=== PATIENT | female | born 1970 | race Caucasian/White ===

== ENCOUNTER 2019-06-03 18:11 | Emergency (ER) | payer BC, SELFPAY ==
[2019-06-03 18:36] VITALS: BP 156/110; PULSE 101; RESP 18; TEMP 36.7; O2SAT 99; BMI 46.1
--- NOTE | 2019-06-03 18:52 | XRR_ITS ---
PROCEDURE INFORMATION: Exam: XR Chest, 1 View Exam date and time: 06/03/2019 7:49 PM Age: 49 years old Clinical indication: Shortness of breath; Additional info: SOB, chest pressure TECHNIQUE: Imaging protocol: XR of the chest Views: 1 view. COMPARISON: No relevant prior studies available. FINDINGS: Lungs: Unremarkable. No consolidation. Pleural space: Unremarkable. No pleural effusion. No pneumothorax. Heart/Mediastinum: Unremarkable. No cardiomegaly. Bones/joints: Unremarkable. XR/XR chest 1V portable [id number] IMPRESSION: No acute findings.
--- NOTE | 2019-06-03 18:57 | ECG_ITS ---
Measurements Intervals Portia Rate: 91 P: 60 OR: 176 QRS: 46 QRSD: 90 T: 44 QT: 344 QTc: 425 SINUS RHYTHM LOW QRS VOLTAGE IN PRECORDIAL LEADS [QRS DEFLECTION < 1.0 mV IN CHEST LEADS] No previous ECG available for comparison Electronically Signed On 06-04-2019 14:58:11 SCREENING REPRESENTATIVE by Soni Chavez M.D. [id number]
[2019-06-03 19:13] LABS: Basophils # 0.1 10^3/uL (0.0-0.1); Basophils % 0.6 %; Eosinophils # 0.5 10^3/uL (0.0-0.8); Eosinophils % 5.4 %; Hematocrit 41.3 % (37.0-47.0); Hemoglobin 13.2 g/dL (11.5-15.3); Lymphocytes # 2.2 10^3/uL (0.8-4.8); Lymphocytes % 24.9 %; Mean Corpuscular Hemoglobin 27.7 pg (28.0-34.0); Mean Corpuscular Volume 86.6 fL (81-99); Mean Platelet Volume 10.3 fL (7.4-10.4); Monocytes # 0.6 10^3/uL (0.2-0.9); Monocytes % 7.3 %; Neutrophils # 5.4 10^3/uL (1.8-7.7); Neutrophils % 61.6 %; Nucleated Red Blood Cells % 0 %; Platelet Count 301 10^3/cmm (130-400); Red Blood Count 4.77 10^6/uL (4.1-5.3); Red Cell Distribution Width 13.4 % (12.1-15.1); White Blood Count 8.7 10^3/uL (4.0-10.0)
[2019-06-03 19:34] LABS: Troponin(5th) Baseline 7 ng/mL (0-10)
[2019-06-03 19:48] LABS: Alanine Aminotransferase 35 U/L (0-33); Alkaline Phosphatase 147 IU/L (35-105); Anion Gap 16.7 (5-19); Aspartate Amino Transferase 29 U/L (0-32); Blood Urea Nitrogen 18 mg/dL (6-20); Calcium 10.1 mg/Dl (8.6-10.0); Carbon Dioxide 26 mmol/L (22-29); Chloride 96 mmol/L (98-107); Globulin 3.9 g/dL (1.3-4.6); Glomerular Filtration Rate 89.7 mL/min (90-130); Glucose 120 mg/dL (74-109); NT Pro B Type Natriuretic Pept 5 pg/mL (0-125); Potassium 3.7 mmol/L (3.5-5.1); Sodium 135 mmol/L (136-145); Total Bilirubin 0.2 mg/dL (0.15-1.2); Total Protein 7.9 g/dL (6.6-8.7)
--- NOTE | 2019-06-03 21:00 | ED_ITS ---
Entered by Domi Armendariz, acting as scribe for Jun 03, 2019 18:11 HPI - SOB/Dyspnea General: Chief Complaint: Shortness of Breath/Dyspnea Stated Complaint: SOB Time Seen by Provider: 06/03/19 21:00 Source: patient Mode of arrival: ambulatory Limitations: no limitations History of Present Illness: HPI Narrative: 49 yo m came to the er pov with sob. Onset was tonight. PT states that she walked about 120 ft to get a package and she had tos top several times to catch her breath. PT states that she felt like she was going to pass out. Pt denies any fever or cough at this time. Associated symptoms: Deny abdominal pain, chest pain, fever(s) or polyuria Review of Systems General: Reports: 10 or more systems reviewed and unremarkable except in HPI and below Const: Denies: fever Eyes: Denies: change in vision ENMT: Denies: throat pain Card: Denies: chest pain Resp: Reports: shortness of breath; Denies: productive cough GI: Denies: abdominal pain : Denies: flank pain Musc: Denies: neck pain Skin/Breast: Denies: rash Neuro: Denies: headache Psych: Denies: anxiety Endo: Denies: excessive urination Brett/Lymph: Denies: easy bruising All/Imm: Denies: hives PFSH ED PFSH: Statuses (acute, chronic, etc) shown below reflect problem list status as previously entered and may not be historically accurate Medical History (Updated 06/03/19 @ 22:17 by Walter Ojeda DO) Acquired lymphedema of lower extremity (Acute) Social History Smoking and tobacco status: never smoked Physical Exam Const: COMMON NORMALS: no apparent distress Eye: COMMON NORMALS: PERRL PUPIL: Yes PERRL Neck/C-Spine: COMMON NORMALS: full ROM and no JVD Chest: COMMONS NORMALS: inspection of chest normal Resp: COMMON NORMALS: normal respiratory effort and clear to auscultation bilaterally AUSCULTATION: clear to auscultation bilaterally Cardio: COMMON NORMALS: no JVD, regular rate and regular rhythm RATE: regular rate RHYTHM: regular rhythm HEART SOUNDS: no murmurs GI: COMMON NORMALS: normal to inspection, nondistended, normoactive bowel sounds : COMMON NORMALS: Yes no CVA tenderness BLADDER/KIDNEY EXAM: Yes no CVA tenderness Back/Pelvis: COMMON NORMALS: no CVA tenderness Extremity: COMMON NORMALS: normal to inspection Psych: COMMON NORMALS: mental status grossly normal Skin: COMMON NORMALS: no rashes or lesions noted GENERAL SKIN EXAM: no rashes or lesions noted Course Vital Signs: Vital signs: Vital Signs Temperature 98.3 F 06/03/19 22:45 Pulse Rate 104 H 06/03/19 22:45 Respiratory Rate 18 06/03/19 22:45 Blood Pressure 149/96 06/03/19 22:45 Pulse Oximetry 96 06/03/19 22:45 MDM - SOB/Dyspnea MDM Narrative: Medical decision making narrative: 51-year-old female presents with chest discomfort and shortness of breath. She had recently started some hydrochlorothiazide. On exam, she had been mildly tachycardic at rest. Now at rest, her rhythm is sinus in the 80s. Oxygen saturation is 97% on room air. Blood pressure 142/93. Her laboratory shows a potassium of 3.7. Her other indices are essentially normal. Her d-dimer is negative. Her troponins are negative x2. Her EKG show sinus rhythm without any ST change. Chest x-ray is negative. She will be allowed home. She needs an outpatient stress test Lab Data: Labs: Lab Results 06/03/19 06/03/19 06/03/19 Range/Units 19:06 19:06 19:06 WBC 8.7 (4.0-10.0) 10^3/ uL RBC 4.77 (4.1-5.3) 10^6/u L Hgb 13.2 (11.5-15.3) g/dL Hct 41.3 (37.0-47.0) % MCV 86.6 (81-99) fL MCH 27.7 L (28.0-34.0) pg MCHC 32.0 (30.0-36.0) g/dL RDW 13.4 (12.1-15.1) % Plt Count 301 (130-400) 10^3/c mm MPV 10.3 (7.4-10.4) fL Neut % (Auto) 61.6 % Lymph % (Auto) 24.9 % [place] % (Auto) 7.3 % Eos % (Auto) 5.4 % Baso % (Auto) 0.6 % Neut # (Auto) 5.4 (1.8-7.7) 10^3/u L Lymph # (Auto) 2.2 (0.8-4.8) 10^3/u L [place] # (Auto) 0.6 (0.2-0.9) 10^3/u L Eos # (Auto) 0.5 (0.0-0.8) 10^3/u L Baso # (Auto) 0.1 (0.0-0.1) 10^3/u L Nucleated RBC % (a uto) 0 % Nucleated RBCs # 0.0 /100WBC D-Dimer (0-0.59) ug/mIFE U Sodium 135 L (136-145) mmol/L Potassium 3.7 (3.5-5.1) mmol/L Chloride 96 L (98-107) mmol/L Carbon Dioxide 26 (22-29) mmol/L Anion Gap 16.7 (5-19) BUN 18 (6-20) mg/dL Creatinine 0.7 (0.5-0.9) mg/dL GFR Calculation 89.7 L (90-130) mL/min Glucose 120 H (74-109) mg/dL Calcium 10.1 H (8.6-10.0) mg/Dl Total Bilirubin 0.2 (0.15-1.2) mg/dL AST 29 (0-32) U/L ALT 35 H (0-33) U/L Alkaline Phosphata se 147 H (35-105) IU/L Troponin T Baselin e 7 (0-10) ng/mL Troponin T 120 Min [place] (0-10) ng/mL Delta Troponin T (0-10) ABS# NT-Pro-B Natriuret Pep 5 (0-125) pg/mL Total Protein 7.9 (6.6-8.7) g/dL Albumin 4.0 (3.5-5.2) g/dL Globulin 3.9 (1.3-4.6) g/dL 06/03/19 06/03/19 Range/Units 19:06 20:58 WBC (4.0-10.0) 10^3/ uL RBC (4.1-5.3) 10^6/u L Hgb (11.5-15.3) g/dL Hct (37.0-47.0) % MCV (81-99) fL MCH (28.0-34.0) pg MCHC (30.0-36.0) g/dL RDW (12.1-15.1) % Plt Count (130-400) 10^3/c mm MPV (7.4-10.4) fL Neut % (Auto) % Lymph % (Auto) % [place] % (Auto) % Eos % (Auto) % Baso % (Auto) % Neut # (Auto) (1.8-7.7) 10^3/u L Lymph # (Auto) (0.8-4.8) 10^3/u L [place] # (Auto) (0.2-0.9) 10^3/u L Eos # (Auto) (0.0-0.8) 10^3/u L Baso # (Auto) (0.0-0.1) 10^3/u L Nucleated RBC % (a uto) % Nucleated RBCs # /100WBC D-Dimer 0.30 (0-0.59) ug/mIFE U Sodium (136-145) mmol/L Potassium (3.5-5.1) mmol/L Chloride (98-107) mmol/L Carbon Dioxide (22-29) mmol/L Anion Gap (5-19) BUN (6-20) mg/dL Creatinine (0.5-0.9) mg/dL GFR Calculation (90-130) mL/min Glucose (74-109) mg/dL Calcium (8.6-10.0) mg/Dl Total Bilirubin (0.15-1.2) mg/dL AST (0-32) U/L ALT (0-33) U/L Alkaline Phosphata se (35-105) IU/L Troponin T Baselin e (0-10) ng/mL Troponin T 120 Min crow 7.29 (0-10) ng/mL Delta Troponin T 0.29 (0-10) ABS# NT-Pro-B Natriuret Pep (0-125) pg/mL Total Protein (6.6-8.7) g/dL Albumin (3.5-5.2) g/dL Globulin (1.3-4.6) g/dL Discharge Plan Discharge Patient Disposition: Home, Self-Care Clinical Impression: Chest pain Condition: Stable Referrals: Blossom Sung FNP [Family Provider] - (If you do not hear from themCase management will set you up for an outpatient stress test. By Thursday, Dial [phone] and ask for the ER child welfare caseworker. Return to the emergency department for any return of your chest pain, significant shortness of breath, other concerning symptoms. You might consider stopping your hydrochlorothiazide, as it may be a cause of your symptoms.) Discharge Diet: Usual diet Discharge Activity: Limit activity as instructed Patient Instructions: Chest Pain (ED) Activity Restrictions/Additional Instructions: No strenuous activity until cleared by your doctor. Discharge Date/Time: 06/03/19 22:49 Coding Level of Care Code ED Websphere Developer for Chg Fwd Exam Problem Focused The documentation recorded by the Marcello alva Stephanie Lyn, accurately reflects the service I personally performed and the decisions made by , Walter Ojeda, Jun 03, 2019 18:11
[2019-06-03 21:11] VITALS: BP 137/93; PULSE 100; RESP 18; O2SAT 99
[2019-06-03 21:12] VITALS: O2SAT 99
--- NOTE | 2019-06-03 21:14 | PC.NURSE ---
EKG done @ 2053 and shown to ED doctor.
[2019-06-03 21:26] LABS: Troponin 5 2HR 7.29 ng/mL (0-10)
[2019-06-03 21:40] LABS: Troponin 5 2HR Delta 0.29 ABS# (0-10)
--- NOTE | 2019-06-03 21:48 | ED_ITS ---
HPI - SOB/Dyspnea General: Chief Complaint: Shortness of Breath/Dyspnea Stated Complaint: SOB Time Seen by Provider: 06/03/19 21:00 Source: patient Mode of arrival: ambulatory Limitations: no limitations History of Present Illness: Associated symptoms: Reports chest pain and palpitations; Deny abdominal pain, dizziness, fever(s), nausea, orthopnea or vomiting Review of Systems Const: Denies: fever or chills Eyes: Denies: change in vision or blurry vision ENMT: Denies: painful swallowing, swelling of lips/tongue, bleeding gums, de ntal pain, Change in hearing, nose bleeds, post nasal drip or facial/sinus pain Card: Reports: chest pain, palpitations and shortness of breath on exertion; Denies: irregular heart rhythm, edema, swelling of feet/ankles or shortness of breath when lying down Resp: Reports: shortness of breath; Denies: productive cough, non-productive cough or wheezing GI: Denies: abdominal pain, nausea, vomiting, rectal pain, blood in stool or black tarry stool : Denies: painful urination, urinary frequency, urinary urgency or blood in urine Musc: Denies: neck pain, back pain, redness or joint warmth Skin/Breast: Denies: rash, itching or redness Neuro: Denies: headache, dizziness, vertigo, confusion or seizure-like activity Psych: Denies: anxiety, visual hallucinations or auditory hallucinations PFSH ED PFSH: Statuses (acute, chronic, etc) shown below reflect problem list status as previously entered and may not be historically accurate Medical History (Updated 06/03/19 @ 22:17 by Walter Ojeda DO) Acquired lymphedema of lower extremity (Acute) Social History Smoking and tobacco status: never smoked Physical Exam Const: COMMON NORMALS: alert GENERAL APPEARANCE: well developed ORIENTATION/CONSCIOUSNESS: Yes awake, Yes oriented to person, Yes oriented to place and Yes oriented to time HENMT: COMMON NORMALS: normocephalic, external ears normal, external nose normal and moist oral mucous membranes HEAD & SCALP: normocephalic; no scalp tenderness FACE & SINUS: normal facial exam NOSE: external nose normal and no nasal discharge EXTERNAL EAR: Yes external ears normal MOUTH: tongue normal TEETH & GINGIVA: no abnormal tooth and associated gingiva THROAT: posterior oropharynx normal; no peritonsillar mass Eye: COMMON NORMALS: PERRL, EOMs intact bilaterally and conjunctivae normal EYELID: eyelids normal CONJUNCTIVA: Yes conjunctivae normal PUPIL: Yes PERRL Neck/C-Spine: COMMON NORMALS: full ROM GENERAL: No anterior neck swelling and No tracheal deviation CERVICAL SPINE: Yes normal cervical lordosis, No cervical spine tenderness, No step off deformity, No paracervical muscle tenderness and No paracervical muscle spasm Chest: COMMONS NORMALS: inspection of chest normal CHEST: Yes symmetrical chest wall rise and No tenderness Resp: COMMON NORMALS: clear to auscultation bilaterally EFFORT & INSPECTION: No tachypneic, No respiratory distress, No retractions, No uses accessory muscles and No tracheal deviation AUSCULTATION: clear to auscultation bilaterally, no rhonchi, no wheezes and lung sounds not diminished Cardio: COMMON NORMALS: regular rate and regular rhythm RATE: regular rate RHYTHM: regular rhythm HEART SOUNDS: no murmurs PERIPHERAL PULSES: radial pulses present GI: INSPECTION: No abdominal distension AUSCULTATION: No hyperactive bowel sounds and No hypoactive bowel sounds PALPATION: No tender, No guarding and No rigid PERCUSSION: no dullness to percussion and no tympanic to percussion : COMMON NORMALS: Yes no CVA tenderness BLADDER/KIDNEY EXAM: Yes no CVA tenderness Back/Pelvis: COMMON NORMALS: no CVA tenderness PELVIS: Yes no pain with anterior-posterior compression and Yes no pain with lateral compression Neuro: SENSORIUM/ORIENTATION: Yes alert, Yes oriented to person, Yes oriented to place and Yes oriented to time Psych: COMMON NORMALS: mental status grossly normal and speech normal SPEECH: Yes normal speech Skin: COMMON NORMALS: no rashes or lesions noted GENERAL SKIN EXAM: no rashes or lesions noted Course Vital Signs: Vital signs: Vital Signs Temperature 98.3 F 06/03/19 22:45 Pulse Rate 104 H 06/03/19 22:45 Respiratory Rate 18 06/03/19 22:45 Blood Pressure 149/96 06/03/19 22:45 Pulse Oximetry 96 06/03/19 22:45 MDM - SOB/Dyspnea MDM Narrative: Medical decision making narrative: 49-year-old female presents with chest pain and shortness of breath. Is resolved. Her troponins did not change. Her EKGs have been sinus without ST changes x2 sets, 2 hours apart. Her d-dimer was negative. Her chest x-ray was negative. She had recently been started on hydrochlorothiazide, and her potassium went from 4.4-3.7. This may be the cause of her symptoms. She was given potassium here to replete. She will go for an outpatient stress test which has been ordered. Lab Data: Labs: Lab Results 06/03/19 06/03/19 06/03/19 Range/Units 19:06 19:06 19:06 WBC 8.7 (4.0-10.0) 10^3/ uL RBC 4.77 (4.1-5.3) 10^6/u L Hgb 13.2 (11.5-15.3) g/dL Hct 41.3 (37.0-47.0) % MCV 86.6 (81-99) fL MCH 27.7 L (28.0-34.0) pg MCHC 32.0 (30.0-36.0) g/dL RDW 13.4 (12.1-15.1) % Plt Count 301 (130-400) 10^3/c mm MPV 10.3 (7.4-10.4) fL Neut % (Auto) 61.6 % Lymph % (Auto) 24.9 % [place] % (Auto) 7.3 % Eos % (Auto) 5.4 % Baso % (Auto) 0.6 % Neut # (Auto) 5.4 (1.8-7.7) 10^3/u L Lymph # (Auto) 2.2 (0.8-4.8) 10^3/u L [place] # (Auto) 0.6 (0.2-0.9) 10^3/u L Eos # (Auto) 0.5 (0.0-0.8) 10^3/u L Baso # (Auto) 0.1 (0.0-0.1) 10^3/u L Nucleated RBC % (a uto) 0 % Nucleated RBCs # 0.0 /100WBC D-Dimer (0-0.59) ug/mIFE U Sodium 135 L (136-145) mmol/L Potassium 3.7 (3.5-5.1) mmol/L Chloride 96 L (98-107) mmol/L Carbon Dioxide 26 (22-29) mmol/L Anion Gap 16.7 (5-19) BUN 18 (6-20) mg/dL Creatinine 0.7 (0.5-0.9) mg/dL GFR Calculation 89.7 L (90-130) mL/min Glucose 120 H (74-109) mg/dL Calcium 10.1 H (8.6-10.0) mg/Dl Total Bilirubin 0.2 (0.15-1.2) mg/dL AST 29 (0-32) U/L ALT 35 H (0-33) U/L Alkaline Phosphata se 147 H (35-105) IU/L Troponin T Baselin e 7 (0-10) ng/mL Troponin T 120 Min [place] (0-10) ng/mL Delta Troponin T (0-10) ABS# NT-Pro-B Natriuret Pep 5 (0-125) pg/mL Total Protein 7.9 (6.6-8.7) g/dL Albumin 4.0 (3.5-5.2) g/dL Globulin 3.9 (1.3-4.6) g/dL 06/03/19 06/03/19 Range/Units 19:06 20:58 WBC (4.0-10.0) 10^3/ uL RBC (4.1-5.3) 10^6/u L Hgb (11.5-15.3) g/dL Hct (37.0-47.0) % MCV (81-99) fL MCH (28.0-34.0) pg MCHC (30.0-36.0) g/dL RDW (12.1-15.1) % Plt Count (130-400) 10^3/c mm MPV (7.4-10.4) fL Neut % (Auto) % Lymph % (Auto) % [place] % (Auto) % Eos % (Auto) % Baso % (Auto) % Neut # (Auto) (1.8-7.7) 10^3/u L Lymph # (Auto) (0.8-4.8) 10^3/u L [place] # (Auto) (0.2-0.9) 10^3/u L Eos # (Auto) (0.0-0.8) 10^3/u L Baso # (Auto) (0.0-0.1) 10^3/u L Nucleated RBC % (a uto) % Nucleated RBCs # /100WBC D-Dimer 0.30 (0-0.59) ug/mIFE U Sodium (136-145) mmol/L Potassium (3.5-5.1) mmol/L Chloride (98-107) mmol/L Carbon Dioxide (22-29) mmol/L Anion Gap (5-19) BUN (6-20) mg/dL Creatinine (0.5-0.9) mg/dL GFR Calculation (90-130) mL/min Glucose (74-109) mg/dL Calcium (8.6-10.0) mg/Dl Total Bilirubin (0.15-1.2) mg/dL AST (0-32) U/L ALT (0-33) U/L Alkaline Phosphata se (35-105) IU/L Troponin T Baselin e (0-10) ng/mL Troponin T 120 Min [place] 7.29 (0-10) ng/mL Delta Troponin T 0.29 (0-10) ABS# NT-Pro-B Natriuret Pep (0-125) pg/mL Total Protein (6.6-8.7) g/dL Albumin (3.5-5.2) g/dL Globulin (1.3-4.6) g/dL Discharge Plan Discharge Patient Disposition: Home, Self-Care Clinical Impression: Chest pain Condition: Stable Referrals: Blossom Sung FNP [Family Provider] - (If you do not hear from themCase management will set you up for an outpatient stress test. By Thursday, Dial [phone] and ask for the ER dependency case manager. Return to the emergency department for any return of your chest pain, significant shortness of breath, other concerning symptoms. You might consider stopping your hydrochlorothiazide, as it may be a cause of your symptoms.) Discharge Diet: Usual diet Discharge Activity: Limit activity as instructed Patient Instructions: Chest Pain (ED) Activity Restrictions/Additional Instructions: No strenuous activity until cleared by your doctor. Discharge Date/Time: 06/03/19 22:49 Coding Level of Care Code ED Heat Treat Technician for Ezequiel Randhawa
[2019-06-03 22:15] VITALS: BP 155/91; PULSE 99; RESP 18; O2SAT 99
[2019-06-03 22:45] VITALS: BP 149/96; PULSE 104; RESP 18; TEMP 36.8; O2SAT 96
--- NOTE | 2019-06-07 12:59 | DCPLANNER ---
land development project manager had message to schedule an outpatient stress test. land development project manager called patient to confirm that patient wanted to have stress test and to confirm who patient sees for primary care physician. Patient stated that she does not want to have the stress test ordered at this time, she wants to wait and speak with her primary care physician. Patient stated that if she needed one then her primary care can order it.
== END 2019-06-03 22:49 | disposition home or self-care (01) ==
PROVIDERS: Family Medicine; Emergency Provider Emergency Medicine; Family Provider Registered Nurse
DX: R07.9 Chest pain, unspecified (principal)
CPT/HCPCS: 71045; 80053; 83880; 84484; 85025; 85378; 93005; 99283

== ENCOUNTER 2019-08-30 11:41 | Outpatient (CLI) | payer BC, SELFPAY ==
--- NOTE | 2019-08-30 11:47 | XR_ITS ---
WS: [id number] PROCEDURE: XR chest 2V* [id number] CLINICAL INFORMATION: SHORTNESS OF BREATH COMPARISON: June 30, 2019 FINDINGS: Heart: Normal cardiac silhouette. Lungs: Lungs are clear. No consolidation or pleural fluid. No acute pulmonary infiltrates. Bones: Hypertrophic changes mid thoracic spine. XR/XR chest 2V* [id number] IMPRESSION: No acute chest findings.
== END 2019-08-30 11:42 | disposition home or self-care (01) ==
LOC: RADWPI 11:44
PROVIDERS: Family Provider Registered Nurse; PCP Registered Nurse; Visit Provider Registered Nurse
DX: R06.02 Shortness of breath (principal)
CPT/HCPCS: 71046

== ENCOUNTER → 2019-11-30 16:30 | Outpatient (BNVA) | payer BC, SELFPAY | PROVIDERS: Family Provider Registered Nurse; PCP Registered Nurse; Visit Provider Emergency Medicine | DX: M79.642 Pain in left hand (principal); S69.90XA Unspecified injury of unspecified wrist, hand and finger(s), initial encounter; X58.XXXA Exposure to other specified factors, initial encounter | CPT/HCPCS: 73130 ==

== ENCOUNTER 2020-01-18 16:31 | Emergency (ER) | payer SELFPAY ==
[2020-01-18 16:42] VITALS: BMI 48.1
[2020-01-18 16:44] VITALS: BP 148/88; PULSE 77; RESP 18; TEMP 36.8; O2SAT 96
--- NOTE | 2020-01-18 17:32 | W.ED.EXTPRO ---
HPI - Extremity Problem General: Chief complaint: Extremity Problem,Nontraumatic Stated complaint: shoulder pain Time Seen by Provider: 01/18/20 17:32 Source: patient Mode of arrival: ambulatory Limitations: no limitations History of Present Illness: HPI Narrative: 44-year-old female comes in today with complaints of left arm numbness and tingling with pain. Patient reports difficulty for the last 9 days. Patient is unable to find relief with routine medications at home to include prescription hydrocodone, Aleve, and gabapentin. Patient does see a pain specialist in [place]. Review of Systems General: Reports: 10 or more systems reviewed and unremarkable except in HPI and below Musc: Reports: extremity pain (left arm) [facility] ED PFS: Medical History (Updated 01/18/20 @ 18:43 by SHEN Magana) Acquired lymphedema of lower extremity Social History Smoking and tobacco status: never smoked Alcohol intake: never Physical Exam Const: COMMON NORMALS: no acute distress and patient oriented x3 GENERAL APPEARANCE: cooperative HENMT: COMMON NORMALS: normocephalic and Normal external nose present HEAD & SCALP: normal to inspection and normocephalic NOSE: Normal external nose present MOUTH: Normal oral and palatal mucosa present Eye: GENERAL EYE: appearance normal, both eyes and all related structures Neck/C-Spine: OTHER: left trapezius muscle tightness and tenderness Chest: COMMONS NORMALS: normal inspection of the chest Resp: COMMON NORMALS: normal respiratory effort EFFORT & INSPECTION: Yes able to speak in complete sentences Cardio: COMMON NORMALS: regular rate and regular rhythm RATE: regular rate RHYTHM: regular rhythm GI: COMMON NORMALS: non-tender : COMMON NORMALS: Yes no CVA tenderness BLADDER/KIDNEY EXAM: Yes no CVA tenderness Back/Pelvis: COMMON NORMALS: no CVA tenderness and thoracic and lumbar spine normal to inspection Extremity: COMMON NORMALS: normal to inspection Neuro: COMMON NORMALS: patient oriented x3 and moves all extremities Psych: COMMON NORMALS: mental status grossly normal and cooperative Skin: COMMON NORMALS: no rashes or lesions noted GENERAL SKIN EXAM: no rashes or lesions noted Course Vital Signs: Vital signs: Vital Signs Temperature 98.2 F 01/18/20 16:44 Pulse Rate 77 01/18/20 16:44 Respiratory Rate 18 01/18/20 16:44 Blood Pressure 148/88 01/18/20 16:44 Pulse Oximetry 96 01/18/20 16:44 MDM - Extremity (Nontraumatic) MDM Narrative: Medical decision making narrative: Patient comes in today with tingling and discomfort to the left extremity. Patient reports radiation into her fingers. Patient has good range of motion of the shoulder. Patient does report some tenderness in her trapezius and cervical paraspinous muscles. Exam notes normal range of motion of the neck tightness of muscles in the trapezius and cervical paraspinous area. Pulses are intact. No swelling or redness is noted to the extremity. Patient has good range of motion of the hand. Differential diagnosis includes but not limited to intervertebral disc disease, facet arthropathy, foraminal stenosis. CT scan noted some probable foraminal stenosis in the C6 area. Patient was given injections for pain with recommendations for follow-up with neurology for further evaluation and treatment. Patient reported understanding agreed to plan. Discharge Plan Discharge Patient Disposition: Home Clinical Impression: Cervical radiculopathy at C6 Condition: Stable Prescriptions: New tizanidine 4 mg tablet 4 mg PO TID Qty: 20 RF: 0 No Action ketorolac 30 mg/mL solution 60 mg IM ONCE Qty: 2 RF: 0 meloxicam 15 mg tablet 15 mg PO DAILY RF: 0 gabapentin 600 mg tablet 600 mg PO TID RF: 0 hydrocodone-acetaminophen [Ione] 5-325 mg tablet 1 tab PO TID RF: 0 tizanidine 4 mg capsule 4 mg PO ONCE RF: 0 esomeprazole magnesium [Nexium] 40 mg capsule,delayed release(DR/EC) 40 mg PO DAILY RF: 0 atorvastatin 20 mg tablet 20 mg PO DAILY RF: 0 Discharge Orders: Discharge Order (Routine); Ordered 01/18/20 Ordered By: Israel Arora Referrals: Rachele Davis [Primary Care Provider] - Discharge Diet: Usual diet Discharge Activity: Increase activity as tolerated Activity Restrictions/Additional Instructions: Continue routine medications as directed. Follow-up with neurologist for further evaluation and treatment. Case management will contact you in regard to appointment follow-up. If you do not hear from foster care case manager in two days contact ER charge nurse. Drink plenty of water with medications. Return to ER for new concerns. Coding Level of Care Code ED Insulation Board Calender Operator for Chg Fwd Exam Comprehensive
--- NOTE | 2020-01-18 17:40 | CT_ITS ---
WS: [id number] EXAM: CT cervical spin wo con* [id number] DATE OF EXAMINATION: 01/18/2020, 1805 hours COMPARISON: None. HISTORY: 50 years old with neck and shoulder pain for the last 9 days. Left arm numbness. TECHNIQUE: Transaxial computed tomography was obtained through the cervical spine and viewed in multi ple windows with reconstructions. DLP: 1003.[address] scans at [facility] use at least one of these dose optimization techniques: automat ed exposure control; mA and/or kV adjustment per patient size (includes targeted exams where dose is matched to clinical indication); or iterative reconstruction. FINDINGS: Skull base is intact. Mastoid air cells are pneumatized and well aerated. Predens space and preverteb ral soft tissue plane are normal. Slight scattered changes of arthritis are seen in the spine. Truck Headlight Assembler ior spurring C4-5, C5-6 and C6-7 levels. No fracture or subluxation malalignment is seen. Findings of slight spinal canal stenosis are felt to be present C5-C6 and C6-7 levels with left neural foraminal stenosis C6-7 level. Lung apices are clear. Thyroid gland is normal in appearance. No paraspinal mass is seen. Shotty adenopathy within the neck is most likely reactive in nature. CT/CT cervical spin wo con* [id number] IMPRESSION: Scattered changes of arthritis. No fracture or subluxation malalignment. Degene rative spondylosis changes C4-5, C5-6 and C6-7 levels with suspected spinal can al stenosis C5-6 and C6-7 levels. Left C6-7 neural foraminal stenosis secondary to uncovertebral joint spurring.
--- NOTE | 2020-01-18 17:40 | ECG_ITS ---
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 Measurements Intervals [facility] Rate: 71 P: 47 LA: 192 QRS: 26 QRSD: 116 T: 32 QT: 379 QTc: 412 Interpretive Statements SINUS RHYTHM LOW QRS VOLTAGE IN PRECORDIAL LEADS [QRS DEFLECTION < 1.0 mV IN CHEST LEADS] MODERATE INTRAVENTRICULAR CONDUCTION DELAY [110+ ms QRS DURATION] Compared to ECG 06/03/2019 21:02:16 Intraventricular conduction delay now present Electronically Signed On 01-19-2020 22:33:53 CDT by Samantha Cooley M.D. [id number]
[2020-01-18] MEDS: diazePAM 5 mg Tablet 10 MG PO (17:54)
[2020-01-18] MEDS: ketorolac 30 mg/mL INJ IM (17:55)
[2020-01-18] MEDS: dexamethasone 10 mg/mL INJ 8 MG IM (17:55)
[2020-01-18 19:18] VITALS: RESP 18; O2SAT 98
[2020-01-18] MEDS: morphine 4 mg/mL SDV 1 mL IM (19:18)
[2020-01-18 19:42] VITALS: BP 136/74; PULSE 82; RESP 18; O2SAT 98
--- NOTE | 2020-01-19 14:24 | DCPLANNER ---
Lanie had message to schedule a follow up appointment for patient with neurology. integrated campaign manager called the office of Dr. Cardoza, spoke with Nany, was told that patient could be seen by ELECT[employer] LIBRARIAN, Malorie. integrated campaign manager spoke with [facility], a follow up appointment was scheduled for Friday, January 24, 2020 at 1:00 with Malorie. Clinic will call patient with appointment information.
--- NOTE | 2020-02-17 15:42 | DCPLANNER ---
Patient had an appointment scheduled for 01.24.20 with neuroscience - patient did attend appointment.
== END 2020-01-18 19:45 | disposition home or self-care (01) ==
PROVIDERS: Emergency Provider Nurse Practitioner Family; PCP Registered Nurse
DX: M54.12 Radiculopathy, cervical region (principal)
CPT/HCPCS: 12345; 72125; 93005; 96372; 99281; 99283; J1100; J1885; J2270

== ENCOUNTER → 2020-01-26 08:22 | Outpatient (BNVA) | payer SELFPAY | PROVIDERS: PCP Registered Nurse; Visit Provider Licensed Practical Nurse | DX: M50.020 Cervical disc disorder with myelopathy, mid-cervical region, unspecified level (principal) | CPT/HCPCS: 99204 ==

== ENCOUNTER 2020-02-20 07:40 | Outpatient (CLI) | payer MEDICAID, SELFPAY ==
--- NOTE | 2020-02-20 07:58 | XR_ITS ---
WS: [id number] LATERAL CERVICAL SPINE: 3 view. Lateral radiographs are performed in upright neutral, flexion and extension to the patient's toleranc e. HISTORY: Neck pain COMPARISON: None available. Significantly limited evaluation of the lower cervical spine due to patient's body habitus. C2 through portions of C5 demonstrate mild straightening. C4 retrolisthesis by 2.6 mm does not change with flexion or extension. The lower disc spaces cannot be evaluated. XR/XR cervical spine fl/ex [id number] IMPRESSION: 1. C4 retrolisthesis by 2.6 mm without instability during flexion or extension . 2. C5-C7 cannot be evaluated due to body habitus.
--- NOTE | 2020-02-20 07:58 | MR_ITS ---
WS: [id number] MRI CERVICAL SPINE HISTORY: M50.020 Cervical disc disorder with myelopathy, mid-cervi... COMPARISON: CT 01/18/2020 Mild straightening and reversal the normal cervical lordosis. No marrow edema or fracture. Disc spaces are mildly narrowed with mild desiccation, most significant at C4-5, C5-6 and C6-7. Small hypertrophic endplate osteophytes from C4 through C7. Signal within the cord is normal. Craniocervical junction, C1 and C2 relationship, odontoid process and soft tissues are normal. C2-C3: Normal. C3-C4: Normal. C4-C5: Mild osteophytic ridging and a shallow central disc protrusion. Osteophytes extend into the fo ramen bilaterally. Very minimal narrowing of the foramen and central canal. C5-C6: Mild osteophytic ridging with a very shallow central disc protrusion and small RIGHT foraminal osteophytes. Mild RIGHT foraminal narrowing. C6-C7: Diffuse moderate osteophytic ridging and annular disc bulging. Larger disc osteophyte complex in the LEFT foramen with mild encroachment upon the exiting nerve roots on the LEFT and displacement. Moderate LEFT and mild RIGHT foraminal stenosis. C7-T1: Normal. Paraspinal soft tissue are normal. MR/MR cervical spin wo con* [id number] IMPRESSION: 1. Moderate LEFT foraminal stenosis due to disc osteophyte complex encroaching and displacing the LEFT exiting nerve roots at C6-7. 2. Mild RIGHT foraminal narrowing at C5-6 and C6-7. 3. Shallow central disc protrusion at C4-5 and C5-6.
== END 2020-02-20 07:41 | disposition home or self-care (01) ==
LOC: RADWPI 07:46
PROVIDERS: Family Provider Registered Nurse; PCP Registered Nurse; Visit Provider Licensed Practical Nurse
DX: M48.02 Spinal stenosis, cervical region (principal); M25.78 Osteophyte, vertebrae; M50.222 Other cervical disc displacement at C5-C6 level
CPT/HCPCS: 72040; 72141

== ENCOUNTER → 2020-02-21 07:56 | Outpatient (BNVA) | payer MEDICAID, SELFPAY | PROVIDERS: Family Provider Registered Nurse; PCP Registered Nurse; Visit Provider Licensed Practical Nurse | DX: M50.020 Cervical disc disorder with myelopathy, mid-cervical region, unspecified level (principal); M54.2 Cervicalgia | CPT/HCPCS: 99213 ==

== ENCOUNTER 2020-02-28 06:00 | Outpatient (RCR) | payer MEDICAID, SELFPAY | END 2020-02-29 23:59 | disposition home or self-care (01) | LOC: SPT 06:00 | PROVIDERS: PCP Registered Nurse; Referring Provider Licensed Practical Nurse; Visit Provider Licensed Practical Nurse | DX: M54.2 Cervicalgia (principal) | CPT/HCPCS: 95911; 97110; 97161 ==

== ENCOUNTER 2020-03-01 06:00 | Outpatient (RCR) | payer MEDICAID, SELFPAY | END 2020-03-31 23:59 | disposition home or self-care (01) | LOC: SPT 06:00 | PROVIDERS: PCP Registered Nurse; Referring Provider Licensed Practical Nurse; Visit Provider Licensed Practical Nurse | DX: M54.2 Cervicalgia (principal) | CPT/HCPCS: 97110 ==

== ENCOUNTER → 2020-03-02 07:46 | Outpatient (BNVA) | payer MEDICAID, SELFPAY | PROVIDERS: Family Provider Registered Nurse; PCP Registered Nurse; Referring Provider Licensed Practical Nurse; Visit Provider Specialist | DX: M50.020 Cervical disc disorder with myelopathy, mid-cervical region, unspecified level (principal) | CPT/HCPCS: 95861; 99213 ==

== ENCOUNTER → 2020-03-27 09:36 | Outpatient (BNVA) | payer MEDICAID, SELFPAY | PROVIDERS: PCP Registered Nurse; Visit Provider Licensed Practical Nurse | DX: M47.812 Spondylosis without myelopathy or radiculopathy, cervical region (principal); M50.020 Cervical disc disorder with myelopathy, mid-cervical region, unspecified level | CPT/HCPCS: 99213 ==

== ENCOUNTER 2020-08-06 15:48 | Outpatient (CLI) | payer MEDICAID, SELFPAY ==
--- NOTE | 2020-08-06 15:54 | CT_ITS ---
WS: [id number] CT ABDOMEN AND PELVIS WITH CONTRAST HISTORY: LEFT LOWER QUADRANT PAIN TECHNIQUE: Imaging performed of the abdomen and pelvis with IV contrast. Single phase imaging of the abdomen. Coronal and sagittal reformats are submitted. All CT scans at [facility] use at least one of these dose optimization techniques: automated exposure control; mA and/or kV adjustment per patient size (includes targeted exams where dose is matched to clinical indication); or iterativ e reconstruction. IV CONTRAST: Omnipaque 300; 95 mL IV. Oral contrast: No DLP: 1144.61 mGycm COMPARISON: 06/21/2014 Lower thorax: Lung bases are clear. Heart is normal size. No hiatal hernia. Liver/biliary system: Normal size with no intrahepatic dilatation. Gallbladder: Normal. No gallstones or wall thickening. No pericholecystic fluid. Pancreas: Normal. Spleen: Normal. Adrenal glands: Normal. Right kidney: Normal. Left kidney: Normal size kidney. 1.7 cm area of decreased attenuation in the mid kidney similar to th e prior study. No ureteral dilatation. Aorta: Normal. Lymphadenopathy: None. Free fluid: None. GI tract: Normal appendix. There is no GI tract obstruction. Abdominal wall: Fat-containing umbilical hernia. Pelvis: Uterus is normal size. Bilateral tubal ligation clips are noted. No adenopathy or ascites. Bones: Mild lumbar spondylosis. CT/CT abdomen pelvis w con* [id number] IMPRESSION: 1. No definite acute abnormalities are identified. The appendix is normal. 2. Quality of this examination is limited by body habitus. No renal obstructio n is identified. Small distal ureteral stones would be obscured. 3. No evidence for diverticulitis.
[2020-08-06] MEDS: iohexol 300 mg/mL 100 mL Btl IV (16:13)
== END 2020-08-06 15:49 | disposition home or self-care (01) ==
LOC: RADWPI 15:51
PROVIDERS: PCP Registered Nurse; Visit Provider Registered Nurse
DX: R10.32 Left lower quadrant pain (principal); R10.31 Right lower quadrant pain; R50.9 Fever, unspecified; R11.0 Nausea
CPT/HCPCS: 74177; Q9967

== ENCOUNTER 2020-08-08 18:43 | Emergency (ER) | payer MEDICAID, SELFPAY ==
[2020-08-08 19:19] VITALS: BP 133/83; PULSE 95; RESP 14; TEMP 36.7; O2SAT 99; BMI 48.2
--- NOTE | 2020-08-08 19:34 | USR_ITS ---
PROCEDURE INFORMATION: Exam: US Abdomen, Limited; Right Upper Quadrant Exam date and time: 08/08/2020 8:52 PM Age: 50 years old Clinical indication: Abdominal pain; Additional info: Ruq pain TECHNIQUE: Imaging protocol: US abdomen. Real time ultrasound with image documentation. Limited exam focused on the right upper quadrant. COMPARISON: US Abdomen* [id number] 05/03/2015 7:39 AM FINDINGS: Liver: The liver is grossly unremarkable but is suboptimally visualized due to body habitus. Gallbladder: Information regarding sonographic Saez sign is not reported. The gallbladder is normal. There are no stones. There is no wall thickening or pericholecystic fluid. Common bile duct: The common bile duct is nondilated measuring 4 mm. Pancreas: The visible portion of the pancreas is unremarkable. Right kidney: The right kidney is unremarkable. Aorta: The upper abdominal aorta is unremarkable. Inferior vena cava: The IVC is unremarkable in the upper abdomen. US/US gall bladder [id number] IMPRESSION: No acute findings.
--- NOTE | 2020-08-08 19:51 | W.ED.ABDPA2 ---
HPI - Abdominal Pain General: Chief Complaint: Abdominal Pain Stated Complaint: ABD Pain Time Seen by Provider: 08/08/20 19:04 Source: patient Mode of arrival: ambulatory Limitations: no limitations History of Present Illness: HPI narrative: 50-year-old female states of last 4 to 5 days she been having epigastric and right upper quadrant abdominal pain. States seems to be worse after eating as well. States the pain is sharp in nature and rates an 8 out of 10. She had a CT scan 2 days ago which showed no acute abnormalities. She had no vomiting or diarrhea. She denies any fevers. She denies any chest pain or radiation of her pain. MD elicited complaint: abdominal pain Associated Symptoms: Denies chills, dysuria and fever(s) Review of Systems Const: Denies: fever(s), chills, body aches or change in appetite Eyes: Denies: blurry vision or eye discomfort ENMT: Denies: throat pain or dental pain Card: Denies: chest pain Resp: Denies: dyspnea GI: Reports: abdominal pain : Denies: dysuria Musc: Denies: neck pain or back pain Skin/Breast: Denies: rash Neuro: Denies: headache(s) Psych: Denies: depression Brett/Lymph: Denies: easy bruising All/Imm: Denies: urticaria PFSH ED PFSH: Medical History (Updated 08/08/20 @ 21:33 by Mikayla Herr MD) Acquired lymphedema of lower extremity Cervical disc disorder with myelopathy of mid-cervical region Cervical osteoarthritis Surgical History History of elbow surgery 2018 Dr. Srinivasan Pena [facility] Orthopedic Surgery Left ulnar nerve transposition. Right ulnar nerve transposition History of knee surgery History of lumbar surgery 2016 Dr. Molina Tolentino Neurosurgeon [facility] L2-L3 decompression History of lymph node biopsy History of oral surgery History of tubal ligation Family History Mother Diabetes Father Lung disease Grandmother CHF (congestive heart failure) Social History Smoking and tobacco status: never smoked Alcohol intake: never Household members: spouse Marital status: Current occupational status: unemployed History of recent travel: No Physical Exam Const: COMMON NORMALS: no acute distress, patient oriented x3 and healthy appearing HENMT: COMMON NORMALS: normocephalic and atraumatic HEAD & SCALP: normocephalic and atraumatic Eye: COMMON NORMALS: Equal, round and reactive pupils present and EOMs intact bilaterally PUPIL: Yes Equal, round and reactive pupils present Neck/C-Spine: COMMON NORMALS: full ROM and supple Chest: COMMONS NORMALS: normal inspection of the chest and normal palpation of entire chest wall Resp: COMMON NORMALS: normal respiratory effort, No retractions, No use of accessory muscles and clear to auscultation bilaterally AUSCULTATION: clear to auscultation bilaterally Cardio: COMMON NORMALS: regular rate, regular rhythm and No murmurs present (Cardio) RATE: regular rate RHYTHM: regular rhythm GI: COMMON NORMALS: Normal to inspection, nondistended, normoactive bowel sounds present, Soft to palpation and no masses PALPATION: Yes Soft to palpation and Yes Tenderness to palpation present (GI) Details: RUQ Extremity: COMMON NORMALS: normal to inspection and full ROM Neuro: COMMON NORMALS: patient oriented x3, moves all extremities and no focal motor deficits Psych: COMMON NORMALS: mental status grossly normal, Normal thought process present and cooperative THOUGHT PROCESS: Normal thought process present Skin: COMMON NORMALS: no rashes or lesions noted and no wounds GENERAL SKIN EXAM: no rashes or lesions noted Course Vital Signs: Vital signs: Vital Signs Temperature 98.1 F 08/08/20 19:19 Pulse Rate 82 08/08/20 22:00 Respiratory Rate 18 08/08/20 22:00 Blood Pressure 125/93 08/08/20 22:00 Pulse Oximetry 98 08/08/20 22:00 MDM - Abdominal Pain MDM Narrative: Medical decision making narrative: Jo-Ann presents here with abdominal pain. Her blood work and ultrasound here showed no acute findings. She also had a recent CT scan as well. We will place her on sucralfate and she is to follow-up with surgery. She is to return if worsening. Abdominal exam at discharge is benign. She has no signs of acute surgical abdomen. Lab Data: Labs: Lab Results 08/08/20 08/08/20 08/08/20 Range/Units 20:30 20:30 20:30 WBC 7.9 (4.0-10.0) 10^3/ uL RBC 4.34 (4.1-5.3) 10^6/u L Hgb 12.1 (11.5-15.3) g/dL Hct 37.9 (37.0-47.0) % MCV 87.3 (81-99) fL MCH 27.9 L (28.0-34.0) pg MCHC 31.9 (30.0-36.0) g/dL RDW 13.6 (12.1-15.1) % Plt Count 309 (130-400) 10^3/c mm MPV 10.3 (7.4-10.4) fL Neut % (Auto) 60.7 % Lymph % (Auto) 26.6 % Eaton % (Auto) 8.0 % Eos % (Auto) 4.1 % Baso % (Auto) 0.5 % Neut # (Auto) 4.78 (1.8-7.7) 10^3/u L Lymph # (Auto) 2.1 (0.8-4.8) 10^3/u L Eaton # (Auto) 0.6 (0.2-0.9) 10^3/u L Eos # (Auto) 0.3 (0.0-0.8) 10^3/u L Baso # (Auto) 0.0 (0.0-0.1) 10^3/u L Nucleated RBC % (a uto) 0 % Nucleated RBCs # 0.0 /100WBC Sodium 141 (136-145) mmol/L Potassium 4.1 (3.5-5.1) mmol/L Chloride 103 (98-107) mmol/L Carbon Dioxide 29 (22-29) mmol/L Anion Gap 13.1 (5-19) BUN 10 (6-20) mg/dL Creatinine 0.8 (0.5-0.9) mg/dL GFR Calculation 76.6 L (90-130) mL/min Glucose 85 (65-115) mg/dL Calculated Osmolal ity 290 (285-295) mOsm/k g Calcium 8.6 (8.5-10.5) mg/dL Total Bilirubin 0.2 (0.15-1.2) mg/dL AST 14 (0-32) U/L ALT 15 (0-33) U/L Alkaline Phosphata se 117 H (35-105) IU/L Total Protein 7.1 (6.6-8.7) g/dL Albumin 3.7 (3.5-5.2) g/dL Globulin 3.4 (1.3-4.6) g/dL Lipase 24 (13-60) U/L Urine Color Yellow (Yellow) Urine Appearance Clear (CLEAR) Urine pH 6.5 (5-7) Ur Specific Gravit y 1.005 (1.005-1.030) Urine Protein Neg (Negative) Urine Glucose (UA) Norm (Normal) Urine Ketones Negative (Negative) Urine Blood Neg (Negative) Urine Nitrate Negative (Negative) Urine Bilirubin Neg (Negative) Urine Urobilinogen Norm (Negative) mg/dL Ur Leukocyte Carine ase Negative (Negative) Imaging Data ^: US: Radiologist's impression: [address] [address] Ultrasound Report Signed Patient: Lanie Stoddard Unit #: [id number] : 1970 Age/Sex: 50 / F ADM Date: 08/08/20 Loc: ER Room/Bed: Attending Dr: Ordering Provider/Ordering MD: Mikayla Herr MD Date of Service: 08/08/20 Procedure(s): US gall bladder [id number] Accession Number(s): [id number] Report Number: [id number] PROCEDURE INFORMATION: Exam: US Abdomen, Limited; Right Upper Quadrant Exam date and time: 08/08/2020 8:52 PM Age: 50 years old Clinical indication: Abdominal pain; Additional info: Ruq pain TECHNIQUE: Imaging protocol: US abdomen. Real time ultrasound with image documentation. Limited exam focused on the right upper quadrant. COMPARISON: US Abdomen* [id number] 05/03/2015 7:39 AM FINDINGS: Liver: The liver is grossly unremarkable but is suboptimally visualized due to body habitus. Gallbladder: Information regarding sonographic Saez sign is not reported. The gallbladder is normal. There are no stones. There is no wall thickening or pericholecystic fluid. Common bile duct: The common bile duct is nondilated measuring 4 mm. Pancreas: The visible portion of the pancreas is unremarkable. Right kidney: The right kidney is unremarkable. Aorta: The upper abdominal aorta is unremarkable. Inferior vena cava: The IVC is unremarkable in the upper abdomen. US/ gall bladder [id number] IMPRESSION: No acute findings. Discharge Plan Discharge Patient Disposition: Home Clinical Impression: Abdominal pain Qualifiers: Abdominal location: right upper quadrant Qualified Code(s): R10.11 - Right upper quadrant pain Condition: Stable Prescriptions: New sucralfate 1 gram tablet 1 g PO BID 56 Days Qty: 112 RF: 0 No Action ketorolac 30 mg/mL solution 60 mg IM ONCE Qty: 2 RF: 0 meloxicam 15 mg tablet 15 mg PO DAILY RF: 0 gabapentin 600 mg tablet 600 mg PO TID RF: 0 esomeprazole magnesium [Nexium] 40 mg capsule,delayed release(DR/EC) 40 mg PO DAILY RF: 0 atorvastatin 20 mg tablet 20 mg PO DAILY RF: 0 hydrocodone-acetaminophen [Burt] 5-325 mg tablet 1 tab PO TID PRNRF: 0 lisinopril 2.5 mg tablet 2.5 mg PO DAILY RF: 0 spironolactone 25 mg tablet 25 mg PO DAILY RF: 0 baclofen 5 mg tablet 5 mg PO DAILY PRNRF: 0 Discharge Orders: Discharge ED (Routine); Ordered 08/08/20 Ordered By: Mikayla Herr Referrals: Jared Lebron MD [Physician] - 1-3 days Cele Borrero DO [Primary Care Provider] - Discharge Diet: Advance as tolerated Discharge Activity: Resume usual activity Patient Instructions: Abdominal Pain (ED) Coding Level of Care Code ED Senior Clinical Research Associate for g Fwd Exam Comprehensive
[2020-08-08 20:35] VITALS: BP 114/75; PULSE 74; RESP 18; O2SAT 98
[2020-08-08 20:40] VITALS: RESP 18; O2SAT 98
[2020-08-08] MEDS: morphine 4 mg/mL SDV 1 mL IVP (20:40)
[2020-08-08] MEDS: ondansetron 2 mg/ML SDV 2 mL 4 MG IVP (20:41)
[2020-08-08 20:44] LABS: Add Urine Microscopic? NO
[2020-08-08 20:45] LABS: Basophils % 0.5 %; Eosinophils # 0.3 10^3/uL (0.0-0.8); Eosinophils % 4.1 %; Hematocrit 37.9 % (37.0-47.0); Hemoglobin 12.1 g/dL (11.5-15.3); Lymphocytes # 2.1 10^3/uL (0.8-4.8); Lymphocytes % 26.6 %; Mean Corpuscular HGB Conc 31.9 g/dL (30.0-36.0); Mean Corpuscular Hemoglobin 27.9 pg (28.0-34.0); Mean Corpuscular Volume 87.3 fL (81-99); Mean Platelet Volume 10.3 fL (7.4-10.4); Monocytes # 0.6 10^3/uL (0.2-0.9); Neutrophils # 4.78 10^3/uL (1.8-7.7); Neutrophils % 60.7 %; Nucleated Red Blood Cells % 0 %; Platelet Count 309 10^3/cmm (130-400); Red Blood Count 4.34 10^6/uL (4.1-5.3); Red Cell Distribution Width 13.6 % (12.1-15.1); White Blood Count 7.9 10^3/uL (4.0-10.0)
[2020-08-08 21:00] VITALS: BP 125/93; PULSE 82; RESP 18; O2SAT 98
[2020-08-08 21:03] LABS: Bilirubin Urine Neg (Negative); Blood Urine Neg (Negative); Glucose Urine UA Norm (Normal); Ketones Urine Negative (Negative); Leukocyte Esterase Urine Negative (Negative); Nitrate Urine Negative (Negative); Protein Urine Neg (Negative); Specific Gravity, Urine 1.005 (1.005-1.030); Urine Appearance Clear (CLEAR); Urine Color Yellow (Yellow); Urobilinogen Urine Norm (Negative); pH Urine 6.5 (5-7)
[2020-08-08 21:09] LABS: Alanine Aminotransferase 15 U/L (0-33); Albumin Level 3.7 g/dL (3.5-5.2); Alkaline Phosphatase 117 IU/L (35-105); Anion Gap 13.1 (5-19); Aspartate Amino Transferase 14 U/L (0-32); Blood Urea Nitrogen 10 mg/dL (6-20); Calcium 8.6 mg/dL (8.5-10.5); Carbon Dioxide 29 mmol/L (22-29); Chloride 103 mmol/L (98-107); Globulin 3.4 g/dL (1.3-4.6); Glomerular Filtration Rate 76.6 mL/min (90-130); Glucose 85 mg/dL (65-115); Lipase 24 U/L (13-60); Osmolality Calculated 290 mOsm/kg (285-295); Potassium 4.1 mmol/L (3.5-5.1); Sodium 141 mmol/L (136-145); Total Bilirubin 0.2 mg/dL (0.15-1.2); Total Protein 7.1 g/dL (6.6-8.7)
[2020-08-08 22:00] VITALS: BP 125/93; PULSE 82; RESP 18; O2SAT 98
--- NOTE | 2020-08-15 12:19 | DCPLANNER ---
Patient has a follow up appointment scheduled for Thursday, August 22, 2020 at 1:[address] Lebron at [facility] General Surgery. Clinic will call patient with appointment information.
--- NOTE | 2020-08-23 15:11 | DCPLANNER ---
Patient had a follow up appointment scheduled for 08.22.[address] Hanson at general surgery - patient did attend appointment.
== END 2020-08-08 22:01 | disposition home or self-care (01) ==
PROVIDERS: Emergency Provider Emergency Medicine; PCP Family Medicine
DX: R10.11 Right upper quadrant pain (principal)
CPT/HCPCS: 76705; 80053; 81003; 83690; 85025; 96374; 96375; 99283; J2270; J2405

== ENCOUNTER 2020-08-09 12:46 | Emergency (ER) | payer MEDICAID, OTHER, SELFPAY ==
[2020-08-09 12:48] VITALS: BP 150/91; PULSE 83; RESP 16; TEMP 36.9; O2SAT 99; BMI 48.2
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
[2020-08-09] MEDS: ketorolac 60 mg/2 mL INJ IM (14:21)
== END 2020-08-09 14:50 | disposition home or self-care (01) ==
PROVIDERS: Emergency Provider Physician Assistant; PCP Family Medicine
DX: S16.1XXA Strain of muscle, fascia and tendon at neck level, initial encounter (principal); M54.5 Low back pain; M25.512 Pain in left shoulder; V89.2XXA Person injured in unspecified motor-vehicle accident, traffic, initial encounter
CPT/HCPCS: 72040; 72072; 72100; 72125; 73030; 96372; 99283; J1885

== ENCOUNTER 2020-08-15 20:00 | Outpatient (CLI) | payer MEDICAID, SELFPAY | END 2020-08-15 20:01 | disposition home or self-care (01) | LOC: SLEEP 08-16 09:20 | PROVIDERS: PCP Family Medicine; Visit Provider Registered Nurse | DX: G47.10 Hypersomnia, unspecified (principal); R53.83 Other fatigue | CPT/HCPCS: 95810 ==

== ENCOUNTER 2020-09-07 07:20 | Outpatient (CLI) | payer MEDICAID, SELFPAY ==
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
== END 2020-09-07 07:21 | disposition home or self-care (01) ==
LOC: NM 07:21
PROVIDERS: PCP Registered Nurse; Visit Provider Surgery
DX: R10.11 Right upper quadrant pain (principal)
CPT/HCPCS: 78227; 87635; A9537

== ENCOUNTER 2020-09-12 06:31 | Day surgery (SDC) | payer MEDICAID, SELFPAY ==
[2020-09-11 08:00] VITALS: BMI 48.1
--- NOTE | 2020-09-12 07:03 | ANES.PREANE2 ---
Pre-Anesthetic Assessment Pre-Anesthetic Assessment: Height/Weight: Height 1.68 m Weight 135.171 kg Proposed Procedure: Operation Date: 09/12/20 08:00 Proposed Procedures p EGD 35314 R10.13(Not Applicable) - Jared Lebron MD Was Beta Chantell taken within 24 hours: N/A Was Clonidine taken within 24 hours: N/A Social: Social History: No alcohol and No tobacco Exam: Pre-Anes Outpt Exam: alert, oriented x 3, clear to auscultation bilaterally and regular rate & rhythm Airway: Submandibular: WNL Cervical ROM: WNL MP: 2 Additional comments: Poor dentition, missing several, some cracked Pulmonary: Pulmonary: Sleep apnea CV/HEM: CV/HEM: HTN Metabolic: Metabolic: Morbid obesity Musc/skel: Musc/skel: Fibromyalgia Comments: chronic pain/opioid Neuropsych: Neuropsych: Anxiety Anesthetic Plan: ASA status: 3 Anesthesia: MAC Risk of > 500 ml blood loss (7ml/kg in children): No PFSH Anesthesia PFSH: Medical History (Updated 09/07/20 @ 10:57 by Lisa Molina) Acquired lymphedema of lower extremity Cervical disc disorder with myelopathy of mid-cervical region Cervical osteoarthritis Surgical History History of elbow [facility] 2018 [facility] Left ulnar nerve transposition. Right ulnar nerve transposition History of knee surgery History of lumbar surgery 2016 Dr. Molina Tolentino Neurosurgeon [facility] L2-L3 decompression History of lymph node biopsy History of oral surgery History of tubal ligation Family History Mother Diabetes Father Lung disease Grandmother CHF (congestive heart failure) Social History Smoking and tobacco status: never smoked Alcohol intake: never Household members: spouse Marital status: Current occupational status: unemployed History of recent travel: No Female Reproductive History: Date of last menstrual period: 09/22/20 Data Anesthesia Cardiac Studies: No Data to Display
[2020-09-12 07:25] VITALS: BP 167/97; PULSE 84; RESP 18; TEMP 37.5; O2SAT 98
--- NOTE | 2020-09-12 07:29 | W.PM.OPSUD ---
Surgery/Procedure H&P Update DATE OF PROCEDURE: September 12, 2020 DATE H&P PERFORMED: 08/22/20 H&P UPDATE INFORMATION: I have reviewed H&P completed within last 30 days, I have examined patient prior to procedure and Changes to prior documentation as noted here (HIDA scan was done and was reported as normal and patient did not have any subjective complaints with the procedure) PREOP DIAGNOSIS: Epigastric pain PRIMARY INDICATION FOR PROCEDURE: The same PLANNED PROCEDURE: Operation Date: 09/12/20 08:00 Proposed Procedures p EGD 22074 R10.13(Not Applicable) - Jared Lebron MD
[2020-09-12] MEDS: sodium chloride 0.9% 1,000 ML 30 ML IV (07:33)
[2020-09-12 08:19] VITALS: BP 114/72; PULSE 78; RESP 18; TEMP 37.2; O2SAT 100
[2020-09-12 08:34] VITALS: BP 105/75; PULSE 75; RESP 16; TEMP 37.1; O2SAT 99
[2020-09-12 11:05] LABS: OR HCG Qualitative Urine Negative (Negative)
--- NOTE | 2020-09-12 11:57 | ANE.PACU2 ---
Inpatient post-anesthesia follow up: Airway intact: Yes Vital signs: Temperature 98.7 F Pulse Rate 75 Respiratory Rate 16 Blood Pressure 105/75 Pulse Oximetry 99 Oxygen Delivery Me thod Room Air Oxygen Flow Rate Fraction of Inspir ed Oxygen Hydration adequate: Yes Nausea and vomiting: No Pain level: 1 Mental status: Baseline
== END 2020-09-12 08:50 | disposition home or self-care (01) ==
PROVIDERS: Anesthesiology; PCP Registered Nurse; Visit Provider Surgery
PROC: 0DJ08ZZ Inspection of Upper Intestinal Tract, Via Natural or Artificial Opening Endoscopic (ICD-10-PCS; CPT 43235; principal; 2020-09-12 08:00)
DX: R10.13 Epigastric pain (principal); K21.00 Gastro-esophageal reflux disease with esophagitis, without bleeding; K21.9 Gastro-esophageal reflux disease without esophagitis; K31.89 Other diseases of stomach and duodenum; K29.70 Gastritis, unspecified, without bleeding; I10 Essential (primary) hypertension; G47.30 Sleep apnea, unspecified; E66.01 Morbid (severe) obesity due to excess calories; Z68.42 Body mass index [BMI] 45.0-49.9, adult; M79.7 Fibromyalgia; F41.9 Anxiety disorder, unspecified; G89.29 Other chronic pain; Z79.891 Long term (current) use of opiate analgesic
CPT/HCPCS: 43239; 81025; 84703; 88305; 96360; J2704; J7030

== ENCOUNTER 2020-11-26 07:55 | Outpatient (CLI) | payer MEDICAID, SELFPAY ==
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
[2020-11-26] MEDS: iohexol 300 mg/mL 50 mL Btl PO (09:38)
[2020-11-26] MEDS: iohexol 300 mg/mL 100 mL Btl IV (09:58)
== END 2020-11-26 07:56 | disposition home or self-care (01) ==
LOC: RADWPI 07:58
PROVIDERS: PCP Registered Nurse; Visit Provider Surgery
DX: R10.9 Unspecified abdominal pain (principal); N83.202 Unspecified ovarian cyst, left side
CPT/HCPCS: 74177; Q9967

== ENCOUNTER 2021-01-02 10:45 | Outpatient (CLI) | payer MEDICAID, SELFPAY ==
--- NOTE | 2021-01-02 10:49 | MM_ITS ---
WS: [id number] BILATERAL DIGITAL SCREENING MAMMOGRAPHY WITH CAD CLINICAL INFORMATION: SCREENING HISTORY: Screening mammogram. No current complaints. COMPARISON: October 09, 2014 TECHNIQUE: Bilateral CC and MLO views. FINDINGS: Scattered fibroglandular densities bilaterally. Slightly spiculated asymmetric density subareolar rig ht breast best seen on the cc view. Recommend right breast diagnostic mammography with spot compressi on views and ultrasound. A few tiny incidental punctate calcifications. Left breast is unchanged and unremarkable. MM/[place] [id number] IMPRESSION: BI-RADS: 0-Incomplete: Need additional imaging evaluation FOLLOW UP: Need Additional Imaging Recommend right breast diagnostic mammography and ultrasound for further evalua tion.
== END 2021-01-02 10:46 | disposition home or self-care (01) ==
LOC: RADSHAW 10:48
PROVIDERS: PCP Registered Nurse; Visit Provider Registered Nurse
DX: Z12.31 Encounter for screening mammogram for malignant neoplasm of breast (principal)
CPT/HCPCS: 77067

== ENCOUNTER 2021-01-18 08:04 | Outpatient (CLI) | payer MEDICAID, SELFPAY ==
--- NOTE | 2021-01-18 08:07 | US_ITS ---
WS: [id number] RIGHT DIGITAL MAMMOGRAPHY WITH CAD CLINICAL INFORMATION: ABNORMAL MAMMOGRAM RT BREAS COMPARISON: January 02, 2021 TECHNIQUE: 3 views of the right breast were obtained. FINDINGS: Scattered fibroglandular densities of the right breast. Previously described slightly spiculated asym metric density subareolar right breast partially compresses out and is less dense on the spot annette jem views. Ultrasound is pending. ULTRASOUND BREAST RIGHT TECHNIQUE: Ultrasound right breast focused area of concern. CLINICAL INFORMATION: ABNORMAL MAMMOGRAM RT BREAST COMPARISON: None. FINDINGS: Ultrasound right breast 10:00 position 2 cm the nipple. Tiny incidental cyst or ductal ectasia measur ing 5 mm. This is benign. No suspicious findings. No lesions to target for biopsy. US/US breast RT limited* [id number] IMPRESSION: BI-RADS: 2-Benign FOLLOW UP: 1 Year Follow-up Recommend return to annual screening mammography.
== END 2021-01-18 08:05 | disposition home or self-care (01) ==
LOC: RADSHAW 08:06
PROVIDERS: PCP Registered Nurse; Visit Provider Registered Nurse
DX: R92.8 Other abnormal and inconclusive findings on diagnostic imaging of breast (principal)
CPT/HCPCS: 76642; 77065

== ENCOUNTER → 2021-02-23 17:32 | Outpatient (BNVA) | payer MEDICAID, SELFPAY | PROVIDERS: PCP Registered Nurse; Visit Provider Nurse Practitioner | DX: Z20.822 Contact with and (suspected) exposure to COVID-19 (principal) | CPT/HCPCS: 87635 ==

== ENCOUNTER 2021-02-27 11:17 | Outpatient (CLI) | payer MEDICAID, SELFPAY ==
[2021-02-27 11:25] VITALS: BP 106/71; PULSE 68; RESP 20; TEMP 36.8; O2SAT 95; BMI 46.7
[2021-02-27 12:05] VITALS: BP 101/63; PULSE 77; RESP 18; O2SAT 93
[2021-02-27 13:05] VITALS: BP 107/73; PULSE 72; RESP 16; TEMP 36.4; O2SAT 99
--- NOTE | 2021-03-04 19:13 | PC.SOCIAL ---
10-9, 9155 antibody infusion follow up call: symptoms prior to infusion: fever, cough, exhaustion patient reports not any drastic changes but no body aches, fever or shortness of breath at this time.
== END 2021-02-27 11:18 | disposition home or self-care (01) ==
LOC: OPS 11:20
PROVIDERS: PCP Registered Nurse; Visit Provider Nurse Practitioner Family
DX: U07.1 COVID-19 (principal)
CPT/HCPCS: 96365

== ENCOUNTER 2021-03-24 10:01 | Emergency (ER) | payer MEDICAID, SELFPAY ==
[2021-03-24 10:10] VITALS: BP 137/89; PULSE 89; RESP 17; TEMP 36.5; O2SAT 97; BMI 48.4
--- NOTE | 2021-03-24 10:59 | W.ED.UPPEXIN ---
HPI - Extremity Injury (Upper) General: Chief Complaint: Extremity Injury, Upper Stated Complaint: R ARM INJURY Time Seen by Provider: 03/24/21 10:48 Source: patient Mode of arrival: ambulatory Limitations: no limitations History of Present Illness: HPI narrative: Patient is a 51-year-old female who presents to ED today for evaluation of her right arm injury. Patient tells me yesterday she was moving a recliner through a door frame and states her hand/arm got caught and somehow twisted. She was complaining of pain to the right elbow, forearm, and wrist. She is not complaining of numbness or tingling or loss of sensation. She does report fairly well-maintained range of motion but states this is very painful. MD complaint: injury to: right, arm, elbow, forearm and wrist Onset (ago): hour(s) Other injuries: none Place: home Severity: moderate Relieving factors: immobilization Exacerbating factors: movement of extremity Associated symptoms: Reports no associated symptoms; Denies weakness in extremities Review of Systems Musc: Reports: extremity pain (R forearm) and joint pain (R elbow, R wrist); Denies: extremity swelling, joint swelling, joint redness, joint warmth or limited range of motion Skin/Breast: Reports: other (no abrasions/lacerations) Neuro: Denies: numbness in extremities, weakness in extremities or sensory changes PFS ED PFSH: Medical History Acquired lymphedema of lower extremity Cervical disc disorder with myelopathy of mid-cervical region Cervical osteoarthritis Gastric bezoar Gastritis Right upper quadrant abdominal pain Surgical History History of elbow surgery 2018 Dr. Srinivasan Pena [facility] Orthopedic Surgery Left ulnar nerve transposition. Right ulnar nerve transposition History of knee surgery History of lumbar surgery 2016 Dr. Molina Tolentino Neurosurgeon [facility] L2-L3 decompression History of lymph node biopsy History of oral surgery History of tubal ligation Family History Mother Diabetes Father Lung disease Grandmother CHF (congestive heart failure) Social History Smoking and tobacco status: former smoker Alcohol intake: never Household members: spouse Marital status: Current occupational status: unemployed History of recent travel: No Female Reproductive History: Date of last menstrual period: 09/22/20 Physical Exam Const: COMMON NORMALS: no acute distress, patient oriented x3, no limitations and alert GENERAL APPEARANCE: cooperative Extremity: COMMON NORMALS: full ROM, capillary refill normal and no joint enlargement GENERAL: Yes normal exam except as noted RIGHT UPPER EXTREMITY: Yes elbow joint Right elbow: Yes palpation (pain to medial epicondyle ), Yes ROM (normal but painful) and Yes neurovascular exam (normal) and Yes wrist Right wrist: Yes palpation (TTP distal ulnar wrist) and Yes neurovascular exam (normal) Neuro: COMMON NORMALS: patient oriented x3, moves all extremities, no focal motor deficits and no sensory deficits noted SENSORIUM/ORIENTATION: Yes alert Skin: COMMON NORMALS: no rashes or lesions noted GENERAL SKIN EXAM: no rashes or lesions noted TRAUMA: no lacerations or abrasions Course Vital Signs: Vital signs: Vital Signs Temperature 97.7 F 03/24/21 10:10 Pulse Rate 89 03/24/21 10:10 Respiratory Rate 17 03/24/21 10:10 Blood Pressure 137/89 03/24/21 10:10 Pulse Oximetry 97 03/24/21 10:10 MDM - Extremity Injury (Upper) MDM Narrative: Medical decision making narrative: XRs elbow, forearm, wrist negative. NV intact. Will sling and recommend conservative therapy with PCP follow up in 5-7 days for non-improving pain. She is already taking pain medications and anti-inflammatories so recommend she continue these. Imaging Data^: XR R forearm: Radiologist's impression: [address] [address] XRay Report Signed Patient: Lanie Stoddard Unit #: [id number] : 1970 Age/Sex: 51 / F ADM Date: 03/24/21 Loc: ER Room/Bed: Attending Dr: Ordering Provider/Ordering MD: Nancy Franco Date of Service: 03/24/21 Procedure(s): XR forearm RT 2V 06648 Accession Number(s): [id number] Report Number: [id number] PROCEDURE INFORMATION: Exam: XR Right Forearm Exam date and time: 03/24/2021 10:58 AM Age: 51 years old Clinical indication: Injury or trauma; Other: Hit arm; Blunt trauma (contusions or hematomas); Arm, lower; Right; Additional info: Injury/pain TECHNIQUE: Imaging protocol: XR Right forearm. Views: 2 views. Total images: 2 COMPARISON: No relevant prior studies available. FINDINGS: Bones/joints: Small enthesophyte projecting at triceps insertion site. No acute fracture nor subluxation. No osseous erosion nor periosteal reaction. Soft tissues: Normal. XR/XR forearm RT 2V 96846 IMPRESSION: No acute osseous pathology. Radiation Dose CTDIVOL = (mGy): DLP = (mGy-cm) Dictated By: Onel Lyn MD Signed By: Onel Lyn MD Signed Date/Time: 03/24/21 1203 DD/ 1058 XR R wrist: Radiologist's impression: [address] [address] XRay Report Signed Patient: Lanie Stoddard Unit #: [id number] : 1970 Age/Sex: 51 / F ADM Date: 03/24/21 Loc: ER Room/Bed: Attending Dr: Ordering Provider/Ordering MD: Nancy Franco Date of Service: 03/24/21 Procedure(s): XR wrist RT min 3V* 60016 Accession Number(s): [id number] Report Number: [id number] PROCEDURE INFORMATION: Exam: XR Right Wrist Exam date and time: 03/24/2021 10:58 AM Age: 51 years old Clinical indication: Injury or trauma; Other: Hit arm; Blunt trauma (contusions or hematomas); Wrist; Right; Additional info: Injury/pain TECHNIQUE: Imaging protocol: XR Right wrist. Views: 3 or more views. Total images: 3 COMPARISON: No relevant prior studies available. FINDINGS: Bones/joints: No acute fracture nor subluxation. No osseous erosion nor periosteal reaction. Soft tissues: Dorsal soft tissue swelling is present. XR/XR wrist RT min 3V* [id number] IMPRESSION: 1. Dorsal soft tissue swelling is present. 2. No acute osseous pathology. Radiation Dose CTDIVOL = (mGy): DLP = (mGy-cm) Dictated By: Onel Lyn MD Signed By: Onel Lyn MD Signed Date/Time: 03/24/211202 DD/ 105 XR R elbow: Radiologist's impression: [address] [place] [address] XRay Report Signed Patient: Lanie Stoddard Unit #: [id number] : 1970 Age/Sex: 51 / F ADM Date: 03/24/21 Loc: ER Room/Bed: Attending Dr: Ordering Provider/Ordering MD: Nancy Franco Date of Service: 03/24/21 Procedure(s): XR elbow RT min 3V* 07405 Accession Number(s): [id number] Report Number: [id number] PROCEDURE INFORMATION: Exam: XR Right Elbow Exam date and time: 03/24/2021 10:58 AM Age: 51 years old Clinical indication: Injury or trauma; Other: Hit arm; Blunt trauma (contusions or hematomas); Elbow; Right; Additional info: Injury/pain TECHNIQUE: Imaging protocol: XR Right elbow. Views: 3 or more views. Total images: 3 COMPARISON: No relevant prior studies available. FINDINGS: Bones/joints: Small enthesophyte projecting at triceps insertion site. No acute fracture nor subluxation. No osseous erosion nor periosteal reaction. Soft tissues: Normal. XR/XR elbow RT min 3V* 38170 IMPRESSION: No acute osseous pathology. Radiation Dose CTDIVOL = (mGy): DLP = (mGy-cm) Dictated By: Onel Lyn MD Signed By: Onel Lyn MD Signed Date/Time: 03/24/211203 DD/ 57 Discharge Plan Discharge Patient Disposition: Home Clinical Impression: Sprain of right forearm Qualifiers: Encounter type: initial encounter Qualified Code(s): S63.501A - Unspecified sprain of right wrist, initial encounter Condition: Stable Prescriptions: No Action meloxicam 15 mg tablet 15 mg PO DAILY RF: 0 Hold Instructions: Resume on 09/19/20. gabapentin 600 mg tablet 800 mg PO TID RF: 0 esomeprazole magnesium [Nexium] 40 mg capsule,delayed release(DR/EC) 40 mg PO DAILY RF: 0 atorvastatin 20 mg tablet 20 mg PO DAILY RF: 0 hydrocodone-acetaminophen [[place]] 5-325 mg tablet 1 tab PO TID PRN (Reason: Pain) RF: 0 baclofen 10 mg tablet 10 mg PO DAILY RF: 0 azithromycin 250 mg tablet 250 mg PO DAILY RF: 0 ferrous sulfate [iron] 325 mg (65 mg iron) tablet 325 mg PO DAILY RF: 0 spironolactone 25 mg tablet 50 mg PO BID RF: 0 bumetanide 1 mg tablet 1 mg PO DAILY RF: 0 albuterol sulfate 8.5 g inhalation PRN PRN (Reason: Shortness Of Breath) RF: 0 fluticasone propionate 50 mcg/actuation spray,suspension 2 spray INTRANASAL PRN PRN (Reason: Allergy Symptoms) RF: 0 Discharge Orders: Discharge ED (Routine); Ordered 03/24/21 Ordered By: Nancy Franco Referrals: Rachele Davis [Primary Care Provider] - Coding Level of Care Code ED Cut Tobacco Bulker for Ezequiel Randhawa
== END 2021-03-24 12:26 | disposition home or self-care (01) ==
PROVIDERS: Emergency Provider Physician Assistant; PCP Registered Nurse
DX: S63.501A Unspecified sprain of right wrist, initial encounter (principal); X50.1XXA Overexertion from prolonged static or awkward postures, initial encounter; Z87.891 Personal history of nicotine dependence
CPT/HCPCS: 73080; 73090; 73110; 99282

== ENCOUNTER 2021-04-18 17:37 | Emergency (ER) | payer MEDICAID, SELFPAY ==
[2021-04-18 18:07] VITALS: BP 159/87; PULSE 79; RESP 18; TEMP 36.3; O2SAT 100; BMI 46.7
--- NOTE | 2021-04-18 18:12 | XRR_ITS ---
PROCEDURE INFORMATION: Exam: XR Left Shoulder Exam date and time: 04/18/2021 6:12 PM Age: 51 years old Clinical indication: Pain; Shoulder; Left; Additional info: Left shoulder pain TECHNIQUE: Imaging protocol: XR Left shoulder. Views: 2 or more views. COMPARISON: CR XR shoulder LT min 2V* 22083 08/09/2020 1:19 PM FINDINGS: Bones/joints: Two AP views. The bones are intact and in normal alignment. Mild degenerative changes of the acromioclavicular joint. No fracture or dislocation visualized. Posterior dislocations cannot be excluded on AP views only. Soft tissues: Normal. XR/XR shoulder LT min 2V* 76454 IMPRESSION: 1. No acute findings. Radiation Dose CTDIVOL = (mGy): DLP = (mGy-cm)
--- NOTE | 2021-04-18 18:43 | ED_ITS ---
HPI - Extremity Problem General: Chief complaint: Extremity Problem,Nontraumatic Stated complaint: L SHOULDER PAIN Time Seen by Provider: 04/18/21 18:13 History of Present Illness: HPI Narrative: Patient is a 51-year-old female comes to the ED with left shoulder pain. She denies any injury or trauma and says this pain has been going on for the past 6 months. She describes the pain as an aching constant pain and she cannot lift her left arm above head without pain. She says if she lays on her left side she has pain as well. She currently sees pain management and takes hydrocodone for pain. Associated symptoms: Deny chest pain, fever(s) or rash Review of Systems Const: Denies: fever(s), chills or fatigue Eyes: Denies: change in vision or eye discomfort ENMT: Denies: throat pain, odynophagia, nasal discharge or nasal congestion Card: Denies: chest pain, palpitations, edema, swelling of feet/ankles, dyspnea on exertion or orthopnea Resp: Denies: dyspnea, productive cough or non-productive cough GI: Denies: abdominal pain, nausea, vomiting, diarrhea, constipation or hematochezia : Denies: flank pain, dysuria or hematuria Musc: Reports: extremity pain (left shoulder); Denies: neck pain, back pain or extremity swelling Skin/Breast: Denies: rash or new lesions Neuro: Denies: headache(s), numbness in extremities or weakness in extremities [facility] ED PFSH: Medical History Acquired lymphedema of lower extremity Cervical disc disorder with myelopathy of mid-cervical region Cervical osteoarthritis Gastric bezoar Gastritis Right upper quadrant abdominal pain Surgical History History of elbow surgery [address]an [facility] [facility] Orthopedic Surgery Left ulnar nerve transposition. Right ulnar nerve transposition History of knee surgery History of lumbar surgery 2016 Dr. Molina Tolentino Neurosurgeon [facility] L2-L3 decompression History of lymph node biopsy History of oral surgery History of tubal ligation Family History Mother Diabetes Father Lung disease Grandmother CHF (congestive heart failure) Social History Smoking and tobacco status: former smoker Alcohol intake: never Household members: spouse Marital status: Current occupational status: unemployed History of recent travel: No Female Reproductive History: Date of last menstrual period: 09/22/20 Physical Exam Const: COMMON NORMALS: no acute distress, patient oriented x3, healthy appearing and alert GENERAL APPEARANCE: cooperative and comfortable HENMT: COMMON NORMALS: normocephalic HEAD & SCALP: normocephalic MOUTH: Normal oral and palatal mucosa present THROAT: posterior oropharynx normal and uvula midline Neck/C-Spine: COMMON NORMALS: supple GENERAL: Yes normal visual inspection Resp: COMMON NORMALS: normal respiratory effort, No retractions, No use of accessory muscles and clear to auscultation bilaterally AUSCULTATION: clear to auscultation bilaterally Cardio: COMMON NORMALS: regular rate, regular rhythm, S1 normal heart sound present, S2 normal heart sound present, No gallops present (Cardio), No clicks present (Cardio), No murmurs present (Cardio) and Peripheral pulses 2+ throughout RATE: regular rate RHYTHM: regular rhythm HEART SOUNDS: S1 normal heart sound present and S2 normal heart sound present PERIPHERAL PULSES: Peripheral pulses 2+ throughout GI: COMMON NORMALS: Normal to inspection, nondistended, normoactive bowel sounds present, Soft to palpation, non-tender and no masses PALPATION: Yes Soft to palpation : COMMON NORMALS: Yes no CVA tenderness BLADDER/KIDNEY EXAM: Yes no CVA tenderness Back/Pelvis: COMMON NORMALS: no CVA tenderness Extremity: GENERAL: Yes normal exam except as noted LEFT UPPER EXTREMITY: Yes shoulder joint Left shoulder joint: Yes inspection (No visible deformity noted.), Yes palpation (Tenderness over AC joint), Yes ROM (Full range of motion but has pain with abduction of arm) and Yes neurovascular exam (Intact) Neuro: COMMON NORMALS: patient oriented x3 and moves all extremities SENSORIUM/ORIENTATION: Yes alert Skin: GENERAL SKIN EXAM: dry skin Course Vital Signs: Vital signs: Vital Signs Temperature 97.3 F L 04/18/21 18:07 Pulse Rate 77 04/18/21 19:19 Respiratory Rate 18 04/18/21 19:19 Blood Pressure 150/89 04/18/21 19:19 Pulse Oximetry 100 04/18/21 19:19 MDM - Extremity (Nontraumatic) MDM Narrative: Medical decision making narrative: Patient is a 51-year-old female comes to the ED with onset of left shoulder pain. Denies any injury or trauma to cause pain. Exam shows some left AC joint tenderness and patient has some pain in left shoulder with abduction of arm. Neurovascular intact. X-ray of left shoulder shows no acute fractures or findings. Patient diagnosed with left shoulder pain and discharged home. She was told to follow-up with her PCP for further evaluation in 7 to 10 days. Return to ED precautions given. Patient understood and agree with plan. Imaging Data^: Xray Ortho: Attestation: I personally reviewed and interpreted this imaging study as follows: Radiologist's impression: [address] [address]AUbx ReportSigned Patient: Lanie Stoddard #: [id number]: 1970Acct#:[id number]/Sex: 51 / FADM Date: 04/18/21Loc: ERRoom/Bed:Attending Dr: Ordering Provider/Ordering MD: Enrrique Gibson Date of Service: 04/18/21 Procedure(s): XR shoulder LT min 2V* 73851 Accession Number(s): [id number] Report Number: [id number] PROCEDURE INFORMATION: Exam: XR Left Shoulder Exam date and time: 04/18/2021 6:12 PM Age: 51 years old Clinical indication: Pain; Shoulder; Left; Additional info: Left shoulder pain TECHNIQUE: Imaging protocol: XR Left shoulder. Views: 2 or more views. COMPARISON: CR XR shoulder LT min 2V* [id number] 08/09/2020 1:19 PM FINDINGS: Bones/joints: Two AP views. The bones are intact and in normal alignment. Mild degenerative changes of the acromioclavicular joint. No fracture or dislocation visualized. Posterior dislocations cannot be excluded on AP views only. Soft tissues: Normal. XR/XR shoulder LT min 2V* 08692 IMPRESSION: 1. No acute findings. Radiation Dose CTDIVOL = (mGy): DLP = (mGy-cm) Dictated By:Glendy Magdaleno By:Glendy Magdaleno Date/Time:04/18/21 1931DD/ 11 Discharge Plan Discharge Patient Disposition: Home Clinical Impression: Left shoulder pain Qualifiers: Chronicity: unspecified Qualified Code(s): M25.512 - Pain in left shoulder Condition: Stable Prescriptions: No Action meloxicam 15 mg tablet 15 mg PO DAILY RF: 0 Hold Instructions: Resume on 09/19/20. gabapentin 600 mg tablet 800 mg PO TID RF: 0 esomeprazole magnesium [Nexium] 40 mg capsule,delayed release(DR/EC) 40 mg PO DAILY RF: 0 atorvastatin 20 mg tablet 20 mg PO DAILY RF: 0 hydrocodone-acetaminophen [[place]] 5-325 mg tablet 1 tab PO TID PRN (Reason: Pain) RF: 0 baclofen 10 mg tablet 10 mg PO DAILY RF: 0 azithromycin 250 mg tablet 250 mg PO DAILY RF: 0 ferrous sulfate [iron] 325 mg (65 mg iron) tablet 325 mg PO DAILY RF: 0 spironolactone 25 mg tablet 50 mg PO BID RF: 0 bumetanide 1 mg tablet 1 mg PO DAILY RF: 0 albuterol sulfate 8.5 g inhalation PRN PRN (Reason: Shortness Of Breath) RF: 0 fluticasone propionate 50 mcg/actuation spray,suspension 2 spray INTRANASAL PRN PRN (Reason: Allergy Symptoms) RF: 0 Discharge Orders: Discharge ED (Routine); Ordered 04/18/21 Ordered By: Enrrique Gibson Referrals: Rachele Davis [Primary Care Provider] - Discharge Diet: Regular Discharge Activity: Increase activity as tolerated Activity Restrictions/Additional Instructions: Follow-up with medical provider as directed in 7 to 10 days for reevaluation and to set up a possible CT or MRI of shoulder. Continue taking your previously prescribed pain meds as needed. Return to the ER or your medical provider if condition worsens. Please read and understand discharge instructions. Thank you for choosing [facility] for your healthcare needs today. Please realize this is an emergency room and that we are providing you with a medical screening exam and this may not be complete and all inclusive of all the testing and or work up that you may need to determine your ailment or severity of your illness. It is very important that you follow up as instructed or that you return to the Emergency Department should you have concerns or if your condition changes or worsens in any way. Coding Level of Care Code ED Sales And Service Associate for Ezequiel Fwd Exam Comprehensive
[2021-04-18 19:19] VITALS: BP 150/89; PULSE 77; RESP 18; O2SAT 100
== END 2021-04-18 19:20 | disposition home or self-care (01) ==
PROVIDERS: Emergency Provider Physician Assistant; PCP Registered Nurse
DX: M25.512 Pain in left shoulder (principal); Z87.891 Personal history of nicotine dependence
CPT/HCPCS: 73030; 99282

== ENCOUNTER 2022-01-22 16:35 | Emergency (ER) | payer MEDICAID, SELFPAY ==
[2022-01-22 16:54] VITALS: BP 175/90; PULSE 105; RESP 16; TEMP 36.6; O2SAT 96
--- NOTE | 2022-01-22 17:03 | ED_ITS ---
HPI - Allergic Reaction General: Chief complaint: Allergic Reaction Stated complaint: Sinus and throat pain Time Seen by Provider: 01/22/22 17:00 History of Present Illness: HPI narrative: 52-year-old female comes in today for concerns of reaction to dairy. Patient states that she had eaten some dairy although knowingly notes a sensitivity to dairy products. After that she started having some discomfort to her throat and felt short of breath. Patient is in no acute distress on evaluation without any signs of swelling, respiratory distress, or hives. Patient appears nontoxic. Patient appears in no pain. Patient did report improvement of symptoms on exam. Review of Systems Const: Denies: fever(s) ENMT: Reports: throat pain Resp: Reports: dyspnea PFSH ED PFSH: Medical History Acquired lymphedema of lower extremity Cervical disc disorder with myelopathy of mid-cervical region Cervical osteoarthritis Gastric bezoar Gastritis Right upper quadrant abdominal pain Surgical History History of elbow surgery 2018 Dr. Srinivasan Pena [facility] Orthopedic Surgery Left ulnar nerve transposition. Right ulnar nerve transposition History of knee surgery History of lumbar surgery 2016 Dr. Molina Tolentino Neurosurgeon [facility] L2-L3 decompression History of lymph node biopsy History of oral surgery History of tubal ligation Family History Mother Diabetes Father Lung disease Grandmother CHF (congestive heart failure) Social History Smoking and tobacco status: former smoker Alcohol intake: never Household members: spouse Marital status: Current occupational status: unemployed History of recent travel: No Female Reproductive History: Date of last menstrual period: 09/22/20 Physical Exam Const: COMMON NORMALS: alert HENMT: COMMON NORMALS: normocephalic HEAD & SCALP: normocephalic THROAT: posterior oropharynx normal Resp: COMMON NORMALS: normal respiratory effort and clear to auscultation bilaterally AUSCULTATION: clear to auscultation bilaterally Cardio: COMMON NORMALS: regular rate and regular rhythm RATE: regular rate RHYTHM: regular rhythm GI: COMMON NORMALS: non-tender Neuro: SENSORIUM/ORIENTATION: Yes alert Skin: COMMON NORMALS: no rashes or lesions noted GENERAL SKIN EXAM: no rashes or lesions noted Course Vital Signs: Vital signs: Vital Signs Temperature 97.9 F 01/22/22 16:54 Pulse Rate 105 H 01/22/22 16:54 Respiratory Rate 16 01/22/22 16:54 Blood Pressure 175/90 01/22/22 16:54 Pulse Oximetry 96 01/22/22 16:54 Oxygen Delivery Me thod 01/22/22 16:54 MDM - Allergic Reaction Medical Decision Making 52-year-old female comes in today for concerns of reaction to dairy product. Patient does have a known intolerance to dairy. Patient eaten some food at [employer] and started having symptoms of sore throat, and difficulty breathing. On exam patient's lungs were clear to auscultation posterior pharynx was normal. Patient did report symptoms are starting to resolve. Differential diagnosis includes allergic reaction, anaphylaxis, lactose intolerance. Recommended patient avoid dairy products in the future. Patient was concerned due to multiple allergen and requested an EpiPen due to previous reactions with 4 symptoms. I went ahead and wrote for 2 EpiPen's to use as needed and instructed patient when to use the EpiPen's. I also recommended patient follow-up with an air duct mechanic for further treatment and evaluation. Patient reported understanding. Discharge Plan Discharge Patient Disposition: Home Clinical Impression: Allergic reaction Qualifiers: Encounter type: initial encounter Qualified Code(s): T78.40XA - Allergy, unspecified, initial encounter Condition: Stable Prescriptions: New epinephrine 0.3 mg/0.3 mL auto-injector 0.3 mg IM Q10M PRN (Reason: anaphylaxis) Qty: 2 0RF Rx Instructions: for 2 doses No Action meloxicam 15 mg tablet 15 mg PO DAILY Hold Instructions: Resume on 09/19/20. gabapentin 600 mg tablet 800 mg PO TID esomeprazole magnesium [Nexium] 40 mg capsule,delayed release(DR/EC) 40 mg PO DAILY atorvastatin 20 mg tablet 20 mg PO DAILY hydrocodone-acetaminophen [[place]] 5-325 mg tablet 1 tab PO TID PRN (Reason: Pain) Label Comments: [facility] [place], [place] states shes on baclofen 10 mg tablet 10 mg PO DAILY azithromycin 250 mg tablet 250 mg PO DAILY Rx Instructions: start on day 2 of therapy ferrous sulfate [iron] 325 mg (65 mg iron) tablet 325 mg PO DAILY spironolactone 25 mg tablet 50 mg PO BID bumetanide 1 mg tablet 1 mg PO DAILY albuterol sulfate 8.5 g inhalation PRN PRN (Reason: Shortness Of Breath) fluticasone propionate 50 mcg/actuation spray,suspension 2 spray INTRANASAL PRN PRN (Reason: Allergy Symptoms) Discharge Orders: Discharge ED (Routine); Ordered 01/22/22 Ordered By: Israel Arora Referrals: Rachele Davis [Primary Care Provider] - Discharge Diet: Advance as tolerated Discharge Activity: Increase activity as tolerated Patient Instructions: Anaphylaxis (ED) Activity Restrictions/Additional Instructions: Only use the epinephrine pen for severe reactions that include swelling, difficulty swallowing, increased shortness of breath, and hives. Follow-up with primary care for further instruction and evaluation. Return to ER for new concerns. Avoid foods that you are allergic to or cause reactions. Use Claritin or Zyrtec 1 to 2 tablets twice a day as needed for allergy symptoms. Coding Level of Care Code ED Pilling Machine Operator for Ezequiel Randhawa
[2022-01-22] MEDS: cetirizine 10 mg Tablet PO (17:47)
== END 2022-01-22 17:48 | disposition home or self-care (01) ==
PROVIDERS: Emergency Provider Nurse Practitioner Family; PCP Registered Nurse
DX: T78.1XXA Other adverse food reactions, not elsewhere classified, initial encounter (principal)
CPT/HCPCS: 99283

== ENCOUNTER → 2022-06-03 13:55 | Outpatient (BNVA) | payer MEDICAID, SELFPAY | PROVIDERS: PCP Family Medicine; Visit Provider Internal Medicine Cardiovascular Disease | DX: R07.89 Other chest pain (principal); E78.5 Hyperlipidemia, unspecified; R73.03 Prediabetes; K21.9 Gastro-esophageal reflux disease without esophagitis; R06.09 Other forms of dyspnea; Z87.891 Personal history of nicotine dependence | CPT/HCPCS: 93005; 99204 ==

== ENCOUNTER 2022-06-16 13:42 | Outpatient (CLI) | payer MEDICAID, SELFPAY ==
--- NOTE | 2022-06-16 13:45 | USCV_ITS ---
Lanie Stoddard Age: 52 Gender: F : 1970 Exam Date: 06/16/2022 14:21 Ordering Phys: Samantha Cooley MD ([email or web address]) Technologist: Shaun Gardner [place] [facility] [place]: chest pain, sob BP: 122 / 80 HR: 78 Rhythm: Sinus Technical Quality: Adequate MEASUREMENTS (Male / Female) Normal Values 2D ECHO LV Diastolic Diameter PLAX 2.9 cm 4.2 - 5.9 / 3.9 - 5.3 cm LV Systolic Diameter PLAX 1.7 cm IVS Diastolic Thickness 0.7 cm 0.6 - 1.0 / 0.6 - 0.9 cm IVS Systolic Thickness 1.0 cm LVPW Diastolic Thickness 0.8 cm 0.6 - 1.0 / 0.6 - 0.9 cm LVPW Systolic Thickness 1.2 cm LVOT Diameter 2.0 cm LV Ejection Fraction 2D Teich 75.7 % LV Ejection Fraction MOD 2C 76.5 % LV Ejection Fraction 2C AL 76.3 % LA Diameter 3.7 cm LA Width 3.0 cm LA Height 5.4 cm RA Width 3.1 cm RA Height 4.9 cm Aorta at Sinotubular Diameter 2.4 cm IVC Diameter 2.0 cm M-MODE Aortic Annulus Diameter 2.7 cm LA Ao Ratio MM 1.4 MV E Point Septal Separation 0.5 cm DOPPLER AV Peak Velocity 151.0 cm/s LVOT Peak Velocity 103.0 cm/s AV Area Cont Eq vti 2.2 cm squared AV Area Cont Eq pk 2.2 cm squared MV Peak Velocity 95.0 cm/s MV Area PHT 4.3 cm squared Mitral E to A Ratio 1.1 MV E' Velocity 52.0 cm/s Mitral E to MV E' Ratio 8.9 Mitral E to LV E' Lateral Ratio 8.3 Mitral E to LV E' Septal Ratio 9.6 TR Peak Velocity 297.1 cm/s TR Peak Gradient 35.3 mmHg TR Mean Velocity 226.5 cm/s TR Mean Gradient 21.7 mmHg TR Velocity Time Integral 71.7 cm Right Atrial Pressure 3.0 mmHg Pulmonary Artery Systolic Pressu 38.3 mmHg PV Peak Velocity 110.0 cm/s RV Acceleration Time 0.1 s RV Ejection Time 0.3 s RV AcT/ET 0.4 FINDINGS Left Ventricle Left ventricle is normal in size. LV systolic function is normal with EF of 55 to 60%. No regional motion abnormalities are seen. Diastolic function is normal. Right Ventricle Normal in size and function Right Atrium Normal in size Left Atrium Normal in size Mitral Valve Structurally normal mitral valve. Trace mitral regurgitation. Aortic Valve Structurally normal aortic valve. No significant stenosis or regurgitation Tricuspid Valve Mild tricuspid regurgitation. Insufficient TR jet to calculate RVSP Pulmonic Valve Not well-visualized Pericardium Normal Aorta Normal in size IVC Appears to be normal CONCLUSIONS LV systolic is normal with EF 55 to 60% Diastolic function is normal Trace mitral regurgitation Mild tricuspid regurgitation No comparison studies are available Mik Randle MD (Electronically Signed) Final Date: 21 June 2022 11:57 S
== END 2022-06-16 13:43 | disposition home or self-care (01) ==
LOC: RAD 13:47
PROVIDERS: PCP Family Medicine; Visit Provider Internal Medicine Cardiovascular Disease
DX: R07.9 Chest pain, unspecified (principal); R06.09 Other forms of dyspnea; I08.1 Rheumatic disorders of both mitral and tricuspid valves
CPT/HCPCS: 93306; 99204

== ENCOUNTER 2022-07-15 06:40 | Outpatient (CLI) | payer MEDICAID, SELFPAY ==
--- NOTE | 2022-07-15 | ECG_ITS ---
[facility] Test Date: 2022-07-15 Pat Name: Lanie Stoddard Department: Room: Gender: Female Director Of Special Education: Ary Schaffer : 1970 Requested By: Samantha Cooley Order Number: [id number] Maria Elena MD: Samantha Cooley M.D. Interpretive Statements NAME OF STUDY: LEXISCAN SESTAMIBI STRESS TEST INDICATION: Chest Pain, PROCEDURE: At the baseline, the EKG revealed normal sinus rhythm with a normal ST Ts. The baseline heart was 78 bpm with a blood pressue of 109/76 mm of Hg Lexiscan was infused over a period of 20 seconds. A total of 0.4 milligrams of Lexiscan was infused. The stress phase was continued for a total of 5 minutes. Heart rate at the end of the stress phase was 101 bpm with a blood pressure 134/78 mm of Hg. The EKG at the peak infusion revealed no significant changes. Sestamibi was injected 20 seconds after the Lexiscan infusion. Heart rate at the end of the recovery phase was 99 bpm with a blood pressure of 150/64 mm of Hg. CONCLUSION: 1. No significant EKG changes with the LexiScan infusion 2. No LexiScan induced chest pain or cardiac arrhythmia 3. Normal blood pressure and heart rate response 4. Sestamibi/sestamibi perfusion scan pending; see separate report. Electronically Signed On 08-02-2022 14:13:05 RESOURCE COORDINATOR by Samantha Cooley M.D. [id number]
[2022-07-15 06:58] VITALS: BMI 49.9
--- NOTE | 2022-07-15 06:59 | NMCV_ITS ---
NM demetria perf SPECT r/s* [id number] Lanie Stoddard Age: 52 Gender: F : 1970 Exam Date: 07/15/2022 07:45 Ordering Phys: Samantha Cooley MD ([email or web address]) Technologist: LOUISE Payton Exam Location: [facility] Indications: CHEST PAIN STRESS TEST Please see separate stress test report in [facility] for full findings IMAGE PROTOCOL Rest/Stress 1 Lexiscan Day Radiopharmaceutical Dose (mCi) Administration Site Administered by Rest: Tc-99m 10.7 IV LOUISE Kauffman Sestamibi Stress:Tc-99m 32.8 IV LOUISE Kauffman Sestamibi Rest: 15-Jul-2022 60 Discovery 630 Stress: 15-Jul-2022 30 Discovery 630 0.4mg Lexiscan. Images obtained in supine and prone position. SPECT RESULTS Technical Quality: Excellent Raw Data Analysis: Breast attenuation Image Corrections: No attenuation or motion correction applied Summed Stress Score: 3 Summed Rest Score: 2 Summed Difference Score: 1 PERFUSION FINDINGS Moderate area of slightly decreased tracer uptake was noted in the mid and apical inferior and mid inferolateral regions with the supine imaging. Some reversibility was noted to the mid inferior region. However with the prone imaging, no significant reversibility was noted in this region FUNCTIONAL RESULTS (calculated via Gated SPECT) Stress Image LV EF (%): 69 Stress EDV (mL):91 TID: 0.77 Stress ESV (mL):28 FUNCTIONAL FINDINGS: Segmental wall motion analysis revealing no gross wall motion abnormalities IMPRESSIONS 1. Myocardial perfusion imaging revealing small to moderate area of slightly decreased tracer uptake in the inferior and inferolateral regions with subtle area reversibility in the mid inferior region suggesting myocardial scarring with ischemia in the distribution of the right coronary artery. However because of the inconsistency the reliability is questionable. 2. Normal LV ejection fraction 69%. 3. LV wall motion analysis revealing no gross wall motion abnormalities. 4. Normal LV volume No similar previous studies are available for comparison Dr Samantha Cooley MD FACC (Electronically Signed) Final Date: 15 July 2022 18:58 S
[2022-07-15] MEDS: regadenoson 0.4 Mg/5 ml Syringe IVP (08:33)
[2022-07-15 08:59] VITALS: BP 150/64; PULSE 99
== END 2022-07-15 06:41 | disposition home or self-care (01) ==
LOC: CDL 06:42
PROVIDERS: PCP Family Medicine; Visit Provider Internal Medicine Cardiovascular Disease
DX: R07.9 Chest pain, unspecified (principal)
CPT/HCPCS: 36415; 78452; 93017; 96374; A9500; J2785

== ENCOUNTER → 2022-08-09 17:47 | Outpatient (BNVA) | payer MEDICAID, SELFPAY | PROVIDERS: PCP Family Medicine; Visit Provider Family Medicine | DX: K21.9 Gastro-esophageal reflux disease without esophagitis (principal); R10.32 Left lower quadrant pain; R39.9 Unspecified symptoms and signs involving the genitourinary system | CPT/HCPCS: 81000 ==

== ENCOUNTER 2022-08-22 11:55 | Emergency (ER) | payer MEDICAID, SELFPAY ==
[2022-08-22 12:07] VITALS: BP 134/88; PULSE 66; RESP 15; TEMP 36.3; O2SAT 98; BMI 49.9
--- NOTE | 2022-08-22 13:17 | ED_ITS ---
HPI - Abdominal Pain General: Chief Complaint: Abdominal Pain Stated Complaint: Left side abd pain Time Seen by Provider: 08/22/22 13:07 History of Present Illness: Ms. Stoddard is a 52-year-old lady with history of obesity, hyperlipidemia, chronic pain presenting to the emergency department for left-sided abdominal pain. Reports subacute onset approximately 1 week ago without known specific provoking factor. Since that time it has been essentially constant and located in the same left flank without radiation. This is sharp in nature. Worse with standing and ambulation. Overall course of symptoms is worse symptoms gotten severe. No other specific changes in health, exacerbating, or alleviating factors identified.. Onset (ago): week(s) Pain Consistency: constant Location: L flank Severity: severe Quality: aching and sharp Radiation: none Migration to: no migration Exacerbating factors: nothing Relieving factors: nothing Associated Symptoms: Reports no associated symptoms Treatments prior to arrival: prescription analgesics and other Review of Systems General: Reports: 10 or more systems reviewed and unremarkable except in HPI and below PFS ED PFSH: Medical History Acquired lymphedema of lower extremity Cervical disc disorder with myelopathy of mid-cervical region Cervical osteoarthritis Gastric bezoar Gastritis Right upper quadrant abdominal pain Surgical History History of elbow surgery 2018 Dr. Srinivasan Pena [facility] Orthopedic Surgery Left ulnar nerve transposition. Right ulnar nerve transposition History of knee surgery History of lumbar surgery 2016 Dr. Molina Tolentino Neurosurgeon [facility] L2-L3 decompression History of lymph node biopsy History of oral surgery History of tubal ligation Family History Mother Diabetes Father Lung disease Grandmother CHF (congestive heart failure) CAD (coronary artery disease) Chronic kidney disease (CKD) Stroke Family/Other CAD (coronary artery disease) Cancer Lung disease Denies family history of Clotting disorder Dementia Suicide Anesthesia complication Bleeding disorder Social History Smoking and tobacco status: former smoker Alcohol intake: former Household members: spouse Marital status: Current occupational status: unemployed Physical Exam Const: COMMON NORMALS: alert GENERAL APPEARANCE: cooperative and well developed HENMT: COMMON NORMALS: normocephalic and atraumatic HEAD & SCALP: normocephalic and atraumatic Eye: COMMON NORMALS: conjunctivae normal CONJUNCTIVA: Yes conjunctivae normal SCLERA: sclerae normal Neck/C-Spine: COMMON NORMALS: supple GENERAL: Yes trachea midline Resp: COMMON NORMALS: normal respiratory effort and clear to auscultation bilaterally EFFORT & INSPECTION: Yes able to speak in complete sentences AUSCULTATION: clear to auscultation bilaterally Cardio: COMMON NORMALS: regular rate and regular rhythm RATE: regular rate RHYTHM: regular rhythm GI: COMMON NORMALS: Soft to palpation PALPATION: Yes Soft to palpation, Yes Tenderness to palpation present (GI) (Left flank), No Guarding due to palpation present (GI) and No Rigid due to palpation Extremity: GENERAL: Yes normal exam except as noted and No edema Neuro: COMMON NORMALS: moves all extremities SENSORIUM/ORIENTATION: Yes alert and No Orientation impaired Psych: COMMON NORMALS: mental status grossly normal and Normal thought process present THOUGHT PROCESS: Normal thought process present Skin: NARRATIVE SKIN EXAM: No skin lesions overlying area of pain Course Vital Signs: Vital signs: Vital Signs Temperature 97.4 F L 08/22/22 12:07 Pulse Rate 74 08/22/22 17:45 Respiratory Rate 18 08/22/22 17:45 Blood Pressure 132/64 08/22/22 17:45 Pulse Oximetry 98 08/22/22 15:14 Oxygen Delivery Me thod 08/22/22 14:37 MDM - Abdominal Pain Medical Decision Making 52-year-old lady presenting to the emergency department with abdominal pain. Exam as above, abdominal tenderness with no evidence of acute surgical abdomen. Patient is nontoxic in appearance. Labs with no leukocytosis, normocytic anemia, no significant metabolic abnormality, hCG is negative, no UTI. CT demonstrates chronic. Small left renal cyst which is unchanged however no other acute pathology to explain patient's symptoms. Patient treated with muscle relaxer, analgesia and improved on reassessment. Most likely etiology of patient's symptoms is unspecified abdominal pain. The results of ED evaluation were discussed with the patient including presc riptions and/or symptomatic cares (if applicable) including appropriate and responsible use, followup plan, and return precautions. The patient verbalized understanding and felt safe for discharge. Medical Records I reviewed the patient's medical records. Lab Data I reviewed the patient's lab results. 08/22/22 13:40 08/22/22 13:40 Labs/Radiology: Radiology Impressions Abdomen/Pelvis CT 08/22/22 14:36 IMPRESSION: Small left renal cyst unchanged from previous study Laboratory Results WBC 6.3 10^3/uL (4.0-10.0) 08/22/22 13:40 RBC 4.52 10^6/uL (4.1-5.3) 08/22/22 13:40 Hgb 11.3 g/dL (11.5-15.3) L 08/22/22 13:40 Hct 37.1 % (37.0-47.0) 08/22/22 13:40 MCV 82.1 fl (81-99) 08/22/22 13:40 MCH 25.0 pg (28.0-34.0) L 08/22/22 13:40 MCHC 30.5 g/dL (30.0-36.0) 08/22/22 13:40 RDW 14.6 % (12.1-15.1) 08/22/22 13:40 Plt Count 324 10^3/cmm (130-400) 08/22/22 13:40 MPV 10.2 fL (7.4-10.4) 08/22/22 13:40 Neut % (Auto) 57.0 % 08/22/22 13:40 Lymph % (Auto) 28.6 % 08/22/22 13:40 Alcorn % (Auto) 9.1 % 08/22/22 13:40 Eos % (Auto) 4.2 % 08/22/22 13:40 Baso % (Auto) 0.8 % 08/22/22 13:40 Neut # (Auto) 3.56 10^3/uL (1.8-7.7) 08/22/22 13:40 Lymph # (Auto) 1.8 10^3/uL (0.8-4.8) 08/22/22 13:40 Alcorn # (Auto) 0.6 10^3/uL (0.2-0.9) 08/22/22 13:40 Eos # (Auto) 0.3 10^3/uL (0.0-0.8) 08/22/22 13:40 Baso # (Auto) 0.1 10^3/uL (0.0-0.1) 08/22/22 13:40 Nucleated RBC % (auto) 0 % 08/22/22 13:40 Nucleated RBCs # 0.0 /100WBC 08/22/22 13:40 Sodium 141 mmol/L (136-145) 08/22/22 13:40 Potassium 4.0 mmol/L (3.5-5.1) 08/22/22 13:40 Chloride 102 mmol/L (98-107) 08/22/22 13:40 Carbon Dioxide 29 mmol/L (22-29) 08/22/22 13:40 Anion Gap 14.0 (5-19) 08/22/22 13:40 BUN 10 mg/dL (6-20) 08/22/22 13:40 Creatinine 0.9 mg/dL (0.5-0.9) 08/22/22 13:40 GFR Calculation 66.3 mL/min (90-130) L 08/22/22 13:40 Glucose 81 mg/dL (65-115) 08/22/22 13:40 Calculated Osmolality 290 mOsm/kg (285-295) 08/22/22 13:40 Calcium 9.0 mg/dL (8.5-10.5) 08/22/22 13:40 Total Bilirubin 0.2 mg/dL (0.15-1.2) 08/22/22 13:40 AST 15 U/L (0-32) 08/22/22 13:40 ALT 15 U/L (0-33) 08/22/22 13:40 Alkaline Phosphatase 133 U/L (35-105) H 08/22/22 13:40 Total Protein 7.0 g/dL (6.6-8.7) 08/22/22 13:40 Albumin 3.8 g/dL (3.5-5.2) 08/22/22 13:40 Globulin 3.2 g/dL (1.3-4.6) 08/22/22 13:40 Lipase 27 U/L (13-60) 08/22/22 13:40 HCG, Qual Negative (Negative) 08/22/22 14:15 Urine Color Colorless (Yellow) 08/22/22 14:15 Urine Appearance Clear (CLEAR) 08/22/22 14:15 Urine pH 6.5 (5-7) 08/22/22 14:15 Ur Specific [place] 1.005 (1.005-1.030) 08/22/22 14:15 Urine Protein Neg (Negative) 08/22/22 14:15 Urine Glucose (UA) Norm (Normal) 08/22/22 14:15 Urine Ketones Negative (Negative) 08/22/22 14:15 Urine Blood Neg (Negative) 08/22/22 14:15 Urine Nitrate Negative (Negative) 08/22/22 14:15 Urine Bilirubin Neg (Negative) 08/22/22 14:15 Urine Urobilinogen Norm mg/dL (Negative) 08/22/22 14:15 Ur Leukocyte Esterase Negative (Negative) 08/22/22 14:15 Discharge Plan Discharge Patient Disposition: Home Clinical Impression: Left flank pain Condition: Stable Prescriptions: No Action meloxicam 15 mg tablet 7.5 mg PO BID Hold Instructions: Resume on 09/19/20. baclofen 10 mg tablet 10 mg PO BEDTIME spironolactone 25 mg tablet 25 mg PO BID gabapentin 800 mg tablet 800 mg PO TID hydrocodone-acetaminophen 7.5-325 mg tablet 1 tab PO BID PRN (Reason: Pain) bumetanide 0.5 mg tablet 0.5 mg PO QAM montelukast 10 mg tablet 10 mg PO BEDTIME potassium chloride 10 mEq tablet extended release 10 meq PO EVERY OTHER DAY nitroglycerin 0.4 mg tablet, sublingual 0.4 mg sublingual Q5M PRN (Reason: chest pain) 30 Days Qty: 30 3RF Rx Instructions: until response; do not exceed 3 doses per episode fexofenadine [Peri Allergy] 180 mg tablet 180 mg PO DAILY Qty: 30 0RF fluticasone propionate 50 mcg/actuation spray,suspension 2 spray INTRANASAL DAILY PRN (Reason: Allergy Symptoms) epinephrine 0.3 mg/0.3 mL auto-injector 0.3 mg IM Q10M PRN (Reason: anaphylaxis) Qty: 2 0RF Rx Instructions: for 2 doses atorvastatin 40 mg tablet 40 mg PO BEDTIME Ventolin HFA 90 mcg/actuation HFA aerosol inhaler 2 puff INHALATION Q6H PRN (Reason: Shortness Of Breath) Vitamin D3 125 mcg (5,000 unit) Tablet 5,000 unit PO EVERY OTHER DAY Protonix 40 mg tablet,delayed release (DR/EC) 40 mg PO QAM Discharge Orders: Discharge ED (Routine); Ordered 08/22/22 Ordered By: Bradly Brambila Referrals: Cele Borrero DO [Primary Care Provider] - Discharge Diet: Usual diet Discharge Activity: Increase activity as tolerated Patient Instructions: Diazepam (By mouth), Flank Pain (ED), Opioid Safety Activity Restrictions/Additional Instructions: Thank you for visiting the emergency department. You were seen and evaluated for flank pain. The exact cause of your symptoms is unclear however does not appear to need hospitalization at this time as no significant abnormality was identified on laboratory studies or imaging. We are pleased that you had improvement with medication. I will prescribe Valium as this may be related to musculoskeletal/muscle spasm pain. As discussed use this extremely cautiously in the context of your other medications. Watch for signs of over sedation. Do not take the medications at the same time. Please follow-up with your primary care provider. Return to the emergency department for uncontrolled symptoms or anything else that you are concerned about and feel needs emergency department evaluation. 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
[2022-08-22 13:53] LABS: Basophils # 0.1 10^3/uL (0.0-0.1); Basophils % 0.8 %; Eosinophils # 0.3 10^3/uL (0.0-0.8); Eosinophils % 4.2 %; Hematocrit 37.1 % (37.0-47.0); Hemoglobin 11.3 g/dL (11.5-15.3); Lymphocytes # 1.8 10^3/uL (0.8-4.8); Lymphocytes % 28.6 %; Mean Corpuscular HGB Conc 30.5 g/dL (30.0-36.0); Mean Corpuscular Volume 82.1 fl (81-99); Mean Platelet Volume 10.2 fL (7.4-10.4); Monocytes # 0.6 10^3/uL (0.2-0.9); Monocytes % 9.1 %; Neutrophils # 3.56 10^3/uL (1.8-7.7); Nucleated Red Blood Cells % 0 %; Platelet Count 324 10^3/cmm (130-400); Red Blood Count 4.52 10^6/uL (4.1-5.3); Red Cell Distribution Width 14.6 % (12.1-15.1); White Blood Count 6.3 10^3/uL (4.0-10.0)
[2022-08-22 14:22] LABS: Add Urine Microscopic? NO; Charge for UA Resulting for Rev
[2022-08-22 14:31] LABS: Bilirubin Urine Neg (Negative); Blood Urine Neg (Negative); Glucose Urine UA Norm (Normal); Ketones Urine Negative (Negative); Leukocyte Esterase Urine Negative (Negative); Nitrate Urine Negative (Negative); Protein Urine Neg (Negative); Specific Gravity, Urine 1.005 (1.005-1.030); Urine Appearance Clear (CLEAR); Urine Color Colorless (Yellow); Urobilinogen Urine Norm (Negative); pH Urine 6.5 (5-7)
[2022-08-22 14:32] LABS: Alanine Aminotransferase 15 U/L (0-33); Albumin Level 3.8 g/dL (3.5-5.2); Alkaline Phosphatase 133 U/L (35-105); Aspartate Amino Transferase 15 U/L (0-32); Blood Urea Nitrogen 10 mg/dL (6-20); Carbon Dioxide 29 mmol/L (22-29); Chloride 102 mmol/L (98-107); Creatinine Clr Calc Pharmacy 104.6341; Globulin 3.2 g/dL (1.3-4.6); Glomerular Filtration Rate 66.3 mL/min (90-130); Glucose 81 mg/dL (65-115); Lipase 27 U/L (13-60); Osmolality Calculated 290 mOsm/kg (285-295); Sodium 141 mmol/L (136-145); Total Bilirubin 0.2 mg/dL (0.15-1.2)
[2022-08-22] MEDS: morphine 4 mg/mL SDV 1 mL IVP (14:35)
--- NOTE | 2022-08-22 14:36 | CT_ITS ---
WS: [id number] EXAMINATION: CT abdomen pelvis w con* [id number] ORDER DATE: 08/22/2022 2:39 PM COMPARISON: 11/26/2020 HISTORY: L flank pain TOTAL EXAM DLP: 1317.[address] scans at [facility] use at least one of these dose optimization techniques: automated e xposure control; mA and/or kV adjustment per patient size (includes targeted exams where dose is matc hed to clinical indication); or iterative reconstruction. TECHNIQUE: Transaxial imaging through the abdomen and pelvis was performed with 2-D reformats followi ng the intravenous administration of Omnipaque 350 100 ml IV FINDINGS: There are no acute changes in the visualized lung bases. There is no sign of pneumoperitoneum. The liver was unremarkable. The gallbladder, spleen and pancreas were unremarkable. There is a normal appearance of both adrenal glands and both kidneys except for a 15 mm cyst in the m id left kidney. The small bowel pattern is not significantly dilated and there are no significant air-fluid levels. There is a normal-appearing appendix. There is moderate fecal loading of the colon. There is a tiny fat-containing umbilical hernia There is a normal appearance of the uterus and adnexa There is no ascites or increased cul-de-sac fluid. The urinary bladder as imaged is unremarkable. No significant degenerative disc or spine changes.. CT/CT abdomen pelvis w con* [id number] IMPRESSION: Small left renal cyst unchanged from previous study
[2022-08-22 14:37] VITALS: BP 120/56; PULSE 72; RESP 18; O2SAT 100
[2022-08-22 14:48] LABS: HCG Qualitative Urine. Negative (Negative)
[2022-08-22] MEDS: iohexol 350 mg/mL 500 mL Btl (per mL) IV (14:51)
[2022-08-22 15:14] VITALS: BP 134/73; O2SAT 98
[2022-08-22] MEDS: acetaminophen 500 mg Tablet 1000 MG PO (16:05)
[2022-08-22] MEDS: ketorolac 30 mg/mL INJ 15 MG IVP (16:06)
[2022-08-22] MEDS: diazePAM 5 mg Tablet PO (16:06)
[2022-08-22 17:45] VITALS: BP 132/64; PULSE 74; RESP 18
== END 2022-08-22 17:46 | disposition home or self-care (01) ==
PROVIDERS: Emergency Provider Emergency Medicine; PCP Family Medicine
DX: R10.9 Unspecified abdominal pain (principal); Z87.891 Personal history of nicotine dependence; E78.5 Hyperlipidemia, unspecified
CPT/HCPCS: 36415; 74177; 80053; 81003; 81025; 83690; 85025; 96374; 96375; 99285; J1885; J2270; Q9967

== ENCOUNTER → 2022-12-09 14:53 | Outpatient (BNVA) | payer MEDICAID, SELFPAY | PROVIDERS: PCP Family Medicine; Visit Provider Internal Medicine Cardiovascular Disease | DX: R94.39 Abnormal result of other cardiovascular function study (principal); I10 Essential (primary) hypertension; E11.9 Type 2 diabetes mellitus without complications; E78.5 Hyperlipidemia, unspecified; R07.9 Chest pain, unspecified; Z87.891 Personal history of nicotine dependence; Z79.84 Long term (current) use of oral hypoglycemic drugs | CPT/HCPCS: 99215 ==

== ENCOUNTER 2022-12-31 10:51 | Outpatient (CLI) | payer MEDICAID, SELFPAY ==
[2022-12-31 11:14] LABS: Basophils % 0.7 %; Eosinophils # 0.2 10^3/uL (0.0-0.8); Eosinophils % 2.7 %; Hematocrit 36.5 % (37.0-47.0); Hemoglobin 11.3 g/dL (11.5-15.3); Lymphocytes # 1.7 10^3/uL (0.8-4.8); Mean Corpuscular Hemoglobin 25.5 pg (28.0-34.0); Mean Corpuscular Volume 82.2 fl (81-99); Mean Platelet Volume 10.1 fL (7.4-10.4); Monocytes # 0.4 10^3/uL (0.2-0.9); Monocytes % 6.9 %; Neutrophils # 3.24 10^3/uL (1.8-7.7); Neutrophils % 58.5 %; Nucleated Red Blood Cells % 0 %; Platelet Count 274 10^3/cmm (130-400); Red Blood Count 4.44 10^6/uL (4.1-5.3); Red Cell Distribution Width 15.9 % (12.1-15.1); White Blood Count 5.5 10^3/uL (4.0-10.0)
[2022-12-31 11:26] LABS: INR 0.97 (0.83-1.21); Prothrombin Time (Patient) 13.2 Seconds (12.0-15.1)
[2022-12-31 11:32] LABS: Anion Gap 12.9 (5-19); Blood Urea Nitrogen 15 mg/dL (6-20); Calcium 9.2 mg/dL (8.5-10.5); Carbon Dioxide 28 mmol/L (22-29); Chloride 102 mmol/L (98-107); Glomerular Filtration Rate 52.6 mL/min (90-130); Glucose 157 mg/dL (65-115); Osmolality Calculated 292 mOsm/kg (285-295); Potassium 3.9 mmol/L (3.5-5.1); Sodium 139 mmol/L (136-145)
== END 2022-12-31 10:52 | disposition home or self-care (01) ==
PROVIDERS: PCP Family Medicine; Visit Provider Internal Medicine Cardiovascular Disease
DX: R94.39 Abnormal result of other cardiovascular function study (principal)
CPT/HCPCS: 36415; 80048; 85025; 85610; 86850; 86900

== ENCOUNTER 2023-01-07 05:38 | Outpatient (CLI) | payer MEDICAID, SELFPAY ==
[2023-01-07] VITALS (16 sets, daily range): BP systolic 103–138; BP diastolic 58–82; PULSE 59–79; RESP 11–21; TEMP 36.7; O2SAT 92–99; BMI 49.9
--- NOTE | 2023-01-07 06:00 | XACV_ITS ---
Ht: 165 cm Wt: 136 kg BSA: 2.58 m2 Gender: Female : 1970 Any Known Allergies: Eggs Exam Priority: Routine Procedure(s): Procedure Description: Diagnostic procedure Procedure Description: Left Heart Catheterization Procedure Description: Left ventriculography Procedure Description: Coronary Angiography Yasir SHOOK; Diagnostic Cath Status: Elective Diagnostic Findings * The left main is a medium caliber vessel with no significant stenotic lesions. * The left anterior descending artery is a medium caliber vessel which appears to taper off to with the LV apex. The mid LAD was found to have mild diffuse irregular narrowing. No significant obstructive lesions were noted. It gives off multiple diagonal branches which are found to have no significant stenotic lesions. * The left circumflex artery is a small to medium caliber nondominant vessel with no significant stenotic lesions. * The right coronary artery is a large dominant vessel which was found to have a high and posterior takeoff. The artery was found to have no significant extremity lesions. The PDA and the PLV branches also were found to have no significant stenotic lesions. Minimal intimal irregularities were noted in both these vessels. Conclusions 1. This is a 53-year-old white female with a features of metabolic syndrome presenting with chest pain, shortness of breath and increasing fatigue. She had an abnormal Myocardial perfusion imaging suggesting myocardial scarring with ischemia in the distribution of the right coronary artery. In view of the patient's ongoing symptoms and risk factors, in order to further evaluate the coronary status, cardiac catheterization was recommended. Patient underwent left heart catheterization with left and right coronary angiogram and LV angiogram today. The findings are as follows. 2. Mild coronary artery disease. Normal LV ejection fraction of 55%. Markedly elevated LVEDP of 28 mmHg, suggesting left ventricular ejection fraction dysfunction. Recommendations * Will be all optimizing the risk modifying measures. Consider adding nitrates to improve the LV diastolic dysfunction. The LVEDP came down from 28mmHg to 22 mmHg after 2 sublingual nitro spray.. Diagnostic RX Recommendation: medical therapy and/or counseling LV EDP: 28 mmHg Ventriculography Ejection Fraction: 55.0 % Left Ventriculography Findings: * LV gram was performed in the area projection. The LV cavity appeared to be normal size. The overall ejection fraction was around 55%. No filling defects were noted. No significant mitral valve prolapse or mitral regurgitation. The LV gram was of suboptimal quality. Pressures Phase:Rest AO : 114 / 88 ( 101 ) @ 8:26:00 AM 149 / 51 ( 81 ) @ 8:39:00 AM 143 / 81 ( 105 ) @ 8:39:00 AM LV : 150 / 4 / 36 @ 8:36:00 AM 146 / -1 / 29 @ 8:37:00 AM 138 / 0 / 22 @ 8:38:00 AM 150 / 10 / 35 @ 8:39:00 AM Clinical Evaluation EBL: 5mL-10mL Procedural Details Procedure Consent Obtained. Pre-Procedure Time Out. Identified patient by full name and date of as verbalized by the patient/guarantor. Does the consent match the physician's order: Yes. Accurate & Complete Informed Consent: Yes. Inpatient/Outpatient History & Physical on Chart: Yes. If H&P is completed, is and addenduem needed: No; If yes, is the addendum complete: N/A. Visualize and Verify Site with Patient/Guarantor: N/A. Relevant Radiology Images available: N/A. Pre-op teaching completed and patient verbalized understanding. The risks, benefits, and alternatives of sedation and/or procedure were discussed by physician. The patient agrees to continue. Procedure started. [facility] Clinical Fraility Score: 4: Vulnerable. Pleat Patternmaker Indications: Worsening Angina. Chest Pain Symptom Assessment: Typical Angina Symptoms. Cardiovascular Instability: No. Correct patient, site and procedure confirmed by cath team. PERRLA. Strong, equal hand sheriff sergeant bilaterally. Lungs clear x 5 lobes. IV Site on Arrival: 20 gauge in the right anticubital. IV Fluids: 0.9% NaCl at KVO. 0 mL infused prior to phlebotomist lab assistant. Pre Procedural Pulses: bilateral dorsalis pedis was 3+. Pre Procedural Pulses: bilateral posterior tibial was 3+. Pre Procedural Pulses: bilateral radial was 3+. Oxygen started at 2liters/min via nasal canula. right groin was prepped with chloroprep then draped in the usual sterile fashion. right radial was prepped with chloroprep then draped in the usual sterile fashion. Physician arrived. Baseline sample Acquired. HR: 57 BPM. Equipment: 6F - Radial. Cardiac Cath Pack. ACIST Manifold Kit Model BT 2000. Heparinized Saline (2 units/mL), 1000 mL bag. Physician scrubbed in. Immediate Pre-Procedure Time Out. Correct Patient: Yes; Correct Procedure: Yes; Correct Site: Yes; Correct Patient Position: Yes; Correct Supplies: Yes; Dried Flammable Prep: Yes; Blood Products Available: N/A;. Bupivocaine 0.5% infiltrated to the right radial. Arterial access obtained. A 5 gabonese Dc catheter in over wire. Catheter removed over the exchange wire. Unable to seat catheter. A 5 gabonese TIG catheter in over wire. Multiple views taken of left coronary artery. Multiple views taken of right coronary artery. Catheter redirected to the RCA. Catheter redirected to the LCA. Multiple views taken of left coronary artery. Catheter removed over the exchange wire. A 5 gabonese Angled Pig catheter in over wire. EDP Sample taken: LV 150/4,36; HR: 78 BPM; SpO2: 100%. EDP Sample taken: LV 146/-2,29; HR: 75 BPM; SpO2: 100%. EDP Sample taken: LV 138/0,22; HR: 77 BPM; SpO2: 100%. LV gram performed in PORTILLO @ 10 mL/second for a total of 30 mL. EDP Sample taken: LV 150/10,35; HR: 75 BPM; SpO2: 100%. Pullback taken: LV Off; AO Off; Mean: , Peak to Peak: , SEP: ; HR: 68 BPM; SpO2: 100%. Catheter removed over the exchange wire. Physician scrubbed out. A TR Band was successful obtaining hemostatsis at the Right Radial artery insertion site. TR band placed. Hemostasis obtained. Post Procedure: Pulses reassessed and unchanged. PERRLA. Strong, equal hand sheriff sergeant bilaterally. No VTE prophylaxis required. Medication's Wasted: Nitro = 49.8 mg. Medication's Wasted: Heparin = 1000 units. Medication's Wasted: Other = solumedrol 65 mg. Medication's Wasted: Other = bupivocaine 8 mL. Total IV fluids: 40 mL. Contrast type used: Omnipaque 300 mgI/mL, 500 mL bottle. Post-op diagnosis: mild CAD, high EDP. Complications: none. Estimated blood loss: 5mL-10mL. Responsiveness - Normal response to verbal stimuli; alert and oriented, PERRLA. Airway - Unaffected, no intervention required; spontaneous ventilation. Circulation: W/N/L, pulses unchanged. Nausea/Vomiting: No. Procedure completed. Patient transferred by wheelchair to CPRU. Vital chart was stopped. Access Site Site: Right Radial artery Sheath Size: 6 Fr Hemostasis Method: TR Band Hemostasis Success: Successful Procedure Medications Start: 7:11 AM Stop: 7:11 AM Medication: Solu-Medrol (methylprednisolone) Amount: 60 mg Route: I.V. Start: 7:12 AM Stop: 7:12 AM Medication: Versed Amount: 1 mg Route: I.V. Start: 7:12 AM Stop: 7:12 AM Medication: Fentanyl Amount: 50 mcg Route: I.V. Start: 7:17 AM Stop: 7:17 AM Medication: Versed Amount: 1 mg Route: I.V. Start: 7:22 AM Stop: 7:22 AM Medication: Verapamil Amount: 5 mg Route: I.A. Start: 7:22 AM Stop: 7:22 AM Medication: Nitrogylcerin Amount: 200 mcg Start: 7:25 AM Stop: 7:25 AM Medication: Heparin Amount: 5000 units Route: I.V. Start: 7:34 AM Stop: 7:34 AM Medication: Fentanyl Amount: 50 mcg Route: I.V. Start: 7:37 AM Stop: 7:37 AM Medication: Nitrogylcerin Amount: 2 Sprays Route: S.Chuck Muse, the attending physician, have reviewed and verified all procedure medications. Yes, all medications given per verbal order History/Risk Factors Hypertension: Yes Dyslipidemia: Yes Peripheral Arterial Disease (PAD): No Myocardial Infarction (AZ): No Obesity: Yes Renal Disease: No Tobacco Use: Former Prior Interventions PCI: No CABG: No Valve Surgery: No Report Signatures Finalized by Dr Samantha Cooley MD [facility] on 01/07/2023 08:35 AM
[2023-01-07] MEDS: aspirin 325 mg Tablet PO (06:40)
[2023-01-07] MEDS: diphenhydrAMINE 50 mg Capsule PO (06:40)
--- NOTE | 2023-01-07 07:07 | W.PM.OPSUD ---
Surgery/Procedure H&P Update DATE OF PROCEDURE: January 07, 2023 DATE H&P PERFORMED: 12/09/22 H&P UPDATE INFORMATION: I have reviewed H&P completed within last 30 days, I have examined patient prior to procedure and No changes to prior documentation PREOP DIAGNOSIS: ASHD PRIMARY INDICATION FOR PROCEDURE: Chest pain, multiple risk factors for coronary artery disease, abnormal myocardial perfusion imaging PLANNED PROCEDURE: Operation Date: 01/07/23 07:00 Proposed Procedures p [facility] [address]68 I10,R94.39,R06.09(Left) - Samantha Cooley MD PATIENT REASSESSED PRIOR TO SEDATION, WITH NO CHANGE NOTED: Yes PHYSICAL EXAM: alert, oriented x 3, clear to auscultation bilaterally and regular rate & rhythm AIRWAY EVAL/ANESTHESIA PLAN: normal airway, see other exam findings, ASA III, Monitored Anesthesia, Local Anesthesia, Risks, benefits & alternatives of sedation and/or procedure discussed and Patient agrees to continue as planned
--- NOTE | 2023-01-07 08:00 | PC.NURSE ---
Around 0800, cpru nurse received pt from [facility]. pt alert and oriented and complains of no plain. tr band on right wrist with distal pulses palpable. no bruising or hematoma noted. pt educated on restrictions of right wrist and pt stated understanding. pt to be educated by nurse throughout recovery as well. pt placed on monitors and will be monitored per protocol. plan is to dc home in approximately 3 hrs.
== END 2023-01-07 12:25 | disposition home or self-care (01) ==
PROVIDERS: PCP Family Medicine; Visit Provider Internal Medicine Cardiovascular Disease
DX: R07.9 Chest pain, unspecified (principal); R94.39 Abnormal result of other cardiovascular function study; R06.02 Shortness of breath; I10 Essential (primary) hypertension; E78.5 Hyperlipidemia, unspecified; E66.9 Obesity, unspecified; Z68.42 Body mass index [BMI] 45.0-49.9, adult
CPT/HCPCS: 36415; 93458; 96361; 96365; 96367; 99152; 99153; C1769; C1887; C1894; J1644; J2250; J2930; J3010; J3490; J7030; Q0163; Q9967

== ENCOUNTER → 2023-01-15 10:42 | Outpatient (BNVA) | payer MEDICAID, SELFPAY | PROVIDERS: PCP Family Medicine; Visit Provider Nurse Practitioner Family | DX: Z09 Encounter for follow-up examination after completed treatment for conditions other than malignant neoplasm (principal) | CPT/HCPCS: 99213 ==

== ENCOUNTER 2023-03-09 08:37 | Emergency (ER) | payer MEDICAID, SELFPAY ==
[2023-03-09 08:45] VITALS: BP 143/81; PULSE 76; TEMP 36.6; O2SAT 96; BMI 47.0
--- NOTE | 2023-03-09 08:59 | XRR_ITS ---
PROCEDURE INFORMATION: Exam: XR Right Knee Exam date and time: 03/09/2023 9:02 AM Age: 53 years old Clinical indication: Injury or trauma; Fall; Blunt trauma; Knee; Right TECHNIQUE: Imaging protocol: Radiologic exam of the right knee. Views: 3 views. COMPARISON: CR XR knee RT 3V* [id number] 08/15/2016 12:34 AM FINDINGS: Bones/joints: No acute fracture. Mild tricompartmental degenerative joint space narrowing and marginal osteophyte formation. Trace suprapatellar joint effusion. Soft tissues: Unremarkable. XR/XR knee RT 3V* [id number] IMPRESSION: 1. Trace suprapatellar joint effusion without acute fracture or dislocation. 2. Mild tricompartmental osteoarthritis.
--- NOTE | 2023-03-09 08:59 | XRR_ITS ---
PROCEDURE INFORMATION: Exam: XR Left Wrist Exam date and time: 03/09/2023 9:02 AM Age: 53 years old Clinical indication: Injury or trauma; Fall; Blunt trauma (contusions or hematomas); Wrist; Left TECHNIQUE: Imaging protocol: Radiologic exam of the left wrist. Views: 3 or more views. COMPARISON: CR XR hand LT min 3V* [id number] 11/30/2019 4:38 PM FINDINGS: Bones/joints: Normal. Soft tissues: Unremarkable. XR/XR wrist LT min 3V* [id number] IMPRESSION: No acute findings.
--- NOTE | 2023-03-09 09:04 | XR_ITS ---
WS: [id number] LEFT SHOULDER: 3 VIEW(S) TECHNIQUE: Internal and external rotation with Y view. HISTORY: trauma COMPARISON: 04/18/2021 No fracture or dislocation or soft tissue abnormality. Mild AC joint arthritis. Configuration of the AC joint is similar to prior study. Y view is limited by body habitus. IMPRESSION: 1. No fracture identified. 2. Mild AC joint arthritis.
--- NOTE | 2023-03-09 09:05 | ED_ITS ---
HPI - Fall General: Chief Complaint: Fall Stated Complaint: fall, back pain and knee Source: patient Mode of arrival: ambulatory History of Present Illness: 53-year-old female who fell yesterday while cleaning a bathtub. She is twisted her right knee and landed on her left wrist and left shoulder. She has been able to bear weight but has quite a bit of discomfort in the left knee. She did not strike her head did not lose consciousness. She denies any other injuries. MD complaint: fall Onset (ago): day(s) (1) Fall from: standing Fall witnessed: no Place fall occurred: home Loss of consciousness: None Prolonged down time: no Context: tripped/slipped Location of injury - extremities: Left: shoulder and forearm (Rest) and Right: knee Quality: sharp Associated symptoms-after fall: Denies abdominal pain, chest pain or neck pain Review of Systems Const: Denies: fever(s) or chills Card: Denies: chest pain Resp: Denies: dyspnea GI: Denies: abdominal pain : Denies: dysuria, urinary frequency or urinary urgency Musc: Denies: neck pain or back pain Skin/Breast: Denies: rash PFSH ED PFSH: Medical History Acquired lymphedema of lower extremity Cervical disc disorder with myelopathy of mid-cervical region Cervical osteoarthritis Gastric bezoar Gastritis Right upper quadrant abdominal pain Surgical History History of elbow surgery 2018 Dr. Srinivasan Pena [facility] Orthopedic Surgery Left ulnar nerve transposition. Right ulnar nerve transposition History of knee surgery History of lumbar surgery 2016 Dr. Molina Tolentino Neurosurgeon [facility] L2-L3 decompression History of lymph node biopsy History of oral surgery History of tubal ligation Family History Mother Diabetes Father Lung disease Grandmother CHF (congestive heart failure) CAD (coronary artery disease) Chronic kidney disease (CKD) Stroke Family/Other CAD (coronary artery disease) Cancer Lung disease Social History Smoking and tobacco status: former smoker Alcohol intake: former Substance/Drug Use: former Household members: spouse Marital status: Current occupational status: unemployed Physical Exam Const: GENERAL APPEARANCE: cooperative and comfortable ORIENTATION/CONSCIOUSNESS: Yes awake, Yes oriented to person, Yes oriented to place and Yes oriented to time HENMT: COMMON NORMALS: normocephalic, atraumatic and hearing grossly normal bilaterally HEAD & SCALP: normocephalic and atraumatic Resp: COMMON NORMALS: normal respiratory effort, No retractions, No use of acc essory muscles and clear to auscultation bilaterally AUSCULTATION: clear to auscultation bilaterally Cardio: COMMON NORMALS: regular rate, regular rhythm and No murmurs present (Cardio) RATE: regular rate RHYTHM: regular rhythm GI: COMMON NORMALS: Soft to palpation and No hepatosplenomegaly present AUSCULTATION: Yes normoactive bowel sounds PALPATION: Yes Soft to palpation, No Tenderness to palpation present (GI), No Guarding due to palpation present (GI) and Yes No hepatosplenomegaly present Extremity: COMMON NORMALS: normal to inspection, capillary refill normal, no clubbing, cyanosis or edema, no calf tenderness and no pedal edema OTHER: Left wrist on exam normal sensation aerophysicist strength normal neurovascularly intact Left clavicle palpably intact no crepitus. Due to pain did not test range of motion in the shoulder prior to the x-ray Right knee mild swelling no deformity no ecchymosis able to flex and extend mild discomfort neurovascularly intact Neuro: SENSORIUM/ORIENTATION: Yes oriented to person, Yes oriented to place and Yes oriented to time Skin: COMMON NORMALS: no rashes or lesions noted GENERAL SKIN EXAM: no rashes or lesions noted Course Vital Signs: Vital signs: Vital Signs Temperature 97.9 F 03/09/23 08:45 Pulse Rate 76 03/09/23 08:45 Blood Pressure 143/81 03/09/23 08:45 Pulse Oximetry 96 03/09/23 08:45 Oxygen Delivery Me thod Room Air 03/09/23 08:45 MDM - Fall Medical Decision Making No acute fractures on exam and on x-ray there is a small suprapatellar bursitis. Examination of the knee ligaments are intact there is no deformity or varus valgus stress no lacerations no ecchymosis. Discharge patient home anti- inflammatories as needed hold meloxicam. It was going to give her prednisone which she elicits having an allergy to that. Follow-up as needed. Continue hydrocodone as previously prescribed. Medical Records I reviewed the patient's medical records. Lab Data I reviewed the patient's lab results. Radiology Impressions Knee X-Ray 03/09/23 08:59 IMPRESSION: 1. Trace suprapatellar joint effusion without acute fracture or dislocation. 2. Mild tricompartmental osteoarthritis. Wrist X-Ray 03/09/23 08:59 IMPRESSION: No acute findings. All radiology interpretation(s) finalized by discharge Discharge Plan Discharge Patient Disposition: Home Clinical Impression: Knee sprain, Suprapatellar bursitis of left knee, Sprain of wrist, left Condition: Stable Prescriptions: New diclofenac sodium 75 mg tablet,delayed release (DR/EC) 75 mg PO Q12H PRN (Reason: pain) Qty: 20 0RF No Action meloxicam 15 mg tablet 7.5 mg PO BID Hold Instructions: Resume on 09/19/20. baclofen 10 mg tablet 20 mg PO BEDTIME spironolactone 25 mg tablet 50 mg PO QAM cetirizine [Allergy Relief (cetirizine)] 5 mg tablet 5 mg PO DAILY PRN (Reason: Runny Nose) Victoza 2-Vincent 0.6 mg/0.1 mL (18 mg/3 mL) pen injector 1.2 mg SUBCUT .weekly gabapentin 800 mg tablet 800 mg PO TID bumetanide 0.5 mg tablet 0.5 mg PO QAM montelukast 10 mg tablet 10 mg PO BEDTIME hydrocodone-acetaminophen 7.5-325 mg tablet 1 tab PO BID potassium chloride 10 mEq tablet extended release 10 meq PO EVERY OTHER DAY PRN nitroglycerin 0.4 mg tablet, sublingual 0.4 mg sublingual Q5M PRN (Reason: chest pain) 30 Days Qty: 30 3RF Rx Instructions: until response; do not exceed 3 doses per episode fluticasone propionate 50 mcg/actuation spray,suspension 2 spray INTRANASAL DAILY PRN (Reason: Allergy Symptoms) epinephrine 0.3 mg/0.3 mL auto-injector 0.3 mg IM Q10M PRN (Reason: anaphylaxis) Qty: 2 0RF Rx Instructions: for 2 doses isosorbide mononitrate 30 mg Tablet Extended Release 24 Hr 30 mg PO DAILY Qty: 30 3RF atorvastatin 40 mg tablet 40 mg PO BEDTIME albuterol sulfate [Ventolin HFA] 90 mcg/actuation HFA aerosol inhaler 2 puff INHALATION Q6H PRN (Reason: Shortness Of Breath) pantoprazole [Protonix] 40 mg tablet,delayed release (DR/EC) 40 mg PO QAM Discharge Orders: Discharge ED (Routine); Ordered 03/09/23 Ordered By: Fritz Arboleda Referrals: Cele Borrero DO [Primary Care Provider] - Patient Instructions: Opioid Safety, Pain Management Coding Level of Care Code ED Financial Report Service Sales Agent for Ezequiel Randhawa
== END 2023-03-09 10:59 | disposition home or self-care (01) ==
PROVIDERS: Emergency Provider Family Medicine; PCP Family Medicine
DX: M25.461 Effusion, right knee (principal); M17.11 Unilateral primary osteoarthritis, right knee; S83.91XA Sprain of unspecified site of right knee, initial encounter; S63.502A Unspecified sprain of left wrist, initial encounter; M70.51 Other bursitis of knee, right knee; Z87.891 Personal history of nicotine dependence; W18.2XXA Fall in (into) shower or empty bathtub, initial encounter; Y93.E9 Activity, other interior property and clothing maintenance
CPT/HCPCS: 73030; 73110; 73562; 99284

== ENCOUNTER → 2023-03-18 10:15 | Outpatient (BNVA) | payer MEDICAID, SELFPAY | PROVIDERS: PCP Family Medicine; Visit Provider Internal Medicine Cardiovascular Disease | DX: I11.9 Hypertensive heart disease without heart failure (principal); I25.10 Atherosclerotic heart disease of native coronary artery without angina pectoris; E11.9 Type 2 diabetes mellitus without complications; E78.5 Hyperlipidemia, unspecified; R06.09 Other forms of dyspnea; Z79.84 Long term (current) use of oral hypoglycemic drugs; Z87.891 Personal history of nicotine dependence | CPT/HCPCS: 99214 ==

== ENCOUNTER → 2023-09-08 10:30 | Outpatient (BNVA) | payer MEDICAID, SELFPAY | PROVIDERS: PCP Family Medicine; Referring Provider Anesthesiology; Visit Provider Orthopaedic Surgery | DX: M54.42 Lumbago with sciatica, left side (principal); G89.29 Other chronic pain; M54.9 Dorsalgia, unspecified | CPT/HCPCS: 72110; 99204 ==

== ENCOUNTER 2023-09-15 08:22 | Emergency (ER) | payer MEDICAID, SELFPAY ==
[2023-09-15 08:24] VITALS: BP 159/89; PULSE 70; RESP 18; TEMP 36.4; O2SAT 96; BMI 48.9
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
[2023-09-15 09:34] VITALS: BP 141/115; PULSE 74; O2SAT 97
[2023-09-15 10:59] VITALS: BP 127/72; PULSE 68; RESP 16; O2SAT 97
[2023-09-15 11:00] VITALS: BP 127/72; PULSE 68; RESP 16; O2SAT 97
== END 2023-09-15 10:59 | disposition home or self-care (01) ==
PROVIDERS: Emergency Provider Physician Assistant; PCP Family Medicine
DX: S29.012A Strain of muscle and tendon of back wall of thorax, initial encounter (principal); S16.1XXA Strain of muscle, fascia and tendon at neck level, initial encounter; S09.8XXA Other specified injuries of head, initial encounter; Z87.891 Personal history of nicotine dependence; V89.2XXA Person injured in unspecified motor-vehicle accident, traffic, initial encounter
CPT/HCPCS: 70450; 72125; 72128; 73030; 99284

== ENCOUNTER → 2023-10-14 10:06 | Outpatient (BNVA) | payer MEDICAID, SELFPAY | PROVIDERS: PCP Family Medicine; Visit Provider Internal Medicine Cardiovascular Disease | DX: I25.118 Atherosclerotic heart disease of native coronary artery with other forms of angina pectoris (principal); R07.9 Chest pain, unspecified; E78.5 Hyperlipidemia, unspecified; R06.09 Other forms of dyspnea; E11.9 Type 2 diabetes mellitus without complications; Z79.85 Long-term (current) use of injectable non-insulin antidiabetic drugs; Z87.891 Personal history of nicotine dependence; I11.0 Hypertensive heart disease with heart failure; I50.9 Heart failure, unspecified | CPT/HCPCS: 99214 ==

== ENCOUNTER 2023-10-19 23:26 | Emergency (ER) | payer MEDICAID, SELFPAY ==
[2023-10-19 23:30] VITALS: PULSE 85; RESP 15; TEMP 36.6; O2SAT 98; BMI 49.9
--- NOTE | 2023-10-19 23:46 | XRR_ITS ---
PROCEDURE INFORMATION: Exam: XR Right Ankle Exam date and time: 10/20/2023 12:00 AM Age: 53 years old Clinical indication: Injury or trauma; Fall; Other: Pain; Additional info: Fall pain TECHNIQUE: Imaging protocol: Radiologic exam of the right ankle. Views: 3 or more views. COMPARISON: CR XR knee RT 3V* [id number] 03/09/2023 9:02 AM FINDINGS: Bones/joints: There is fusiform thickening of the distal Achilles tendon. No evidence of acute fracture or dislocation. No erosive disease. No significant degenerative change. Soft tissues: Mild soft tissue swelling noted surrounding the ankle. XR/XR ankle RT min 3V* [id number] IMPRESSION: No acute bony injury. Focal thickening of the distal Achilles tendon may reflect partial intrasubstance tear. Correlate with point tenderness.
--- NOTE | 2023-10-19 23:46 | XRR_ITS ---
PROCEDURE INFORMATION: Exam: XR Right Knee Exam date and time: 10/20/2023 12:05 AM Age: 53 years old Clinical indication: Injury or trauma; Fall; Other: Pain; Additional info: Fall pain TECHNIQUE: Imaging protocol: Radiologic exam of the right knee. Views: 3 views. COMPARISON: CR XR knee RT 3V* [id number] 03/09/2023 9:02 AM FINDINGS: Bones/joints: No evidence of acute fracture or dislocation. No erosive disease. Moderate tricompartmental degenerative change. No joint effusion. Soft tissues: Normal. XR/XR knee RT 3V* [id number] IMPRESSION: No acute bony injury. Moderate osteoarthritis.
[2023-10-19 23:47] VITALS: BP 167/93; PULSE 79; RESP 18; O2SAT 99
[2023-10-19 23:51] VITALS: RESP 18
[2023-10-19] MEDS: oxyCODONE-APAP 5-325 mg Tablet 1 TAB PO (23:51)
--- NOTE | 2023-10-20 00:29 | ED_ITS ---
HPI - Extremity Problem General: Chief complaint: Extremity Injury, Lower Stated complaint: fall Time Seen by Provider: 10/19/23 23:37 History of Present Illness: Patient presents to the ER with complaints of right knee pain. Patient's right knee gave out on her and she cannot fell and landed on it and hurt her knee and her ankle. Patient already has knee problems and needs a knee replacement but they want to do the surgery until she loses a significant amount of weight. There was no loss of consciousness and patient did not hit her head. Review of Systems General: Reports: 10 or more systems reviewed and unremarkable except in HPI and below PFSH ED PFSH: Medical History CHF (congestive heart failure) Chronic fatigue Right upper quadrant abdominal pain Gastritis Gastric bezoar Cervical osteoarthritis Cervical disc disorder with myelopathy of mid-cervical region Acquired lymphedema of lower extremity Surgical History S/P placement of nerve stimulator Hx of neck surgery History of lumbar surgery 2015 Dr. Molina Tolentino Neurosurgeon [facility] L2-L3 decompression History of knee surgery History of tubal ligation History of lymph node biopsy History of elbow surgery 2018 Dr. Srinivasan Pena [facility] Orthopedic Surgery Left ulnar nerve transposition. Right ulnar nerve transposition History of oral surgery Family History Mother Diabetes Father Lung disease Grandmother Congestive heart failure (CHF) CAD (coronary artery disease) Chronic kidney disease (CKD) Stroke Family/Other CAD (coronary artery disease) Cancer Lung disease Social History Smoking and tobacco/nicotine status: former use of tobacco/nicotine Alcohol intake: former Substance/Drug Use: former Household members: spouse Marital status: Current occupational status: unemployed Physical Exam Const: COMMON NORMALS: no acute distress, average body habitus, patient oriented x3, no limitations, healthy appearing, alert and well nourished HENMT: COMMON NORMALS: normocephalic, atraumatic, hearing grossly normal bilaterally, external ears normal, Normal external nose present, moist oral mucous membranes and oropharynx normal HEAD & SCALP: normocephalic and atraumatic NOSE: Normal external nose present EXTERNAL EAR: Yes external ears normal Neck/C-Spine: COMMON NORMALS: no JVD Chest: COMMONS NORMALS: normal inspection of the chest and normal palpation of entire chest wall Resp: COMMON NORMALS: normal respiratory effort, No retractions, No use of accessory muscles and clear to auscultation bilaterally AUSCULTATION: clear to auscultation bilaterally Cardio: COMMON NORMALS: no JVD, regular rate, regular rhythm, S1 normal heart sound present, S2 normal heart sound present, No gallops present (Cardio), No clicks present (Cardio), No murmurs present (Cardio) and No rub (Cardio) RATE: regular rate RHYTHM: regular rhythm HEART SOUNDS: S1 normal heart sound present and S2 normal heart sound present GI: COMMON NORMALS: Normal to inspection, nondistended, normoactive bowel sounds present, Soft to palpation, non-tender, No hepatosplenomegaly present and no masses PALPATION: Yes Soft to palpation and Yes No hepatosplenomegaly present Extremity: NARRATIVE EXTREMITY EXAM: Limited range of motion secondary to pain, mild tenderness to palpation, no obvious deformity noted to either right knee or right ankle. Neuro: COMMON NORMALS: patient oriented x3 SENSORIUM/ORIENTATION: Yes alert Course Vital Signs: Vital signs: Vital Signs Temperature 97.8 F 10/19/23 23:30 Pulse Rate 79 10/19/23 23:47 Respiratory Rate 18 10/19/23 23:51 Blood Pressure 167/93 10/19/23 23:47 Pulse Oximetry 99 10/19/23 23:47 Oxygen Delivery Me thod Room Air 10/19/23 23:47 MDM - Extremity (Nontraumatic) Medical Decision Making X-rays do not show any acute bony injury. However there was thickening of the Achilles tendon, patient will be referred back to her family practice physician for further workup. Patient was given 1 Percocet 5/325 here for her pain. Lab Data Radiology Impressions Ankle X-Ray 10/19/23 23:46 IMPRESSION: No acute bony injury. Focal thickening of the distal Achilles tendon may reflect partial intrasubstance tear. Correlate with point tenderness. Knee X-Ray 10/19/23 23:46 IMPRESSION: No acute bony injury. Moderate osteoarthritis. All radiology interpretation(s) finalized by discharge Discharge Plan Discharge Patient Disposition: Home Clinical Impression: Acute right ankle pain Knee pain, right Qualifiers: Chronicity: acute Qualified Code(s): M25.561 - Pain in right knee Condition: Stable Prescriptions: No Action meloxicam 15 mg tablet 7.5 mg PO BID Hold Instructions: Resume on 09/19/20. baclofen 10 mg tablet 20 mg PO BEDTIME spironolactone 25 mg tablet 50 mg PO QAM bumetanide 0.5 mg tablet 0.5 mg PO QAM montelukast 10 mg tablet 10 mg PO BEDTIME hydrocodone-acetaminophen 7.5-325 mg tablet 1 tab PO BID potassium chloride 10 mEq tablet extended release 10 meq PO EVERY OTHER DAY PRN (Reason: Edema) gabapentin 800 mg tablet 400 mg PO TID levocetirizine 5 mg tablet 5 mg PO DAILY naloxone [Narcan] 4 mg/actuation spray,non-aerosol 4 mg intranasal Q2M PRN (Reason: OVERDOSE) Rx Instructions: spray 1 dose into ONE nostril; alternate nostrils w each dose until help arrives nitroglycerin 0.4 mg tablet, sublingual 0.4 mg sublingual Q5M PRN (Reason: chest pain) Qty: 30 3RF Rx Instructions: until response; do not exceed 3 doses per episode isosorbide mononitrate 30 mg tablet extended release 24 hr 30 mg PO DAILY Qty: 90 3RF metoprolol tartrate 25 mg tablet 12.5 mg PO BID Qty: 45 3RF epinephrine 0.3 mg/0.3 mL auto-injector 0.3 mg IM Q10M PRN (Reason: anaphylaxis) Qty: 2 0RF Rx Instructions: for 2 doses atorvastatin 40 mg tablet 40 mg PO BEDTIME albuterol sulfate [Ventolin HFA] 90 mcg/actuation HFA aerosol inhaler 2 puff INHALATION Q6H PRN (Reason: Shortness Of Breath) pantoprazole [Protonix] 40 mg tablet,delayed release (DR/EC) 40 mg PO QAM lisinopril 5 mg tablet 5 mg PO DAILY ergocalciferol (vitamin D2) 1,250 mcg (50,000 unit) capsule 1,250 mcg PO Q7D azelastine 137 mcg (0.1 %) aerosol,spray 1 - 2 spray INTRANASAL BID Trulicity 3 mg/0.5 mL pen injector 3 mg SUBCUT Q7D Discharge Orders: Discharge ED (Routine); Ordered 10/20/23 Ordered By: John Capps Referrals: Cele Borrero DO [Primary Care Provider] - 1 week Patient Instructions: Knee Pain (ED) Activity Restrictions/Additional Instructions: Your x-rays in ER did not show any acute bony abnormality. It did show thickening of your Achilles tendon which may be chronic and or acute in nature. Please follow-up with your family practice physician within the next 7 days for further evaluation and treatment. Coding Level of Care Code ED Defense Travel Administrator for Ezequiel Randhawa
[2023-10-20 02:04] VITALS: BP 126/85; PULSE 71; O2SAT 100
[2023-10-20 03:04] VITALS: BP 115/80; PULSE 65; O2SAT 95
[2023-10-20 03:46] VITALS: BP 107/58; PULSE 79; RESP 16; O2SAT 98
== END 2023-10-20 03:48 | disposition home or self-care (01) ==
PROVIDERS: Emergency Provider Emergency Medicine; PCP Family Medicine
DX: M25.561 Pain in right knee (principal); M25.571 Pain in right ankle and joints of right foot; Z79.85 Long-term (current) use of injectable non-insulin antidiabetic drugs; I50.9 Heart failure, unspecified; Z87.891 Personal history of nicotine dependence
CPT/HCPCS: 73562; 73610; 99284; E0114

== ENCOUNTER 2024-01-25 15:15 | Emergency (ER) | payer MEDICAID, SELFPAY ==
[2024-01-25 15:28] VITALS: BP 171/101; PULSE 111; RESP 18; TEMP 36.4; O2SAT 97; BMI 47.3
--- NOTE | 2024-01-25 15:41 | XR_ITS ---
WS: [id number] Exam: XR chest 1V portable [id number] Date/Time of Exam: 01/25/2024 3:43 PM Reason For Exam: chest pain Comparison 08/30/2019. Lungs are clear and fully expanded. Normal cardiomediastinal silhouette and regional bony elements. N eurostimulator electrodes in the lower T-spine. XR/XR chest 1V portable [id number] IMPRESSION: 1. Negative chest.
--- NOTE | 2024-01-25 15:42 | ECG_ITS ---
[facility] Test Date: 2024-01-25 Pat Name: Lanie Stoddard Department: Room: Gender: Female Corrections Unit Supervisor: : 1970 Requested By: Nancy Franco Order Number: [id number] Maria Elena MD: Samantha Cooley M.D. Measurements Intervals Kyle Rate: 103 P: 70 MA: 183 QRS: 50 QRSD: 91 T: 66 QT: 315 QTc: 414 Interpretive Statements SINUS TACHYCARDIA LOW QRS VOLTAGE IN PRECORDIAL LEADS [QRS DEFLECTION < 1.0 mV IN CHEST LEADS] ABNORMAL RHYTHM ECG Compared to ECG 01/18/2020 18:37:44 Sinus rhythm no longer present Intraventricular conduction delay no longer present Electronically Signed On 01-25-2024 22:49:29 CDT by Samantha Cooley M.D. [id number]
[2024-01-25 16:15] LABS: Basophils # 0.1 10^3/uL (0.0-0.1); Basophils % 0.7 %; Eosinophils # 0.2 10^3/uL (0.0-0.8); Eosinophils % 2.1 %; Hematocrit 41.3 % (36-47); Lymphocytes # 2.2 10^3/uL (0.8-4.8); Lymphocytes % 24.2 %; Mean Corpuscular HGB Conc 31.2 g/dL (30-55); Mean Corpuscular Hemoglobin 26.4 pg (27-33); Mean Corpuscular Volume 84.6 fl (85-98); Mean Platelet Volume 9.7 fL (7.4-10.4); Monocytes # 0.8 10^3/uL (0.2-0.9); Monocytes % 8.3 %; Neutrophils % 64.4 %; Nucleated Red Blood Cells % 0 %; Platelet Count 373 10^3/cmm (157-399); Red Blood Count 4.88 10^6/uL (3.85-5.65); Red Cell Distribution Width 15.8 % (12.1-15.1); White Blood Count 9.15 10^3/uL (3.29-11.43)
[2024-01-25 16:35] VITALS: BP 141/81; PULSE 90; O2SAT 98
[2024-01-25 16:40] LABS: Troponin(5th) Baseline 10 ng/L (0-10)
[2024-01-25 16:49] LABS: Alanine Aminotransferase 25 U/L (0-33); Albumin Level 4.1 g/dL (3.5-5.2); Alkaline Phosphatase 180 U/L (35-105); Anion Gap 20.1 (5-19); Aspartate Amino Transferase 16 U/L (0-32); Blood Urea Nitrogen 15 mg/dL (6-20); Calcium 9.1 mg/dL (8.5-10.5); Carbon Dioxide 27 mmol/L (22-29); Chloride 100 mmol/L (98-107); Creatinine Clr Calc Pharmacy 93.1347; Glomerular Filtration Rate 58.2 mL/min (90-130); Glucose 105 mg/dL (65-115); NT Pro B Type Natriuretic Pept 61 pg/mL (0-125); Osmolality Calculated 297 mOsm/kg (285-295); Potassium 4.1 mmol/L (3.5-5.1); Sodium 143 mmol/L (136-145); Total Bilirubin 0.4 mg/dL (0.15-1.2); Total Protein 7.1 g/dL (6.6-8.7)
[2024-01-25 17:05] VITALS: BP 113/66; PULSE 78; O2SAT 98
--- NOTE | 2024-01-25 17:13 | W.ED.CHESTPA ---
HPI - Chest Pain General: Chief Complaint: Chest Pain Stated Complaint: SOB/left arm pain/chest pressure Time Seen by Provider: 01/25/24 16:50 History of Present Illness: Patient presents with a squeezing chest pain that happened today while sitting. She states that happened once for about 2 to 3 seconds where it felt like she was being compressed and then she could not breathe and then it relieved and then happened again and then lasted a little bit longer maybe up to a minute and then started to have some pain down her left arm. Upon evaluation in the ER symptoms have resolved. Related Data Home Medications Medication Instructions Recorded Confirmed meloxicam 15 mg tablet 7.5 mg PO BID 07/21/19 09/15/23 bumetanide 0.5 mg tablet 0.5 mg PO QAM 06/03/22 09/15/23 montelukast 10 mg tablet 10 mg PO BEDTIME 06/03/22 09/15/23 albuterol sulfate 90 mcg/actuation 2 puff inhalation Q6H PRN 08/22/22 09/15/23 aerosol inhaler (Ventolin HFA) Shortness Of Breath atorvastatin 40 mg tablet 40 mg PO BEDTIME 08/22/22 09/15/23 pantoprazole 40 mg tablet,delayed 40 mg PO QAM 08/22/22 09/15/23 release (Protonix) baclofen 10 mg tablet 20 mg PO BEDTIME 12/09/22 09/15/23 hydrocodone 7.5 mg-acetaminophen 1 tab PO BID Pain 01/15/23 09/15/23 325 mg tablet potassium chloride 10 mEq 10 meq PO EVERY OTHER DAY PRN Edema 01/15/23 09/15/23 tablet,extended release spironolactone 25 mg tablet 50 mg PO QAM 01/15/23 09/15/23 levocetirizine 5 mg tablet 5 mg PO DAILY 03/18/23 09/15/23 naloxone 4 mg/actuation nasal 4 mg intranasal Q2M PRN OVERDOSE 03/18/23 09/15/23 spray (Narcan) azelastine 137 mcg (0.1 %) nasal 1 - 2 spray intranasal BID 09/15/23 09/15/23 spray dulaglutide 3 mg/0.5 mL 3 mg SUBCUT Q7D 09/15/23 09/15/23 subcutaneous pen injector (Trulicity) ergocalciferol (vitamin D2) 1,250 1,250 mcg PO Q7D 09/15/23 09/15/23 mcg (50,000 unit) capsule lisinopril 5 mg tablet 5 mg PO DAILY 09/15/23 09/15/23 gabapentin 800 mg tablet 400 mg PO TID 10/14/23 Previous Rx's Medication Instructions Recorded epinephrine 0.3 mg/0.3 mL 0.3 mg (0.3 mL) IM Q10M PRN 01/22/22 injection, auto-injector anaphylaxis #2 ea metoprolol tartrate 25 mg tablet 12.5 mg (1/2 x 25 mg) PO BID #45 10/08/23 tabs isosorbide mononitrate 30 mg 30 mg PO DAILY #90 tabs 11/12/23 tablet,extended release 24 hr nitroglycerin 0.4 mg sublingual 0.4 mg sublingual Q5M PRN chest 01/15/24 tablet pain #30 tabs Allergies Allergy/AdvReac Type Severity Reaction Status Date / Time amoxicillin Allergy rash Verified 10/14/23 10:20 celecoxib [From Celebrex] Allergy ALGY-Hives Verified 10/14/23 10:20 cyclobenzaprine Allergy rash Verified 10/14/23 10:20 [From Flexeril] egg Allergy Unknown Verified 10/14/23 10:20 furosemide [From Lasix] Allergy rash Verified 10/14/23 10:20 hydromorphone [From Dilaudid] Allergy rash Verified 10/14/23 10:20 lidocaine Allergy Unknown Verified 10/14/23 10:20 meperidine [From Demerol] Allergy Unknown Verified 10/14/23 10:20 metformin Allergy Unknown Verified 10/14/23 10:20 milk Allergy ADR-Vomitin Verified 01/25/24 15:37 g nitrofurantoin Allergy ALGY-Rash Verified 10/14/23 10:20 [From Macrobid] prednisone Allergy Unknown Verified 10/14/23 10:20 pregabalin [From Lyrica] Allergy unknown Verified 10/14/23 10:20 tramadol Allergy rash Verified 10/14/23 10:20 lisinopril AdvReac hypotension Verified 10/14/23 10:20 [facility] PFSH: Medical History CHF (congestive heart failure) Chronic fatigue Right upper quadrant abdominal pain Gastritis Gastric bezoar Cervical osteoarthritis Cervical disc disorder with myelopathy of mid-cervical region Acquired lymphedema of lower extremity Surgical History S/P placement of nerve stimulator Hx of neck surgery History of lumbar surgery 2015 Dr. oMlina Tolentino Neurosurgeon [facility] L2-L3 decompression History of knee surgery History of tubal ligation History of lymph node biopsy History of elbow surgery 2017 Dr[facility] Srinivasan [facility] Orthopedic Surgery Left ulnar nerve transposition. Right ulnar nerve transposition History of oral surgery Family History Mother Diabetes Father Lung disease Grandmother Congestive heart failure (CHF) CAD (coronary artery disease) Chronic kidney disease (CKD) Stroke Family/Other CAD (coronary artery disease) Cancer Lung disease Social History Smoking and tobacco/nicotine status: former use of tobacco/nicotine Alcohol intake: former Substance/Drug Use: former Household members: spouse Marital status: Current occupational status: unemployed Physical Exam Const: COMMON NORMALS: no acute distress, average body habitus, patient oriented x3, no limitations, healthy appearing, alert and well nourished Neck/C-Spine: COMMON NORMALS: no JVD Resp: COMMON NORMALS: normal respiratory effort, No retractions, No use of accessory muscles, clear to auscultation bilaterally and percussion normal AUSCULTATION: clear to auscultation bilaterally PERCUSSION: percussion normal Cardio: COMMON NORMALS: no JVD, regular rate, regular rhythm, S1 normal heart sound present, S2 normal heart sound present, No gallops present (Cardio), No clicks present (Cardio), No murmurs present (Cardio), No rub (Cardio) and Peripheral pulses 2+ throughout RATE: regular rate RHYTHM: regular rhythm HEART SOUNDS: S1 normal heart sound present and S2 normal heart sound present PERIPHERAL PULSES: Peripheral pulses 2+ throughout GI: COMMON NORMALS: Normal to inspection, nondistended, normoactive bowel sounds present, Soft to palpation, non-tender, No hepatosplenomegaly present, no masses and no bruits PALPATION: Yes Soft to palpation and Yes No hepatosplenomegaly present Neuro: COMMON NORMALS: patient oriented x3 SENSORIUM/ORIENTATION: Yes alert Course Vital Signs: Vital signs: Vital Signs Temperature 97.6 F 01/25/24 15:28 Pulse Rate 87 01/25/24 18:30 Respiratory Rate 18 01/25/24 15:28 Blood Pressure 140/92 01/25/24 18:30 Pulse Oximetry 97 01/25/24 18:30 Oxygen Delivery Me thod Room Air 01/25/24 18:30 MDM - Chest Pain Medical Decision Making re it felt like she was being compressed and then she could not breathe and then it relieved and then happened again and then lasted a little bit longer maybe up to a minute and then started to have some pain down her left arm. Upon evaluation in the ER symptoms have resolved. No significant abnormality noted on labs or imaging. Troponin is negative x 2. Chest x-ray with no acute disease. EKG with nonspecific ST and T wave changes but no ischemic changes. Patient is currently symptom free. Does have cardiology she can follow-up with. As patient is no longer having any chest pain and has negative workup I think patient okay for outpatient follow-up with cardiology. Lab Data 01/25/24 16:00 01/25/24 16:00 Radiology Impressions Chest X-Ray 01/25/24 15:41 IMPRESSION: 1. Negative chest. Laboratory Results WBC 9.15 10^3/uL (3.29-11.43) 01/25/24 16:00 RBC 4.88 10^6/uL (3.85-5.65) 01/25/24 16:00 Hgb 12.90 g/dL (11.27-16.99) 01/25/24 16:00 Hct 41.3 % (36-47) 01/25/24 16:00 MCV 84.6 fl (85-98) L 01/25/24 16:00 MCH 26.4 pg (27-33) L 01/25/24 16:00 MCHC 31.2 g/dL (30-55) 01/25/24 16:00 RDW 15.8 % (12.1-15.1) H 01/25/24 16:00 Plt Count 373 10^3/cmm (157-399) 01/25/24 16:00 MPV 9.7 fL (7.4-10.4) 01/25/24 16:00 Neut % (Auto) 64.4 % 01/25/24 16:00 Lymph % (Auto) 24.2 % 01/25/24 16:00 [place] % (Auto) 8.3 % 01/25/24 16:00 Eos % (Auto) 2.1 % 01/25/24 16:00 Baso % (Auto) 0.7 % 01/25/24 16:00 Neut # (Auto) 5.90 10^3/uL (1.8-7.7) 01/25/24 16:00 Lymph # (Auto) 2.2 10^3/uL (0.8-4.8) 01/25/24 16:00 [place] # (Auto) 0.8 10^3/uL (0.2-0.9) 01/25/24 16:00 Eos # (Auto) 0.2 10^3/uL (0.0-0.8) 01/25/24 16:00 Baso # (Auto) 0.1 10^3/uL (0.0-0.1) 01/25/24 16:00 Nucleated RBC % (auto) 0 % 01/25/24 16:00 Nucleated RBCs # 0.0 /100WBC 01/25/24 16:00 Sodium 143 mmol/L (136-145) 01/25/24 16:00 Potassium 4.1 mmol/L (3.5-5.1) 01/25/24 16:00 Chloride 100 mmol/L (98-107) 01/25/24 16:00 Carbon Dioxide 27 mmol/L (22-29) 01/25/24 16:00 Anion Gap 20.1 (5-19) H 01/25/24 16:00 BUN 15 mg/dL (6-20) 01/25/24 16:00 Creatinine 1.0 mg/dL (0.5-0.9) H 01/25/24 16:00 GFR Calculation 58.2 mL/min (90-130) L 01/25/24 16:00 Glucose 105 mg/dL (65-115) 01/25/24 16:00 Calculated Osmolality 297 mOsm/kg (285-295) H 01/25/24 16:00 Calcium 9.1 mg/dL (8.5-10.5) 01/25/24 16:00 Total Bilirubin 0.4 mg/dL (0.15-1.2) 01/25/24 16:00 AST 16 U/L (0-32) 01/25/24 16:00 ALT 25 U/L (0-33) 01/25/24 16:00 Alkaline Phosphatase 180 U/L (35-105) H 01/25/24 16:00 Troponin T Baseline 10 ng/L (0-10) 01/25/24 16:00 Troponin T 120 Minute 6.00 ng/L (0-10) 01/25/24 17:39 Delta Troponin T -4.00 ABS# (0-10) L 01/25/24 17:39 NT-Pro-B Natriuret Pep 61 pg/mL (0-125) 01/25/24 16:00 Total Protein 7.1 g/dL (6.6-8.7) 01/25/24 16:00 Albumin 4.1 g/dL (3.5-5.2) 01/25/24 16:00 Globulin 3.0 g/dL (1.3-4.6) 01/25/24 16:00 All radiology interpretation(s) finalized by discharge Discharge Plan Discharge Patient Disposition: Home Clinical Impression: Chest pain Qualifiers: Chest pain type: unspecified Qualified Code(s): R07.9 - Chest pain, unspecified Condition: Stable Prescriptions: No Action meloxicam 15 mg tablet 7.5 mg PO BID Hold Instructions: Resume on 09/19/20. baclofen 10 mg tablet 20 mg PO BEDTIME spironolactone 25 mg tablet 50 mg PO QAM bumetanide 0.5 mg tablet 0.5 mg PO QAM montelukast 10 mg tablet 10 mg PO BEDTIME hydrocodone-acetaminophen 7.5-325 mg tablet 1 tab PO BID potassium chloride 10 mEq tablet extended release 10 meq PO EVERY OTHER DAY PRN (Reason: Edema) gabapentin 800 mg tablet 400 mg PO TID levocetirizine 5 mg tablet 5 mg PO DAILY naloxone [Narcan] 4 mg/actuation spray,non-aerosol 4 mg intranasal Q2M PRN (Reason: OVERDOSE) Rx Instructions: spray 1 dose into ONE nostril; alternate nostrils w each dose until help arrives metoprolol tartrate 25 mg tablet 12.5 mg PO BID Qty: 45 3RF isosorbide mononitrate 30 mg tablet extended release 24 hr 30 mg PO DAILY Qty: 90 3RF nitroglycerin 0.4 mg tablet, sublingual 0.4 mg sublingual Q5M PRN (Reason: chest pain) Qty: 30 3RF Rx Instructions: until response; do not exceed 3 doses per episode epinephrine 0.3 mg/0.3 mL auto-injector 0.3 mg IM Q10M PRN (Reason: anaphylaxis) Qty: 2 0RF Rx Instructions: for 2 doses atorvastatin 40 mg tablet 40 mg PO BEDTIME albuterol sulfate [Ventolin HFA] 90 mcg/actuation HFA aerosol inhaler 2 puff INHALATION Q6H PRN (Reason: Shortness Of Breath) pantoprazole [Protonix] 40 mg tablet,delayed release (DR/EC) 40 mg PO QAM lisinopril 5 mg tablet 5 mg PO DAILY ergocalciferol (vitamin D2) 1,250 mcg (50,000 unit) capsule 1,250 mcg PO Q7D azelastine 137 mcg (0.1 %) aerosol,spray 1 - 2 spray INTRANASAL BID Trulicity 3 mg/0.5 mL pen injector 3 mg SUBCUT Q7D Discharge Orders: Discharge ED (Routine); Ordered 01/25/24 Ordered By: Jamie Smith Referrals: Cele Borrero DO [Primary Care Provider] - Patient Instructions: Opioid Safety, Pain Management Coding Level of Care Code ED Post Acute Care Nurse Practitioner for Ezequiel Randhawa
--- NOTE | 2024-01-25 17:42 | ECG_ITS ---
[facility] Test Date: 2024-01-25 Pat Name: Lanie Stoddard Department: Room: Gender: Female Sliver Lapper: : 1970 Requested By: Nancy Franco Order Number: [id number] Maria Elena MD: Samantha Cooley M.D. Measurements Intervals [place] Rate: 89 P: 73 MS: 180 QRS: 49 QRSD: 98 T: 64 QT: 343 QTc: 419 Interpretive Statements SINUS RHYTHM LOW QRS VOLTAGE IN PRECORDIAL LEADS [QRS DEFLECTION < 1.0 mV IN CHEST LEADS] Compared to ECG 01/25/2024 15:17:28 Sinus tachycardia no longer present Electronically Signed On 01-25-2024 23:00:36 CDT by Samantha Cooley M.D. [id number]
[2024-01-25 18:00] VITALS: BP 129/80; PULSE 86; O2SAT 98
[2024-01-25 18:30] VITALS: BP 140/92; PULSE 87; O2SAT 97
[2024-01-25 18:57] VITALS: BP 140/92; PULSE 81; O2SAT 97
== END 2024-01-25 18:58 | disposition home or self-care (01) ==
PROVIDERS: Physician Assistant; Emergency Provider Emergency Medicine; PCP Family Medicine
DX: R07.9 Chest pain, unspecified (principal); Z79.85 Long-term (current) use of injectable non-insulin antidiabetic drugs; Z87.891 Personal history of nicotine dependence; I50.9 Heart failure, unspecified
CPT/HCPCS: 36415; 71045; 80053; 83880; 84484; 85025; 93005; 99285

== ENCOUNTER → 2024-02-03 13:48 | Outpatient (BNVA) | payer MEDICAID, SELFPAY | PROVIDERS: PCP Family Medicine; Visit Provider Nurse Practitioner Family | DX: R07.9 Chest pain, unspecified (principal); Z87.891 Personal history of nicotine dependence | CPT/HCPCS: 99213 ==

== ENCOUNTER → 2024-03-03 08:52 | Outpatient (BNVA) | payer MEDICAID, SELFPAY | PROVIDERS: PCP Family Medicine; Visit Provider Nurse Practitioner Family | DX: R07.9 Chest pain, unspecified (principal); Z87.891 Personal history of nicotine dependence; I11.0 Hypertensive heart disease with heart failure; I50.9 Heart failure, unspecified | CPT/HCPCS: 99214 ==

== ENCOUNTER → 2024-07-12 13:51 | Outpatient (BNVA) | payer MEDICAID, SELFPAY | PROVIDERS: PCP Family Medicine; Visit Provider Internal Medicine Cardiovascular Disease | DX: I25.118 Atherosclerotic heart disease of native coronary artery with other forms of angina pectoris (principal); E78.5 Hyperlipidemia, unspecified; R06.09 Other forms of dyspnea; E11.9 Type 2 diabetes mellitus without complications; I11.0 Hypertensive heart disease with heart failure; I50.9 Heart failure, unspecified | CPT/HCPCS: 99214 ==

== ENCOUNTER 2024-11-07 15:27 | Emergency (ER) | payer MEDICAID, SELFPAY ==
[2024-11-07 15:55] VITALS: BP 115/71; PULSE 79; RESP 16; TEMP 36.5; O2SAT 98
--- NOTE | 2024-11-07 17:12 | W.ED.GIBLEED ---
HPI - GI Bleed General: Chief complaint: GI Bleed Stated complaint: blood clots in stools Time Seen by Provider: 11/07/24 15:44 History of Present Illness: 54-year-old female presents emergency room with report of passing blood clots per rectum. She has a history of hemorrhoids has had surgery previously. She is not on any anticoagulants today patient had least 2 bowel movements where she passed bright red blood. 1 fully discolor the toilet water. She has had this in the past related to hemorrhoids for which she had surgery. Associated symptoms: Denies abdominal pain, chills, fever(s), nausea, rash or vomiting Related Data Home Medications ?Medication ?Instructions ?Recorded ?Confirmed bumetanide 0.5 mg tablet 0.5 mg PO QAM 06/03/22 04/08/24 montelukast 10 mg tablet 10 mg PO BEDTIME 06/03/22 04/08/24 albuterol sulfate 90 mcg/actuation 2 puff inhalation Q6H PRN 08/22/22 04/08/24 aerosol inhaler (Ventolin HFA) Shortness Of Breath atorvastatin 40 mg tablet 40 mg PO BEDTIME 08/22/22 04/08/24 Held on 03/03/24. Instructions: Adverse Reaction pantoprazole 40 mg tablet,delayed 40 mg PO QAM 08/22/22 04/08/24 release (Protonix) baclofen 10 mg tablet 20 mg PO BEDTIME 12/09/22 04/08/24 hydrocodone 7.5 mg-acetaminophen 1 tab PO BID Pain 01/15/23 04/08/24 325 mg tablet potassium chloride 10 mEq 10 meq PO EVERY OTHER DAY PRN Edema 01/15/23 04/08/24 tablet,extended release spironolactone 25 mg tablet 50 mg PO QAM 01/15/23 04/08/24 Held on 03/03/24. Instructions: Doctor's Order levocetirizine 5 mg tablet 5 mg PO DAILY 03/18/23 04/08/24 naloxone 4 mg/actuation nasal 4 mg intranasal Q2M PRN OVERDOSE 03/18/23 04/08/24 spray (Narcan) azelastine 137 mcg (0.1 %) nasal 1 - 2 spray intranasal BID 09/15/23 04/08/24 spray ergocalciferol (vitamin D2) 1,250 1,250 mcg PO Q7D 09/15/23 04/08/24 mcg (50,000 unit) capsule hydroxyzine HCl 25 mg tablet 25 mg PO BID PRN 07/12/24 resmetirom 100 mg tablet 100 mg PO DAILY 07/12/24 (Rezdiffra) tirzepatide (weight loss) 2.5 mg SUBCUT 07/12/24 mg/0.5 mL subcutaneous pen injector (Zepbound) Previous Rx's ?Medication ?Instructions ?Recorded epinephrine 0.3 mg/0.3 mL 0.3 mg (0.3 mL) IM Q10M PRN 01/22/22 injection, auto-injector anaphylaxis #2 ea isosorbide mononitrate 30 mg 30 mg PO DAILY #90 tabs 11/12/23 tablet,extended release 24 hr nitroglycerin 0.4 mg sublingual 0.4 mg sublingual Q5M PRN chest 09/16/24 tablet pain #30 tabs metoprolol tartrate 25 mg tablet 12.5 mg (1/2 x 25 mg) PO BID #45 10/21/24 tabs ciprofloxacin HCl 500 mg tablet 500 mg PO BID #14 tabs 11/07/24 metronidazole 500 mg tablet 500 mg PO BID 7 days #14 tabs 11/07/24 Allergies Allergy/AdvReac Type Severity Reaction Status Date / Time amoxicillin Allergy rash Verified 07/12/24 14:01 celecoxib (From Celebrex) Allergy ALGY-Hives Verified 07/12/24 14:01 cyclobenzaprine (From Allergy rash Verified 07/12/24 14:01 Flexeril) egg Allergy Unknown Verified 07/12/24 14:01 furosemide (From Lasix) Allergy rash Verified 07/12/24 14:01 hydromorphone (From Dilaudid) Allergy rash Verified 07/12/24 14:01 lidocaine Allergy Unknown Verified 07/12/24 14:01 meperidine (From Demerol) Allergy Unknown Verified 07/12/24 14:01 metformin Allergy Unknown Verified 07/12/24 14:01 milk Allergy ADR-Vomitin Verified 07/12/24 14:01 g nitrofurantoin (From Allergy ALGY-Rash Verified 07/12/24 14:01 Macrobid) prednisone Allergy Unknown Verified 07/12/24 14:01 pregabalin (From Lyrica) Allergy unknown Verified 07/12/24 14:01 tramadol Allergy rash Verified 07/12/24 14:01 lisinopril AdvReac hypotension Verified 07/12/24 14:01 Review of Systems Const: Denies: fever(s) or chills Card: Denies: chest pain Resp: Denies: dyspnea GI: Reports: hematochezia; Denies: abdominal pain, nausea, vomiting, hematemesis, coffee ground emesis or melena : Denies: dysuria, urinary frequency or urinary urgency Musc: Denies: neck pain or back pain Skin/Breast: Denies: rash PFSH ED PFSH: Medical History CHF (congestive heart failure) Chronic fatigue Right upper quadrant abdominal pain Gastritis Gastric bezoar Cervical osteoarthritis Cervical disc disorder with myelopathy of mid-cervical region Acquired lymphedema of lower extremity Surgical History S/P placement of nerve stimulator Hx of neck surgery History of lumbar surgery 2015 Dr. Molina Tolentino Neurosurgeon [facility] L2-L3 decompression History of knee surgery History of tubal ligation History of lymph node biopsy History of elbow [facility] Left ulnar nerve transposition. Right ulnar nerve transposition History of oral surgery Family History Mother Diabetes Father Lung disease Grandmother Congestive heart failure (CHF) CAD (coronary artery disease) Chronic kidney disease (CKD) Stroke Family/Other CAD (coronary artery disease) Cancer Lung disease Social History Smoking and tobacco/nicotine status: never used tobacco/nicotine Alcohol intake: former Substance/Drug Use: former Household members: spouse Marital status: Current occupational status: unemployed Physical Exam Const: GENERAL APPEARANCE: cooperative ORIENTATION/CONSCIOUSNESS: Yes awake, Yes oriented to person, Yes oriented to place and Yes oriented to time HENMT: COMMON NORMALS: normocephalic, atraumatic and hearing grossly normal bilaterally HEAD & SCALP: normocephalic and atraumatic Resp: COMMON NORMALS: normal respiratory effort, No retractions, No use of accessory muscles and clear to auscultation bilaterally AUSCULTATION: clear to auscultation bilaterally Cardio: COMMON NORMALS: regular rate, regular rhythm and No murmurs present (Cardio) RATE: regular rate RHYTHM: regular rhythm GI: COMMON NORMALS: Soft to palpation and No hepatosplenomegaly present AUSCULTATION: Yes normoactive bowel sounds PALPATION: Yes Soft to palpation, No Tenderness to palpation present (GI), No Guarding due to palpation present (GI) and Yes No hepatosplenomegaly present Extremity: COMMON NORMALS: normal to inspection, capillary refill normal, no clubbing, cyanosis or edema, no calf tenderness and no pedal edema Neuro: SENSORIUM/ORIENTATION: Yes oriented to person, Yes oriented to place and Yes oriented to time Skin: COMMON NORMALS: no rashes or lesions noted GENERAL SKIN EXAM: no rashes or lesions noted Course Vital Signs: Vital signs: Vital Signs Temperature 97.7 F 11/07/24 15:55 Pulse Rate 79 11/07/24 15:55 Respiratory Rate 16 11/07/24 15:55 Blood Pressure 115/71 11/07/24 15:55 Pulse Oximetry 98 11/07/24 15:55 MDM - GI Bleed Medical Decision Making Rectal exam several hemorrhoidal tags. Hemoccult was positive. No active bright red blood. Hemoglobin is stable. Will discharge home and have her follow-up with general surgery for further evaluation she states she had a colonoscopy within the last 3 to 5 years reported to her as normal return if she has worsening bleeding. Patient started on antibiotics to cover for possible diverticular irritation causing the bleeding. On rectal exam there were several hemorrhoidal tags but nothing that is inflamed or actively bleeding. Medical Records I reviewed the patient's medical records. Lab Data I reviewed the patient's lab results. 11/07/24 16:45 11/07/24 16:45 Laboratory Results WBC 4.94 10^3/uL (3.29-11.43) 11/07/24 16:45 RBC 4.78 10^6/uL (3.85-5.65) 11/07/24 16:45 Hgb 13.10 g/dL (11.27-16.99) 11/07/24 16:45 Hct 40.3 % (36-47) 11/07/24 16:45 MCV 84.3 fl (85-98) L 11/07/24 16:45 MCH 27.4 pg (27-33) 11/07/24 16:45 MCHC 32.5 g/dL (30-55) 11/07/24 16:45 RDW 14.6 % (12.1-15.1) 11/07/24 16:45 Plt Count 245 10^3/cmm (157-399) 11/07/24 16:45 MPV 10.3 fL (7.4-10.4) 11/07/24 16:45 Neut % (Auto) 52.9 % 11/07/24 16:45 Lymph % (Auto) 32.0 % 11/07/24 16:45 [place] % (Auto) 10.5 % 11/07/24 16:45 Eos % (Auto) 3.4 % 11/07/24 16:45 Baso % (Auto) 1.0 % 11/07/24 16:45 Neut # (Auto) 2.61 10^3/uL (1.8-7.7) 11/07/24 16:45 Lymph # (Auto) 1.6 10^3/uL (0.8-4.8) 11/07/24 16:45 [place] # (Auto) 0.5 10^3/uL (0.2-0.9) 11/07/24 16:45 Eos # (Auto) 0.2 10^3/uL (0.0-0.8) 11/07/24 16:45 Baso # (Auto) 0.1 10^3/uL (0.0-0.1) 11/07/24 16:45 Nucleated RBC % (auto) 0 % 11/07/24 16:45 Nucleated RBCs # 0.0 /100WBC 11/07/24 16:45 PT 13.40 SECONDS (12.1-14.9) 11/07/24 16:45 INR 0.95 (0.8-1.2) 11/07/24 16:45 APTT 27.9 SECONDS (23.9-36.7) 11/07/24 16:45 Sodium 141 mmol/L (136-145) 11/07/24 16:45 Potassium 3.6 mmol/L (3.5-5.1) 11/07/24 16:45 Chloride 102 mmol/L (98-107) 11/07/24 16:45 Carbon Dioxide 28 mmol/L (22-29) 11/07/24 16:45 Anion Gap 14.6 (5-19) 11/07/24 16:45 BUN 12 mg/dL (6-20) 11/07/24 16:45 Creatinine 0.8 mg/dL (0.5-0.9) 11/07/24 16:45 GFR Calculation 75.3 mL/min (90-130) L 11/07/24 16:45 Glucose 111 mg/dL (65-115) 11/07/24 16:45 Calculated Osmolality 292 mOsm/kg (285-295) 11/07/24 16:45 Calcium 9.0 mg/dL (8.5-10.5) 11/07/24 16:45 Total Bilirubin 0.3 mg/dL (0.15-1.2) 11/07/24 16:45 AST 23 U/L (0-32) 11/07/24 16:45 ALT 21 U/L (0-33) 11/07/24 16:45 Alkaline Phosphatase 119 U/L (35-105) H 11/07/24 16:45 Total Protein 6.8 g/dL (6.6-8.7) 11/07/24 16:45 Albumin 3.5 g/dL (3.5-5.2) 11/07/24 16:45 Globulin 3.3 g/dL (1.3-4.6) 11/07/24 16:45 No radiology studies performed this visit Discharge Plan Discharge Patient Disposition: Home Clinical Impression: Lower gastrointestinal hemorrhage Hemorrhoids Qualifiers: Hemorrhoid type: unspecified Qualified Code(s): K64.9 - Unspecified hemorrhoids Condition: Stable Prescriptions: New ciprofloxacin HCl 500 mg tablet 500 mg PO BID Qty: 14 0RF metronidazole 500 mg tablet 500 mg PO BID 7 Days Qty: 14 0RF No Action baclofen 10 mg tablet 20 mg PO BEDTIME spironolactone 25 mg tablet 50 mg PO QAM hydroxyzine HCl 25 mg tablet 25 mg PO BID PRN Zepbound 2.5 mg/0.5 mL pen injector SUBCUT Rezdiffra 100 mg tablet 100 mg PO DAILY bumetanide 0.5 mg tablet 0.5 mg PO QAM montelukast 10 mg tablet 10 mg PO BEDTIME hydrocodone-acetaminophen 7.5-325 mg tablet 1 tab PO BID potassium chloride 10 mEq tablet extended release 10 meq PO EVERY OTHER DAY PRN (Reason: Edema) levocetirizine 5 mg tablet 5 mg PO DAILY naloxone [Narcan] 4 mg/actuation spray,non-aerosol 4 mg intranasal Q2M PRN (Reason: OVERDOSE) Rx Instructions: spray 1 dose into ONE nostril; alternate nostrils w each dose until help arrives isosorbide mononitrate 30 mg tablet extended release 24 hr 30 mg PO DAILY Qty: 90 3RF nitroglycerin 0.4 mg tablet, sublingual 0.4 mg sublingual Q5M PRN (Reason: chest pain) Qty: 30 3RF Rx Instructions: until response; do not exceed 3 doses per episode metoprolol tartrate 25 mg tablet 12.5 mg PO BID Qty: 45 3RF epinephrine 0.3 mg/0.3 mL auto-injector 0.3 mg IM Q10M PRN (Reason: anaphylaxis) Qty: 2 0RF Rx Instructions: for 2 doses atorvastatin 40 mg tablet 40 mg PO BEDTIME albuterol sulfate [Ventolin HFA] 90 mcg/actuation HFA aerosol inhaler 2 puff INHALATION Q6H PRN (Reason: Shortness Of Breath) pantoprazole [Protonix] 40 mg tablet,delayed release (DR/EC) 40 mg PO QAM ergocalciferol (vitamin D2) 1,250 mcg (50,000 unit) capsule 1,250 mcg PO Q7D azelastine 137 mcg (0.1 %) aerosol,spray 1 - 2 spray INTRANASAL BID Discharge Orders: Discharge ED (Routine); Ordered 11/07/24 Ordered By: Fritz Arboleda Referrals: Cele Borrero DO [Primary Care Provider, Family Practice] Discharge Diet: Usual diet Discharge Activity: Increase activity as tolerated Patient Instructions: Opioid Safety, Pain Management Activity Restrictions/Additional Instructions: Thank you for choosing [facility] for your healthcare needs today. It is very important that you follow up as instructed or that you return to the Emergency Department should you have concerns or if your condition changes or worsens in any way. You were seen in the emergency room with complaints of passing bright red blood from the rectum. Hemoglobin is stable your white count is normal. There are no masses noted on rectal exam. Will start you on Cipro and metronidazole for possibility of inflamed diverticuli causing the bleeding there were hemorrhoidal tags noted at the time rectal exam these may be the source of bleeding as well we will refer you back to general surgery for further evaluation. If your bleeding worsens you can return to the emergency room. Print Language: Croatian Coding Level of Care Code ED Transmission Systems Operator for Ezequiel Randhawa
[2024-11-07 17:17] LABS: Basophils # 0.1 10^3/uL (0.0-0.1); Eosinophils # 0.2 10^3/uL (0.0-0.8); Eosinophils % 3.4 %; Hematocrit 40.3 % (36-47); Lymphocytes # 1.6 10^3/uL (0.8-4.8); Mean Corpuscular HGB Conc 32.5 g/dL (30-55); Mean Corpuscular Hemoglobin 27.4 pg (27-33); Mean Corpuscular Volume 84.3 fl (85-98); Mean Platelet Volume 10.3 fL (7.4-10.4); Monocytes # 0.5 10^3/uL (0.2-0.9); Monocytes % 10.5 %; Neutrophils # 2.61 10^3/uL (1.8-7.7); Neutrophils % 52.9 %; Nucleated Red Blood Cells % 0 %; Platelet Count 245 10^3/cmm (157-399); Red Blood Count 4.78 10^6/uL (3.85-5.65); Red Cell Distribution Width 14.6 % (12.1-15.1); White Blood Count 4.94 10^3/uL (3.29-11.43)
[2024-11-07 17:30] LABS: INR 0.95 (0.8-1.2)
[2024-11-07 17:31] LABS: Partial Thromboplastin Time 27.9 SECONDS (23.9-36.7)
[2024-11-07 17:33] LABS: Alanine Aminotransferase 21 U/L (0-33); Albumin Level 3.5 g/dL (3.5-5.2); Alkaline Phosphatase 119 U/L (35-105); Anion Gap 14.6 (5-19); Aspartate Amino Transferase 23 U/L (0-32); Blood Urea Nitrogen 12 mg/dL (6-20); Carbon Dioxide 28 mmol/L (22-29); Chloride 102 mmol/L (98-107); Creatinine Clr Calc Pharmacy 121.1303; Globulin 3.3 g/dL (1.3-4.6); Glomerular Filtration Rate 75.3 mL/min (90-130); Glucose 111 mg/dL (65-115); Osmolality Calculated 292 mOsm/kg (285-295); Potassium 3.6 mmol/L (3.5-5.1); Sodium 141 mmol/L (136-145); Total Bilirubin 0.3 mg/dL (0.15-1.2); Total Protein 6.8 g/dL (6.6-8.7)
--- NOTE | 2024-11-10 08:05 | DCPLANNER ---
messaged gen surg for er f/u
== END 2024-11-07 18:37 | disposition home or self-care (01) ==
PROVIDERS: Physician Assistant; Emergency Provider Family Medicine; PCP Family Medicine
DX: K92.2 Gastrointestinal hemorrhage, unspecified (principal); K64.9 Unspecified hemorrhoids; I50.9 Heart failure, unspecified
CPT/HCPCS: 36415; 80053; 85025; 85610; 85730; 99283

== ENCOUNTER 2024-12-27 09:23 | Emergency (ER) | payer MEDICAID, SELFPAY ==
[2024-12-27 09:27] VITALS: BP 132/85; PULSE 91; TEMP 36.4; O2SAT 99
--- OUTSIDE RECORDS SUMMARY | 2024-12-27 09:34 | XMS_ITS | Encounter Summary ---
Author Organization [facility] Address [address] [place] [address] Care Team Providers Care City Solicitor Name Role Phone Cele Borrero Primary Care Provider [phone]- [phone] Encounter Details Date Type Department Care Team (Late st Contact Info) Description 09/22/2005 Outpatient Historical [facility] Luis F Roca MD [address] [place] [address] Social History Tobacco Use Types Packs/Day Years Used Date Smoking Tobacco: Never Assessed Comments Unknown Sex and Gender Information Value Date Recorded Sex Assigned at Not on file Legal Sex Female 2:57 AM OFFICE WORKER Gender Identity Not on file Sexual Orientation Not on file documented as of this encounter Plan of Treatment Not on file documented as of this encounter Procedures Procedure Name Priority Date/Time Associated Diagnosis Comments CT HEAD WO CONTRAST Routine 09/22/2005 1 0:34 AM CDT documented in this encounter Results * CT HEAD WO CONTRAST (09/22/2005 10:34 AM CDT) Anatomical Region Laterality Modality Head Other 09/22/2005 10:3 4 AM CDT Narrative 09/22/2005 10:[address] HEAD WITHOUT CONTRAST REASON FOR EXAM: Post head injury. FINDINGS: The unenhanced scan demonstrates no evidence of intracranial hemorrhage or abnormal calcifications. No mass effect or shift is noted. The paranasal sinuses are clear and mastoid air cells are clear. The bony structures of the calvarium are intact. IMPRESSION: Unremarkable study. clw: P. M. Dictated By: Evelio Trujillo M.D. Electronically Signed By: Evelio Trujillo M.D. Date Signed: 10/07/05 CLW Procedure Note 04/20/2009 CT HEAD WITHOUT CONTRAST REASON FOR EXAM: Post head injury. FINDINGS: The unenhanced scan demonstrates no evidence of intracranial hemorrhage orabnormal calcifications. No mass effect or shift is noted. The paranasal sinuses are clear andmastoid air cells are clear. The bony structures of the calvarium are intact. IMPRESSION: Unremarkable study. clw: P. M. Dictated By: Evelio Trujillo M.D. Electronically Signed By: Evelio Trujillo M.D. Date Signed: 10/07/05 CLW us Luis F Roca MD CT ORDERABLES Final Resu lt documented in this encounter Visit Diagnoses Not on filedocumented in this encounter Care Teams City Solicitor Relationship Specialty Start Date End Date Cele Borrero DO [address] [place] [address] PCP - General Family Practice 04/07/16 documented as of this encounter
--- OUTSIDE RECORDS SUMMARY | 2024-12-27 09:34 | XMS_ITS | Encounter Summary ---
Author Organization [facility] Address [address] [place] [address] Care Team Providers Care Thoracic Medicine Specialist Name Role Phone GissellCele velazquez Brandie ANTONY Primary Care Provider Encounter Details Date Type Department Care Team (Late st Contact Info) Description 12/23/2024 Orders Only [facility] Family Medicine [place] [address] [place] [address] Hao Canas FNP [address] [place] [phone] Social History Tobacco Use Types Packs/Day Years Used Date Smoking Tobacco: Former Cigarettes 0 0 02/28/2012 - 02/28/2012 Passive Smoke Exposure: Past Smokeless Tobacco: Never Alcohol Use Standard Drinks/Week Comments No 0 (1 standard drink = 0.6 oz pur e alcohol) Comments No Sex and Gender Information Value Date Recorded Sex Assigned at Female 02/05/2024 4:00 PM CDT Legal Sex Female 2:12 PM GM/SVP GLOBAL PUBLISHER BUSINESS Gender Identity Female 02/05/2024 4:00 PM CDT Sexual Orientation Not on file documented as of this encounter Plan of Treatment Upcoming Encounters Date Type Department Care Team (Late st Contact Info) Description 01/09/2025 11:20 AM CDT Office Visit [facility] Orthopedics - Orthopedic [facility] [address] [place] [phone] Prince Barriga PA [address] [place] [address] 01/18/2025 11:20 AM CDT Office Visit [facility] [address] [facility] [place] [address] Cele Borrero, DO [address] [place] [facility] [address] 03/02/2025 3:40 PM CDT Office Visit [facility] [address] [facility] [place] [address] Cele Borrero, DO [address] [place] [facility] [place] [address] 03/13/2025 12:30 PM CDT Office Visit [facility] Gastroenterology- [place] [address] [place] [address] Armida Roldan PA-C [address] [place] [address] 04/25/2025 11:20 AM GM/SVP GLOBAL PUBLISHER BUSINESS Office Visit [facility] [address] [facility] [place] [address] Cele Borrero, DO [address] [place] [facility] [place] [address] 07/27/2025 11:00 AM GM/SVP GLOBAL PUBLISHER BUSINESS Office Visit [facility] [address] [place] [address] Cele Borrero, DO [address] [place] [address] documented as of this encounter Visit Diagnoses Not on filedocumented in this encounter Additional Health Concerns Assessment Noted Time PHQ-9 Depression Total Score: 1 06/10/19 25 7:50 AM GM/SVP GLOBAL PUBLISHER BUSINESS documented as of this encounter Care Teams Thoracic Medicine Specialist Relationship Specialty Start Date End Date Cele Borrero DO [address] [place] [address] PCP - General Family Practice 04/07/16 documented as of this encounter
--- OUTSIDE RECORDS SUMMARY | 2024-12-27 09:34 | XMS_ITS | Encounter Summary ---
Author Organization [facility] Address [address] [place] [address] Care Team Providers Care And Rescue Fire Fighter Crash Fire Name Role Phone Cele Borrero Primary Care Provider [phone] Encounter Details Date Type Department Care Team (Late st Contact Info) Description 12/20/2024 External Device Data [facility] ABSTRACTION Provider, Abstract NO ADDRESS ON FILE Social History Tobacco Use Types Packs/Day Years Used Date Smoking Tobacco: Former Cigarettes 0 0 02/28/2012 - 02/28/2012 Passive Smoke Exposure: Past Smokeless Tobacco: Never Alcohol Use Standard Drinks/Week Comments No 0 (1 standard drink = 0.6 oz pur e alcohol) Comments No Sex and Gender Information Value Date Recorded Sex Assigned at Female 02/05/2024 4:00 PM CDT Legal Sex Female 2:12 PM FENDER MECHANIC APPRENTICE Gender Identity Female 02/05/2024 4:00 PM CDT Sexual Orientation Not on file documented as of this encounter Plan of Treatment Upcoming Encounters Date Type Department Care Team (Late st Contact Info) Description 01/09/2025 11:20 AM CDT [facility] Visit [facility] Orth[facility]ics - [facility]opedic [facility] [address] [facility] [place] [phone] Prince Barriga PA [address] [facility] [place] [address] 01/18/2025 11:20 AM CDT Office Visit [facility] [address] [facility] [place] [address] Cele Borrero, DO [address] [place] [address] 03/02/2025 3:40 PM CDT Office Visit [facility] [address] [place] [address] Cele Borrero, DO [address] [place] [address] 03/13/2025 12:30 PM CDT Office Visit [facility] Gastroenterology- [place] [address] [place] [phone] Armida Roldan PA-C [address] [place] [phone] 04/25/2025 11:20 AM FENDER MECHANIC APPRENTICE Office Visit [facility] [address] [place] [address] Cele Borrero, DO [address] [place] [address] 07/27/2025 11:00 AM FENDER MECHANIC APPRENTICE Office Visit [facility] [address] [place] [address] Cele Borrero, DO [address] [place] [address] documented as of this encounter Visit Diagnoses Not on filedocumented in this encounter Additional Health Concerns Assessment Noted Time PHQ-9 Depression Total Score: 1 06/10/19 25 7:50 AM FENDER MECHANIC APPRENTICE documented as of this encounter Care Teams And Rescue Fire Fighter Crash Fire Relationship Specialty Start Date End Date Cele Borrero DO [address] [place] [address] PCP - General Family Practice 04/07/16 documented as of this encounter
--- OUTSIDE RECORDS SUMMARY | 2024-12-27 09:34 | XMS_ITS | Encounter Summary ---
Author Organization [facility] Address [address] [place] [address] Care Team Providers Care Avionics Integration Engineer Name Role Phone Cele Borrero DO Primary Care Provider [phone]- [phone] Encounter Details Date Type Department Care Team (Late st Contact Info) Description 01/01/2006 Outpatient Historical [facility] Hand Therapy [address] [place] [address] Mike Pena MD [address] [place] [address] Social History Tobacco Use Types Packs/Day Years Used Date Smoking Tobacco: Never Assessed Comments Unknown Sex and Gender Information Value Date Recorded Sex Assigned at Not on file Legal Sex Female 2:57 AM ATG ARCHITECT Gender Identity Not on file Sexual Orientation Not on file documented as of this encounter Plan of Treatment Not on file documented as of this encounter Visit Diagnoses Not on filedocumented in this encounter Care Teams Avionics Integration Engineer Relationship Specialty Start Date End Date Cele Borrero DO [address] [place] [address] PCP - General Family Practice 04/07/16 documented as of this encounter
--- OUTSIDE RECORDS SUMMARY | 2024-12-27 09:34 | XMS_ITS | Encounter Summary ---
Author Organization [facility] Address [address] [place] [address] Care Team Providers Care Employment Attorney Name Role Phone Cele Borrero Primary Care Provider [phone]- [phone] Encounter Details Date Type Department Care Team (Latest Contact Info) Description 03/01/2018 Ancillary Orders [facility] Imaging Services [address] [place] [address] Giuliana Smith, ADRIANA NO ADDRESS ON FILE Arthritis of left hip Social History Tobacco Use Types Packs/Day Years Used Date Smoking Tobacco: Former Cigarettes 2 5 0 02/27/2007 - 02/28/2012 Smokeless Tobacco: Never Alcohol Use Standard Drinks/Week Comments No 0 (1 standard drink = 0.6 oz pur e alcohol) Comments No Sex and Gender Information Value Date Recorded Sex Assigned at Not on file Legal Sex Female 2:57 AM DEPUTY FIRE CHIEF Gender Identity Not on file Sexual Orientation Not on file documented as of this encounter Plan of Treatment Not on file documented as of this encounter Results * XR HIP 2 OR 3 VIEWS LT (03/01/2018 12:24 PM CDT) Anatomical Region Laterality Modality Lower Extremity Left Computed Radiogr aphy 03/01/2018 12:2 4 PM CDT Impressions 03/01/2018 12:43 PM CDT IMPRESSION: Please see below. Exam: XR HIP 2 OR 3 VIEWS LT Date/Time of Exam: 03/01/2018 12:24 PM Reason For Exam: See Diagnosis. Diagnosis: Arthritis of left hip. Findings: Mild degenerative changes left hip and sacroiliac joint. No chondrocalcinosis. No foreign body, fracture or avascular necrosis. Mild degenerative changes of the left sacroiliac joint is also noted. [id number] Narrative Procedure Note Daniella Colón MD - 03/01/2018 IMPRESSION: Please see below. Exam: XR HIP 2 OR 3 VIEWS LT Date/Time of Exam: 03/01/2018 12:24 PM Reason For Exam: See Diagnosis. Diagnosis: Arthritis of left hip. Findings: Mild degenerative changes left hip and sacroiliac joint. No chondrocalcinosis. No foreign body, fracture or avascular necrosis. Mild degenerative changes of the left sacroiliac joint is also noted. [id number] Giuliana Smith [facility] ORDERABLES Final Result documented in this encounter Visit Diagnoses Diagnosis Arthritis of left hip Arthritis of left hip documented in this encounter Care Teams Employment Attorney Relationship Specialty Start Date End Date Cele Borrero DO [address] [place] [address] PCP - General Family Practice 04/07/16 documented as of this encounter
--- OUTSIDE RECORDS SUMMARY | 2024-12-27 09:34 | XMS_ITS | Encounter Summary ---
Author Organization [facility] Address [address] [place] [address] Care Team Providers Care Java J2Ee Lead Name Role Phone Cele Borrero DO Primary Care Provider [phone]- [phone] Encounter Details Date Type Department Care Team (Late st Contact Info) Description 12/01/2005 Outpatient Historical [facility] [place] Social History Tobacco Use Types Packs/Day Years Used Date Smoking Tobacco: Never Assessed Comments Unknown Sex and Gender Information Value Date Recorded Sex Assigned at Not on file Legal Sex Female 2:57 AM EARLY CHILDHOOD ASSISTANT Gender Identity Not on file Sexual Orientation Not on file documented as of this encounter Plan of Treatment Not on file documented as of this encounter Visit Diagnoses Not on filedocumented in this encounter Care Teams Java J2Ee Lead Relationship Specialty Start Date End Date Cele Borrero DO [address] [place] [address] PCP - General Family Practice 04/07/16 documented as of this encounter
--- OUTSIDE RECORDS SUMMARY | 2024-12-27 09:34 | XMS_ITS | Encounter Summary ---
Author Organization [facility] Address [address] [place] [address] Care Team Providers Care Pole Shaver Helper Name Role Phone Cele Borrero DO Primary Care Provider [phone]- [phone] Encounter Details Date Type Department Care Team (Latest Contact Info) Description 10/22/2005 Outpatient Historical [facility]- [place] [address] [place] [address] Donald Hurtado, MICROSOFT OFFICE INSTRUCTOR [address] [place] [address] Allergic Rhinitis, Cause Unspecified (Primary Dx) Social History Tobacco Use Types Packs/Day Years Used Date Smoking Tobacco: Never Assessed Comments Unknown Sex and Gender Information Value Date Recorded Sex Assigned at Not on file Legal Sex Female 2:57 AM NAVAL SCIENCE TEACHER Gender Identity Not on file Sexual Orientation Not on file documented as of this encounter Plan of Treatment Not on file documented as of this encounter Visit Diagnoses Diagnosis Allergic rhinitis, cause unspecified- Primary documented in this encounter Care Teams Pole Shaver Helper Relationship Specialty Start Date End Date Cele Borrero DO [address] [place] [address] PCP - General Family Practice 04/07/16 documented as of this encounter
--- OUTSIDE RECORDS SUMMARY | 2024-12-27 09:34 | XMS_ITS | Patient Health Record ---
Author Organization [facility] Address [address] [place], [place] [address] Care Team Providers Care Butadiene Compressor Operator Name Role Phone Hal Moy MD Primary Care Provider Richardson Acuña MD, Chon Unavailable [phone] Allergies Allergen (clinical drug ingredient) Drug/Non Drug Allergy documented on EMR Reaction Allergy Type Onset Date Status dairy products, eggs , milk (uncoded) Unknown Allergy Active furosemide Lasix Unknown Drug Allergy Active hydromorphone Dilaudid hives Drug Allergy Act annelise furosemide furosemide Unknown Drug Allergy Activ e cyclobenzaprine hives Drug Allergy A ctive tramadol tramadol hyperactive Drug Allergy Activ e penicillin hives Drug Allergy Active Reason For Referral No Information Medications Medication SIG (Take, Route, Frequency, Duration) Notes Start Date End Date Status atorvastatin 40 mg 1 tab orally once a day (at bedtime) Active Acetaminophen-Codeine Phosphate 300 mg-30 mg 1/2 - 1 tab po orally TID prn pain (hold within 4H of planned sleep); Duration: 30 day(s) Active gabapentin 300 mg 1 cap po orally BID; Duration: 30 day(s) Active Social History Tobacco Use: Social History Observation Description Date Details (start date - stop date) Current Smoker NA - NA Tobacco use: Question Answer Notes : current smoker Are you interested in quitting? Not ready to noah t How many cigarettes a day do you smoke? 5 or les s How often do you smoke cigarettes? every day How soon after you wake up do you smoke your fir st cigarette? after 60 min Problems Problem Type SNOMED Code ICD Code Onset Dates Problem Status W/U Status Risk Notes Problem Solitary sacroiliitis (845330939) Sacroiliitis, not elsewhere classified (M46.1) Active confirmed Problem Low back pain (734878344) Low back pain (M54.5) Active confirmed Problem Lumbosacral spondylosis without myelopathy (93136608) Spondylosis without myelopathy or radiculopathy, lumbar region (M47.816) Active confirmed Problem Sleep disorder (99774995) Other sleep disorders (G47.8) Active confirmed Problem Radiculopathy due to lumbar intervertebral disc disorder (258566023679166) Intervertebral disc disorders with radiculopathy, lumbar region (M51.16) Active confirmed Problem Long-term current use of drug therapy (012436612) Other halfway (current) drug therapy (Z79.899) Active confirmed Plan Of Treatment No Information Insurance Providers Payer Name Payer Address Payer Phone Subscriber Number Group Number Insured Name Patient Relationship to Insured Coverage Start Date Coverage End Date [facility] [address] [address] [place] [address] [id number] Lanie Stoddard Self - patient is the insured Medical (General) History Medical History History ICD Code Low back pain Right knee pain Fibromyalgia Hypoglycemia Acid reflux ( hiatal hernia ) Asthma/bronchitis Surgical History Surgery Date(Month/Year) Right knee x 3 Neck surgery - removed lymph node - laura gn Tubal ligation L2-L3 surgery 11/12/2015 Hospitalization History Reason Date(Month/Year)
--- OUTSIDE RECORDS SUMMARY | 2024-12-27 09:34 | XMS_ITS | Encounter Summary ---
Author Organization [facility] Address [address] [place] [address] Care Team Providers Care Sales Producer Name Role Phone Cele Borrero DO Primary Care Provider +1- [phone] Encounter Details Date Type Department Care Team (Latest Contact Info) Description 06/25/2005 Outpatient Historical [facility] Medicine- [place] [address] [place] [address] Donald Hurtado, MICRO LAB ANALYST [address] [place] [address] OTITIS MEDIA NOS (Primary Dx); ACUTE URI NOS Social History Tobacco Use Types Packs/Day Years Used Date Smoking Tobacco: Never Assessed Comments Unknown Sex and Gender Information Value Date Recorded Sex Assigned at Not on file Legal Sex Female 2:57 AM SUPPORT STAFF Gender Identity Not on file Sexual Orientation Not on file documented as of this encounter Plan of Treatment Not on file documented as of this encounter Visit Diagnoses Diagnosis Unspecified otitis media- Primary Acute upper respiratory infections of unspecified site documented in this encounter Care Teams Sales Producer Relationship Specialty Start Date End Date Cele Borrero DO [address] [place] [address] PCP - General Family Practice 04/07/16 documented as of this encounter
--- OUTSIDE RECORDS SUMMARY | 2024-12-27 09:34 | XMS_ITS | Encounter Summary ---
Author Organization [facility] Address [address] [place] [address] Care Team Providers Care Mattress And Boxsprings Supervisor Name Role Phone Cele Borrero DO Primary Care Provider [phone]- [phone] Encounter Details Date Type Department Care Team (Latest Contact Info) Description 09/03/2005 Outpatient Historical [facility] Medicine- [place] [address] [place] [address] Donald Hurtado, ELECTRONIC IMAGING SYSTEM OPERATOR [address] [place] [address] Sprain Thoracic Region (Primary Dx); Sprain of Neck Social History Tobacco Use Types Packs/Day Years Used Date Smoking Tobacco: Never Assessed Comments Unknown Sex and Gender Information Value Date Recorded Sex Assigned at Not on file Legal Sex Female 2:57 AM AGRICULTURAL SYSTEMS SPECIALIST Gender Identity Not on file Sexual Orientation Not on file documented as of this encounter Plan of Treatment Not on file documented as of this encounter Visit Diagnoses Diagnosis Sprain thoracic region- Primary Sprain of thoracic region Sprain of neck Neck sprain and strain documented in this encounter Care Teams Mattress And Boxsprings Supervisor Relationship Specialty Start Date End Date Cele Borrero DO [address] [place] [address] PCP - General Family Practice 04/07/16 documented as of this encounter
--- OUTSIDE RECORDS SUMMARY | 2024-12-27 09:34 | XMS_ITS | Encounter Summary ---
Author Organization [facility] Address [address] [place] [address] Care Team Providers Care Manager Software Name Role Phone Cele Borrero Brandie ANTONY Primary Care Provider Reason for Visit * Reason Comments Medication Assistance Encounter Details Date Type Department Care Team (Late st Contact Info) Description 12/21/2024 Telephone [facility] Medicine [place] [address] [place] [address] Hao Canas, SHEN [address] [place] [address] Medication Assistance Social History Tobacco Use Types Packs/Day Years Used Date Smoking Tobacco: Former Cigarettes 0 0 02/28/2012 - 02/28/2012 Passive Smoke Exposure: Past Smokeless Tobacco: Never Alcohol Use Standard Drinks/Week Comments No 0 (1 standard drink = 0.6 oz pur e alcohol) Comments No Sex and Gender Information Value Date Recorded Sex Assigned at Female 02/05/2024 4:00 PM CDT Legal Sex Female 2:12 PM DIRECTOR OF COLLECTIONS AND ARCHIVES Gender Identity Female 02/05/2024 4:00 PM CDT Sexual Orientation Not on file documented as of this encounter Miscellaneous Notes * Telephone Encounter - Juliana Colvin LPN - 12/21/2024 2:24 PM CDT 12/21/2024 2:24 PM Spoke with pt and gave her this message from provider. Pt said she would need some gabapentin sent in. She can go back on gabapentin short term to help with the nerve pain. If she needs a refill then let me know. And yes she can use the calamine lotion. Juliana LY * Telephone Encounter - Hao Canas FNP - 12/21/2024 2:17 PM CDT She can go back on gabapentin short term to help with the nerve pain. If she needs a refill then let me know. And yes she can use the calamine lotion. * Telephone Encounter - Juliana Colvin LPN - 12/21/2024 2:11 PM CDT 12/21/2024 2:11 PM I spoke with pt and advised her of this message from provider. Pt stated she is not on gabapentin and was discontinued because they thought it was causing her weight gain. Pt is wanting to know is she should continue the calamine lotion once she starts the Capsaicin cream. Juliana LY Let her know additional Valtrex would likely not be helpful. I have sent in some capsaicin pain cream to her pharmacy. Please verify if she is still on gabapentin. This medication can help with postherpetic neuralgia. * Telephone Encounter - Hao Canas FNP - 12/21/2024 1:50 PM CDT Let her know additional Valtrex would likely not be helpful. I have sent in some capsaicin pain cream to her pharmacy. Please verify if she is still on gabapentin. This medication can help with postherpetic neuralgia. * Telephone Encounter - Venus Alan - 12/21/2024 11:34 AM CDT Copied from [facility] #[id number]. Topic: Medication Request >> Dec 21, 2024 11:30 AM Venus Alcantar wrote: Caller Name: Lanie Stoddard Callback Number: Telephone Information: Medication (Ask patient/caregiver to spell if possible): valACYclovir (Valtrex) 1 gram tablet Caller is requesting: Medication Question from Patient (not involving new prescription or refill) Preferred Pharmacy: [facility] - [place], [place] - [address], [facility] [address] Call Notes: Patient states she will be out of this medication on Thursday12/23/2024; she is still having symptoms and is wanting to get ahead by requesting refill early. Does Stone want to refill due to symptoms still being present? Please call and advise. Is there an encounter open? No documented in this encounter Plan of Treatment Upcoming Encounters Date Type Department Care Team (Late st Contact Info) Description 01/09/2025 11:20 AM CDT Office Visit [facility] Orthopedics - Orthopedic [facility] [address] [place] [address] Prince Barriga, DESHAUN [address] [place] [address] 01/18/2025 11:20 AM CDT Office Visit [facility] [address] [place] [address] Cele Borrero DO [address] [place] [address] 03/02/2025 3:40 PM CDT Office Visit [facility] [address] [place] [facility] [place] [facility] [address] Cele Borrero, DO [address] [place] [address] 03/13/2025 12:30 PM CDT Office Visit [facility] Gastroenterology- [place] [address] [place] [address] Armida Roldan PA-C [address] [place] [address] 04/25/2025 11:20 AM DIRECTOR OF COLLECTIONS AND ARCHIVES Office Visit [facility] [address] [place] [address] Cele Borrero, DO [address] [place] [address] 07/27/2025 11:00 AM DIRECTOR OF COLLECTIONS AND ARCHIVES Office Visit [facility] [address] [place] [address] Cele Borrero, DO [address] [place] [address] documented as of this encounter Visit Diagnoses Not on filedocumented in this encounter Additional Health Concerns Assessment Noted Time PHQ-9 Depression Total Score: 1 06/10/19 25 7:50 AM DIRECTOR OF COLLECTIONS AND ARCHIVES documented as of this encounter Care Teams Manager Software Relationship Specialty Start Date End Date Cele Borrero DO [address] [place] [address] PCP - General Family Practice 04/07/16 documented as of this encounter
--- OUTSIDE RECORDS SUMMARY | 2024-12-27 09:34 | XMS_ITS | Encounter Summary ---
Author Organization [facility] Address [address] [place] [address] Care Team Providers Care Child And Family Therapist Name Role Phone Cele Borrero Brandie ANTONY Primary Care Provider [phone] Encounter Details Date Type Department Care Team (Late st Contact Info) Description 12/21/2024 Orders Only [facility] Family Medicine [place] [address] [place] [address] Hao Canas FNP [address] [place] [address] Postherpetic neuralgia (Primary Dx) Social History Tobacco Use Types [...] PM CDT Legal Sex Female 2:12 PM TRANSFER SPECIALIST Gender Identity Female 02/05/2024 4:00 PM CDT Sexual Orientation Not on file documented as of this encounter Plan of Treatment Upcoming Encounters Date Type Department Care Team (Late st Contact Info) Description 01/09/2025 11:20 AM CDT Office Visit [facility] Orthopedics - Orthopedic [facility] [address] [facility] [place] [address] Prince Barriga PA [address] [facility] [place] [address] 01/18/2025 11:20 AM CDT Office Visit [facility] [address] [place] [facility] [place] [address] Cele Borrero, DO [address] [place] [address] 03/02/2025 3:40 PM CDT Office Visit [facility] [address] [place] [address] Cele Borrero, DO [address] [place] [address] 03/13/2025 12:30 PM CDT Office Visit [facility] Gastroenterology- [place] [address] [place] [address] Armida Roldan PA-C [address] [place] [address] 04/25/2025 11:20 AM TRANSFER SPECIALIST Office Visit [facility] [address] [place] [address] Cele Borrero, DO [address] [facility] [place] [address] 07/27/2025 11:00 AM TRANSFER SPECIALIST Office Visit [facility] [address] [place] [address] Cele Borrero DO [address] [place] [facility] [address] documented as of this encounter Visit Diagnoses Diagnosis Postherpetic neuralgia- Primary Herpes zoster with other nervous system complications documented in this encounter Additional Health Concerns Assessment Noted Time PHQ-9 Depression Total Score: 1 06/10/19 25 7:50 AM TRANSFER SPECIALIST documented as of this encounter Care Teams Child And Family Therapist Relationship Specialty Start Date End Date Cele Borrero DO [address] [facility] [place] [address] PCP - General Family Practice 04/07/16 documented as of this encounter
--- OUTSIDE RECORDS SUMMARY | 2024-12-27 09:34 | XMS_ITS | Encounter Summary ---
Author Organization [facility] Address [address] [place] [address] Care Team Providers Care Electronic Repair Troubleshooter Name Role Phone Cele Borrero DO Primary Care Provider [phone] Encounter Details Date Type Department Care Team (Latest Contact Info) Description 12/19/2003 Outpatient Historical [facility] Oral and Maxillo Surgery[address] [place] [address] Mike Bragg, PhD NO ADDRESS ON FILE TOOTH POSITION ANOMALY (Primary Dx); UNSPEC DENTAL CARIES Social History Tobacco Use Types Packs/Day Years Used Date Smoking Tobacco: Never Assessed Comments Unknown Sex and Gender Information Value Date Recorded Sex Assigned at Not on file Legal Sex Female 2:57 AM SUPERVISOR PAINTING SHIPYARD Gender Identity Not on file Sexual Orientation Not on file documented as of this encounter Plan of Treatment Not on file documented as of this encounter Visit Diagnoses Diagnosis 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
--- OUTSIDE RECORDS SUMMARY | 2024-12-27 09:34 | XMS_ITS | Encounter Summary ---
Author Organization [facility] Address [address] [place] [address] Care Team Providers Care Automotive Teacher Name Role Phone Cele Borrero DO Primary Care Provider [phone] Encounter Details Date Type Department Care Team (Late st Contact Info) Description 12/01/2005 Outpatient Historical [facility] Hand Therapy [address] [place] [address] [place] [address] Mike Pena MD [address] [place] [address] Social History Tobacco Use Types Packs/Day Years Used Date Smoking Tobacco: Never Assessed Comments Unknown Sex and Gender Information Value Date Recorded Sex Assigned at Not on file Legal Sex Female 2:57 AM LOG POND WORKER Gender Identity Not on file Sexual Orientation Not on file documented as of this encounter Plan of Treatment Not on file documented as of this encounter Visit Diagnoses Not on filedocumented in this encounter Care Teams Automotive Teacher Relationship Specialty Start Date End Date Cele Borrero DO [address] [place] [address] PCP - General Family Practice 04/07/16 documented as of this encounter
--- OUTSIDE RECORDS SUMMARY | 2024-12-27 09:34 | XMS_ITS | Encounter Summary ---
Author Organization [facility] Address [address] [place] [address] Care Team Providers Care Station Cashier Name Role Phone Cele Borrero DO Primary Care Provider [phone]- [phone] Encounter Details Date Type Department Care Team (Latest Contact Info) Description 01/24/[address] [facility] [address] [place] [address] [phone] Mike Bragg, PhD NO ADDRESS ON FILE TOOTH ERUPTION DISTURB (Primary Dx) Social History Tobacco Use Types Packs/Day Years Used Date Smoking Tobacco: Never Assessed Comments Unknown Sex and Gender Information Value Date Recorded Sex Assigned at Not on file Legal Sex Female 2:57 AM BUILDING TECH Gender Identity Not on file Sexual Orientation Not on file documented as of this encounter Plan of Treatment Not on file documented as of this encounter Visit Diagnoses Diagnosis Disturbances in tooth eruption- Primary documented in this encounter Care Teams Station Cashier Relationship Specialty Start Date End Date Cele Borrero DO [address] [place] [address] PCP - General Family Practice 04/07/16 documented as of this encounter
--- OUTSIDE RECORDS SUMMARY | 2024-12-27 09:34 | XMS_ITS | Encounter Summary ---
Author Organization [facility] Address [address] [place] [address] Care Team Providers Care Heel Cutter Name Role Phone Cele Borrero Primary Care Provider [phone] Encounter Details Date Type Department Care Team (Late st Contact Info) Description 09/20/2015 Nurse Triage Report [id number] ABSTRACTION Azra Crump, RN Social History Tobacco Use Types Packs/Day Years Used Date Smoking Tobacco: Former Cigarettes Smokeless Tobacco: Never Alcohol Use Standard Drinks/Week Comments No 0 (1 standard drink = 0.6 oz pur e alcohol) Comments No Sex and Gender Information Value Date Recorded Sex Assigned at Not on file Legal Sex Female 2:57 AM EMBOSSING PRESS OPERATOR Gender Identity Not on file Sexual Orientation Not on file documented as of this encounter Progress Notes * Azra Crump, RN - 09/20/2015 7:05 PM CDT CHART DOCUMENTATION ONLY Call Type: Triage Call Presenting Problem: I have bad pain in my lower lt back with numbness and pain from my hip to knee. Associated Symptoms: swelling hip to ankle Onset: x 10 days - worsening pain Location: Lt lower back and lower back Pain Assessment: 1 - 10 with 10 being the most severe pain 10 unable to sleep becasuse of pain Treatment so far for current presenting problem: heat, elevation, chiropractor indocin, neuronton History (Clinical Problems): fibromyalgia, asthma , Last saw HCP 1 week ago - pain worsening since, appt with pain management in October History (Oncology/Hematology Diagnosis): none Medications: baclofen, indoicin, lipitor, neuronton Medication reactions: tramadol, flexeril, amoxil, lasix <<<<<<<< TRIAGE NOTE >>>>>>>> Triage Note: Elevator Installer Azra Crump added this note on Sep 20 2015 7:05PM: Will be driven to [facility] ER <<<<<<<< TRIAGE/OUTCOME >>>>>>>> Guideline Title: Back Symptoms Recommended Disposition: See ED Immediately Original Inclination: Seek Care in ER Intended Action: Seek care in ER Physician Contacted: No New onset of severe disabling back pain (unable to stand upright; pain wakens you from sleep; constant or intense pain when lying down) ? YES documented in this encounter Plan of Treatment Not on file documented as of this encounter Visit Diagnoses Not on filedocumented in this encounter Care Teams Heel Cutter Relationship Specialty Start Date End Date Cele Borrero DO [address] [place] [address] PCP - General Family Practice 04/07/16 documented as of this encounter
--- OUTSIDE RECORDS SUMMARY | 2024-12-27 09:34 | XMS_ITS | Encounter Summary ---
Author Organization [facility] Address [address] [place] [address] Care Team Providers Care Mini Shifter Name Role Phone Cele Borrero DO Primary Care Provider +1- [phone] Encounter Details Date Type Department Care Team (Latest Contact Info) Description 08/22/2005 Outpatient Historical [facility] Family Medicine- [place] [address] [place] [address] Donald Hurtado, CLASP MACHINE OPERATOR [address] [place] [address] Allergic Rhinitis, Cause Unspecified (Primary Dx) Social History Tobacco Use Types Packs/Day Years Used Date Smoking Tobacco: Never Assessed Comments Unknown Sex and Gender Information Value Date Recorded Sex Assigned at Not on file Legal Sex Female 2:57 AM DROP FORGER HELPER Gender Identity Not on file Sexual Orientation Not on file documented as of this encounter Plan of Treatment Not on file documented as of this encounter Visit Diagnoses Diagnosis Allergic rhinitis, cause unspecified- Primary documented in this encounter Care Teams Mini Shifter Relationship Specialty Start Date End Date Cele Borrero DO [address] [place] [address] PCP - General Family Practice 04/07/16 documented as of this encounter
--- OUTSIDE RECORDS SUMMARY | 2024-12-27 09:34 | XMS_ITS | Encounter Summary ---
Author Organization [facility] Address [address] [place] [address] Care Team Providers Care Terrazzo Installer Name Role Phone Cele Borrero DO Primary Care Provider +1- [phone] Encounter Details Date Type Department Care Team (Latest Contact Info) Description 12/01/2005 Outpatient Historical [facility] Orthopedics- [address] [place] [address] Mike Pena MD [address] [place] [address] Radial Styloid Tenosynovitis (Primary Dx) Social History Tobacco Use Types Packs/Day Years Used Date Smoking Tobacco: Never Assessed Comments Unknown Sex and Gender Information Value Date Recorded Sex Assigned at Not on file Legal Sex Female 2:57 AM OTHER WOOD PROCESSING MACHINE OPERATOR Gender Identity Not on file Sexual Orientation Not on file documented as of this encounter Plan of Treatment Not on file documented as of this encounter Visit Diagnoses Diagnosis Radial styloid tenosynovitis- Primary documented in this encounter Care Teams Terrazzo Installer Relationship Specialty Start Date End Date Cele Borrero DO [address] [place] [address] PCP - General Family Practice 04/07/16 documented as of this encounter
--- OUTSIDE RECORDS SUMMARY | 2024-12-27 09:34 | XMS_ITS | Encounter Summary ---
Author Organization [facility] Address [address] [place] [address] Care Team Providers Care Farm Marketer Name Role Phone Cele Borrero DO Primary Care Provider Reason for Visit * Reason Comments Medication Assistance Encounter Details Date Type Department Care Team (Late st Contact Info) Description 12/21/2024 Telephone [facility] Family Medicine [place] [address] [place] [address] Cele Borrero DO [address] [place] [address] Medication Assistance Social History Tobacco [...] PM CDT Legal Sex Female 2:12 PM SUPPORT SERVICE TECH Gender Identity Female 02/05/2024 4:00 PM CDT Sexual Orientation Not on file documented as of this encounter Miscellaneous Notes * Telephone Encounter - Juliana Colvin LPN - 12/21/2024 4:17 PM CDT Resent to pharmacy. Juliana Colvin LPN, 12/21/2024 4:17 PM * Telephone Encounter - Candie Hope - 12/21/2024 4:05 PM CDT Copied from [facility] #[id number]. Topic: Medication Request >> Dec 21, 2024 4:01 PM Candie Ellis wrote: Caller Name: Lanie Stoddard Callback Number: Telephone Information: Medication (Ask patient/caregiver to spell if possible): capsaicin (ZOSTRIX) 0.025 % Cream [[id number]] Note: All medication prescriptions can be requested using one CRM Caller is requesting: Medication Question from Patient (not involving new prescription or refill) Preferred Pharmacy: [facility] - [place] - [address] [facility] [address] [place] [phone] Call Notes: Caller has question about Patient says capsaicin is an an over the counter cream and not covered by insurance. Does she get this cream or does Provider want her on a prescription cream? She can't continue to pay out of pocket. Is there an encounter open? No documented in this encounter Plan of Treatment Upcoming Encounters Date Type Department Care Team (Late st Contact Info) Description 01/09/2025 11:20 AM CDT Office Visit [facility] Orthopedics - Orthopedic [facility] [address] [facility] [place] [address] Prince Barriga PA [address] [place] [address] 01/18/2025 11:20 AM CDT Office Visit [facility] Family Medicine [place] [address] [place] [facility] [place] [address] Cele Borrero, DO [address] [place] [address] 03/02/2025 3:40 PM CDT Office Visit [facility] [address] [place] [address] Cele Borrero, DO [address] [facility] [place] [address] 03/13/2025 12:30 PM CDT Office Visit [facility] Gastroenterology- [place] [address] [place] [address] Armida Roldan PA-C [address] [place] [address] 04/25/2025 11:20 AM SUPPORT SERVICE TECH Office Visit [facility] [address] [place] [address] Cele Borrero, DO [address] [place] [address] 07/27/2025 11:00 AM SUPPORT SERVICE TECH Office Visit [facility] [address] [place] [address] Cele Borrero, DO [address] [place] [address] documented as of this encounter Visit Diagnoses Diagnosis Postherpetic neuralgia Herpes zoster with other nervous system complications documented in this encounter Additional Health Concerns Assessment Noted Time PHQ-9 Depression Total Score: 1 06/10/19 7:50 AM SUPPORT SERVICE TECH documented as of this encounter Care Teams Farm Marketer Relationship Specialty Start Date End Date Cele Borrero DO [address] [place] [address] PCP - General Family Practice 04/07/16 documented as of this encounter
--- OUTSIDE RECORDS SUMMARY | 2024-12-27 09:34 | XMS_ITS | Encounter Summary ---
Author Organization [facility] Address [address] [place] [address] Care Team Providers Care Splicer Helper Name Role Phone Cele Borrero DO Primary Care Provider +1- [phone] Encounter Details Date Type Department Care Team (Latest Contact Info) Description 09/18/2005 Outpatient Historical [facility] [place] [address] [place] [address] Donald Hurtado, METAL FURNITURE REPAIRER [address] [place] [address] Contact Dermatitis and Other Eczema, due to Unspecified Cause (Primary Dx); Head Injury, Unspecified Social History Tobacco Use Types Packs/Day Years Used Date Smoking Tobacco: Never Assessed Comments Unknown Sex and Gender Information Value Date Recorded Sex Assigned at Not on file Legal Sex Female 2:57 AM NEWSPAPER REPORTER Gender Identity Not on file Sexual Orientation Not on file documented as of this encounter Plan of Treatment Not on file documented as of this encounter Visit Diagnoses Diagnosis Contact dermatitis and other eczema, due to unspecified cause- Primary Head injury, unspecified documented in this encounter Care Teams Splicer Helper Relationship Specialty Start Date End Date Cele Borrero DO [address] [place] [address] PCP - General Family Practice 04/07/16 documented as of this encounter
--- OUTSIDE RECORDS SUMMARY | 2024-12-27 09:34 | XMS_ITS | Encounter Summary ---
Author Organization [facility] Address [address] [place] [address] Care Team Providers Care Addiction Social Worker Name Role Phone Cele Borrero DO Primary Care Provider +1- [phone] Encounter Details Date Type Department Care Team (Latest Contact Info) Description 01/24/2004 Outpatient Historical [facility] Oral and Maxillo Surgery[address] [place] [address] Mike Bragg, PhD NO ADDRESS ON FILE TOOTH POSITION ANOMALY (Primary Dx) Social History Tobacco Use Types Packs/Day Years Used Date Smoking Tobacco: Never Assessed Comments Unknown Sex and Gender Information Value Date Recorded Sex Assigned at Not on file Legal Sex Female 2:57 AM DRYWALL CARRIER Gender Identity Not on file Sexual Orientation Not on file documented as of this encounter Plan of Treatment Not on file documented as of this encounter Visit Diagnoses Diagnosis 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
--- OUTSIDE RECORDS SUMMARY | 2024-12-27 09:34 | XMS_ITS | Encounter Summary ---
Author Organization [facility] Address [address] [place] [address] Care Team Providers Care Building Tech Name Role Phone Cele Borrero DO Primary Care Provider +1- [phone] Encounter Details Date Type Department Care Team (Latest Contact Info) Description 07/26/2004 Outpatient Historical [facility] Medicine- [place] [address] [place] [address] Jaiden Torres MD [address] [place] [phone] HYPERTENSION NOS (Primary Dx) Social History Tobacco Use Types Packs/Day Years Used Date Smoking Tobacco: Never Assessed Comments Unknown Sex and Gender Information Value Date Recorded Sex Assigned at Not on file Legal Sex Female 2:57 AM GATE CUTTER Gender Identity Not on file Sexual Orientation Not on file documented as of this encounter Plan of Treatment Not on file documented as of this encounter Visit Diagnoses Diagnosis Unspecified essential hypertension- Primary documented in this encounter Care Teams Building Tech Relationship Specialty Start Date End Date Cele Borrero DO [address] [place] [address] PCP - General Family Practice 04/07/16 documented as of this encounter
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
--- OUTSIDE RECORDS SUMMARY | 2024-12-27 09:34 | XMS_ITS | Encounter Summary ---
Author Organization [facility] Address [address] [place] [address] Care Team Providers Care Deputy Head Name Role Phone Cele Borrero DO Primary Care Provider [phone] Reason for Visit * Reason Onset Date Comments med not covered 12/22/2024 Encounter Details Date Type Department Care Team (Late st Contact Info) Description 12/22/2024 Telephone [facility] Family Medicine [place] [address] [place] [address] Cele Borrero DO [address] [place] [address] med not covered Social History Tobacco Use Types Packs/Day Years Used Date Smoking Tobacco: Former Cigarettes 0 0 02/28/2012 - 02/28/2012 Passive Smoke Exposure: Past Smokeless Tobacco: Never Alcohol Use Standard Drinks/Week Comments No 0 (1 standard drink = 0.6 oz pur e alcohol) Comments No Sex and Gender Information Value Date Recorded Sex Assigned at Female 02/05/2024 4:00 PM CDT Legal Sex Female 2:12 PM JEWELRY CUTTER Gender Identity Female 02/05/2024 4:00 PM CDT Sexual Orientation Not on file documented as of this encounter Miscellaneous Notes * Telephone Encounter - Hao Canas FNP - 12/23/2024 7:20 AM CDT She has lidocaine in her allergy list so cannot send lidocaine cream in. She can try oatmeal baths around the rash area instead or she can purchase capsaicin cream over the counter. * Telephone Encounter - Jo Mead LPN - 12/22/2024 12:41 PM CDT Capsaicin cream not covered by insurance. Will you send something else? Jo Mead LPN, 12/22/2024 12:41 PM documented in this encounter Plan of Treatment Upcoming Encounters Date Type Department Care Team (Late st Contact Info) Description 01/09/2025 11:20 AM CDT Office Visit [facility] Orthopedics - Orthopedic [facility] [address] [place] [address] Prince Barriga PA [address] [place] [address] 01/18/2025 11:20 AM CDT Office Visit [facility] [address] [place] [address] Cele Borrero, DO [address] [place] [address] 03/02/2025 3:40 PM CDT Office Visit [facility] [address] [place] [address] Cele Borrero, DO [address] [place] [address] 03/13/2025 12:30 PM CDT Office Visit [facility] Gastroenterology- [place] [address] [place] [address] Armida Roldan PA-C [address] [place] [address] 04/25/2025 11:20 AM JEWELRY CUTTER Office Visit [facility] [address] [place] [address] Cele Borrero, DO [address] [place] [address] 07/27/2025 11:00 AM JEWELRY CUTTER Office Visit [facility] [address] [place] [address] Cele Borrero, DO [address] [place] [address] documented as of this encounter Visit Diagnoses Not on filedocumented in this encounter Additional Health Concerns Assessment Noted Time PHQ-9 Depression Total Score: 1 06/10/19 25 7:50 AM JEWELRY CUTTER documented as of this encounter Care Teams Deputy Head Relationship Specialty Start Date End Date Cele Borrero DO [address] [place] [address] PCP - General Family Practice 04/07/16 documented as of this encounter
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
--- OUTSIDE RECORDS SUMMARY | 2024-12-27 09:34 | XMS_ITS | Encounter Summary ---
Author Organization [facility] [place] [address] [place] [address] Care Team Providers Care Electric Lineman Name Role Phone Cele Borrero Brandie ANTONY Primary Care Provider Encounter Details Date Type Department Care Team (Late st Contact Info) Description 12/21/2024 Orders Only [facility] [address] [place] [address] Hao Canas FNP [address] [place] [address] Postherpetic neuralgia (Primary Dx); Chronic 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 Social History Tobacco Use Types Packs/Day Years Used Date Smoking Tobacco: Former Cigarettes 0 0 02/28/2012 - 02/28/2012 Passive Smoke Exposure: Past Smokeless Tobacco: Never Alcohol Use Standard Drinks/Week Comments No 0 (1 standard drink = 0.6 oz pur e alcohol) Comments No Sex and Gender Information Value Date Recorded Sex Assigned at Female 02/05/2024 4:00 PM CDT Legal Sex Female 2:12 PM ACCOUNT STRATEGIST Gender Identity Female 02/05/2024 4:00 PM CDT Sexual Orientation Not on file documented as of this encounter Plan of Treatment Upcoming Encounters Date Type Department Care Team (Late st Contact Info) Description 01/09/2025 11:20 AM CDT Office Visit [facility] Orthopedics - Orthopedic [facility] [address] [place] [address] Prince Barriga PA [address] [facility] [address] 01/18/2025 11:20 AM CDT Office Visit [facility] [address] [place] [address] Cele Borrero, DO [address] [place] [address] 03/02/2025 3:40 PM CDT Office Visit [facility] [address] [place] [address] Cele Borrero, DO [address] [place] [address] 03/13/2025 12:30 PM CDT Office Visit [facility] Gastroenterology- [place] [address] [place] [address] Armida Roldan PA-C [address] [place] [address] 04/25/2025 11:20 AM ACCOUNT STRATEGIST Office Visit [facility] [address] [place] [address] Cele Borrero, DO [address] [place] [facility] [address] 07/27/2025 11:00 AM ACCOUNT STRATEGIST Office Visit [facility] [address] [place] [address] Cele Borrero DO [address] [place] [address] documented as of this encounter Visit Diagnoses Diagnosis Postherpetic neuralgia- Primary Herpes zoster with other nervous system complications Chronic 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 documented in this encounter Additional Health Concerns Assessment Noted Time PHQ-9 Depression Total Score: 1 06/10/19 25 7:50 AM ACCOUNT STRATEGIST documented as of this encounter Care Teams Electric Lineman Relationship Specialty Start Date End Date Cele Borrero DO [address] [place] [facility] [place] [address] PCP - General Family Practice 04/07/16 documented as of this encounter
--- OUTSIDE RECORDS SUMMARY | 2024-12-27 09:34 | XMS_ITS | Encounter Summary ---
Author Organization [facility] Address [address] [place] [address] Care Team Providers Care Sequins Spooler Name Role Phone Cele Borrero DO Primary Care Provider +1- [phone] Encounter Details Date Type Department Care Team (Latest Contact Info) Description 08/28/2005 Outpatient Historical [facility] Orthopedics- [address] [place] [address] Mike Pena MD [address] [place] [address] Radial Styloid Tenosynovitis (Primary Dx) Social History Tobacco Use Types Packs/Day Years Used Date Smoking Tobacco: Never Assessed Comments Unknown Sex and Gender Information Value Date Recorded Sex Assigned at Not on file Legal Sex Female 2:57 AM BRIDGE WELDER Gender Identity Not on file Sexual Orientation Not on file documented as of this encounter Plan of Treatment Not on file documented as of this encounter Visit Diagnoses Diagnosis Radial styloid tenosynovitis- Primary documented in this encounter Care Teams Sequins Spooler Relationship Specialty Start Date End Date Cele Borrero DO [address] [place] [address] PCP - General Family Practice 04/07/16 documented as of this encounter
--- OUTSIDE RECORDS SUMMARY | 2024-12-27 09:34 | XMS_ITS | Encounter Summary ---
Author Organization [facility] Address [address] [place] [address] Care Team Providers Care Mill Supervisor Name Role Phone Cele Borrero DO Primary Care Provider +1- [phone] Encounter Details Date Type Department Care Team (Latest Contact Info) Description 06/27/2005 Outpatient Historical [facility] Medicine [address] [phone] Donald Hurtado, SHOP MANAGER [address] [place] [address] Pure hypercholesterolem (Primary Dx); Dietary surveil/assessment counselor Social History Tobacco Use Types Packs/Day Years Used Date Smoking Tobacco: Never Assessed Comments Unknown Sex and Gender Information Value Date Recorded Sex Assigned at Not on file Legal Sex Female 2:57 AM ADMINISTRATIVE INTERN Gender Identity Not on file Sexual Orientation Not on file documented as of this encounter Plan of Treatment Not on file documented as of this encounter Visit Diagnoses Diagnosis Pure hypercholesterolem- Primary Pure hypercholesterolemia Dietary surveil/assessment counselor Dietary surveillance and counseling documented in this encounter Care Teams Mill Supervisor Relationship Specialty Start Date End Date Cele Borrero DO [address] [place] [address] PCP - General Family Practice 04/07/16 documented as of this encounter
--- OUTSIDE RECORDS SUMMARY | 2024-12-27 09:34 | XMS_ITS | Encounter Summary ---
Author Organization [facility] Address [address] [place] [address] Care Team Providers Care Ruling Machine Operator Name Role Phone Cele Borrero Primary Care Provider +1- [phone] Encounter Details Date Type Department Care Team (Latest Contact Info) Description 06/11/2005 Outpatient Historical [address] [phone] Donald Hurtado, INVESTIGATION MANAGER [address] [place] [address] MALAISE AND FATIGUE NEC (Primary Dx) Social History Tobacco Use Types Packs/Day Years Used Date Smoking Tobacco: Never Assessed Comments Unknown Sex and Gender Information Value Date Recorded Sex Assigned at Not on file Legal Sex Female 2:57 AM TRASH COLLECTOR Gender Identity Not on file Sexual Orientation Not on file documented as of this encounter Plan of Treatment Not on file documented as of this encounter Procedures Procedure Name Priority Date/Time Associated Diagnosis Comments ACUTE HEPATITIS PANEL Routine 06/11/2005 11:42 AM TRASH COLLECTOR documented in this encounter Results * ACUTE HEPATITIS PANEL (06/11/2005 11:42 AM TRASH COLLECTOR) HEPATITIS B SURFACE AG Negative Negative INTERFACE SYSTEM HEPATITIS B CORE IGM Negative Negative INTERFACE SYSTEM HEPATITIS A IGM Negative Negative INTE RFACE SYSTEM HEPATITIS C AB Negative Negative INTER FACE SYSTEM Comment: Performed by E.I.A. methodology. If positive, CDC guidelines recommend confirmation with supplemental assay (e.g. RIBA.) The specimen will be retained for 7 days. Please contact the Immunology Laboratory if a confirmation by RIBA is desired. 06/11/2005 11:4 2 AM TRASH COLLECTOR us Historical Provider CHEMISTRY ORDERABLES Final R esult INTERFACE SYSTEM Refer to clinic/hospital department documented in this encounter Visit Diagnoses Diagnosis Other malaise and fatigue- Primary documented in this encounter Care Teams Ruling Machine Operator Relationship Specialty Start Date End Date Cele Borrero DO [address] [place] [address] PCP - General Family Practice 04/07/16 documented as of this encounter
--- OUTSIDE RECORDS SUMMARY | 2024-12-27 09:34 | XMS_ITS | Encounter Summary ---
Author Organization [facility] Address [address] [place] [address] Care Team Providers Care Rate Analyst Name Role Phone Cele Borrero DO Primary Care Provider +1- [phone] Encounter Details Date Type Department Care Team (Latest Contact Info) Description 04/30/2005 Outpatient Historical [facility] Medicine- [place] [address] [place] [address] Jaiden Torres MD [address] [place] [phone] ALLERGIC RHINITIS NOS (Primary Dx) Social History Tobacco Use Types Packs/Day Years Used Date Smoking Tobacco: Never Assessed Comments Unknown Sex and Gender Information Value Date Recorded Sex Assigned at Not on file Legal Sex Female 2:57 AM CORNICE UPHOLSTERER Gender Identity Not on file Sexual Orientation Not on file documented as of this encounter Plan of Treatment Not on file documented as of this encounter Visit Diagnoses Diagnosis Allergic rhinitis, cause unspecified- Primary documented in this encounter Care Teams Rate Analyst Relationship Specialty Start Date End Date Cele Borrero DO [address] [place] [address] PCP - General Family Practice 04/07/16 documented as of this encounter
--- OUTSIDE RECORDS SUMMARY | 2024-12-27 09:34 | XMS_ITS | Encounter Summary ---
Author Organization [facility] Address [address] [place] [address] Care Team Providers Care Balloon Seller Name Role Phone Cele Borrero DO Primary Care Provider +1- [phone] Encounter Details Date Type Department Care Team (Late st Contact Info) Description 02/01/2006 Outpatient Historical [facility] Hand Therapy [address] [place] [address] Mike Pena MD [address] [place] [address] Social History Tobacco Use Types Packs/Day Years Used Date Smoking Tobacco: Never Assessed Comments Unknown Sex and Gender Information Value Date Recorded Sex Assigned at Not on file Legal Sex Female 2:57 AM MEDICAL PARASITOLOGIST Gender Identity Not on file Sexual Orientation Not on file documented as of this encounter Plan of Treatment Not on file documented as of this encounter Visit Diagnoses Not on filedocumented in this encounter Care Teams Balloon Seller Relationship Specialty Start Date End Date Cele Borrero DO [address] [place] [address] PCP - General Family Practice 04/07/16 documented as of this encounter
--- OUTSIDE RECORDS SUMMARY | 2024-12-27 09:34 | XMS_ITS | Encounter Summary ---
Author Organization [facility] Address [address] [place] [address] Care Team Providers Care Volumetric Weigher Name Role Phone Cele Borrero DO Primary Care Provider +1- [phone] Encounter Details Date Type Department Care Team (Latest Contact Info) Description 07/03/2005 Outpatient Historical [facility] Medicine- [place] [address] [place] [address] Donald Hurtado, SHINGLE SHEARING MACHINE OPERATOR [address] [place] [address] HYPERLIPIDEMIA NEC/NOS (Primary Dx); ACUTE URI NOS Social History Tobacco Use Types Packs/Day Years Used Date Smoking Tobacco: Never Assessed Comments Unknown Sex and Gender Information Value Date Recorded Sex Assigned at Not on file Legal Sex Female 2:57 AM TREE KILLER Gender Identity Not on file Sexual Orientation Not on file documented as of this encounter Plan of Treatment Not on file documented as of this encounter Visit Diagnoses Diagnosis Other and unspecified hyperlipidemia- Primary Acute upper respiratory infections of unspecified site documented in this encounter Care Teams Volumetric Weigher Relationship Specialty Start Date End Date Cele Borrero DO [address] [place] [address] PCP - General Family Practice 04/07/16 documented as of this encounter
--- OUTSIDE RECORDS SUMMARY | 2024-12-27 09:34 | XMS_ITS | Encounter Summary ---
Author Organization [facility] Address [address] [place] [address] Care Team Providers Care Taffy Puller Name Role Phone Cele Borrero DO Primary Care Provider +1- [phone] Encounter Details Date Type Department Care Team (Latest Contact Info) Description 02/07/2004 Outpatient [facility] Oral and [place] Surgery[address] [place] [address] Mike Bragg, PhD NO ADDRESS ON FILE SURGERY FOLLOWUP, UNSPEC (Primary Dx) Social History Tobacco Use Types Packs/Day Years Used Date Smoking Tobacco: Never Assessed Comments Unknown Sex and Gender Information Value Date Recorded Sex Assigned at Not on file Legal Sex Female 2:57 AM NEWS CAMERA PERSON Gender Identity Not on file Sexual Orientation Not on file documented as of this encounter Plan of Treatment Not on file documented as of this encounter Visit Diagnoses Diagnosis Follow-up examination, following unspecified surgery- Primary documented in this encounter Care Teams Taffy Puller Relationship Specialty Start Date End Date Cele Borrero DO [address] [place] [address] PCP - General Family Practice 04/07/16 documented as of this encounter
--- OUTSIDE RECORDS SUMMARY | 2024-12-27 09:34 | XMS_ITS | Encounter Summary ---
Author Organization [facility] Address [address] [place] [address] Care Team Providers Care Clinical Educator Name Role Phone Cele Borrero DO Primary Care Provider +1- [phone] Encounter Details Date Type Department Care Team (Latest Contact Info) Description 06/11/2005 Outpatient Historical [facility] Medicine- [place] [address] [place] [address] Donald Hurtado, BOILERMAKER ASSEMBLY AND ERECTION [address] [place] [address] HYPERLIPIDEMIA NEC/NOS (Primary Dx); HYPOTHYROIDISM NOS; HYPERTENSION NOS; Pain in limb Social History Tobacco Use Types Packs/Day Years Used Date Smoking Tobacco: Never Assessed Comments Unknown Sex and Gender Information Value Date Recorded Sex Assigned at Not on file Legal Sex Female 2:57 AM CHARITY FUNDRAISER Gender Identity Not on file Sexual Orientation Not on file documented as of this encounter Plan of Treatment Not on file documented as of this encounter Visit Diagnoses Diagnosis Other and unspecified hyperlipidemia- Primary Unspecified hypothyroidism Unspecified essential hypertension Pain in limb Pain in soft tissues of limb documented in this encounter Care Teams Clinical Educator Relationship Specialty Start Date End Date Cele Borrero DO [address] [place] [address] PCP - General Family Practice 04/07/16 documented as of this encounter
--- OUTSIDE RECORDS SUMMARY | 2024-12-27 09:34 | XMS_ITS | Encounter Summary ---
Author Organization [facility] Address [address] [place] [address] Care Team Providers Care Diabetes Solutions Specialist Name Role Phone Cele Borrero DO Primary Care Provider +1- [phone] Encounter Details Date Type Department Care Team (Late st Contact Info) Description 01/02/2020 Ancillary Orders [facility] Imaging Services [address] [place] [address] Neftaly Dill, [facility] [address] [facility] [address] [place] [address] Right hip pain Social History Tobacco Use Types Packs/Day Years Used Date Smoking Tobacco: Former Cigarettes 2 5 0 02/27/2007 - 02/28/2012 Smokeless Tobacco: Never Alcohol Use Standard Drinks/Week Comments No 0 (1 standard drink = 0.6 oz pur e alcohol) Comments No Sex and Gender Information Value Date Recorded Sex Assigned at Not on file Legal Sex Female 2:57 AM CORPORATE RISK ANALYST Gender Identity Not on file Sexual Orientation Not on file documented as of this encounter Plan of Treatment Not on file documented as of this encounter Visit Diagnoses Diagnosis Right hip pain Pain in joint, pelvic region and thigh documented in this encounter Care Teams Diabetes Solutions Specialist Relationship Specialty Start Date End Date Cele Borrero DO [address] [place] [address] PCP - General Family Practice 04/07/16 documented as of this encounter
--- OUTSIDE RECORDS SUMMARY | 2024-12-27 09:34 | XMS_ITS | Encounter Summary ---
Author Organization [facility] Address [address] [place] [address] Care Team Providers Care Motor Vehicle Technician Name Role Phone Cele Borrero DO Primary Care Provider +1- [phone] Encounter Details Date Type Department Care Team (Latest Contact Info) Description 04/21/2005 Outpatient Historical [facility] Medicine- [place] [address] [place] [address] Jaiden Torres MD [address] [place] [phone] ALLERGIC RHINITIS NOS (Primary Dx) Social History Tobacco Use Types Packs/Day Years Used Date Smoking Tobacco: Never Assessed Comments Unknown Sex and Gender Information Value Date Recorded Sex Assigned at Not on file Legal Sex Female 2:57 AM PANTOMIMIST Gender Identity Not on file Sexual Orientation Not on file documented as of this encounter Plan of Treatment Not on file documented as of this encounter Visit Diagnoses Diagnosis Allergic rhinitis, cause unspecified- Primary documented in this encounter Care Teams Motor Vehicle Technician Relationship Specialty Start Date End Date Cele Borrero DO [address] [place] [address] PCP - General Family Practice 04/07/16 documented as of this encounter
--- OUTSIDE RECORDS SUMMARY | 2024-12-27 09:35 | XMS_ITS | Encounter Summary ---
Author Organization [facility] Address [address] [place] [address] Care Team Providers Care Railroad Surveyor Name Role Phone Cele Borrero DO Primary Care Provider +1- [phone] Encounter Details Date Type Department Care Team (Latest Contact Info) Description 12/10/2004 Outpatient Historical [facility] Medicine- [place] [address] [place] [address] Jaiden Torres MD [address] [place] [phone] ALLERGIC RHINITIS NOS (Primary Dx) Social History Tobacco Use Types Packs/Day Years Used Date Smoking Tobacco: Never Assessed Comments Unknown Sex and Gender Information Value Date Recorded Sex Assigned at Not on file Legal Sex Female 2:57 AM ENDODONTIC ASSISTANT Gender Identity Not on file Sexual Orientation Not on file documented as of this encounter Plan of Treatment Not on file documented as of this encounter Visit Diagnoses Diagnosis Allergic rhinitis, cause unspecified- Primary documented in this encounter Care Teams Railroad Surveyor Relationship Specialty Start Date End Date Cele Borrero DO [address] [place] [address] PCP - General Family Practice 04/07/16 documented as of this encounter
--- OUTSIDE RECORDS SUMMARY | 2024-12-27 09:35 | XMS_ITS | Encounter Summary ---
Author Organization [facility] Address [address] [place] [address] Care Team Providers Care Parts Professional Name Role Phone Cele Borrero Primary Care Provider +1- [phone] Encounter Details Date Type Department Care Team (Latest Contact Info) Description 11/06/2004 Outpatient Historical [facility] Medicine- [place] [address] [place] [address] Jaiden Torres MD [address] [place] [address] OBESITY NOS (Primary Dx) Social History Tobacco Use Types Packs/Day Years Used Date Smoking Tobacco: Never Assessed Comments Unknown Sex and Gender Information Value Date Recorded Sex Assigned at Not on file Legal Sex Female 2:57 AM AIRCRAFT ACCESSORIES MECHANIC Gender Identity Not on file Sexual Orientation Not on file documented as of this encounter Plan of Treatment Not on file documented as of this encounter Procedures Procedure Name Priority Date/Time Associated Diagnosis Comments CORTISOL LEVEL Routine 11/06/2004 8:53 PM CDT documented in this encounter Results * CORTISOL LEVEL (11/06/2004 8:53 PM CDT) CORTISOL LEVEL 1.0 ug/dL INTER FACE SYSTEM Comment: Cortisol Reference Range 7 a.m. 10 a.m. 4.5-22.7 ug/dl After 5 p.m. 1.7-14.1 ug/dl Cortisol Stimulation Test Individuals with normal adrenal response will respond in the first hour after infusion of ACTH by an increase of 10 to 25 ug/dl Cortisol vs baseline result. A normal peak serum cortisol is greater than 20ug/dl. 11/06/2004 8:53 PM CDT us Jaiden Torres MD CHEMISTRY ORDERABLES Final Res ult INTERFACE SYSTEM Refer to clinic/hospital department documented in this encounter Visit Diagnoses Diagnosis Obesity, unspecified- Primary documented in this encounter Care Teams Parts Professional Relationship Specialty Start Date End Date Cele Borrero DO [address] [place] [address] PCP - General Family Practice 04/07/16 documented as of this encounter
--- OUTSIDE RECORDS SUMMARY | 2024-12-27 09:35 | XMS_ITS | Encounter Summary ---
Author Organization [facility] Address [address] [place] [address] Care Team Providers Care Dental Technician Instructor Name Role Phone Cele Borrero DO Primary Care Provider +1- [phone] Encounter Details Date Type Department Care Team (Latest Contact Info) Description 03/11/2005 Outpatient Historical [facility] Medicine- [place] [address] [place] [address] Jaiden Torres MD [address] [place] [phone] ALLERGIC RHINITIS NOS (Primary Dx) Social History Tobacco Use Types Packs/Day Years Used Date Smoking Tobacco: Never Assessed Comments Unknown Sex and Gender Information Value Date Recorded Sex Assigned at Not on file Legal Sex Female 2:57 AM GERMAN INSTRUCTOR Gender Identity Not on file Sexual Orientation Not on file documented as of this encounter Plan of Treatment Not on file documented as of this encounter Visit Diagnoses Diagnosis Allergic rhinitis, cause unspecified- Primary documented in this encounter Care Teams Dental Technician Instructor Relationship Specialty Start Date End Date Cele Borrero DO [address] [place] [address] PCP - General Family Practice 04/07/16 documented as of this encounter
--- OUTSIDE RECORDS SUMMARY | 2024-12-27 09:35 | XMS_ITS | Encounter Summary ---
Author Organization [facility] Address [address] [place] [address] Care Team Providers Care Facility Technician Name Role Phone Cele Borrero DO Primary Care Provider +1- [phone] Encounter Details Date Type Department Care Team (Latest Contact Info) Description 09/20/2004 Outpatient Historical [facility] Medicine- [place] [address] [place] [address] Jaiden Torres MD [address] [place] [phone] DERMATITIS NOS (Primary Dx) Social History Tobacco Use Types Packs/Day Years Used Date Smoking Tobacco: Never Assessed Comments Unknown Sex and Gender Information Value Date Recorded Sex Assigned at Not on file Legal Sex Female 2:57 AM VOICE PATHOLOGIST Gender Identity Not on file Sexual Orientation Not on file documented as of this encounter Plan of Treatment Not on file documented as of this encounter Visit Diagnoses Diagnosis Contact dermatitis and other eczema, due to unspecified cause- Primary documented in this encounter Care Teams Facility Technician Relationship Specialty Start Date End Date Cele Borrero DO [address] [place] [address] PCP - General Family Practice 04/07/16 documented as of this encounter
--- OUTSIDE RECORDS SUMMARY | 2024-12-27 09:35 | XMS_ITS | Encounter Summary ---
Author Organization [facility] Address [address] [place] [address] Care Team Providers Care Manager Philosophy Name Role Phone Cele Borrero DO Primary Care Provider +1- [phone] Encounter Details Date Type Department Care Team (Latest Contact Info) Description 01/21/2005 Outpatient Historical [facility] Medicine- [place] [address] [place] [address] Jaiden Torres MD [address] [place] [address] ALLERGIC RHINITIS NOS (Primary Dx) Social History Tobacco Use Types Packs/Day Years Used Date Smoking Tobacco: Never Assessed Comments Unknown Sex and Gender Information Value Date Recorded Sex Assigned at Not on file Legal Sex Female 2:57 AM HOG STICKER Gender Identity Not on file Sexual Orientation Not on file documented as of this encounter Plan of Treatment Not on file documented as of this encounter Visit Diagnoses Diagnosis Allergic rhinitis, cause unspecified- Primary documented in this encounter Care Teams Manager Philosophy Relationship Specialty Start Date End Date Cele Borrero DO [address] [place] [address] PCP - General Family Practice 04/07/16 documented as of this encounter
--- OUTSIDE RECORDS SUMMARY | 2024-12-27 09:35 | XMS_ITS | Encounter Summary ---
Author Organization [facility] Address [address] Attn: Epic Prelude ADT CARLY HENNESSY [address] Care Team Providers Care Back Tender Pulp Drier Name Role Phone Cele Borrero DO Primary Care Provider [phone] Encounter Details Date Type Department Care Team (Late st Contact Info) Description 02/04/2005 Outpatient Historical Yeni Layne MD [address] [place], [place] [address] ALLERGIC RHINITIS NOS (Primary Dx) Social History Tobacco Use Types Packs/Day Years Used Date Smoking Tobacco: Never Assessed Comments Unknown Sex and Gender Information Value Date Recorded Sex Assigned at Not on file Legal Sex Female 2:57 AM DETAIL MAKER AND FITTER Gender Identity Not on file Sexual Orientation Not on file documented as of this encounter Plan of Treatment Not on file documented as of this encounter Visit Diagnoses Diagnosis Allergic rhinitis, cause unspecified- Primary documented in this encounter Care Teams Back Tender Pulp Drier Relationship Specialty Start Date End Date Cele Borrero DO [address] [place] [address] PCP - General Family Practice 04/07/16 documented as of this encounter
--- OUTSIDE RECORDS SUMMARY | 2024-12-27 09:35 | XMS_ITS | Encounter Summary ---
Author Organization [facility] Address [address] [place] [address] Care Team Providers Care Graduate Internship Name Role Phone Cele Borrero DO Primary Care Provider +1- [phone] Encounter Details Date Type Department Care Team (Latest Contact Info) Description 09/10/2004 Outpatient Historical [facility] Medicine- [place] [address] [place] [address] Jaiden Torres MD [address] [place] [phone] ALLERGIC RHINITIS NOS (Primary Dx) Social History Tobacco Use Types Packs/Day Years Used Date Smoking Tobacco: Never Assessed Comments Unknown Sex and Gender Information Value Date Recorded Sex Assigned at Not on file Legal Sex Female 2:57 AM 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
--- OUTSIDE RECORDS SUMMARY | 2024-12-27 09:35 | XMS_ITS | Encounter Summary ---
Author Organization [facility] Address [address] [place] [address] Care Team Providers Care Bilingual Inside Sales Representative Name Role Phone Cele Borrero DO Primary Care Provider +1- [phone] Encounter Details Date Type Department Care Team (Latest Contact Info) Description 02/11/2005 Outpatient Historical [facility] Medicine- [place] [address] [place] [address] Jaiden Torres MD [address] [place] [phone] ALLERGIC RHINITIS NOS (Primary Dx) Social History Tobacco Use Types Packs/Day Years Used Date Smoking Tobacco: Never Assessed Comments Unknown Sex and Gender Information Value Date Recorded Sex Assigned at Not on file Legal Sex Female 2:57 AM DIRECTOR OF CONSULTING SERVICES Gender Identity Not on file Sexual Orientation Not on file documented as of this encounter Plan of Treatment Not on file documented as of this encounter Visit Diagnoses Diagnosis Allergic rhinitis, cause unspecified- Primary documented in this encounter Care Teams Bilingual Inside Sales Representative Relationship Specialty Start Date End Date Cele Borrero DO [address] [place] [address] PCP - General Family Practice 04/07/16 documented as of this encounter
--- OUTSIDE RECORDS SUMMARY | 2024-12-27 09:35 | XMS_ITS | Encounter Summary ---
Author Organization [facility] Address [address] [place] [address] Care Team Providers Care Supplier Engineer Name Role Phone Cele Borrero DO Primary Care Provider +1- [phone] Encounter Details Date Type Department Care Team (Latest Contact Info) Description 03/04/2005 Outpatient Historical [facility] Medicine- [place] [address] [place] [address] Jaiden Torres MD [address] [place] [phone] ALLERGIC RHINITIS NOS (Primary Dx) Social History Tobacco Use Types Packs/Day Years Used Date Smoking Tobacco: Never Assessed Comments Unknown Sex and Gender Information Value Date Recorded Sex Assigned at Not on file Legal Sex Female 2:57 AM 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
--- OUTSIDE RECORDS SUMMARY | 2024-12-27 09:35 | XMS_ITS | Encounter Summary ---
Author Organization [facility] Address [address] [place] [address] Care Team Providers Care Executive Assistant Name Role Phone Cele Borrero DO Primary Care Provider +1- [phone] Encounter Details Date Type Department Care Team (Latest Contact Info) Description 12/03/2004 Outpatient Historical [facility] Medicine- [place] [address] [place] [address] Jaiden Torres MD [address] [place] [phone] ALLERGIC RHINITIS NOS (Primary Dx) Social History Tobacco Use Types Packs/Day Years Used Date Smoking Tobacco: Never Assessed Comments Unknown Sex and Gender Information Value Date Recorded Sex Assigned at Not on file Legal Sex Female 2:57 AM HYDRAULIC MODELING 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
--- OUTSIDE RECORDS SUMMARY | 2024-12-27 09:35 | XMS_ITS | Encounter Summary ---
Author Organization [facility] Address [address] [place] [address] Care Team Providers Care English Faculty Member Name Role Phone Cele Borrero DO Primary Care Provider +1- [phone] Encounter Details Date Type Department Care Team (Latest Contact Info) Description 10/07/2004 Outpatient Historical [facility] Medicine- [place] [address] [place] [address] Jaiden Torres MD [address] [place] [phone] ALLERGIC RHINITIS NOS (Primary Dx) Social History Tobacco Use Types Packs/Day Years Used Date Smoking Tobacco: Never Assessed Comments Unknown Sex and Gender Information Value Date Recorded Sex Assigned at Not on file Legal Sex Female 2:57 AM SCREEDMAN Gender Identity Not on file Sexual Orientation Not on file documented as of this encounter Plan of Treatment Not on file documented as of this encounter Visit Diagnoses Diagnosis Allergic rhinitis, cause unspecified- Primary documented in this encounter Care Teams English Faculty Member Relationship Specialty Start Date End Date Cele Borrero DO [address] [place] [address] PCP - General Family Practice 04/07/16 documented as of this encounter
--- OUTSIDE RECORDS SUMMARY | 2024-12-27 09:35 | XMS_ITS | Encounter Summary ---
Author Organization [facility] Address [address] [place] [address] Care Team Providers Care Proteomics Scientist Name Role Phone Cele Borrero DO Primary Care Provider +1- [phone] Encounter Details Date Type Department Care Team (Latest Contact Info) Description 12/24/2004 Outpatient Historical [facility] Medicine- [place] [address] [place] [address] Jaiden Torres MD [address] [place] [phone] DERMATITIS NOS (Primary Dx); ALLERGIC RHINITIS NOS Social History Tobacco Use Types Packs/Day Years Used Date Smoking Tobacco: Never Assessed Comments Unknown Sex and Gender Information Value Date Recorded Sex Assigned at Not on file Legal Sex Female 2:57 AM LOOP PULLER Gender Identity Not on file Sexual Orientation Not on file documented as of this encounter Plan of Treatment Not on file documented as of this encounter Visit Diagnoses Diagnosis Contact dermatitis and other eczema, due to unspecified cause- Primary Allergic rhinitis, cause unspecified documented in this encounter Care Teams Proteomics Scientist Relationship Specialty Start Date End Date Cele Borrero DO [address] [place] [address] PCP - General Family Practice 04/07/16 documented as of this encounter
--- OUTSIDE RECORDS SUMMARY | 2024-12-27 09:35 | XMS_ITS | Encounter Summary ---
Author Organization [facility] Address [address] [place] [address] Care Team Providers Care Forest Management Teacher Name Role Phone Cele Borrero Brandie ANTONY Primary Care Provider Encounter Details Date Type Department Care Team (Late st Contact Info) Description 12/14/2024 Results Follow-Up [facility] Family Medicine [place] [address] [place] [address] Hao Canas, SHEN [address] [place] [address] XR RIBS UNILATERAL 2 VW RIGHT Social History Tobacco Use Types Packs/Day Years Used Date Smoking Tobacco: Former Cigarettes 0 0 02/28/2012 - 02/28/2012 Passive Smoke Exposure: Past Smokeless Tobacco: Never Alcohol Use Standard Drinks/Week Comments No 0 (1 standard drink = 0.6 oz pur e alcohol) Comments No Sex and Gender Information Value Date Recorded Sex Assigned at Female 02/05/2024 4:00 PM CDT Legal Sex Female 2:12 PM DIGESTER OPERATOR Gender Identity Female 02/05/2024 4:00 PM CDT Sexual Orientation Not on file documented as of this encounter Plan of Treatment Upcoming Encounters Date Type Department Care Team (Late st Contact Info) Description 01/09/2025 11:20 AM CDT Office Visit [facility] Orthopedics - Orthopedic [facility] [address] [facility] [place] [phone] Prince Barriga PA [address] [facility] [place] [address] 01/18/2025 11:20 AM CDT Office Visit [facility] [address] [facility] [place] [address] Cele Borrero, DO [address] [place] [address] 03/02/2025 3:40 PM CDT Office Visit [facility] [address] [facility] [place] [address] Cele Borrero, DO [address] [facility] [place] [address] 03/13/2025 12:30 PM CDT Office Visit [facility] Gastroenterology- [place] [address] [place] [address] Armida Roldan PA-C [address] [place] [address] 04/25/2025 11:20 AM DIGESTER OPERATOR Office Visit [facility] [address] [facility] [place] [address] Cele Borrero, DO [address] [facility] [place] [address] 07/27/2025 11:00 AM DIGESTER OPERATOR Office Visit [facility] [address] [place] [address] Cele Borrero DO [address] [place] [address] documented as of this encounter Visit Diagnoses Not on filedocumented in this encounter Additional Health Concerns Assessment Noted Time PHQ-9 Depression Total Score: 1 06/10/19 25 7:50 AM DIGESTER OPERATOR documented as of this encounter Care Teams Forest Management Teacher Relationship Specialty Start Date End Date Cele Borrero DO [address] [facility] [place] [address] PCP - General Family Practice 04/07/16 documented as of this encounter
--- OUTSIDE RECORDS SUMMARY | 2024-12-27 09:35 | XMS_ITS | Encounter Summary ---
Author Organization [facility] Address [address] [place] [address] Care Team Providers Care Law Enforcement Officer Name Role Phone Cele Borrero DO Primary Care Provider +1- [phone] Encounter Details Date Type Department Care Team (Latest Contact Info) Description 02/25/2005 Outpatient Historical [facility] Medicine- [place] [address] [place] [address] Jaiden Torres MD [address] [place] [phone] DERMATITIS NOS (Primary Dx); ALLERGY, UNSPECIFIED Social History Tobacco Use Types Packs/Day Years Used Date Smoking Tobacco: Never Assessed Comments Unknown Sex and Gender Information Value Date Recorded Sex Assigned at Not on file Legal Sex Female 2:57 AM DISCHARGE PLANNER Gender Identity Not on file Sexual Orientation Not on file documented as of this encounter Plan of Treatment Not on file documented as of this encounter Visit Diagnoses Diagnosis Contact dermatitis and other eczema, due to unspecified cause- Primary Allergy, unspecified not elsewhere classified documented in this encounter Care Teams Law Enforcement Officer Relationship Specialty Start Date End Date Cele Borrero DO [address] [place] [address] PCP - General Family Practice 04/07/16 documented as of this encounter
--- OUTSIDE RECORDS SUMMARY | 2024-12-27 09:35 | XMS_ITS | Encounter Summary ---
Author Organization [facility] Address [address] [place] [address] Care Team Providers Care Bag Inspector Name Role Phone Cele Borrero Primary Care Provider +1- [phone] Encounter Details Date Type Department Care Team (Latest Contact Info) Description 11/19/2004 Outpatient Historical [facility] [address] [place] [address] Jaiden Torres MD [address] [place] [address] ACQUIRED HYPOTHYROID NEC (Primary Dx) Social History Tobacco Use Types Packs/Day Years Used Date Smoking Tobacco: Never Assessed Comments Unknown Sex and Gender Information Value Date Recorded Sex Assigned at Not on file Legal Sex Female 2:57 AM TRIM DIE MAKER Gender Identity Not on file Sexual Orientation Not on file documented as of this encounter Plan of Treatment Not on file documented as of this encounter Procedures Procedure Name Priority Date/Time Associated Diagnosis Comments TSH Routine 11/19/2004 8:50 AM CDT T4 FREE Routine 11/19/2004 8:50 AM CDT documented in this encounter Results * (ABNORMAL) T4 FREE (11/19/2004 8:50 AM CDT) T4 FREE 0.79(L) 0.89 - 1.76 ng/dL INTERFACE SYSTEM Comment: As of 04 at 3:00 p.m. [facility] has changed the methodology for Free T4, and with this change the reference range has changed from 0.71-1.85 to 0.89-1.76 ng/dl. 11/19/2004 8:50 AM CDT us Jaiden Torres MD CHEMISTRY ORDERABLES Final Res ult Performing Organization Address City/[facility] de Phone Number INTERFACE SYSTEM Refer to clinic/hospital department * TSH (11/19/2004 8:50 AM CDT) TSH 0.942 0.350 - 5.500 uIU/ml INTERFACE SYSTEM Comment: [facility], and with this change the reference range has changed from 0.49-4.67 to 0.35-5.5 uIU/ml. 11/19/2004 8:50 AM CDT us Jaiden Torres MD CHEMISTRY ORDERABLES Final Res ult Performing Organization Address [facility] de Phone Number INTERFACE SYSTEM Refer to clinic/hospital department documented in this encounter Visit Diagnoses Diagnosis Other specified acquired hypothyroidism- Primary documented in this encounter Care Teams Bag Inspector Relationship Specialty Start Date End Date Cele Borrero DO [address] [place] [address] PCP - General Family Practice 04/07/16 documented as of this encounter
--- OUTSIDE RECORDS SUMMARY | 2024-12-27 09:35 | XMS_ITS | Encounter Summary ---
Author Organization [facility] Address [address] [place] [address] Care Team Providers Care Stable Helper Name Role Phone Cele Borrero DO Primary Care Provider +1- [phone] Encounter Details Date Type Department Care Team (Latest Contact Info) Description 10/16/2004 Outpatient Historical [facility] Medicine- [place] [address] [place] [address] Jaiden Torres MD [address] [place] [phone] ALLERGIC RHINITIS NOS (Primary Dx) Social History Tobacco Use Types Packs/Day Years Used Date Smoking Tobacco: Never Assessed Comments Unknown Sex and Gender Information Value Date Recorded Sex Assigned at Not on file Legal Sex Female 2:57 AM CAFE LEAD Gender Identity Not on file Sexual Orientation Not on file documented as of this encounter Plan of Treatment Not on file documented as of this encounter Visit Diagnoses Diagnosis Allergic rhinitis, cause unspecified- Primary documented in this encounter Care Teams Stable Helper Relationship Specialty Start Date End Date Cele Borrero DO [address] [place] [address] PCP - General Family Practice 04/07/16 documented as of this encounter
--- OUTSIDE RECORDS SUMMARY | 2024-12-27 09:35 | XMS_ITS | Encounter Summary ---
Author Organization [facility] Address [address] [place] [address] Care Team Providers Care Sole Inker Name Role Phone Cele Borrero Primary Care Provider +1- [phone] Encounter Details Date Type Department Care Team (Latest Contact Info) Description 10/29/2004 Outpatient Historical [facility] [address] [place] [address] Jaiden Torres MD [address] [place] [address] CHEST PAIN NOS (Primary Dx) Social History Tobacco Use Types Packs/Day Years Used Date Smoking Tobacco: Never Assessed Comments Unknown Sex and Gender Information Value Date Recorded Sex Assigned at Not on file Legal Sex Female 2:57 AM YOUTH PROBATION OFFICER Gender Identity Not on file Sexual Orientation Not on file documented as of this encounter Plan of Treatment Not on file documented as of this encounter Procedures Procedure Name Priority Date/Time Associated Diagnosis Comments BASIC METABOLIC PANEL Routine 10/29/2004 4:40 PM CDT documented in this encounter Results * (ABNORMAL) BASIC METABOLIC PANEL (10/29/2004 4:40 PM CDT) GLUCOSE 114(H) 70 - 110 mg/dL INTERFACE SYSTEM BUN 22(H) 7 - 17 mg/dL INTERFACE SYSTEM CREATININE 1.3(H) 0.7 - 1.2 mg/dL INTERFACE SYSTEM SODIUM 136 136 - 145 mEq/L INTERFACE SYSTEM POTASSIUM 3.8 3.5 - 5.0 mEq/L INTERFACE SYSTEM CHLORIDE 93(L) 95 - 110 mEq/L INTERFACE SYSTEM CO2 28 22 - 32 mmol/l INTERFACE SYSTEM ANION GAP 19 9 - 20 mEq/L INTERFACE SYSTEM OSMOLALITY, CALCULATED 284 275 - 295 mOsm/Kg INTERFACE SYSTEM CALCIUM 9.9 8.4 - 10.5 mg/dL INTERFACE SYSTEM 10/29/2004 4:40 PM CDT us Jaiden Torres MD CHEMISTRY ORDERABLES Final Res ult INTERFACE SYSTEM Refer to clinic/hospital department documented in this encounter Visit Diagnoses Diagnosis Chest pain, unspecified- Primary documented in this encounter Care Teams Sole Inker Relationship Specialty Start Date End Date Cele Borrero DO [address] [place] [address] PCP - General Family Practice 04/07/16 documented as of this encounter
--- OUTSIDE RECORDS SUMMARY | 2024-12-27 09:35 | XMS_ITS | Encounter Summary ---
Author Organization [facility] Address [address] [place] [address] Care Team Providers Care Pianos And Organs Salesperson Name Role Phone Cele Borrero DO Primary Care Provider +1- [phone] Encounter Details Date Type Department Care Team (Latest Contact Info) Description 10/22/2004 [facility] [address] [place] [address] Jaiden Torres MD [address] [place] [phone] HYPOTHYROIDISM NOS (Primary Dx) Social History Tobacco Use Types Packs/Day Years Used Date Smoking Tobacco: Never Assessed Comments Unknown Sex and Gender Information Value Date Recorded Sex Assigned at Not on file Legal Sex Female 2:57 AM MIDDLE SCHOOL 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 Gender Identity Not on file Sexual Orientation Not on file documented as of this encounter Plan of Treatment Not on file documented as of this encounter Procedures Procedure Name Priority Date/Time Associated Diagnosis Comments T4 FREE Routine 10/22/2004 9:14 PM CDT documented in this encounter Results * (ABNORMAL) T4 FREE (10/22/2004 9:14 PM CDT) T4 FREE 0.65(L) 0.71 - 1.85 ng/dL INTERFACE SYSTEM 10/22/2004 9:14 PM CDT us Jaiden Torres MD CHEMISTRY ORDERABLES Final Res ult INTERFACE SYSTEM Refer to clinic/hospital department documented in this encounter Visit Diagnoses Diagnosis Unspecified hypothyroidism- Primary documented in this encounter Care Teams Pianos And Organs Salesperson Relationship Specialty Start Date End Date Cele Borrero DO [address] [place] [address] PCP - General Family Practice 04/07/16 documented as of this encounter
--- OUTSIDE RECORDS SUMMARY | 2024-12-27 09:35 | XMS_ITS | Encounter Summary ---
Author Organization [facility] Address [address] [place] [address] Care Team Providers Care Garden Tractor Mechanic Name Role Phone Cele Borrero DO Primary Care Provider +1- [phone] Encounter Details Date Type Department Care Team (Latest Contact Info) Description 01/13/2005 Outpatient Historical [facility] Medicine- [place] [address] [place] [address] Jaiden Torres MD [address] [place] [phone] ALLERGIC RHINITIS NOS (Primary Dx); ACUTE BRONCHITIS Social History Tobacco Use Types Packs/Day Years Used Date Smoking Tobacco: Never Assessed Comments Unknown Sex and Gender Information Value Date Recorded Sex Assigned at Not on file Legal Sex Female 2:57 AM DIGITAL ACCOUNT MANAGER Gender Identity Not on file Sexual Orientation Not on file documented as of this encounter Plan of Treatment Not on file documented as of this encounter Visit Diagnoses Diagnosis Allergic rhinitis, cause unspecified- Primary Acute bronchitis documented in this encounter Care Teams Garden Tractor Mechanic Relationship Specialty Start Date End Date Cele Borrero DO [address] [place] [address] PCP - General Family Practice 04/07/16 documented as of this encounter
--- OUTSIDE RECORDS SUMMARY | 2024-12-27 09:35 | XMS_ITS | Encounter Summary ---
Author Organization [facility] Address [address] [place] [address] Care Team Providers Care Insurance Policy Issue Clerk Name Role Phone Cele Borrero DO Primary Care Provider +1- [phone] Encounter Details Date Type Department Care Team (Latest Contact Info) Description 10/25/2004 Outpatient Historical [facility] Medicine- [place] [address] [place] [address] Jaiden Torres MD [address] [place] [phone] HYPOTHYROIDISM NOS (Primary Dx) Social History Tobacco Use Types Packs/Day Years Used Date Smoking Tobacco: Never Assessed Comments Unknown Sex and Gender Information Value Date Recorded Sex Assigned at Not on file Legal Sex Female 2:57 AM HYDROMETALLURGICAL ENGINEER Gender Identity Not on file Sexual Orientation Not on file documented as of this encounter Plan of Treatment Not on file documented as of this encounter Visit Diagnoses Diagnosis Unspecified hypothyroidism- Primary documented in this encounter Care Teams Insurance Policy Issue Clerk Relationship Specialty Start Date End Date Cele Borrero DO [address] [place] [address] PCP - General Family Practice 04/07/16 documented as of this encounter
--- OUTSIDE RECORDS SUMMARY | 2024-12-27 09:35 | XMS_ITS | Encounter Summary ---
Author Organization [facility] Address [address] [place] [address] Care Team Providers Care Medtronics Technician Name Role Phone Cele Borrero DO Primary Care Provider +1- [phone] Encounter Details Date Type Department Care Team (Latest Contact Info) Description 09/25/2004 Outpatient Historical [facility] Medicine- [place] [address] [place] [address] Jaiden Torres MD [address] [place] [phone] HYPOTHYROIDISM NOS (Primary Dx) Social History Tobacco Use Types Packs/Day Years Used Date Smoking Tobacco: Never Assessed Comments Unknown Sex and Gender Information Value Date Recorded Sex Assigned at Not on file Legal Sex Female 2:57 AM RESEARCH COMPUTING SPECIALIST Gender Identity Not on file Sexual Orientation Not on file documented as of this encounter Plan of Treatment Not on file documented as of this encounter Visit Diagnoses Diagnosis Unspecified hypothyroidism- Primary documented in this encounter Care Teams Medtronics Technician Relationship Specialty Start Date End Date Cele Borrero DO [address] [place] [address] PCP - General Family Practice 04/07/16 documented as of this encounter
--- OUTSIDE RECORDS SUMMARY | 2024-12-27 09:35 | XMS_ITS | Encounter Summary ---
Author Organization [facility] Address [address] [place] [address] Care Team Providers Care Cherry Grower Name Role Phone Cele Borrero DO Primary Care Provider +1- [phone] Encounter Details Date Type Department Care Team (Latest Contact Info) Description 10/11/2004 Outpatient Historical [facility] Medicine- [place] [address] [place] [address] Jaiden Torres MD [address] [place] [phone] SPASM OF MUSCLE (Primary Dx) Social History Tobacco Use Types Packs/Day Years Used Date Smoking Tobacco: Never Assessed Comments Unknown Sex and Gender Information Value Date Recorded Sex Assigned at Not on file Legal Sex Female 2:57 AM WORM SORTER Gender Identity Not on file Sexual Orientation Not on file documented as of this encounter Plan of Treatment Not on file documented as of this encounter Visit Diagnoses Diagnosis Spasm of muscle- Primary documented in this encounter Care Teams Cherry Grower Relationship Specialty Start Date End Date Cele Borrero DO [address] [place] [address] PCP - General Family Practice 04/07/16 documented as of this encounter
--- OUTSIDE RECORDS SUMMARY | 2024-12-27 09:35 | XMS_ITS | Encounter Summary ---
Author Organization [facility] Address [address] [place] [address] Care Team Providers Care Wood Scrap Handler Name Role Phone Cele Borrero DO Primary Care Provider +1- [phone] Encounter Details Date Type Department Care Team (Latest Contact Info) Description 10/29/2004 Outpatient Historical [facility] Medicine- [place] [address] [place] [address] Jaiden Torres MD [address] [place] [phone] Pain in limb (Primary Dx); ALLERGIC RHINITIS NOS Social History Tobacco Use Types Packs/Day Years Used Date Smoking Tobacco: Never Assessed Comments Unknown Sex and Gender Information Value Date Recorded Sex Assigned at Not on file Legal Sex Female 2:57 AM ASPHALT MIXER Gender Identity Not on file Sexual Orientation Not on file documented as of this encounter Plan of Treatment Not on file documented as of this encounter Visit Diagnoses Diagnosis Pain in limb- Primary Pain in soft tissues of limb Allergic rhinitis, cause unspecified documented in this encounter Care Teams Wood Scrap Handler Relationship Specialty Start Date End Date Cele Borrero DO [address] [place] [address] PCP - General Family Practice 04/07/16 documented as of this encounter
--- OUTSIDE RECORDS SUMMARY | 2024-12-27 09:35 | XMS_ITS | Encounter Summary ---
Author Organization [facility] Address [address] [place] [address] Care Team Providers Care Plant Breeder Scientist Name Role Phone Cele Borrero DO Primary Care Provider +1- [phone] Encounter Details Date Type Department Care Team (Latest Contact Info) Description 08/21/2004 Outpatient Historical [facility] Medicine- [place] [address] [place] [address] Jaiden Torres MD [address] [place] [phone] DIARRHEA NOS (Primary Dx) Social History Tobacco Use Types Packs/Day Years Used Date Smoking Tobacco: Never Assessed Comments Unknown Sex and Gender Information Value Date Recorded Sex Assigned at Not on file 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
--- OUTSIDE RECORDS SUMMARY | 2024-12-27 09:35 | XMS_ITS | Clinical Summary ---
Author Organization [facility] Address [address] [place] [address] Care Team Providers Care Animal Laboratory Helper Name Role Phone Cele Borrero DO Primary Care Provider Allergies Active Allergy Reactions Criticality Noted Date Comments Amoxicillin Rash Low 10/14/2023 Cyclobenzaprine Hives,Anxiety High 09/20/2015 Diclofenac Epolamine Rash Low 08/10/2018 Egg Hives High 03/04/2022 Eggshell Membrane Hives High 03/15/2017 Fish Containing Products Anaphylaxis High 03/04/2022 Furosemide Hives High 03/20/2015 Hydromorphone (Pf) Hives High 07/30/2016 Lidocaine Other (See Comments) 12/12/2016 Burning skin and feeling faint-patches, Burning skin and feeling faint-patches Liraglutide Other (See Comments) Low 09/03/2023 Pt stated verbally it caused her to gain weight Lisinopril Hypotension Medium 09/08/2023 Dropped heart rate and blood pressure too low--cannot take continuously Magnesium Hydroxide Nausea and Vomiting Low 018 Meperidine Hives High 05/18/2021 Metformin Syncope Medium 05/06/2022 Milk Hives High 09/22/2016 Nitrofurantoin Monohyd/M-Cryst Diarrhea Low 06/04/2018 Penicillins Hives High 09/20/2015 Prednisone Itching Low 03/10/2017 Pregabalin Rash Low 09/08/2023 Semaglutide Abdominal Pain Low 09/03/2023 Pt states it causes stomach spasms Shrimp Anaphylaxis High 03/04/2022 Tramadol Anxiety Low 09/20/2015 Medications nitroglycerin (NITROSTAT) 0.4 mg Tablet, Sublingual Place 0.4 mg under tongue every 5 minutes as needed for Chest Pain. Do not exceed 3 tablets per episode Given by Dr Cooley Active isosorbide mononitrate (IMDUR) 30 mg Extended Release 24 hour tablet Take 30 mg by mouth daily. 023 Active levocetirizine (XYZAL) 5 mg tablet Take 5 mg by mouth late in the day. Active Miscellaneous Medical Supply One roller walker 1 Each Active azelastine (ASTELIN) 137 mcg/actuation nasal spray Administer 2 Sprays in each nostril daily. 024 Active albuterol sulfate HFA 90 mcg/actuation aerosol inhaler Take 2 Puffs by inhalation every 4 hours as needed for Shortness of Breath or Wheezing. 8.5 Gram 024 Active metoprolol tartrate (LOPRESSOR) 25 mg tablet Take 1 Tablet (25 mg) by mouth 2 times daily. Clarify: take one every am and 1.5 every pm 225 Tablet 4 024 Active montelukast (SINGULAIR) 10 mg tabletIndication s:Intermittent asthma, unspecified asthma severity, unspecified whether complicated TAKE ONE TABLET BY MOUTH EVERY NIGHT AT BEDTIME 90 Tablet 3 025 Active cholecalciferol, Vitamin D3, 50 mcg (2,000 unit) TabletIndication s:Vitamin D insufficiency Take 1 Tablet (2,000 Units) by mouth daily. 90 Tablet 3 025 Active ergocalciferol (VITAMIN D2) 50,000 unit capsule Take 1 Capsule by mouth every 7 days. 024 Active ondansetron (ZOFRAN ODT) 4 mg Tablet, Rapid Dissolve Take 1 Tablet (4 mg) by mouth every 8 hours as needed for Nausea/Emesis. Dissolve tablet on top of tongue, then swallow with saliva. 20 Tablet 025 Active hydrOXYzine HCL (ATARAX) 25 mg tablet Take 1 Tablet (25 mg) by mouth 3 times daily as needed for Itching. 20 Tablet 025 Active potassium CHLORIDE (K-TAB) 20 mEq Extended Release tabletIndication s:Leg swelling TAKE ONE TABLET BY MOUTH TWICE DAILY NEEDED. Take with water pill. 60 Tablet 3 025 Active bumetanide (BUMEX) 1 mg tabletIndication s:Leg swelling TAKE ONE TABLET BY MOUTH TWICE DAILY NEEDED leg swelling. 60 Tablet 3 025 Active pantoprazole (PROTONIX) 40 mg Tablet, Delayed Release (E.C.)Indication s:Elevated alkaline phosphatase level,RUQ pain,Gastroesoph ageal reflux disease, unspecified whether esophagitis present,Metaboli c dysfunction-asso ciated steatotic liver disease (MASLD) TAKE ONE TABLET BY MOUTH TWICE DAILY BEFORE meals. 60 Tablet 5 025 Active baclofen (LIORESAL) 10 mg tabletIndication s:Chronic bilateral low back pain without sciatica TAKE 1 TABLET BY MOUTH THREE TIMES DAILY as needed for pain 90 Tablet 3 025 Active Narcan 4 mg/actuation [place], Non-Aerosol Administer 1 [place] (4 mg) in one nostril (alternate nostril with each dose) one time as needed for Respiration. Push plunger to administer. Call 911. May repeat dose, every 2-3 minutes, if the person does not wake up or breathing is not improved. 2 Each 6 Active HYDROcodone-acet aminophen (NORCO) 7.5-325 mg TabletIndication s:Chronic 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 Take 1 Tablet by mouth 2 times daily as needed for Pain, Moderate. Do not fill until 11/19/2024 Max Daily Amount: 2 Tablets 60 Tablet 025 Active HYDROcodone-acet aminophen (NORCO) 7.5-325 mg TabletIndication s:Chronic 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 Take 1 Tablet by mouth 2 times daily as needed for Pain, Moderate. 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 Do not fill until 01/19/2025 Max Daily Amount: 2 Tablets 60 Tablet 025 Active resmetirom (Rezdiffra) 100 mg TabletIndication s:Metabolic dysfunction-asso ciated steatotic liver disease (MASLD) Take 100 mg by mouth daily. 30 Tablet 5 025 Active ciprofloxacin HCl (CIPRO) 500 mg tablet Take 500 mg by mouth 2 times daily. Active metroNIDAZOLE (FLAGYL) 500 mg tablet Take 500 mg by mouth 3 times daily. Active hydrOXYzine HCL (ATARAX) 25 mg tablet TAKE ONE TABLET BY MOUTH THREE TIMES DAILY NEEDED FOR ITCHING 90 Tablet 025 Active alcohol Pads, MedicatedIndicat ions:Type 2 diabetes mellitus with hyperglycemia, without long-term current use of insulin ([facility]) Use daily to monitor blood sugar level. 100 Each 3 025 Active blood sugar diagnostic StripIndications :Type 2 diabetes mellitus with hyperglycemia, without long-term current use of insulin ([facility]) Use to check blood sugar daily as needed 100 Each 3 025 Active Blood-Glucose MeterIndications :Type 2 diabetes mellitus with hyperglycemia, without long-term current use of insulin ([facility]) Use to check blood sugar daily as needed 1 Each 025 Active lancetsIndicatio ns:Type 2 diabetes mellitus with hyperglycemia, without long-term current use of insulin ([facility]) Use to check blood sugar daily as needed 100 Each 3 025 Active tirzepatide, weight loss, (Zepbound) 7.5 mg/0.5 mL Pen Injector Inject 0.5 mL (7.5 mg) by subcutaneous injection every 7 days. 3 mL 025 Active gabapentin (NEURONTIN) 300 mg capsuleIndicatio ns:Postherpetic neuralgia,Chroni c 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 Take 1 Capsule (300 mg) by mouth 3 times daily as needed for Pain. 90 Capsule 3 025 Active capsaicin (ZOSTRIX) 0.025 % CreamIndications :Postherpetic neuralgia Apply to affected area 3 times daily. 60 Gram 1 025 Active tirzepatide, weight loss, (Zepbound) 5 mg/0.5 mL Pen Injector Inject 5 mg by subcutaneous injection every 7 days. 3 mL 2 025 2024 Discontinued hydrOXYzine HCL (ATARAX) 25 mg tablet TAKE ONE TABLET BY MOUTH THREE TIMES DAILY NEEDED FOR ITCHING. 90 Tablet 025 2024 Discontinued dexAMETHasone (DECADRON) 6 mg TabletIndication s:Upper back strain, initial encounter Take 1 Tablet (6 mg) by mouth daily for 7 days. 7 Tablet 025 2024 valACYclovir (Valtrex) 1 gram tabletIndication s:Disseminated herpes zoster Take 1 Tablet (1 Gram) by mouth 2 times daily for 5 days. 10 Tablet 025 2024 capsaicin (ZOSTRIX) 0.025 % CreamIndications :Postherpetic neuralgia Apply to affected area 3 times daily. 60 Gram 3 025 2024 Discontinued(R eorder) Active Problems Problem Noted Date Diagnosed Date Type 2 diabetes mellitus wit h hyperglycemia, without long-term current use of insulin 12/16/2024 Leg swelling 06/15/2024 Chronic ischemic heart disease 06/15/2024 Migraine with aura and witho ut status migrainosus, not intractable 06/10/2024 Metabolic dysfunction-associ ated steatotic liver disease (MASLD) 02/23/2024 Angina pectoris 01/28/2024 Seasonal allergic rhinitis due to pollen 024 Essential hypertension 09/13/2023 Prediabetes 03/31/2023 Mixed hyperlipidemia 03/22/2022 S/P decompression of ulnar nerve, left, SX 12.28 .17 09/23/2017 Medial epicondylitis of left elbow 09/23/2017 Snapping lateral band left small finger 09/24/19 18 Morbid obesity with body mass index of 40.0-49.9 08/11/2017 Chronic midline low back pain with bilateral sci atica 08/11/2017 Mild intermittent asthma without complication Xanthelasma of eyelid, bilateral 07/08/2016 Vitamin D deficiency 07/08/2016 De Quervain's disease (radial styloid tenosynovi tis) 04/29/2016 Overview (09/27/2020): Right Excessive daytime sleepiness 04/03/2016 Resolved Problems Problem Noted Date Diagnosed Date Resolved Date Elevated LDL cholesterol level 07/08/2016 03/22/2022 Elevated glucose level 04/03/201603/22 Encounters Date Type Department Care Team Description 12/23/2024 Orders Only [facility] [address] [place] [address] Hao Canas FNP 12/22/2024 Telephone [facility] [address] [place] [address] Cele Borrero, DO med not covered 12/21/2024 Telephone [facility] [address] [place] [address] Cele Borrero, DO Medication Assistance 12/21/2024 Orders Only [facility] [address] [place] [address] Hao Canas, DRAWER IN [employer] Postherpetic neuralgia (Primary Dx); Chronic 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 12/21/2024 Orders Only [facility] [address] [place] [address] Hao Canas FNP Postherpetic neuralgia (Primary Dx) 12/21/2024 Telephone [facility] [address] [place] [address] Hao Canas FNP Medication Assistance 12/20/2024 External Device Data STL ABSTRACTION Provider, Abstract 12/19/2024 Orders Only [facility] [address] [place] [address] Hao Canas FNP Disseminated herpes zoster (Primary Dx) 12/16/2024 Orders Only [facility] [address] [place] [address] Hao Canas, SHEN Type 2 diabetes mellitus with hyperglycemia, without long-term current use of insulin ([facility]) (Primary Dx) 12/15/2024 Telephone [facility] [address] [place] [address] Cele Borrero, DO Medication Assistance 12/15/2024 Telephone [facility] [address] [place] [address] Cele Borrero, DO Question 12/14/2024 10:47 AM CDT - 12/14/2024 11:59 PM CDT Hospital Encounter [facility] [address] [place] [phone] Hao Canas FNP Discharge Disposition: Home or Self Care 12/14/2024 10:00 AM CDT Office Visit [facility] [address] [place] [address] Hao Canas, DRAWER IN [place] [employer] Upper back strain, initial encounter (Primary Dx) 12/14/2024 Results Follow-Up [facility] [address] [place] [address] Hao Canas FNP XR RIBS UNILATERAL 2 VW RIGHT 12/14/2024 Refill [facility] [address] [place] [address] Flannery, August, DRAWER IN [place] 12/01/2024 Orders Only [facility] [address] [place] [phone] Prince Barriga PA Primary osteoarthritis of right knee (Primary Dx) 11/22/2024 External Device Data STL ABSTRACTION Provider, Abstract 11/17/2024 11:00 AM CDT Office Visit [facility] [address] [place] [address] August, DRAWER IN [place] [employer] Hematochezia (Primary Dx) 11/14/2024 Telephone [facility] [address] [facility] [address] [place] [phone] Armida Roldan PA-C Rezdiffra PA 11/14/2024 Refill [facility] [address] [place] [address] Flanneryaugust, DRAWER IN [place] 11/10/2024 Orders Only [facility] [address] [facility] [address] [place] [phone] Toyin Boss CMA Metabolic dysfunction-associate d steatotic liver disease (MASLD) 11/08/2024 Abstract [facility] [address] [place] [address] Cele Borrero DO 11/08/2024 Orders Only [facility] [address] [place] [address] Provider, Abstract 10/30/2024 Results Follow-Up [facility] [address] [place] [phone] Cele Borrero DO LIPID PANEL 10/27/2024 Telephone [facility] [address] [place] [address] Cele Borrero DO Results 10/26/2024 9:20 AM CDT Office Visit [facility] [address] [place] [address] Cele Borrero DO Essential hypertension (Primary Dx); Chronic anemia; Mixed hyperlipidemia; Morbid obesity with body mass index of 40.0-49.9 (CMS/HCC); Chronic 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; Migraine with aura and without status migrainosus, not intractable; Mild intermittent asthma without complication; Metabolic dysfunction-associate d steatotic liver disease (MASLD) 10/20/2024 External Device Data STL ABSTRACTION Provider, Abstract 10/19/2024 External Device Data ST[place] ABSTRACTION Provider, Abstract 10/19/2024 External Device Data ST[place] ABSTRACTION Provider, Abstract 10/14/2024 [facility] [address] [place] [address] Flannery, August, DRAWER IN [place] [employer] Chronic 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 10/14/2024 [facility] [address] [place] [address] Cele Borrero, Chronic bilateral low back pain without sciatica; Chronic 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 10/14/2024 [facility] [place] [phone] Armida Roldan, HERMELINDO Elevated alkaline phosphatase level; RUQ pain; Gastroesophageal reflux disease, unspecified whether esophagitis present; Metabolic dysfunction-associate d steatotic liver disease (MASLD) from Last 3 Months Family History Medical History Relation Name Comments Heart Disease Maternal Aunt 1 [place] Breast Cancer Maternal Aunt 2 Nat Heart Disease Maternal Aunt 2 Nat Breast Cancer Maternal Cousin Hypertension Maternal Grandfather [facility] Diabetes Maternal Grandmother Harp Heart Disease Maternal Uncle Michael Arthritis-osteo Mother Aria abbott Diabetes Mother Aria abbott Hypertension Mother Aria abbott Colon Cancer Neg Hx Relation Name Status Comments Maternal Aunt 1 [place] Maternal Aunt 2 Nat Maternal Cousin Alive Maternal Grandfather [facility] Maternal Grandmother Harp Maternal Uncle Michael Mother Aria abbott Social History Tobacco Use Types Packs/Day Years Used Date Smoking Tobacco: Former Cigarettes 0 0 02/28/2012 - 02/28/2012 Passive Smoke Exposure: Past Smokeless Tobacco: Never Tobacco Cessation:Counseling Given: No Alcohol Use Standard Drinks/Week Comments No 0 (1 standard drink = 0.6 oz pur e alcohol) Comments No Sex and Gender Information Value Date Recorded Sex Assigned at Female 02/05/2024 4:00 PM CDT Legal Sex Female 2:12 PM RESEARCH BIOSTATISTICIAN Gender Identity Female 02/05/2024 4:00 PM CDT Sexual Orientation Not on file Last Filed Vital Signs Vital Sign Reading Time Taken Comments Blood Pressure 138/78 12/14/2024 10:07 AM CDT Pulse 102 12/14/2024 10:07 AM CDT Temperature 37 C (98.6 F) 12/14/2024 10:07 AM CDT Respiratory Rate 17 12/14/2024 10:0 7 AM CDT Oxygen Saturation 98% 12/14/2024 10: 07 AM CDT Inhaled Oxygen Concentration - - Weight 138.1 kg (304 lb 6.4 oz) 025 10:07 AM CDT Height 167.6 cm (5' 6 ) 12/14/2024 10:0 7 AM CDT Body Mass Index 49.13 12/14/2024 10:07 AM CDT Plan of Treatment Upcoming Encounters Date Type Department Care Team (Late st Contact Info) Description 01/09/2025 11:20 AM CDT Office Visit [facility] Orthopedics - Orthopedic [facility] [address] [place] [address] Prince Barriga, [place] [address] [place] [address] 01/18/2025 11:20 AM CDT Office Visit [facility] [address] [place] [address] Cele Borrero, DO [address] [place] [address] 03/02/2025 3:40 PM CDT Office Visit [facility] [address] [place] [address] Cele Borrero, DO [address] [place] [address] 03/13/2025 12:30 PM CDT Office Visit [facility] Gastro[facility]ology- [place] [address] [place] [phone] Armida Roldan PA-C [address] [place] [phone] 04/25/2025 11:20 AM RESEARCH BIOSTATISTICIAN Office Visit [facility] [address] [place] [address] Cele Borrero, DO [address] [place] [address] 07/27/2025 11:00 AM RESEARCH BIOSTATISTICIAN Office Visit [facility] [address] [place] [address] Cele Borrero, DO [address] [place] [address] Health Maintenance Due Date Last Done Comments DIABETES ANNUAL RETINAL EXAM 01/04/1990 DTAP/TDAP/TD VACCINES (1 - Tdap) 01/04/1991 HEPATITIS B VACCINES (1 of 3 - 19+ 3-dose series) 01/04/1991 FIT-DNA Q 3 years 01/04/2017 Flex Sig/CT Colonography Q 5 years 01/04/2017 FIT/FOBT Q 1 year 09/01/2018 09/01/2017 ZOSTER VACCINE (1 of 2) 01/04/2022 PAP SMEAR 11/07/2022 11/08/2019, 11/08/2019 Preventative Visit-Managed Medicaid 11/23/2022 11/22/2021, 11/19/2020, 11/08/2019, Additional history exists DIABETES ANNUAL FOOT EXAM 03/10/2024 03/10/2023 CERVICAL CANCER SCREENING 11/07/2024 HPV/Cotest (21-29) 11/07/2024 11/08/2019 HPV/Cotest (30-65) 11/07/2024 11/08/2019 DIABETES MICROALBUMIN ANNUAL SCREEN 12/01/2024 12/02/2023 INFLUENZA VACCINE (#1) 2024 06/10/2024, 2021 DIABETES HBA1C Q 6 MONTHS 02/10/20252024, 01/12/2024, 07/14/2023, Additional history exists BREAST CANCER SCREENING 06/14/2025 06/14/19, 03/18/2023, 01/18/2021, Additional history exists DIABETES: A1C (Auto Order) 08/10/202508/10, 01/12/2024, 07/14/2023, Additional history exists LDL CHOLESTEROL ANNUAL 10/26/2025 , 08/10/2024, 01/12/2024, Additional history exists COLORECTAL SCREENING 09/09/2027 09/08/2017 Colorectal Cancer Screening 09/09/2027 Medical Devices Implanted Type Area Winder Hand Device Identifier Shelf Expiration Date Model / Serial / Lot Clip Crtg Med/Lrg 1112 - [id number] Implanted:Qty: 1 on 07/18/2024 by Darrin Solano MD at [facility] Clip N/A: Abdomen [employer] [id number] 02/26/2029 1112 / / [id number] Hemostatic Surgifoam 1gm 1977 - [id number] Implanted:Qty: 1 on 12/11/2021 by Kei Lake MD at [facility] Hemostatic N/A: Back [employer] [id number] 03/14/20231977 [id number] Hemostatic Surgifoam 1gm 1975 [id number] Implanted:Qty: 1 on 12/11/2021 by Kei Lake MD at [facility] Hemostatic N/A: Back [employer] [id number] 03/14/20231977 [id number] Hemostatic Surgifoam 1gm 1977 - [id number] Implanted:Qty: 1 on 12/11/2021 by Kei Lake MD at [facility] Hemostatic N/A: Back [employer] [id number] 03/14/20231977 / [id number] Process Control Supervisor Patient Intellis 05768 - [id number] Implanted:Qty: 1 on 12/11/2021 by Kei Lake MD at [facility] Integral N/A: Back [employer]- NEUROLOGIC TECH 73336 / / Lead Specify Surescan Mri 2x8in [id number] - [id number] Implanted:Qty: 1 on 12/11/2021 by Kei Lake MD at [facility] Lead N/A: Back [employer]- NEUROLOGIC TECH 02/28/2025 [id number] / / [id number] Neurostimulator Intellis Adapterivestim Mri 62987 - [id number] Implanted:Qty: 1 on 12/11/2021 by Kei Lake MD at [facility] Neuro Stimulator N/A: Back [employer]- NEUROLOGIC TECH 10/12/2022 [id number] / / [id number] Procedures Procedure Name Priority Date/Time Associated Diagnosis Comments XR RIBS UNILATERAL 2 VW RIGHT Routine 12/14/2024 10:58 AM CDT Upper back strain, initial encounter COMPREHENSIVE METABOLIC PANEL Routine 11/07/2024 4:07 PM CDT PROTIME-INR Routine 11/07/2024 LIPID PANEL Routine 10/26/2024 9:37 AM CDT Essential hypertension Chronic anemia Mixed hyperlipidemia Morbid obesity with body mass index of 40.0-49.9 (CMS/HCC) TSH Routine 10/26/2024 9:37 AM CDT Essential hypertension Chronic anemia Mixed hyperlipidemia Morbid obesity with body mass index of 40.0-49.9 (CMS/HCC) COMPREHENSIVE METABOLIC PANEL Routine 10/26/2024 9:37 AM CDT Essential hypertension Chronic anemia Mixed hyperlipidemia Morbid obesity with body mass index of 40.0-49.9 (CMS/HCC) CBC WITH DIFFERENTIAL Routine 10/26/2024 9:37 AM CDT Essential hypertension Chronic anemia Mixed hyperlipidemia Morbid obesity with body mass index of 40.0-49.9 ([facility]) HEMOGLOBIN A1C Routine 08/10/2024 11:00 AM CDT Prediabetes MAMMO 3D JAME SCREEN BILAT W OR WO CAD Routine 06/14/2024 7:47 AM RESEARCH BIOSTATISTICIAN Screening mammogram, encounter for MICROALBUMIN/CREATININ E RATIO, RANDOM UR Routine 12/02/2023 10:50 AM CDT Type 2 diabetes mellitus with stage 3a chronic kidney disease, without long-term current use of insulin ([facility]) CERV/VAG CYTO AGE BASED SCREEN PAP Routine 11/08/2019 12:36 PM CDT POC OCCULT BLOOD UP TO 3 CARDS Routine 09/01/2017 5:15 PM CDT from Last 3 Months or Most Recently Relevant to Health Maintenance Results * XR RIBS UNILATERAL 2 VW RIGHT (12/14/2024 10:58 AM CDT) Anatomical Region Laterality Modality Chest Computed Radiogr aphy 12/14/2024 11:0 1 AM CDT Impressions 12/14/2024 12:10 PM CDT IMPRESSION: There is no evidence of a discrete or displaced rib fracture. The visualized lungs and pleural spaces are clear. Narrative 12/14/2024 12:10 PM CDT Exam: XR RIBS UNILATERAL 2 VW RIGHT Date/Time of Exam: 12/14/2024 10:58 AM Reason For Exam: See Diagnosis. Diagnosis: Upper back strain, initial encounter. Comparison: None. Procedure Note Herb Alejandro MD - 12/14/2024 Exam: XR RIBS UNILATERAL 2 VW RIGHT Date/Time of Exam: 12/14/2024 10:58 AM Reason For Exam: See Diagnosis. Diagnosis: Upper back strain, initial encounter. Comparison: None. IMPRESSION: There is no evidence of a discrete or displaced rib fracture. The visualized lungs and pleural spaces are clear. Hao Canas DRAWER IN [employer] LOOM DIAGNOSTIC IMAGING ORDERAB LES Final Result * COMPREHENSIVE METABOLIC PANEL (11/07/2024 4:07 PM CDT) Only the most recent of2 resultswithin the time period is included. Blood us Abstract Provider CHEMISTRY ORDERABLES Final Res ult * PROTIME-INR (11/07/2024) ABSTRACTED PROTIME 13.4 ABSTRACTED INR 0.95 Blood 11/07/2024 us Abstract Provider HEMATOLOGY ORDERABLES Final Re sult * (ABNORMAL) CBC WITH DIFFERENTIAL (10/26/2024 9:37 AM CDT) WBC 5.7 3.8 - 10.8 Thousand/u L [facility] RBC 5.01 3.80 - 5.10 Million/uL [facility] HEMOGLOBIN 13.4 11.7 - 15.5 g/dL [facility] HEMATOCRIT 43.2 35.0 - 45.0 % [facility] MCV 86.2 80.0 - 100.0 fL [facility] MCH 26.7(L) 27.0 - 33.0 pg [facility] MCHC 31.0(L) 32.0 - 36.0 g/dL [facility] Comment: For adults, a slight decrease in the calculated MCHC value (in the range of 30 to 32 g/dL) is most likely not clinically significant; however, it should be interpreted with caution in correlation with other red cell parameters and the patient's clinical condition. RDW 14.9 11.0 - 15.0 % [facility] PLATELETS 304 140 - 400 Thousand/u L [facility] MPV 10.4 7.5 - 12.5 fL [facility] NEUTROPHIL ABSOLUTE 3,431 1,500 - 7,800 cells/uL [facility] LYMPHOCYTE ABSOLUTE 1,505 850 - 3,900 cells/uL [facility] MONOCYTE ABSOLUTE 542 200 - 950 cells/uL [facility] EOSINOPHIL ABSOLUTE 171 15 - 500 cells/uL [facility] BASOPHILS ABSOLUTE 51 0 - 200 cells/uL [facility] NEUTROPHIL 60.2 % [facility] LYMPHOCYTES 26.4 % [facility] MONOCYTE 9.5 % [facility] EOSINOPHILS 3.0 % [facility] BASOPHILS 0.9 % [facility] Comment: FASTING:UNKNOWN FASTING: UNKNOWN Test Performed at: [facility] [address] [place] [address] Anish Goldberg MD Blood 10/26/2024 9:37 AM CDT 10/26/2024 9:37 AM CDT us Cele Borrero DO HEMATOLOGY ORDERABLES Final Result Performing Organization Address City/[facility]/ZIP Co de Phone Number [facility] [phone] [facility] [address] [place] [phone] * TSH (10/26/2024 9:37 AM CDT) TSH 1.60 mIU/L [facility] Comment: Reference Range > or = 20 Years 0.40-4.50 Ranges First trimester 0.26-2.66 Second trimester 0.55-2.73 Third trimester 0.43-2.91 FASTING:UNKNOWN FASTING: UNKNOWN Test Performed at: [facility] [address] [place] [address] AriellaCharlotte Goldberg MD Blood 10/26/2024 9:37 AM CDT 10/26/2024 9:37 AM CDT us Cele Borrero DO CHEMISTRY ORDERABLES Final Result [facility] [phone] [facility] [address] [place] [phone] * LIPID PANEL (10/26/2024 9:37 AM CDT) CHOLESTEROL 157 <200 mg/dL [facility] HDL 55 > OR = 50 mg/dL [facility] TRIGLYCERIDE 116 <150 mg/dL [facility] LDL CALCULATED 81 mg/dL (calc) [facility] Comment: Reference range: <100 Desirable range <100 mg/dL for primary prevention; <70 mg/dL for patients with CHD or diabetic patients with > or = 2 CHD risk factors. LDL-C is now calculated using the Joan calculation, which is a validated novel method providing better accuracy than the Friedewald equation in the estimation of LDL-C. Logan SS et al. RAMYA. 2013;310(19): 9970-2527 (http://education.Splice/faq/OTX389) CHOL/HDL RATIO 2.9 <5.0 (calc) [facility] NON-HDL CHOLESTEROL 102 <130 mg/dL (calc) [facility] Comment: For patients with diabetes plus 1 major ASCVD risk factor, treating to a non-HDL-C goal of <100 mg/dL (LDL-C of <70 mg/dL) is considered a therapeutic option. Test Performed at: [facility] [address] [place] [address] Anish Goldberg MD Blood 10/26/2024 9:37 AM CDT 10/26/2024 9:37 AM CDT us Cele Borrero DO CHEMISTRY ORDERABLES Final Result [facility] [phone] [facility] [address] [facility] [place] [address] * (ABNORMAL) HEMOGLOBIN A1C (08/10/2024 11:00 AM CDT) HEMOGLOBIN A1C 7.3(H) <5.7 % of total Hgb [facility] Comment: For someone without known diabetes, a hemoglobin A1c value of 6.5% or greater indicates that they may have diabetes and this should be confirmed with a follow-up test. For someone with known diabetes, a value <7% indicates that their diabetes is well controlled and a value greater than or equal to 7% indicates suboptimal control. A1c targets should be individualized based on duration of diabetes, age, comorbid conditions, and other considerations. Currently, no consensus exists regarding use of hemoglobin A1c for diagnosis of diabetes for children. ESTIMATED AVERAGE GLUCOSE (MG/DL) 163 mg/dL [facility] ESTIMATED AVERAGE GLUCOSE (MMOL/L) 9.0 mmol/L [facility] Comment: FASTING:YES FASTING: YES Test Performed at: [facility] [address] [place] [address] Anish Goldberg MD Blood 08/10/2024 11:0 0 AM CDT 08/10/2024 11:01 AM CDT Cele Borrero DO CHEMISTRY ORDERABLES Final Result [facility] [phone] [facility] [address] [address] [address] [address] * MAMMO 3D JAME SCREEN BILAT W OR WO CAD (06/14/2024 7:47 AM RESEARCH BIOSTATISTICIAN) Anatomical Region Laterality Modality Breast Bilateral Mammography, Dig ital Radiography Impressions 06/22/2024 12:52 PM RESEARCH BIOSTATISTICIAN : No mammographic evidence of malignancy. BI-RADS ASSESSMENT: 1 - Negative RECOMMENDATION: Routine annual screening mammography. Narrative 06/22/2024 12:52 PM RESEARCH BIOSTATISTICIAN EXAM: MAMMO SCRN BILAT 3D JAME W OR WO CAD INDICATION: Screening COMPARISON: 03/18/2023 MAMMO SCRN BILAT 3D JAME W OR WO CAD, 01/18/2021 MAMMO PRIOR STUDY, 01/02/2021 MAMMO PRIOR STUDY, and 10/09/2014 MAMMO PRIOR STUDY BREAST COMPOSITION: There are scattered areas of fibroglandular density. FINDINGS: RIGHT BREAST: There are no suspicious masses, calcifications, or areas of architectural distortion. LEFT BREAST: There are no suspicious masses, calcifications, or areas of architectural distortion. Celedre Borrero DO MAMMO ORDERABLES Final Resu lt * MICROALBUMIN/CREATININE RATIO, RANDOM UR (12/02/2023 10:50 AM CDT) Creatinine, Urine 51 20 - 275 mg/dL [facility] MICROALBUMIN, URINE 0.7 See Note: mg/dL [facility] Comment: Reference Range: Reference Range Not established MICROALBUMIN/CREAT RATIO, UR 14 <30 mg/g creat [facility] Comment: The ADA defines abnormalities in albumin excretion as follows: Albuminuria Category Result (mg/g creatinine) Normal to Mildly increased <30 Moderately increased 30-299 Severely increased > OR = 300 The ADA recommends that at least two of three specimens collected within a 3-6 month period be abnormal before considering a patient to be within a diagnostic category. Test Performed at: [facility] [address] [place] [address] Anish Goldberg MD Urine URINE SPECIMEN OBTAINED BY CLEAN CATCH PROCEDURE / Unknown 12/02/2023 10:50 AM CDT 12/03/2023 9:17 AM CDT Celedre Alonsoehan DO URINE ORDERABLES Final Resu lt [facility] [phone] [facility] [address] [place] [address] * CERV/VAG CYTO AGE BASED SCREEN PAP (11/08/2019 12:36 PM CDT) COMMENT (PAP): SEE COMMENT 0 9:25 AM CDT [facility] Comment: This order for age-based cervical cancer and STI screening follows ACOG guidelines(PB 168, 140, SED444). See individual assays for performing site location. CLINICAL INFORMATION Information not provided 11/15/2019 9:25 AM CDT [facility] LAST MENSTRUAL PERIOD INFORMATION NOT PROVIDED 11/15/2019 9:25 AM CDT [facility] REFERENCE LAB [facility] PREV PAP: INFORMATION NOT PROVIDED 11/15/2019 9:25 AM CDT [facility] REFERENCE LAB [facility] PREV BX: INFORMATION NOT PROVIDED 11/15/2019 9:25 AM CDT [facility] REFERENCE LAB [facility] SOURCE [facility] 11/15/2019 9:25 AM CDT [facility] REFERENCE [facility] ADEQUACY: SEE COMMENT 11/15/2019 9:25 AM CDT [facility] Comment: Satisfactory for evaluation. Endocervical/transformation zone component present. Age and/or menstrual status not provided PAP INTERP Negative for intraepithelial lesion or malignancy. 11/15/2019 9:25 AM CDT [facility] REFERENCE LAB [facility] COMMENT This Pap test has been evaluated with computer assisted technology. 11/15/2019 9:25 AM CDT [facility] HEALTH INFORMATION TECH: SEE COMMENT 2019 9:25 AM CDT [facility] REFERENCE [facility] Comment: AMW, CT(ASCP) CT screening location: [place] [address] [place] [address] EXPLANATORY NOTE SEE COMMENT 020 9:25 AM CDT [facility] REFERENCE [facility] Comment: EXPLANATORY NOTE: The Pap is a screening test for cervical cancer. It is not a diagnostic test and is subject to false negative and false positive results. It is most reliable when a satisfactory sample, regularly obtained, is submitted with relevant clinical findings and history, and when the Pap result is evaluated along with historic and current clinical information. HPV E6/E7 Not Detected Not Detected 11/15/2019 9:25 AM CDT [facility] Comment: This test was performed using the APTIMA HPV Assay ([employer] This assay detects E6/E7 viral messenger RNA (mRNA) from 14 high-risk HPV types (16,18,31,33,35,39,45,51,52,56,58,59,66,68). The analytical performance characteristics of this assay have been determined by [facility]. The modifications have not been cleared or approved by the FDA. This assay has been validated pursuant to the CLIA regulations and is used for clinical purposes. Genital SWAB OF ENDOCERVIX / Unknown Collection / Unknown 11/08/2019 12:36 PM CDT 11/10/2019 9:57 AM CDT Narrative [facility] - 11/15/2019 9:25 AM CDT Performing Organization Information: Site ID: [id number] Name: [facility] Address: [address] [address] [address] Director: Israel Reyes D.O., MPH Site ID: [id number] [facility] Address: [address] [address] Director: Anish Goldberg us Rachele Davis DRAWER IN JACQUARD LOOM PATHOLOGY/CYTOLOGY ORDER ANASTASIA Final Result [facility] [phone] [facility] * (ABNORMAL) POC OCCULT BLOOD UP TO 3 CARDS (09/01/2017 5:15 PM CDT) OCCULT BLOOD 1 CARD POC Positive(A) Negative [facility] OCCULT BLOOD 2 CARD POC Negative Negative [facility] OCCULT BLOOD 3 CARD POC Negative Negative [facility] INTERNAL KIT QC Pass Pass [facility] CARD LOT NUMBER POC [id number] [facility] CARD EXPIRATION DATE POC 02/28/2019 [facility] DEVELOPER LOT NUMBER POC [id number] [facility] DEVELOPER EXPIRATION DATE POC 10/30/2019 [facility] Stool STOOL SPECIMEN / Unknown 09/01/2017 5:15 PM CDT us Blossom Sung DRAWER IN [place] LOOM POINT OF CARE TESTING Final R esult [facility] CLIA# [id number] [address] [place] [address] from Last 3 Months or Most Recently Relevant to Health Maintenance Insurance [place]ICA[place] Advance Directives For more information, please contact: [phone] * Full Code (Latest Code Status on File) Date Activated Date Inactivated Comments 07/18/2024 6:59 AM 07/18/2024 11:50 AM * Full Code Date Activated Date Inactivated Comments 07/18/2024 5:08 AM 07/18/2024 6:59 AM * Full Code Date Activated Date Inactivated Comments 12/11/2021 11:08 AM 12/12/2021 1:07 PM Care Teams Animal Laboratory Helper Relationship Specialty Start Date End Date Cele Borrero DO [address] [place] [address] PCP - General Family Practice 04/07/16
--- OUTSIDE RECORDS SUMMARY | 2024-12-27 09:35 | XMS_ITS | Encounter Summary ---
Author Organization [facility] Address [address] [place] [address] Care Team Providers Care Dovetail Machine Operator Name Role Phone Cele Borrero DO Primary Care Provider [phone]- [phone] Encounter Details Date Type Department Care Team (Latest Contact Info) Description 11/12/2004 Outpatient Historical [facility] Medicine- [place] [address] [place] [address] Jaiden Torres MD [address] [place] [phone] ALLERGIC RHINITIS NOS (Primary Dx) Social History Tobacco Use Types Packs/Day Years Used Date Smoking Tobacco: Never Assessed Comments Unknown Sex and Gender Information Value Date Recorded Sex Assigned at Not on file 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
--- OUTSIDE RECORDS SUMMARY | 2024-12-27 09:35 | XMS_ITS | Encounter Summary ---
Author Organization [facility] Address [address] [place] [address] Care Team Providers Care Regional Recruiter Name Role Phone Cele Borrero DO Primary Care Provider +1- [phone] Encounter Details Date Type Department Care Team (Latest Contact Info) Description 09/16/2004 Outpatient Historical [facility] Medicine- [place] [address] [place] [address] Jaiden Torres MD [address] [place] [phone] DERMATITIS NOS (Primary Dx); ALLERGIC RHINITIS NOS Social History Tobacco Use Types Packs/Day Years Used Date Smoking Tobacco: Never Assessed Comments Unknown Sex and Gender Information Value Date Recorded Sex Assigned at Not on file 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
--- OUTSIDE RECORDS SUMMARY | 2024-12-27 09:35 | XMS_ITS | Encounter Summary ---
Author Organization [facility] Address [address] [place] [address] Care Team Providers Care Developer Support Engineer Name Role Phone Cele Borrero DO Primary Care Provider +1- [phone] Encounter Details Date Type Department Care Team (Latest Contact Info) Description 11/19/2004 Outpatient Historical [facility] Medicine- [place] [address] [place] [address] Jaiden Torres MD [address] [place] [phone] HYPOTHYROIDISM NOS (Primary Dx); UNSPECIFIED VIRAL INFECTION; SCREENING-PULMONARY TB; ALLERGIC RHINITIS NOS Social History Tobacco Use Types Packs/Day Years Used Date Smoking Tobacco: Never Assessed Comments Unknown Sex and Gender Information Value Date Recorded Sex Assigned at Not on file Legal 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 Female 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 AM CURATOR OF COLLECTIONS Gender Identity Not on file Sexual Orientation Not on file documented as of this encounter Plan of Treatment Not on file documented as of this encounter Visit Diagnoses Diagnosis Unspecified hypothyroidism- Primary Unspecified viral infection, in conditions classified elsewhere and of unspecified site Screening examination for pulmonary tuberculosis Allergic rhinitis, cause unspecified documented in this encounter Care Teams Developer Support Engineer Relationship Specialty Start Date End Date Cele Borrero DO [address] [place] [address] PCP - General Family Practice 04/07/16 documented as of this encounter
--- OUTSIDE RECORDS SUMMARY | 2024-12-27 09:35 | XMS_ITS | Encounter Summary ---
Author Organization [facility] Address [address] [place] [address] Care Team Providers Care Overseer Kosher Kitchen Name Role Phone Cele Borrero DO Primary Care Provider +1- [phone] Encounter Details Date Type Department Care Team (Latest Contact Info) Description 10/01/2004 Outpatient Historical [facility] Medicine- [place] [address] [place] [address] Jaiden Torres MD [address] [place] [phone] ALLERGIC RHINITIS NOS (Primary Dx) Social History Tobacco Use Types Packs/Day Years Used Date Smoking Tobacco: Never Assessed Comments Unknown Sex and Gender Information Value Date Recorded Sex Assigned at Not on file 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
--- OUTSIDE RECORDS SUMMARY | 2024-12-27 09:35 | XMS_ITS | Encounter Summary ---
Author Organization [facility] Address [address] [place] [address] Care Team Providers Care Wildfire Prevention Specialist Name Role Phone Cele Borrero DO Primary Care Provider +1- [phone] Encounter Details Date Type Department Care Team (Latest Contact Info) Description 11/05/2004 Outpatient Historical [facility] Medicine- [place] [address] [place] [address] Jaiden Torres MD [address] [place] [phone] HYPOTHYROIDISM NOS (Primary Dx); OBESITY NOS; ALLERGIC RHINITIS NOS Social History Tobacco Use Types Packs/Day Years Used Date Smoking Tobacco: Never Assessed Comments Unknown Sex and Gender Information Value Date Recorded Sex Assigned at Not on file Legal 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
--- OUTSIDE RECORDS SUMMARY | 2024-12-27 09:35 | XMS_ITS | Encounter Summary ---
Author Organization [facility] Address [address] [place] [address] Care Team Providers Care Chairman Of The Board Name Role Phone Cele Borrero Brandie ANTONY Primary Care Provider [phone]- [phone] Reason for Referral * Outpatient Services (Routine) - Closed Specialty Diagnoses / Procedures Referred By Contac t Referred To Contact Radiology Diagnoses Chest pain, unspecified SOB (shortness of breath) Edema extremities Morbid obesity, unspecified obesity type (CMS/HCC) Heart failure with preserved left ventricular function (HFpEF) (CMS/HCC) Essential hypertension Preoperative cardiovascular examination Procedures ECHO STRESS W CONTRAST PHARM W DOPP AND COLOR FL ECHO STRESS TEST PHARMACO W DOPP AND COLOR FLOW Raj Pardo MD Phone: tel: fax: [facility] [place] [address] [place] [address] Phone: tel: fax: Referral ID Status Reason Start Date Expiration Date V isits Requested Visits Authorized [id number] Closed SGF [facility] TO SCHEDULE (SGF) 02/03/2017 03/06/2018 1 1 Encounter Details Date Type Department Care Team (Latest Contact Info) Description 02/17/2017 Ancillary Orders [facility] Cardiology- [place] [address] [place] [address] Raj Pardo MD [address] [place] [address] Chest pain, unspecified; SOB (shortness of breath); Edema extremities; Morbid obesity, unspecified obesity type (CMS/HCC); Heart failure with preserved left ventricular function (HFpEF) (CMS/HCC); Essential hypertension; Preoperative cardiovascular examination Social History Tobacco Use Types Packs/Day Years Used Date Smoking Tobacco: Former Cigarettes Smokeless Tobacco: Never Alcohol Use Standard Drinks/Week Comments No 0 (1 standard drink = 0.6 oz pur e alcohol) Comments No Sex and Gender Information Value Date Recorded Sex Assigned at Not on file 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 Gender Identity Not on file Sexual Orientation Not on file documented as of this encounter Plan of Treatment Not on file documented as of this encounter Results * ECHO STRESS W CONTRAST PHARM W DOPP AND COLOR FL (02/17/2017 8:33 AM CDT) EJECTION FRACTION 53 INTERFACE SYSTEM 02/17/2017 7:49 AM CDT Narrative INTERFACE SYSTEM - 02/17/2017 9:16 AM CDT [facility] Echocardiography-[place] [address] [facility] [address] [place] [address] Stress Echocardiography Dobutamine Patient: Arlyn Study ECHO STRESS Lanie Blum ID: TEST Gender: Elvis : 1970 Age: 47 Room: Study 02/17/2017 Pt Outpatient Date: Status: Study 07:49 AM CSN #: [id number] Time: Ordering:Raj Pardo MD Interpreting:Hal Portillo MD Manager Treasury: Adin Roper [facility] Indications and History: Chest pain, unspecified [R07.9 (ICD-10-CM)]; SOB (shortness of breath) [R06.02 (ICD-10-CM)]; Edema extremities [R60.0 (ICD-10-CM)]; Morbid obesity, unspecified obesity type [E66.01 (ICD-10-CM)]; Heart failure with preserved left ventricular function (HFpEF) [I50.9 (ICD-10-CM)]; Essential hypertension [I10 (ICD-10-CM)]; Preoperative cardiovascular examination [Z01.810 (ICD-10-CM)]. Summary and Conclusion: - Left ventricle: The cavity size was normal. Wall thickness was normal. Systolic function was at the lower limits of normal. The left ventricular ejection fraction was 53%, by biplane method of disks. The visually estimated ejection fraction was in the range of 50% to 55%. No diagnostic regional wall motion abnormality identified. Left ventricular diastolic function parameters were normal. - Right ventricle: The cavity size was normal. Systolic function was normal. Systolic pressure was within the normal range. RV systolic pressure: 25mm Hg (S, est). - Mitral valve: Trivial to mild regurgitation. - Tricuspid valve: Trivial to mild regurgitation. - Pulmonic valve: Mild regurgitation. - Stress: Maximal heart rate during stress was 160bpm (91% of maximal predicted heart rate). The maximal predicted heart rate was 175bpm.The target heart rate was achieved. The heart rate response to stress was normal. The rate-pressure product for the peak heart rate and blood pressure was 11485of Hg/min. The patient experienced no chest pain during stress. - Stress ECG conclusions: There were no stress arrhythmias or conduction abnormalities. The stress ECG was negative for ischemia. - Staged echo: There was no echocardiographic evidence for stress-induced ischemia. Procedure information: No prior study was available for comparison. Study status: Routine. Consent: The risks, benefits, and alternatives to the procedure were explained to the patient and consent was obtained. Procedure: Initial setup. A baseline ECG was recorded. Intravenous access was obtained. Surface ECG leads were monitored. Transthoracic echocardiography. Image quality was adequate. Scanning was performed from the parasternal, apical, and subcostal acoustic windows. Dobutamine stress test. Stress testing was performed, with dobutamine by intravenous piggyback infusion from 10 to 30 mcg/kg/min by 10 mcg/kg/min increments. Each test stage was approximately 3 min. The infusion was terminated due to target heart rate achievement. Transthoracic stress echocardiography. Image quality was adequate. Images were captured at baseline, low dose, mid dose, and peak dose. Intravenous contrast (Definity) was administered to opacify the left ventricle. There were no contrast reactions. Study completion: The patient tolerated the procedure well. There were no complications. Administered medications: Metoprolol (Lopressor, Toprol), for a total dose of 2mg, . Dobutamine. Study components: M-mode, 2D, complete spectral Doppler, and color Doppler. Height: Height: 167.6cm. Height: 66in. Weight: Weight: 129.7kg. Weight: 285.4lb. Body mass index: BMI: 46.2kg/m\S\2. Body surface area: BSA: 2.53m\S\2. Patient status: Outpatient. Study date: Study date: February 17, 2017. Location: Stress laboratory. Cardiac Anatomy: LEFT VENTRICLE: The cavity size was normal. Wall thickness was normal. Systolic function was at the lower limits of normal. The left ventricular ejection fraction was 53%, by biplane method of disks. The visually estimated ejection fraction was in the range of 50% to 55%. No diagnostic regional wall motion abnormality identified. Left ventricular diastolic function parameters were normal. RIGHT VENTRICLE: The cavity size was normal. Systolic function was normal. Systolic pressure was within the normal range. LEFT ATRIUM: The atrium was normal in size. RIGHT ATRIUM: The atrium was normal in size. AORTIC VALVE: Structurally normal valve. Doppler: There was no stenosis. No regurgitation. VTI ratio of LVOT to aortic valve: 0.79. Valve area: 2.67cm\S\2(VTI). Indexed valve area: 1.06cm\S\2/m\S\2 (VTI). Peak velocity ratio of LVOT to aortic valve: 0.85. Valve area: 2.84cm\S\2 (Vmax). Indexed valve area: 1.12cm\S\2/m\S\2 (Vmax). Mean gradient: 5mm Hg (S). Peak gradient: 9mm Hg (S). MITRAL VALVE: Structurally normal valve. Doppler: There was no evidence for stenosis. Trivial to mild regurgitation. Valve area by pressure half-time: 2.53cm\S\2. Indexed valve area by pressure half-time: 1cm\S\2/m\S\2. Mean gradient: 2mm Hg (D). Peak gradient: 5mm Hg (D). TRICUSPID VALVE: Structurally normal valve. Doppler: There was no evidence for stenosis. Trivial to mild regurgitation. PULMONIC VALVE: Not well visualized. Doppler: There was no evidence for stenosis. Mild regurgitation. Peak gradient: 5mm Hg (S). PERICARDIUM: There was no pericardial effusion. AORTA: Aortic root: The aortic root was not dilated. Baseline ECG: Normal sinus rhythm. Stress protocol: - Baseline HR: 77bpm BP: 143/91 (108) - Dobutamine 30 ug/kg/min HR: 151bpm BP: 134/43 (73) Stress results: Maximal heart rate during stress was 160bpm (91% of maximal predicted heart rate). The maximal predicted heart rate was 175bpm.The target heart rate was achieved. The heart rate response to stress was normal. There was a normal resting blood pressure with an appropriate response to stress. The rate-pressure product for the peak heart rate and blood pressure was 57940fp Hg/min. The patient experienced no chest pain during stress. Stress ECG: There were no stress arrhythmias or conduction abnormalities. The stress ECG was negative for ischemia. Low dose: LV global systolic function was appropriately augmented from baseline. No evidence for new LV regional wall motion abnormalities. Mid dose: LV global systolic function was appropriately augmented from baseline. No evidence for new LV regional wall motion abnormalities. Peak stress: LV global systolic function was appropriately augmented from baseline. The estimated LV ejection fraction was 70-75%. No evidence for new LV regional wall motion abnormalities. Stress echo results: There was no echocardiographic evidence for stress-induced ischemia. 2D measurements Doppler measurements Left ventricle Main pulmonary artery LVID ED, chord, 52.98 mm Pressure, S 20 mm Hg PLAX Left ventricle LVID ES, chord, 34.34 mm IVRT 76 ms PLAX LVOT FS, chord, PLAX 35 % Peak karen, S 124.92 cm/s LVPW, ED 9.77 mm VTI, S 28.64 cm IVS/LVPW ratio, 1.06 Peak 6 mm Hg ED gradient, S Vol ED, MOD1 117 ml HR 57 bpm Vol ES, MOD1 54.3 ml Cardiac 5.5 L/min EF, MOD1 53.6 % output Stroke vol, MOD1 62.7 ml Cardiac 2.2 L/(min-m\S\2) Vol index, ED, 46 ml/m\S\2 index MOD1 Aortic valve Vol index, ES, 21 ml/m\S\2 Peak karen, S 147.82 cm/s MOD1 Mean karen, S 104.34 cm/s Stroke index, 24.8 ml/m\S\2 VTI, S 36.1 cm MOD1 Mean 5 mm Hg Vol ED, MOD2 128.1 ml gradient, S Vol ES, MOD2 60.2 ml Peak 9 mm Hg EF, MOD2 53 % gradient, S Vol index, ED, 51 ml/m\S\2 VTI ratio 0.79 MOD2 LVOT/AV Vol index, ES, 24 ml/m\S\2 Area, VTI 2.67 cm\S\2 MOD2 Area index 1.06 cm\S\2/m\S\2 Ventricular septum (VTI) IVS, ED 10.36 mm Peak karen 0.85 LVOT ratio, Diam, S 20.7 mm LVOT/AV AP diam 20.69 mm Area, Vmax 2.84 cm\S\2 Area 3.37 cm\S\2 Area index 1.12 cm\S\2/m\S\2 Aorta (Vmax) Root diam, ED 27.77 mm Mitral valve AAo AP diam, S 24.89 mm Peak E karen 108.28 cm/s Left atrium Peak A karen 72.5 cm/s AP dim ES, PLAX 35.63 mm Mean karen, D 62.6 cm/s SI dim, A4C 58.17 mm Deceleration 229 ms Area ES, A4C 19.41 cm\S\2 time Vol, S 51.5 ml Pressure 87 ms Vol index, S 20.3 ml/m\S\2 half-time Right atrium Mean 2 mm Hg SI dim, ES, A4C 51.14 mm gradient, D Right ventricle Peak 5 mm Hg RVID ED, PLAX 24.83 mm gradient, D Peak E/A 1.49 M-mode measurements ratio Left ventricle Area (PHT) 2.53 cm\S\2 Stroke vol, 96.3 ml Area index 1 cm\S\2/m\S\2 Teichholz (PHT) Stroke index, 38.1 ml/m\S\2 Tricuspid valve Teichholz Regurg peak 232.7 cm/s karen Peak RV-RA 22 mm Hg gradient, S Max regurg 232.7 cm/s karen Systemic veins Estimated 3 mm Hg CVP Right ventricle Pressure, S 25 mm Hg Pulmonic valve Peak karen, S 107.62 cm/s Peak 5 mm Hg gradient, S [facility] are accredited with the [facility] Accreditation Commission - Echocardiography. Prepared and Electronically Authenticated Hal Portillo MD Confirmed 02/17/2017 09:16 Procedure Note Hal Portillo MD - 02/17/2017 [facility] Echocardiography[facility] [address] [place] [address] Stress Echocardiography Dobutamine Patient: Arlyn Study ECHO STRESS Lanie Blum ID: TEST Gender: Elvis : 1970 Age: 47 Room: Study 02/17/2017 Pt Outpatient Date: Status: Study 07:49 AM CSN #: [id number] Time: Ordering:Raj Pardo MD Interpreting:Hal Portillo MD Manager Treasury: Adin Roper [facility] Indications and History: Chest pain, unspecified [R07.9 (ICD-10-CM)]; SOB (shortness of breath) [R06.02 (ICD-10-CM)]; Edema extremities [R60.0 (ICD-10-CM)]; Morbid obesity, unspecified obesity type [E66.01 (ICD-10-CM)]; Heart failure with preserved left ventricular function (HFpEF) [I50.9 (ICD-10-CM)]; Essential hypertension [I10 (ICD-10-CM)]; Preoperative cardiovascular examination [Z01.810 (ICD-10-CM)]. Summary and Conclusion: - Left ventricle: The cavity size was normal. Wall thickness was normal. Systolic function was at the lower limits of normal. The left ventricular ejection fraction was 53%, by biplane method of disks. The visually estimated ejection fraction was in the range of 50% to 55%. No diagnostic regional wall motion abnormality identified. Left ventricular diastolic function parameters were normal. - Right ventricle: The cavity size was normal. Systolic function was normal. Systolic pressure was within the normal range. RV systolic pressure: 25mm Hg (S, est). - Mitral valve: Trivial to mild regurgitation. - Tricuspid valve: Trivial to mild regurgitation. - Pulmonic valve: Mild regurgitation. - Stress: Maximal heart rate during stress was 160bpm (91% of maximal predicted heart rate). The maximal predicted heart rate was 175bpm.The target heart rate was achieved. The heart rate response to stress was normal. The rate-pressure product for the peak heart rate and blood pressure was 18006rs Hg/min. The patient experienced no chest pain during stress. - Stress ECG conclusions: There were no stress arrhythmias or conduction abnormalities. The stress ECG was negative for ischemia. - Staged echo: There was no echocardiographic evidence for stress-induced ischemia. Procedure information: No prior study was available for comparison. Study status: Routine. Consent: The risks, benefits, and alternatives to the procedure were explained to the patient and consent was obtained. Procedure: Initial setup. A baseline ECG was recorded. Intravenous access was obtained. Surface ECG leads were monitored. Transthoracic echocardiography. Image quality was adequate. Scanning was performed from the parasternal, apical, and subcostal acoustic windows. Dobutamine stress test. Stress testing was performed, with dobutamine by intravenous piggyback infusion from 10 to 30 mcg/kg/min by 10 mcg/kg/min increments. Each test stage was approximately 3 min. The infusion was terminated due to target heart rate achievement. Transthoracic stress echocardiography. Image quality was adequate. Images were captured at baseline, low dose, mid dose, and peak dose. Intravenous contrast (Definity) was administered to opacify the left ventricle. There were no contrast reactions. Study completion: The patient tolerated the procedure well. There were no complications. Administered medications: Metoprolol (Lopressor, Toprol), for a total dose of 2mg, . Dobutamine. Study components: M-mode, 2D, complete spectral Doppler, and color Doppler. Height: Height: 167.6cm. Height: 66in. Weight: Weight: 129.7kg. Weight: 285.4lb. Body mass index: BMI: 46.2kg/m\S\2. Body surface area: BSA: 2.53m\S\2. Patient status: Outpatient. Study date: Study date: February 17, 2017. Location: Stress laboratory. Cardiac Anatomy: LEFT VENTRICLE: The cavity size was normal. Wall thickness was normal. Systolic function was at the lower limits of normal. The left ventricular ejection fraction was 53%, by biplane method of disks. The visually estimated ejection fraction was in the range of 50% to 55%. No diagnostic regional wall motion abnormality identified. Left ventricular diastolic function parameters were normal. RIGHT VENTRICLE: The cavity size was normal. Systolic function was normal. Systolic pressure was within the normal range. LEFT ATRIUM: The atrium was normal in size. RIGHT ATRIUM: The atrium was normal in size. AORTIC VALVE: Structurally normal valve. Doppler: There was no stenosis. No regurgitation. VTI ratio of LVOT to aortic valve: 0.79. Valve area: 2.67cm\S\2(VTI). Indexed valve area: 1.06cm\S\2/m\S\2 (VTI). Peak velocity ratio of LVOT to aortic valve: 0.85. Valve area: 2.84cm\S\2 (Vmax). Indexed valve area: 1.12cm\S\2/m\S\2 (Vmax). Mean gradient: 5mm Hg (S). Peak gradient: 9mm Hg (S). MITRAL VALVE: Structurally normal valve. Doppler: There was no evidence for stenosis. Trivial to mild regurgitation. Valve area by pressure half-time: 2.53cm\S\2. Indexed valve area by pressure half-time: 1cm\S\2/m\S\2. Mean gradient: 2mm Hg (D). Peak gradient: 5mm Hg (D). TRICUSPID VALVE: Structurally normal valve. Doppler: There was no evidence for stenosis. Trivial to mild regurgitation. PULMONIC VALVE: Not well visualized. Doppler: There was no evidence for stenosis. Mild regurgitation. Peak gradient: 5mm Hg (S). PERICARDIUM: There was no pericardial effusion. AORTA: Aortic root: The aortic root was not dilated. Baseline ECG: Normal sinus rhythm. Stress protocol: - Baseline HR: 77bpm BP: 143/91 (108) - Dobutamine 30 ug/kg/min HR: 151bpm BP: 134/43 (73) Stress results: Maximal heart rate during stress was 160bpm (91% of maximal predicted heart rate). The maximal predicted heart rate was 175bpm.The target heart rate was achieved. The heart rate response to stress was normal. There was a normal resting blood pressure with an appropriate response to stress. The rate-pressure product for the peak heart rate and blood pressure was 79788gy Hg/min. The patient experienced no chest pain during stress. Stress ECG: There were no stress arrhythmias or conduction abnormalities. The stress ECG was negative for ischemia. Low dose: LV global systolic function was appropriately augmented from baseline. No evidence for new LV regional wall motion abnormalities. Mid dose: LV global systolic function was appropriately augmented from baseline. No evidence for new LV regional wall motion abnormalities. Peak stress: LV global systolic function was appropriately augmented from baseline. The estimated LV ejection fraction was 70-75%. No evidence for new LV regional wall motion abnormalities. Stress echo results: There was no echocardiographic evidence for stress-induced ischemia. 2D measurements Doppler measurements Left ventricle Main pulmonary artery LVID ED, chord, 52.98 mm Pressure, S 20 mm Hg PLAX Left ventricle LVID ES, chord, 34.34 mm IVRT 76 ms PLAX LVOT FS, chord, PLAX 35 % Peak karen, S 124.92 cm/s LVPW, ED 9.77 mm VTI, S 28.64 cm IVS/LVPW ratio, 1.06 Peak 6 mm Hg ED gradient, S Vol ED, MOD1 117 ml HR 57 bpm Vol ES, MOD1 54.3 ml Cardiac 5.5 L/min EF, MOD1 53.6 % output Stroke vol, MOD1 62.7 ml Cardiac 2.2 L/(min-m\S\2) Vol index, ED, 46 ml/m\S\2 index MOD1 Aortic valve Vol index, ES, 21 ml/m\S\2 Peak karen, S 147.82 cm/s MOD1 Mean karen, S 104.34 cm/s Stroke index, 24.8 ml/m\S\2 VTI, S 36.1 cm MOD1 Mean 5 mm Hg Vol ED, MOD2 128.1 ml gradient, S Vol ES, MOD2 60.2 ml Peak 9 mm Hg EF, MOD2 53 % gradient, S Vol index, ED, 51 ml/m\S\2 VTI ratio 0.79 MOD2 LVOT/AV Vol index, ES, 24 ml/m\S\2 Area, VTI 2.67 cm\S\2 MOD2 Area index 1.06 cm\S\2/m\S\2 Ventricular septum (VTI) IVS, ED 10.36 mm Peak karen 0.85 LVOT ratio, Diam, S 20.7 mm LVOT/AV AP diam 20.69 mm Area, Vmax 2.84 cm\S\2 Area 3.37 cm\S\2 Area index 1.12 cm\S\2/m\S\2 Aorta (Vmax) Root diam, ED 27.77 mm Mitral valve AAo AP diam, S 24.89 mm Peak E karen 108.28 cm/s Left atrium Peak A karen 72.5 cm/s AP dim ES, PLAX 35.63 mm Mean karen, D 62.6 cm/s SI dim, A4C 58.17 mm Deceleration 229 ms Area ES, A4C 19.41 cm\S\2 time Vol, S 51.5 ml Pressure 87 ms Vol index, S 20.3 ml/m\S\2 half-time Right atrium Mean 2 mm Hg SI dim, ES, A4C 51.14 mm gradient, D Right ventricle Peak 5 mm Hg RVID ED, PLAX 24.83 mm gradient, D Peak E/A 1.49 M-mode measurements ratio Left ventricle Area (PHT) 2.53 cm\S\2 Stroke vol, 96.3 ml Area index 1 cm\S\2/m\S\2 Teichholz (PHT) Stroke index, 38.1 ml/m\S\2 Tricuspid valve Teichholz Regurg peak 232.7 cm/s karen Peak RV-RA 22 mm Hg gradient, S Max regurg 232.7 cm/s karen Systemic veins Estimated 3 mm Hg CVP Right ventricle Pressure, S 25 mm Hg Pulmonic valve Peak karen, S 107.62 cm/s Peak 5 mm Hg gradient, S [facility] are accredited with the [facility] - Echocardiography. Prepared and Electronically Authenticated Hal Portillo MD Confirmed 02/17/2017 09:16 us Raj Pardo MD ORDERABLES Final Result INTERFACE SYSTEM Refer to clinic/hospital department documented in this encounter Visit Diagnoses Diagnosis Chest pain, unspecified SOB (shortness of breath) Shortness of breath Edema extremities Edema Morbid obesity, unspecified obesity type (CMS/HCC) Heart failure with preserved left ventricular function (HFpEF) (CMS/HCC) Essential hypertension Unspecified essential hypertension Preoperative cardiovascular examination Pre-operative cardiovascular examination Chest pain, unspecified SOB (shortness of breath) Shortness of breath Edema extremities Edema Morbid obesity, unspecified obesity type (CMS/HCC) Heart failure with preserved left ventricular function (HFpEF) (CMS/HCC) Essential hypertension Unspecified essential hypertension Preoperative cardiovascular examination Pre-operative cardiovascular examination documented in this encounter Care Teams Chairman Of The Board Relationship Specialty Start Date End Date Cele Borrero DO [address] [place] [address] PCP - General Family Practice 04/07/16 documented as of this encounter
--- OUTSIDE RECORDS SUMMARY | 2024-12-27 09:35 | XMS_ITS | Encounter Summary ---
Author Organization [facility] Address [address] [place] [address] Care Team Providers Care Manager Convention Name Role Phone Cele Borrero DO Primary Care Provider [phone]- [phone] Encounter Details Date Type Department Care Team (Latest Contact Info) Description 12/17/2004 Outpatient Historical 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
--- OUTSIDE RECORDS SUMMARY | 2024-12-27 09:35 | XMS_ITS | Encounter Summary ---
Author Organization [facility] Address [address] [place] [address] Care Team Providers Care Skoog Patching Machine Operator Name Role Phone Cele Borrero DO Primary Care Provider [phone]- [phone] Encounter Details Date Type Department Care Team (Latest Contact Info) Description 02/10/2005 Outpatient Historical [facility] Medicine- [place] [address] [place] [address] Jaiden Torres MD [address] [place] [phone] CHRONIC SINUSITIS NOS (Primary Dx) Social History Tobacco Use Types Packs/Day Years Used Date Smoking Tobacco: Never Assessed Comments Unknown Sex and Gender Information Value Date Recorded Sex Assigned at Not on file 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
--- OUTSIDE RECORDS SUMMARY | 2024-12-27 09:35 | XMS_ITS | Clinical Summary ---
Author Organization [facility] Address [address] [place] [address] Care Team Providers Care Underwater Hunter Name Role Phone GissellCele velazquez Brandie ANTONY Primary Care Provider [phone]- [phone] Allergies Active Allergy Reactions Criticality Noted Date Comments Cyclobenzaprine Anxiety Low 09/20/2015 Diclofenac Epolamine Rash Low 08/10/2018 Eggshell Membrane Hives High 03/15/2017 Furosemide Hives High 03/20/2015 Hydromorphone (Pf) Hives High 07/30/2016 Lidocaine Other (See Comments) 12/12/2016 Burning skin and feeling faint-patches Burning skin and feeling faint-patches Magnesium Hydroxide Nausea and Vomiting Low 018 Milk Hives High 09/22/2016 Nitrofurantoin Monohyd/M-Cryst Diarrhea Low 06/04/2018 Penicillins Hives High 09/20/2015 Prednisone Itching Low 03/10/2017 Tramadol Anxiety Low 09/20/2015 Medications HYDROcodone-acetam inophen (NORCO) 7.5-325 mg Tablet Take 1 Tablet by mouth every 4 hours as needed for Pain, Moderate. Active esomeprazole (NexIUM) 40 mg Capsule, Delayed Release(E.C.)Indic ations:Gastroesoph ageal reflux disease without esophagitis TAKE 1 CAPSULE(40 MG) BY MOUTH DAILY BEFORE BREAKFAST 30 Capsule 3 8 Active nystatin (MYCOSTATIN) 100,000 unit/gram CreamIndications:Y east infection of the skin Apply to affected area 4 times daily. 30 Gram 6 8 Active nystatin (NYSTOP) 100,000 unit/gram powderIndications: Yeast infection of the skin Apply to affected area 2 times daily Apply to abdominal panus BID until rash improved. 60 Gram 3 8 Active gabapentin (NEURONTIN) 800 mg tablet Take 800 mg by mouth 3 times daily. 0 Active lisinopriL (PRINIVIL) 5 mg tabletIndications: Benign hypertension TAKE 1 TABLET(5 MG) BY MOUTH DAILY 90 Tablet 2 0 Active atorvastatin (Lipitor) 40 mg tabletIndications: Mixed hyperlipidemia Take 1 Tablet (40 mg) by mouth daily with supper. 30 Tablet 5 0 Active meloxicam (MOBIC) 15 mg tablet Take 15 mg by mouth daily. 0 Active ProAir HFA 90 mcg/actuation inhalerIndications :Intermittent asthma, unspecified asthma severity, unspecified whether complicated Take 2 Puffs by inhalation 1 time daily as needed for Shortness of Breath or Wheezing. 8.5 Gram 6 1 Active fluticasone propionate (FLONASE) 50 mcg/spray [place], Suspension nasal inhalerIndications :Middle ear effusion, right Administer 2 Sprays in each nostril daily. 16 Gram 1 Active spironolactone (ALDACTONE) 25 mg tablet TAKE 1 TABLET(25 MG) BY MOUTH TWICE DAILY 60 Tablet 3 1 Active baclofen (LIORESAL) 10 mg tabletIndications: Chronic bilateral low back pain without sciatica Take 1 Tablet (10 mg) by mouth daily. 90 Tablet 1 1 Active silver sulfADIAZINE (SILVADENE) 1 % CreamIndications:S unburn Apply to affected area daily. 20 Gram 1 Active bumetanide (BUMEX) 0.5 mg tabletIndications: Fluid retention in legs Take 1 Tablet (0.5 mg) by mouth daily. 30 Tablet 1 1 Active Active Problems Problem Noted Date Diagnosed Date Snapping lateral band left small finger 09/24/19 18 Medial epicondylitis of left elbow 09/23/2017 S/P decompression of ulnar nerve, left, SX 12.28 .17 09/23/2017 Morbid obesity with body mass index of 40.0-49.9 08/11/2017 Chronic bilateral low back pain without sciatica 08/11/2017 Intermittent asthma 04/15/2017 S/P decompression of ulnar nerve, right, SX 03/01 017 03/23/2017 Right elbow pain 07/30/2016 Xanthelasma of eyelid, bilateral 07/08/2016 Elevated LDL cholesterol level 07/08/2016 Vitamin D deficiency 07/08/2016 De Quervain's disease (radial styloid tenosynovi tis) 04/29/2016 Overview (04/29/2016): Right Bilateral leg edema 04/03/2016 Elevated glucose level 04/03/2016 Fatigue 04/03/2016 Excessive daytime sleepiness 04/03/2016 Family History Medical History Relation Name Comments Colon Cancer Neg Hx Social History Tobacco Use Types Packs/Day Years Used Date Smoking Tobacco: Former Cigarettes 2 5 0 02/27/2007 - 02/28/2012 Smokeless Tobacco: Never Tobacco Cessation:Counseling Given: Yes Alcohol Use Standard Drinks/Week Comments No 0 (1 standard drink = 0.6 oz pur e alcohol) Comments No Sex and Gender Information Value Date Recorded Sex Assigned at Not on file Legal Sex Female 2:57 AM DIRECTOR AUTOMOTIVE Gender Identity Not on file Sexual Orientation Not on file Last Filed Vital Signs Vital Sign Reading Time Taken Comments Blood Pressure 130/72 11/19/2020 8:24 AM CDT Pulse 96 11/19/2020 8:24 AM CDT Temperature 36.6 C (97.8 F) 11/19/2020 8:24 AM CDT Respiratory Rate 14 11/19/2020 8:24 AM CDT Oxygen Saturation 98% 11/19/2020 8:24 AM CDT room air Inhaled Oxygen Concentration - - Weight 137 kg (302 lb) 11/19/2020 8:24 AM CDT Height 168.9 cm (5' 6.5 ) 11/19/2020 8:24 AM CDT Body Mass Index 48.01 11/19/2020 8:24 AM CDT Plan of Treatment Health Maintenance Due Date Last Done Comments DIABETES ANNUAL FOOT EXAM 01/04/1990 DIABETES ANNUAL RETINAL EXAM 01/04/1990 DIABETES MICROALBUMIN ANNUAL SCREEN 01/04/1990 DTAP/TDAP/TD VACCINES (1 - Tdap) 01/04/1991 HEPATITIS B VACCINES (1 of 3 - 19+ 3-dose series) 01/04/1991 FIT-DNA Q 3 years 01/04/2017 Flex Sig/CT Colonography Q 5 years 01/04/2017 FIT/FOBT Q 1 year 09/01/2018 09/01/2017 DIABETES HBA1C Q 6 MONTHS 11/26/2018 05/28/2018, 07/2015 LDL CHOLESTEROL ANNUAL 11/19/2021 , 07/10/2020, 11/08/2019, Additional history exists ZOSTER VACCINE (1 of 2) 01/04/2022 BREAST CANCER SCREENING 01/18/2022 01/18/2021, 01/02 PAP SMEAR 11/07/2022 11/08/2019 Preventative Visit-Managed Medicaid 11/23/2022 11/22/2021, 11/19/2020, 11/08/2019, Additional history exists CERVICAL CANCER SCREENING 11/07/2024 HPV/Cotest (21-29) 11/07/2024 11/08/2019 HPV/Cotest (30-65) 11/07/2024 11/08/2019 INFLUENZA VACCINE (#1) 2024 COLORECTAL SCREENING 09/09/2027 09/08/2017 Colorectal Cancer Screening 09/09/2027 Procedures Procedure Name Priority Date/Time Associated Diagnosis Comments LIPID PANEL Routine 11/19/2020 8:57 AM CDT Well woman exam with routine gynecological exam CERV/VAG CYTO AGE BASED SCREEN PAP Routine 11/08/2019 12:36 PM CDT Well woman exam with routine gynecological exam HEMOGLOBIN A1C Routine 05/28/2018 10:40 AM DIRECTOR AUTOMOTIVE Elevated glucose POC OCCULT BLOOD UP TO 3 CARDS Routine 09/01/2017 5:15 PM CDT Blood in stool from Last 3 Months or Most Recently Relevant to Health Maintenance Results * (ABNORMAL) LIPID PANEL (11/19/2020 8:57 AM CDT) CHOLESTEROL 147 <200 mg/dL [facility] [place] HDL 45(L) > OR = 50 mg/dL [facility] [place] TRIGLYCERIDE 222(H) <150 mg/dL [facility] [place] Comment: If a non-fasting specimen was collected, consider repeat triglyceride testing on a fasting specimen if clinically indicated. Serene et al. J. of Clin. Lipidol. 2015;9:129-169. LDL CALCULATED 71 mg/dL (calc) [facility] [place] Comment: Reference range: <100 Desirable range <100 mg/dL for primary prevention; <70 mg/dL for patients with CHD or diabetic patients with > or = 2 CHD risk factors. LDL-C is now calculated using the Logan-Elly calculation, which is a validated novel method providing better accuracy than the Friedewald equation in the estimation of LDL-C. Logan CASE et al. RAMYA. 2013;310(19): 7456-1943 (http://education.[employer]/faq/AEG156) CHOL/HDL RATIO 3.3 <5.0 (calc) [facility] [place] TOTAL NON-HDL CHOL(LDL+VLDL) 102 <130 mg/dL (calc) [facility] [place] Comment: For patients with diabetes plus 1 major ASCVD risk factor, treating to a non-HDL-C goal of <100 mg/dL (LDL-C of <70 mg/dL) is considered a therapeutic option. Test Performed at: [facility] [address] [place] [address] Israel Reyes D.O., MPH Blood 11/19/2020 8:57 AM CDT 11/20/2020 1:23 AM CDT Rachele Davis [facility] CHEMISTRY ORDERABLES Fin al Result [facility] [place] [address] [place] [address] * CERV/VAG CYTO AGE BASED SCREEN PAP (11/08/2019 12:36 PM CDT) COMMENT (PAP): SEE COMMENT 0 9:25 AM CDT [facility] Comment: This order for age-based cervical cancer and STI screening follows ACOG guidelines(PB 168, 140, GDG508). See individual assays for performing site location. CLINICAL INFORMATION Information not provided 11/15/2019 9:25 AM CDT [facility] LAST MENSTRUAL PERIOD INFORMATION NOT PROVIDED 11/15/2019 9:25 AM CDT [facility] PREV PAP: INFORMATION NOT PROVIDED 11/15/2019 9:25 AM CDT [facility] PREV BX: INFORMATION NOT PROVIDED 11/15/2019 9:25 AM CDT [facility] SOURCE Endocervix 11/15/2019 9:25 AM CDT [facility] ADEQUACY: SEE COMMENT 11/15/2019 9:25 AM CDT [facility] Comment: Satisfactory for evaluation. Endocervical/transformation zone component present. Age and/or menstrual status not provided PAP INTERP Negative for intraepithelial lesion or malignancy. 11/15/2019 9:25 AM CDT [facility] COMMENT This Pap test has been evaluated with computer assisted technology. 11/15/2019 9:25 AM CDT [facility] SPLICER HELPER: SEE COMMENT 2019 9:25 AM CDT [facility] Comment: AMW, CT(ASCP) CT screening location: [place] [address] [place] [address] EXPLANATORY NOTE SEE COMMENT 020 9:25 AM CDT [facility] Comment: EXPLANATORY NOTE: The Pap is a [...] Detected Not Detected 11/15/2019 9:25 AM CDT [facility] Comment: This test was performed using the APTIMA HPV Assay ([employer] This assay detects E6/E7 viral messenger RNA (mRNA) from 14 high-risk HPV types (16,18,31,33,35,39,45,51,52,56,58,59,66,68). The analytical performance characteristics of this assay have been determined by [facility]. The modifications have not been cleared or approved by the FDA. This assay has been validated pursuant to the CLIA regulations and is used for clinical purposes. Genital SWAB OF ENDOCERVIX / Unknown Collection / Unknown 11/08/2019 12:36 PM CDT 11/09/2019 11:06 AM CDT Narrative [facility] - 11/15/2019 9:25 AM CDT Performing Organization Information: Site ID: [id number] Name: [facility] Address: [address] [address] Director: Israel Reyes D.O., MPH Site ID: [id number] [facility] Address: [address] [place] [address] Director: Anish Goldberg Rachele Davis FINAL ASSEMBLER BOAT PATHOLOGY/CYTOLOGY ORDER ANASTASIA Final Result [facility] [phone] * HEMOGLOBIN A1C (05/28/2018 10:40 AM DIRECTOR AUTOMOTIVE) [facility] HEMOGLOBIN A1C 5.1 4.0 - 6.0 % 05/28/2018 8:11 PM DIRECTOR AUTOMOTIVE [facility] EST. AVG GLUCOSE, A1C 100 mg/dL 05/28/2018 8:11 PM [facility] Blood Venipuncture / Unknown 05/28/2018 10:40 AM DIRECTOR AUTOMOTIVE 05/28/2018 7:44 PM DIRECTOR AUTOMOTIVE [facility] - 05/28/2018 8:11 PM DIRECTOR AUTOMOTIVE HGB A1C INTERPRETATION NORMAL: <5.7% PRE-DIABETES: 5.7 - 6.4% DIABETES: 6.5% OR GREATER Falsely low A1C measurements can occur when: 1. Anemia and/or hemolytic anemia is present. 2. Hemoglobin variants present. 3. Renal failure. 4. Transfusion of blood product in the last 120 days. We recommend ordering a fructosamine test([id number]) to more accurately assess glycemic status if any of the above conditions are present. Blossom Sung FINAL ASSEMBLER BOAT CHEMISTRY ORDERABLES Final Re sult [facility] CLIA# [id number] [facility] [place] [address] * (ABNORMAL) POC OCCULT BLOOD UP TO 3 CARDS (09/01/2017 5:15 PM CDT) [facility] OCCULT BLOOD 1 CARD POC Positive(A) Negative [facility] OCCULT BLOOD 2 CARD POC Negative Negative [facility] OCCULT BLOOD 3 CARD POC Negative Negative [facility] INTERNAL KIT QC Pass Pass [facility] CARD LOT NUMBER POC [id number] [facility] CARD EXPIRATION DATE POC 02/28/2019 [facility] DEVELOPER LOT NUMBER POC [id number] [facility] DEVELOPER EXPIRATION DATE POC 10/30/2019 [facility] Stool STOOL SPECIMEN / Unknown 09/01/2017 5:15 PM CDT us Blossom Sung FINAL ASSEMBLER BOAT POINT OF CARE TESTING Final R esult [facility] CLIA# [id number] [address] [place] [address] from Last 3 Months or Most Recently Relevant to Health Maintenance Insurance MEDICAID [place] Advance Directives For more information, please contact: [phone] * Full Code (Latest Code Status on File) Date Activated Date Inactivated Comments 09/08/2017 1:41 PM 09/08/2017 5:20 PM Care Teams Underwater Hunter Relationship Specialty Start Date End Date Cele Borrero DO [address] [place] [id number] PCP - General Family Practice 04/07/16
--- OUTSIDE RECORDS SUMMARY | 2024-12-27 09:35 | XMS_ITS | Encounter Summary ---
Author Organization [facility] Address [address] [place] [address] Care Team Providers Care Rand Cementer Name Role Phone Cele Borrero DO Primary Care Provider +1- [phone] Encounter Details Date Type Department Care Team (Latest Contact Info) Description 02/18/2005 Outpatient Historical [facility] Medicine- [place] [address] [place] [address] Jaiden Torres MD [address] [place] [phone] ALLERGIC RHINITIS NOS (Primary Dx) Social History Tobacco Use Types Packs/Day Years Used Date Smoking Tobacco: Never Assessed Comments Unknown Sex and Gender Information Value Date Recorded Sex Assigned at Not on file Legal Sex Female 2:57 AM SUPERVISOR ENDLESS TRACK VEHICLE Gender Identity Not on file Sexual Orientation Not on file documented as of this encounter Plan of Treatment Not on file documented as of this encounter Visit Diagnoses Diagnosis Allergic rhinitis, cause unspecified- Primary documented in this encounter Care Teams Rand Cementer Relationship Specialty Start Date End Date Cele Borrero DO [address] [place] [address] PCP - General Family Practice 04/07/16 documented as of this encounter
--- OUTSIDE RECORDS SUMMARY | 2024-12-27 09:35 | XMS_ITS | Encounter Summary ---
Author Organization [facility] Address [address] [place] [address] Care Team Providers Care Party Host/Hostess Name Role Phone Cele Borrero DO Primary Care Provider +1- [phone] Encounter Details Date Type Department Care Team (Latest Contact Info) Description 11/26/2004 Outpatient Historical [facility] Medicine- [place] [address] [place] [address] Jaiden Torres MD [address] [place] [phone] ALLERGIC RHINITIS NOS (Primary Dx) Social History Tobacco Use Types Packs/Day Years Used Date Smoking Tobacco: Never Assessed Comments Unknown Sex and Gender Information Value Date Recorded Sex Assigned at Not on file Legal Sex Female 2:57 AM INFORMATION TECHNOLOGY COORDINATOR Gender Identity Not on file Sexual Orientation Not on file documented as of this encounter Plan of Treatment Not on file documented as of this encounter Visit Diagnoses Diagnosis Allergic rhinitis, cause unspecified- Primary documented in this encounter Care Teams Party Host/Hostess Relationship Specialty Start Date End Date Cele Borrero DO [address] [place] [address] PCP - General Family Practice 04/07/16 documented as of this encounter
--- OUTSIDE RECORDS SUMMARY | 2024-12-27 09:35 | XMS_ITS | Encounter Summary ---
Author Organization [facility] Address [address] [place] [address] Care Team Providers Care Tailor Helper Name Role Phone Cele Borrero DO Primary Care Provider +1- [phone] Encounter Details Date Type Department Care Team (Latest Contact Info) Description 10/22/2004 Outpatient Historical [facility] Medicine- [place] [address] [place] [address] Jaiden Torres MD [address] [place] [phone] Plantar fibromatosis (Primary Dx); HYPOTHYROIDISM NOS Social History Tobacco Use Types Packs/Day Years Used Date Smoking Tobacco: Never Assessed Comments Unknown Sex and Gender Information Value Date Recorded Sex Assigned at Not on file Legal Sex Female 2:57 AM SOYBEAN GROWER Gender Identity Not on file Sexual Orientation Not on file documented as of this encounter Plan of Treatment Not on file documented as of this encounter Visit Diagnoses Diagnosis Plantar fibromatosis- Primary Plantar fascial fibromatosis Unspecified hypothyroidism documented in this encounter Care Teams Tailor Helper Relationship Specialty Start Date End Date Cele Borrero DO [address] [place] [address] PCP - General Family Practice 04/07/16 documented as of this encounter
--- OUTSIDE RECORDS SUMMARY | 2024-12-27 09:35 | XMS_ITS | Encounter Summary ---
Author Organization [facility] Address [address] [place] [address] Care Team Providers Care Large Animal Husbandry Technician Name Role Phone Cele Borrero Primary Care Provider +1- [phone] Encounter Details Date Type Department Care Team (Latest Contact Info) Description 08/21/2004 Outpatient Historical [facility] [address] [place] [address] Jaiden Torres MD [address] [place] [phone] DIARRHEA NOS (Primary Dx) Social History Tobacco Use Types Packs/Day Years Used Date Smoking Tobacco: Never Assessed Comments Unknown Sex and Gender Information Value Date Recorded Sex Assigned at Not on file Legal Sex Female 2:57 AM STEEL WOOL MACHINE OPERATOR Gender Identity Not on file Sexual Orientation Not on file documented as of this encounter Plan of Treatment Not on file documented as of this encounter Procedures Procedure Name Priority Date/Time Associated Diagnosis Comments TSH Routine 08/21/2004 1:30 PM STEEL WOOL MACHINE OPERATOR T4 FREE Routine 08/21/2004 1:30 PM STEEL WOOL MACHINE OPERATOR COMPREHENSIVE METABOLIC PANEL Routine 08/21/2004 1:30 PM STEEL WOOL MACHINE OPERATOR documented in this encounter Results * (ABNORMAL) T4 FREE (08/21/2004 1:30 PM STEEL WOOL MACHINE OPERATOR) T4 FREE 0.67(L) 0.71 - 1.85 ng/dL INTERFACE SYSTEM 08/21/2004 1:30 PM STEEL WOOL MACHINE OPERATOR us Jaiden Torres MD CHEMISTRY ORDERABLES Final Res ult Performing Organization Address [facility] Co de Phone Number INTERFACE SYSTEM Refer to clinic/hospital department * TSH (08/21/2004 1:30 PM STEEL WOOL MACHINE OPERATOR) TSH 1.12 0.49 - 4.67 uIU/ml INTERFACE SYSTEM 08/21/2004 1:30 PM STEEL WOOL MACHINE OPERATOR us Jaiden Torres MD CHEMISTRY ORDERABLES Final Res ult Performing Organization Address City/[facility] de Phone Number INTERFACE SYSTEM Refer to clinic/hospital department * (ABNORMAL) COMPREHENSIVE METABOLIC PANEL (08/21/2004 1:30 PM STEEL WOOL MACHINE OPERATOR) GLUCOSE 88 70 - 110 mg/dL INTERFACE SYSTEM BUN 11 7 - 17 mg/dL INTERFACE SYSTEM CREATININE 0.9 0.7 - 1.2 mg/dL (inactive) INTERFACE SYSTEM SODIUM 146(H) 136 - 145 mEq/L INTERFACE SYSTEM POTASSIUM 4.4 3.5 - 5.0 mEq/L INTERFACE SYSTEM CO2 27 22 - 32 mmol/l INTERFACE SYSTEM CHLORIDE 111(H) 95 - 110 mEq/L INTERFACE SYSTEM CALCIUM 9.3 8.4 - 10.5 mg/dL INTERFACE SYSTEM ALKALINE PHOSPHATASE 98 38 - 126 IU/L INTERFACE SYSTEM TOTAL PROTEIN 7.5 6.3 - 8.2 g/dL INTERFACE SYSTEM ALBUMIN 3.6 3.5 - 5.0 g/dL INTERFACE SYSTEM AST 46(H) 14 - 36 IU/L INTERFACE SYSTEM ALT 39 9 - 52 IU/L INTERFACE SYSTEM BILIRUBIN TOTAL 0.2 0.2 - 1.4 mg/dL INTERFACE SYSTEM GLOBULIN (CALC) 3.9 2.4 - 3.9 g/dL INTERFACE SYSTEM ANION GAP 12 9 - 20 mEq/L INTERFACE SYSTEM ALBUMIN/GLOBULIN RATIO 0.9(L) 1.0 - 2.3 INTERFACE SYSTEM OSMOLALITY, CALCULATED 299(H) 275 - 295 mOsm/Kg INTERFACE SYSTEM 08/21/2004 1:30 PM STEEL WOOL MACHINE OPERATOR Result Raj Torres MD CHEMISTRY ORDERABLES Final Res ult INTERFACE SYSTEM Refer to clinic/hospital department documented in this encounter Visit Diagnoses Diagnosis Diarrhea- Primary documented in this encounter Care Teams Large Animal Husbandry Technician Relationship Specialty Start Date End Date Cele Borrero DO [address] [place] [address] PCP - General Family Practice 04/07/16 documented as of this encounter
--- OUTSIDE RECORDS SUMMARY | 2024-12-27 09:35 | XMS_ITS | Encounter Summary ---
Author Organization [facility] Address [address] [place] [address] Care Team Providers Care Police And Fire Dispatcher Name Role Phone Cele Borrero DO Primary Care Provider +1- [phone] Encounter Details Date Type Department Care Team (Latest Contact Info) Description 08/28/2004 Outpatient Historical [facility] Medicine- [place] [address] [place] [address] Jaiden Torres MD [address] [place] [phone] ACQUIRED HYPOTHYROID NEC (Primary Dx) Social History Tobacco Use Types Packs/Day Years Used Date Smoking Tobacco: Never Assessed Comments Unknown Sex and Gender Information Value Date Recorded Sex Assigned at Not on file Legal Sex Female 2:57 AM COMPUTER TECHNICIAN Gender Identity Not on file Sexual Orientation Not on file documented as of this encounter Plan of Treatment Not on file documented as of this encounter Visit Diagnoses Diagnosis Other specified acquired hypothyroidism- Primary documented in this encounter Care Teams Police And Fire Dispatcher Relationship Specialty Start Date End Date Cele Borrero DO [address] [place] [address] PCP - General Family Practice 04/07/16 documented as of this encounter
--- OUTSIDE RECORDS SUMMARY | 2024-12-27 09:35 | XMS_ITS | Encounter Summary ---
Author Organization [facility] Address [address] [place] [address] Care Team Providers Care Photo Checker And Assembler Name Role Phone Cele Borrero DO Primary Care Provider +1- [phone] Encounter Details Date Type Department Care Team (Latest Contact Info) Description 11/06/2004 Outpatient Historical [facility] Medicine- [place] [address] [place] [address] Jaiden Torres MD [address] [place] [phone] OBESITY NOS (Primary Dx); HYPERTENSION NOS Social History Tobacco Use Types Packs/Day Years Used Date Smoking Tobacco: Never Assessed Comments Unknown Sex and Gender Information Value Date Recorded Sex Assigned at Not on file Legal Sex Female 2:57 AM PHOTOGRAPHER NEWS Gender Identity Not on file Sexual Orientation Not on file documented as of this encounter Plan of Treatment Not on file documented as of this encounter Visit Diagnoses Diagnosis Obesity, unspecified- Primary Unspecified essential hypertension documented in this encounter Care Teams Photo Checker And Assembler Relationship Specialty Start Date End Date Cele Borrero DO [address] [place] [address] PCP - General Family Practice 04/07/16 documented as of this encounter
--- OUTSIDE RECORDS SUMMARY | 2024-12-27 09:35 | XMS_ITS | Encounter Summary ---
Author Organization [facility] Address [address] [place] [address] Care Team Providers Care Job Estimator Name Role Phone Cele Borrero DO Primary Care Provider Encounter Details Date Type Department Care Team (Late st Contact Info) Description 10/30/2024 Results Follow-Up [facility] Family Medicine [place] [address] [place] [phone] Cele Borrero DO [address] [place] [phone] LIPID PANEL Social History Tobacco Use Types Packs/Day Years Used Date Smoking Tobacco: Former Cigarettes 0 0 02/28/2012 - 02/28/2012 Passive Smoke Exposure: Past Smokeless Tobacco: Never Alcohol Use Standard Drinks/Week Comments No 0 (1 standard drink = 0.6 oz pur e alcohol) Comments No Sex and Gender Information Value Date Recorded Sex Assigned at Female 02/05/2024 4:00 PM CDT Legal Sex Female 2:12 PM MASS COMMUNICATIONS INSTRUCTOR Gender Identity Female 02/05/2024 4:00 PM CDT Sexual Orientation Not on file documented as of this encounter Plan of Treatment Upcoming Encounters Date Type Department Care Team (Late st Contact Info) Description 01/09/2025 11:20 AM CDT Office Visit [facility] Orthopedics - Orthopedic [facility] [address] [facility] [phone] Prince Barriga PA [address] [facility] [place] [address] 01/18/2025 11:20 AM CDT Office Visit [facility] [address] [place] [facility] [place] [address] Cele Borrero, DO [address] [place] [facility] [address] 03/02/2025 3:40 PM CDT Office Visit [facility] [address] [facility] [place] [address] Cele Borrero, DO [address] [place] [facility] [address] 03/13/2025 12:30 PM CDT Office Visit [facility] Gastroenterology- [place] [address] [place] [address] Armida Roldan PA-C [address] [place] [address] 04/25/2025 11:20 AM MASS COMMUNICATIONS INSTRUCTOR Office Visit [facility] [address] [facility] [place] [address] Cele Borrero, DO [address] [place] [facility] [address] 07/27/2025 11:00 AM MASS COMMUNICATIONS INSTRUCTOR Office Visit [facility] [address] [facility] [place] [address] GissellCele velazquez DO [address] [place] [facility] [place] [address] documented as of this encounter Visit Diagnoses Not on filedocumented in this encounter Additional Health Concerns Assessment Noted Time PHQ-9 Depression Total Score: 1 06/10/19 25 7:50 AM MASS COMMUNICATIONS INSTRUCTOR documented as of this encounter Care Teams Job Estimator Relationship Specialty Start Date End Date Cele Borrero DO [address] [place] [address] PCP - General Family Practice 04/07/16 documented as of this encounter
--- OUTSIDE RECORDS SUMMARY | 2024-12-27 09:35 | XMS_ITS | Encounter Summary ---
Author Organization [facility] Address [address] [place] [address] Care Team Providers Care Nursery Supervisor Name Role Phone Cele Borrero DO Primary Care Provider +1- [phone] Encounter Details Date Type Department Care Team (Latest Contact Info) Description 09/25/2004 Outpatient Historical [facility] [address] [place] [address] Jaiden Torres MD [address] [place] [address] HYPOTHYROIDISM NOS (Primary Dx) Social History Tobacco Use Types Packs/Day Years Used Date Smoking Tobacco: Never Assessed Comments Unknown Sex and Gender Information Value Date Recorded Sex Assigned at Not on file Legal Sex Female 2:57 AM ENGINEER BYPRODUCT Gender Identity Not on file Sexual Orientation Not on file documented as of this encounter Plan of Treatment Not on file documented as of this encounter Procedures Procedure Name Priority Date/Time Associated Diagnosis Comments T4 FREE Routine 09/25/2004 9:35 AM CDT documented in this encounter Results * (ABNORMAL) T4 FREE (09/25/2004 9:35 AM CDT) T4 FREE 0.69(L) 0.71 - 1.85 ng/dL INTERFACE SYSTEM 09/25/2004 9:35 AM CDT us Jaiden Torres MD CHEMISTRY ORDERABLES Final Res ult INTERFACE SYSTEM Refer to clinic/hospital department documented in this encounter Visit Diagnoses Diagnosis Unspecified hypothyroidism- Primary documented in this encounter Care Teams Nursery Supervisor Relationship Specialty Start Date End Date Cele Borrero DO [address] [place] [address] PCP - General Family Practice 04/07/16 documented as of this encounter
--- OUTSIDE RECORDS SUMMARY | 2024-12-27 09:35 | XMS_ITS | Encounter Summary ---
Author Organization [facility] Address [address] [place] [address] Care Team Providers Care Project Coordinator Rn Name Role Phone Cele Borrero DO Primary Care Provider +1- [phone] Encounter Details Date Type Department Care Team (Latest Contact Info) Description 08/05/2004 Outpatient Historical [facility] Family Medicine- [place] [address] [place] [address] Jaiden Torres MD [address] [place] [phone] NAUSEA ALONE (Primary Dx) Social History Tobacco Use Types Packs/Day Years Used Date Smoking Tobacco: Never Assessed Comments Unknown Sex and Gender Information Value Date Recorded Sex Assigned at Not on file 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
--- OUTSIDE RECORDS SUMMARY | 2024-12-27 09:35 | XMS_ITS | Encounter Summary ---
Author Organization [facility] Address [address] [place] [address] Care Team Providers Care Community Health Counselor Name Role Phone Cele Borrero Primary Care Provider [phone] Encounter Details Date Type Department Care Team (Late st Contact Info) Description 06/15/2024 Results Follow-Up [facility] [place] Gastroenterology- [place] [address] [place] [address] Armida Roldan PA-C [address] [place] [address] HEPATIC FUNCTION PANEL, LIVER Social History Tobacco Use Types Packs/Day Years Used Date Smoking Tobacco: Former Cigarettes 0 0 02/28/2012 - 02/28/2012 Passive Smoke Exposure: Past Smokeless Tobacco: Never Alcohol Use Standard Drinks/Week Comments No 0 (1 standard drink = 0.6 oz pur e alcohol) Comments No Sex and Gender Information Value Date Recorded Sex Assigned at Female 02/05/2024 4:00 PM CDT Legal Sex Female 2:12 PM OVEN PRESS TENDER Gender Identity Female 02/05/2024 4:00 PM CDT Sexual Orientation Not on file documented as of this encounter Plan of Treatment Upcoming Encounters Date Type Department Care Team (Late st Contact Info) Description 01/09/2025 11:20 AM CDT Office Visit [facility] [place] Orthopedics - Orthopedic [facility] [address] [facility] [phone] Prince Barriga PA [address] [facility] [phone] 01/18/2025 11:20 AM CDT Office Visit [facility] [address] [place] [address] Cele Borrero, DO [address] [place] [address] 03/02/2025 3:40 PM CDT Office Visit [facility] [address] [place] [address] Cele Borrero, DO [address] [place] [address] 03/13/2025 12:30 PM CDT Office Visit [facility] [place] Gastroenterology- [place] [address] [place] [address] Armida Roldan PA-C [address] [place] [address] 04/25/2025 11:20 AM OVEN PRESS TENDER Office Visit [facility] [address] [place] [address] Cele Borrero, DO [address] [place] [address] 07/27/2025 11:00 AM OVEN PRESS TENDER Office Visit [facility] [address] [place] [address] Cele Borrero DO [address] [place] [address] documented as of this encounter Visit Diagnoses Not on filedocumented in this encounter Additional Health Concerns Assessment Noted Time PHQ-9 Depression Total Score: 1 06/10/19 25 7:50 AM OVEN PRESS TENDER documented as of this encounter Care Teams Community Health Counselor Relationship Specialty Start Date End Date Cele Borrero DO [address] [facility] [place] [address] PCP - General Family Practice 04/07/16 documented as of this encounter
--- OUTSIDE RECORDS SUMMARY | 2024-12-27 09:35 | XMS_ITS | Encounter Summary ---
Author Organization [facility] Address [address] [place] [address] Care Team Providers Care Electrical Integrator Name Role Phone Cele Borrero DO Primary Care Provider +1- [phone] Encounter Details Date Type Department Care Team (Latest Contact Info) Description 01/28/2005 Outpatient Historical [facility] Medicine- [place] [address] [place] [address] Jaiden Torres MD [address] [place] [phone] Sprain lumbosacral (Primary Dx); ALLERGIC RHINITIS NOS Social History Tobacco Use Types Packs/Day Years Used Date Smoking Tobacco: Never Assessed Comments Unknown Sex and Gender Information Value Date Recorded Sex Assigned at Not on file Legal Sex Female 2:57 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
--- OUTSIDE RECORDS SUMMARY | 2024-12-27 09:36 | XMS_ITS | Encounter Summary ---
Author Organization [facility] Address [address] [place] [address] Care Team Providers Care Real Estate Rental Agent Name Role Phone Cele Borrero DO Primary Care Provider [phone]- [phone] Encounter Details Date Type Department Care Team (Latest Contact Info) Description 12/31/2004 Outpatient Historical [facility] Medicine- [place] [address] [place] [address] Jaiden Torres MD [address] [place] [phone] ALLERGIC RHINITIS NOS (Primary Dx) Social History Tobacco Use Types Packs/Day Years Used Date Smoking Tobacco: Never Assessed Comments Unknown Sex and Gender Information Value Date Recorded Sex Assigned at Not on file Legal Sex Female 2:57 AM LINE FIXER Gender Identity Not on file Sexual Orientation Not on file documented as of this encounter Plan of Treatment Not on file documented as of this encounter Visit Diagnoses Diagnosis Allergic rhinitis, cause unspecified- Primary documented in this encounter Care Teams Real Estate Rental Agent Relationship Specialty Start Date End Date Cele Borrero DO [address] [place] [address] PCP - General Family Practice 04/07/16 documented as of this encounter
--- OUTSIDE RECORDS SUMMARY | 2024-12-27 09:36 | XMS_ITS | Encounter Summary ---
Author Organization [facility] Address [address] [place] [address] Care Team Providers Care Large Animal Veterinarian Name Role Phone Cele Borrero DO Primary Care Provider +1- [phone] Encounter Details Date Type Department Care Team (Latest Contact Info) Description 03/19/2005 Outpatient Historical [facility] Medicine- [place] [address] [place] [address] Jaiden Torres MD [address] [place] [phone] HYPERTENSION NOS (Primary Dx); SPRAIN OF HAND NOS Social History Tobacco Use Types Packs/Day Years Used Date Smoking Tobacco: Never Assessed Comments Unknown Sex and Gender Information Value Date Recorded Sex Assigned at Not on file Legal Sex Female 2:57 AM CERTIFIED MEDICAL ASST Gender Identity Not on file Sexual Orientation Not on file documented as of this encounter Plan of Treatment Not on file documented as of this encounter Visit Diagnoses Diagnosis Unspecified essential hypertension- Primary Sprain of hand, unspecified site documented in this encounter Care Teams Large Animal Veterinarian Relationship Specialty Start Date End Date Cele Borrero DO [address] [place] [address] PCP - General Family Practice 04/07/16 documented as of this encounter
--- OUTSIDE RECORDS SUMMARY | 2024-12-27 09:36 | XMS_ITS | Encounter Summary ---
Author Organization [facility] Address [address] [place] [address] Care Team Providers Care Manufacturing Maintenance Manager Name Role Phone Cele Borrero DO Primary Care Provider [phone]- [phone] Encounter Details Date Type Department Care Team (Latest Contact Info) Description 01/07/2005 Outpatient Historical [facility] Medicine- [place] [address] [place] [address] Jaiden Torres MD [address] [place] [phone] ALLERGIC RHINITIS NOS (Primary Dx) Social History Tobacco Use Types Packs/Day Years Used Date Smoking Tobacco: Never Assessed Comments Unknown Sex and Gender Information Value Date Recorded Sex Assigned at Not on file Legal Sex Female 2:57 AM BACKUP ADMINISTRATIVE COORDINATOR Gender Identity Not on file Sexual Orientation Not on file documented as of this encounter Plan of Treatment Not on file documented as of this encounter Visit Diagnoses Diagnosis Allergic rhinitis, cause unspecified- Primary documented in this encounter Care Teams Manufacturing Maintenance Manager Relationship Specialty Start Date End Date Cele Borrero DO [address] [place] [address] PCP - General Family Practice 04/07/16 documented as of this encounter
--- OUTSIDE RECORDS SUMMARY | 2024-12-27 09:36 | XMS_ITS | Encounter Summary ---
Author Organization [facility] Address [address] [place] [address] Care Team Providers Care Head Refrigerating Engineer Name Role Phone Cele Borrero DO Primary Care Provider +1- [phone] Encounter Details Date Type Department Care Team (Latest Contact Info) Description 04/15/2005 Outpatient Historical [facility] Medicine- [place] [address] [place] [address] Jaiden Torres MD [address] [place] [phone] ALLERGIC RHINITIS NOS (Primary Dx) Social History Tobacco Use Types Packs/Day Years Used Date Smoking Tobacco: Never Assessed Comments Unknown Sex and Gender Information Value Date Recorded Sex Assigned at Not on file Legal Sex Female 2:57 AM ASSOCIATE PROFESSOR OF LIBRARY MEDIA Gender Identity Not on file Sexual Orientation Not on file documented as of this encounter Plan of Treatment Not on file documented as of this encounter Visit Diagnoses Diagnosis Allergic rhinitis, cause unspecified- Primary documented in this encounter Care Teams Head Refrigerating Engineer Relationship Specialty Start Date End Date Cele Borrero DO [address] [place] [address] PCP - General Family Practice 04/07/16 documented as of this encounter
--- OUTSIDE RECORDS SUMMARY | 2024-12-27 09:36 | XMS_ITS | Encounter Summary ---
Author Organization [facility] Address [address] [place] [address] Care Team Providers Care Maintenance Mechanic Technician Name Role Phone Cele Borrero DO Primary Care Provider +1- [phone] Encounter Details Date Type Department Care Team (Latest Contact Info) Description 04/08/2005 Outpatient Historical [facility] Medicine- [place] [address] [place] [address] Jaiden Torres MD [address] [place] [phone] ALLERGIC RHINITIS NOS (Primary Dx) Social History Tobacco Use Types Packs/Day Years Used Date Smoking Tobacco: Never Assessed Comments Unknown Sex and Gender Information Value Date Recorded Sex Assigned at Not on file Legal Sex Female 2:57 AM COMMUNITY HEALTH EDUCATOR Gender Identity Not on file Sexual Orientation Not on file documented as of this encounter Plan of Treatment Not on file documented as of this encounter Visit Diagnoses Diagnosis Allergic rhinitis, cause unspecified- Primary documented in this encounter Care Teams Maintenance Mechanic Technician Relationship Specialty Start Date End Date Cele Borrero DO [address] [place] [address] PCP - General Family Practice 04/07/16 documented as of this encounter
--- OUTSIDE RECORDS SUMMARY | 2024-12-27 09:36 | XMS_ITS | Encounter Summary ---
Author Organization [facility] Address [address] [place] [address] Care Team Providers Care Lift Truck Mechanic Name Role Phone Cele Borrero DO Primary Care Provider +1- [phone] Encounter Details Date Type Department Care Team (Latest Contact Info) Description 03/25/2005 Outpatient Historical [facility] Medicine- [place] [address] [place] [address] Jaiden Torres MD [address] [place] [address] ALLERGIC RHINITIS NOS (Primary Dx) Social History Tobacco Use Types Packs/Day Years Used Date Smoking Tobacco: Never Assessed Comments Unknown Sex and Gender Information Value Date Recorded Sex Assigned at Not on file Legal Sex Female 2:57 AM PLANT MAINTENANCE 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
--- OUTSIDE RECORDS SUMMARY | 2024-12-27 09:36 | XMS_ITS | Encounter Summary ---
Author Organization [facility] Address [address] [place] [address] Care Team Providers Care Phlebotomy Technician Name Role Phone Cele Borrero DO Primary Care Provider +1- [phone] Encounter Details Date Type Department Care Team (Latest Contact Info) Description 03/18/2005 Outpatient Historical [facility] Medicine- [place] [address] [place] [address] Jaiden Torres MD [address] [place] [phone] ALLERGIC RHINITIS NOS (Primary Dx) Social History Tobacco Use Types Packs/Day Years Used Date Smoking Tobacco: Never Assessed Comments Unknown Sex and Gender Information Value Date Recorded Sex Assigned at Not on file Legal Sex Female 2:57 AM PERSONNEL INTERVIEWER Gender Identity Not on file Sexual Orientation Not on file documented as of this encounter Plan of Treatment Not on file documented as of this encounter Visit Diagnoses Diagnosis Allergic rhinitis, cause unspecified- Primary documented in this encounter Care Teams Phlebotomy Technician Relationship Specialty Start Date End Date Cele Borrero DO [address] [place] [address] PCP - General Family Practice 04/07/16 documented as of this encounter
--- OUTSIDE RECORDS SUMMARY | 2024-12-27 09:36 | XMS_ITS | Encounter Summary ---
Author Organization [facility] Address [address] [place] [address] Care Team Providers Care Office Services Specialist Name Role Phone Cele Borrero DO Primary Care Provider +1- [phone] Encounter Details Date Type Department Care Team (Latest Contact Info) Description 04/01/2005 Outpatient Historical [facility] Medicine- [place] [address] [place] [address] Jaiden Torres MD [address] [place] [phone] ALLERGIC RHINITIS NOS (Primary Dx) Social History Tobacco Use Types Packs/Day Years Used Date Smoking Tobacco: Never Assessed Comments Unknown Sex and Gender Information Value Date Recorded Sex Assigned at Not on file Legal Sex Female 2:57 AM OIL SPRAYING MACHINE 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
--- OUTSIDE RECORDS SUMMARY | 2024-12-27 09:36 | XMS_ITS | Encounter Summary ---
Author Organization [facility] Address [address] [place] [address] Care Team Providers Care Business And Financial Counsel Name Role Phone Cele Borrero DO Primary Care Provider +1- [phone] Encounter Details Date Type Department Care Team (Latest Contact Info) Description 01/10/2005 Outpatient Historical [facility] Medicine- [place] [address] [place] [address] Jaiden Torres MD [address] [place] [phone] Lumbosacral spondylosis (Primary Dx) Social History Tobacco Use Types Packs/Day Years Used Date Smoking Tobacco: Never Assessed Comments Unknown Sex and Gender Information Value Date Recorded Sex Assigned at Not on file Legal Sex Female 2:57 AM CLOTH SPREADER Gender Identity Not on file Sexual Orientation Not on file documented as of this encounter Plan of Treatment Not on file documented as of this encounter Visit Diagnoses Diagnosis Lumbosacral spondylosis- Primary Lumbosacral spondylosis without myelopathy documented in this encounter Care Teams Business And Financial Counsel Relationship Specialty Start Date End Date Cele Borrero DO [address] [place] [address] PCP - General Family Practice 04/07/16 documented as of this encounter
--- OUTSIDE RECORDS SUMMARY | 2024-12-27 09:36 | XMS_ITS | Encounter Summary ---
Author Organization [facility] Address [address] [place] [address] Care Team Providers Care Line Installer Name Role Phone Cele Borrero DO Primary Care Provider +1- [phone] Encounter Details Date Type Department Care Team (Latest Contact Info) Description 04/09/2005 Outpatient Historical [facility] Medicine- [place] [address] [place] [address] Jaiden Torres MD [address] [place] [phone] MALAISE AND FATIGUE NEC (Primary Dx) Social History Tobacco Use Types Packs/Day Years Used Date Smoking Tobacco: Never Assessed Comments Unknown Sex and Gender Information Value Date Recorded Sex Assigned at Not on file Legal Sex Female 2:57 AM CLIENT ONBOARDING ANALYST Gender Identity Not on file Sexual Orientation Not on file documented as of this encounter Plan of Treatment Not on file documented as of this encounter Visit Diagnoses Diagnosis Other malaise and fatigue- Primary documented in this encounter Care Teams Line Installer Relationship Specialty Start Date End Date Cele Borrero DO [address] [place] [address] PCP - General Family Practice 04/07/16 documented as of this encounter
--- NOTE | 2024-12-27 10:12 | W.ED.SKABFB ---
HPI - Skin/Abscess/Foreign Bdy General: Chief complaint: Skin/Abscess/Foreign Body Stated complaint: pt states she has shinlges, prickly feeling, pain Time Seen by Provider: 12/27/24 09:36 History of Present Illness: 54-year-old female presents emergency room concerned about 2 things when she has a rash residual from varicella she has been on dexamethasone and valacyclovir. She is has some postherpetic neuralgia she has been started on gabapentin. She is approximately 10 to 12 days since the start of the varicella. She also has a little bit of swelling and discomfort in the left ear with swollen lymph nodes. No fever sweats or chills. Associated symptoms: Deny chills or fever(s) Related Data Home Medications ?Medication ?Instructions ?Recorded ?Confirmed bumetanide 0.5 mg tablet 0.5 mg PO QAM 06/03/22 04/08/24 montelukast 10 mg tablet 10 mg PO BEDTIME 06/03/22 04/08/24 albuterol sulfate 90 mcg/actuation 2 puff inhalation Q6H PRN 08/22/22 04/08/24 aerosol inhaler (Ventolin HFA) Shortness Of Breath atorvastatin 40 mg tablet 40 mg PO BEDTIME 08/22/22 04/08/24 Held on 03/03/24. Instructions: Adverse Reaction pantoprazole 40 mg tablet,delayed 40 mg PO QAM 08/22/22 04/08/24 release (Protonix) baclofen 10 mg tablet 20 mg PO BEDTIME 12/09/22 04/08/24 hydrocodone 7.5 mg-acetaminophen 1 tab PO BID Pain 01/15/23 04/08/24 325 mg tablet potassium chloride 10 mEq 10 meq PO EVERY OTHER DAY PRN Edema 01/15/23 04/08/24 tablet,extended release spironolactone 25 mg tablet 50 mg PO QAM 01/15/23 04/08/24 Held on 03/03/24. Instructions: Doctor's Order levocetirizine 5 mg tablet 5 mg PO DAILY 03/18/23 04/08/24 naloxone 4 mg/actuation nasal 4 mg intranasal Q2M PRN OVERDOSE 03/18/23 04/08/24 spray (Narcan) azelastine 137 mcg (0.1 %) nasal 1 - 2 spray intranasal BID 09/15/23 04/08/24 spray ergocalciferol (vitamin D2) 1,250 1,250 mcg PO Q7D 09/15/23 04/08/24 mcg (50,000 unit) capsule hydroxyzine HCl 25 mg tablet 25 mg PO BID PRN 07/12/24 resmetirom 100 mg tablet 100 mg PO DAILY 07/12/24 (Rezdiffra) tirzepatide (weight loss) 2.5 mg SUBCUT 07/12/24 mg/0.5 mL subcutaneous pen injector (Zepbound) Previous Rx's ?Medication ?Instructions ?Recorded epinephrine 0.3 mg/0.3 mL 0.3 mg (0.3 mL) IM Q10M PRN 01/22/22 injection, auto-injector anaphylaxis #2 ea nitroglycerin 0.4 mg sublingual 0.4 mg sublingual Q5M PRN chest 09/16/24 tablet pain #30 tabs metoprolol tartrate 25 mg tablet 12.5 mg (1/2 x 25 mg) PO BID #45 10/21/24 tabs ciprofloxacin HCl 500 mg tablet 500 mg PO BID #14 tabs 11/07/24 isosorbide mononitrate 30 mg 30 mg PO DAILY #90 tabs 11/14/24 tablet,extended release 24 hr cephalexin 500 mg capsule 500 mg PO TID 7 days #21 caps 12/27/24 Allergies Allergy/AdvReac Type Severity Reaction Status Date / Time amoxicillin Allergy rash Verified 12/27/24 09:33 celecoxib (From Celebrex) Allergy ALGY-Hives Verified 12/27/24 09:33 cyclobenzaprine (From Allergy rash Verified 12/27/24 09:33 Flexeril) egg Allergy Unknown Verified 12/27/24 09:33 furosemide (From Lasix) Allergy rash Verified 12/27/24 09:33 hydromorphone (From Dilaudid) Allergy rash Verified 12/27/24 09:33 lidocaine Allergy Unknown Verified 12/27/24 09:33 meperidine (From Demerol) Allergy Unknown Verified 12/27/24 09:33 metformin Allergy Unknown Verified 12/27/24 09:33 milk Allergy ADR-Vomitin Verified 12/27/24 09:33 g nitrofurantoin (From Allergy ALGY-Rash Verified 12/27/24 09:33 Macrobid) prednisone Allergy Unknown Verified 12/27/24 09:33 pregabalin (From Lyrica) Allergy unknown Verified 12/27/24 09:33 tramadol Allergy rash Verified 12/27/24 09:33 lisinopril AdvReac hypotension Verified 12/27/24 09:33 Review of Systems Const: Denies: fever(s) or chills Card: Denies: chest pain Resp: Denies: dyspnea GI: Denies: abdominal pain : Denies: dysuria, urinary frequency or urinary urgency Musc: Denies: neck pain or back pain Skin/Breast: Denies: rash PFSH ED PFSH: Medical History CHF (congestive heart failure) Chronic fatigue Right upper quadrant abdominal pain Gastritis Gastric bezoar Cervical osteoarthritis Cervical disc disorder with myelopathy of mid-cervical region Acquired lymphedema of lower extremity Surgical History S/P placement of nerve stimulator Hx of neck surgery History of lumbar surgery 2015 Dr. Molina Tolentino Neurosurgeon [facility] L2-L3 decompression History of knee surgery History of tubal ligation History of lymph node biopsy History of elbow surgery [address]an P[address] [facility] Orthopedic Surgery Left ulnar nerve transposition. Right ulnar nerve transposition History of oral surgery Family History Mother Diabetes Father Lung disease Grandmother Congestive heart failure (CHF) CAD (coronary artery disease) Chronic kidney disease (CKD) Stroke Family/Other CAD (coronary artery disease) Cancer Lung disease Social History Smoking and tobacco/nicotine status: never used tobacco/nicotine Alcohol intake: former Substance/Drug Use: former Household members: spouse Marital status: Current occupational status: unemployed Physical Exam Const: COMMON NORMALS: no acute distress GENERAL APPEARANCE: cooperative and comfortable ORIENTATION/CONSCIOUSNESS: Yes awake, Yes oriented to person, Yes oriented to place and Yes oriented to time HENMT: COMMON NORMALS: normocephalic, atraumatic and hearing grossly normal bilaterally HEAD & SCALP: normocephalic and atraumatic OTHER: Mildly tender submandibular nodes. TM and external auditory canal not right are clear. Oropharynx clear oral mucosa pink and moist no redness erythema no exudate. No left-sided lymphadenopathy. Lymphadenopathy is only present above the clavicle on the right side. No supra or infra clavicular lymph nodes noted. Resp: COMMON NORMALS: normal respiratory effort, No retractions, No use of accessory muscles and clear to auscultation bilaterally AUSCULTATION: clear to auscultation bilaterally Cardio: COMMON NORMALS: regular rate, regular rhythm and No murmurs present (Cardio) RATE: regular rate RHYTHM: regular rhythm Extremity: COMMON NORMALS: normal to inspection, capillary refill normal, no clubbing, cyanosis or edema, no calf tenderness and no pedal edema Neuro: SENSORIUM/ORIENTATION: Yes oriented to person, Yes oriented to place and Yes oriented to time Skin: OTHER: Examination skin patient has a T8 dermatome varicella marked delineation at the midline and from above and below dermatomes. The most contracted areas near the spine there are some dry crusting there. No vesicles present there is much sparse or crusting around the anterior axilla and the lower chest on the right. Course Vital Signs: Vital signs: Vital Signs Temperature 97.5 F L 12/27/24 09:27 Pulse Rate 83 12/27/24 10:26 Respiratory Rate 16 12/27/24 10:26 Blood Pressure 105/85 12/27/24 10:26 Pulse Oximetry 98 12/27/24 10:26 Oxygen Delivery Me thod Room Air 12/27/24 09:27 MDM - Skin/Abscess/Foreign Bdy Medicial Decision Making Varicella healing in a typical fashion discussed that this is about what to expect given this point it will take several more weeks probably before the skin completely clears up she will likely have some postherpetic neuralgia for longer period after that. Discussed with that with the dexamethasone and the valacyclovir that should shorten it but the rash that is present will still need to work through its course. She is very concerned about the lymphadenopathy will put her on a short requested Keflex advised that it may still be present at the end of that time observe if has persistent lymphadenopathy follow-up with her primary care doctor Medical Records I reviewed the patient's medical records. Lab Data I reviewed the patient's lab results. No radiology studies performed this visit Discharge Plan Discharge Patient Disposition: Home Clinical Impression: Zoster, Lymphadenopathy Condition: Stable Prescriptions: New cephalexin 500 mg capsule 500 mg PO TID 7 Days Qty: 21 0RF No Action baclofen 10 mg tablet 20 mg PO BEDTIME spironolactone 25 mg tablet 50 mg PO QAM hydroxyzine HCl 25 mg tablet 25 mg PO BID PRN Zepbound 2.5 mg/0.5 mL pen injector SUBCUT Rezdiffra 100 mg tablet 100 mg PO DAILY bumetanide 0.5 mg tablet 0.5 mg PO QAM montelukast 10 mg tablet 10 mg PO BEDTIME hydrocodone-acetaminophen 7.5-325 mg tablet 1 tab PO BID potassium chloride 10 mEq tablet extended release 10 meq PO EVERY OTHER DAY PRN (Reason: Edema) levocetirizine 5 mg tablet 5 mg PO DAILY naloxone [Narcan] 4 mg/actuation spray,non-aerosol 4 mg intranasal Q2M PRN (Reason: OVERDOSE) Rx Instructions: spray 1 dose into ONE nostril; alternate nostrils w each dose until help arrives nitroglycerin 0.4 mg tablet, sublingual 0.4 mg sublingual Q5M PRN (Reason: chest pain) Qty: 30 3RF Rx Instructions: until response; do not exceed 3 doses per episode metoprolol tartrate 25 mg tablet 12.5 mg PO BID Qty: 45 3RF isosorbide mononitrate 30 mg tablet extended release 24 hr 30 mg PO DAILY Qty: 90 3RF epinephrine 0.3 mg/0.3 mL auto-injector 0.3 mg IM Q10M PRN (Reason: anaphylaxis) Qty: 2 0RF Rx Instructions: for 2 doses atorvastatin 40 mg tablet 40 mg PO BEDTIME albuterol sulfate [Ventolin HFA] 90 mcg/actuation HFA aerosol inhaler 2 puff INHALATION Q6H PRN (Reason: Shortness Of Breath) pantoprazole [Protonix] 40 mg tablet,delayed release (DR/EC) 40 mg PO QAM ergocalciferol (vitamin D2) 1,250 mcg (50,000 unit) capsule 1,250 mcg PO Q7D azelastine 137 mcg (0.1 %) aerosol,spray 1 - 2 spray INTRANASAL BID ciprofloxacin HCl 500 mg tablet 500 mg PO BID Qty: 14 0RF Discharge Orders: Discharge ED (Routine); Ordered 12/27/24 Ordered By: Fritz Arboleda Referrals: Cele Borrero DO [Primary Care Provider, Family Practice] Discharge Diet: Usual diet Discharge Activity: Resume usual activity Patient Instructions: Opioid Safety, Pain Management, Patient Portal & Iam Instructions Activity Restrictions/Additional Instructions: Thank you for choosing [facility] for your healthcare needs today. It is very important that you follow up as instructed or that you return to the Emergency Department should you have concerns or if your condition changes or worsens in any way. You were seen in the emergency room with the residual effects of shingles (zoster). The appearance of the rash that you have in the description of the history it appears to be following a typical course to resolution it may take a few more weeks before it completely resolves. As to the swelling near your ear there is open palpable lymph nodes. The TM and external canal itself were clear there is no signs of infection. Will put you on a short course of antibiotic lymph nodes may take 10 to 14 days before they completely resolved. If they are persistent follow-up with your primary care doctor Print Language: Kinyarwanda Coding Level of Care Code ED Staff Midwife/Apprenticeship Director for Ezequiel Randhawa
[2024-12-27 10:26] VITALS: BP 105/85; PULSE 83; RESP 16; O2SAT 98
== END 2024-12-27 10:34 | disposition home or self-care (01) ==
PROVIDERS: Emergency Provider Family Medicine; PCP Family Medicine
DX: B02.9 Zoster without complications (principal); R59.1 Generalized enlarged lymph nodes; I50.9 Heart failure, unspecified
CPT/HCPCS: 99283

== ENCOUNTER 2025-04-13 08:56 | Emergency (ER) | payer MEDICAID, SELFPAY ==
[2025-04-13 08:57] VITALS: PULSE 109; RESP 16; TEMP 36.6; O2SAT 99
--- OUTSIDE RECORDS SUMMARY | 2025-04-13 09:11 | XMS_ITS | Encounter Summary ---
Author Organization [facility] Address [address] [place] [address] Care Team Providers Care Snack Bar Cashier Name Role Phone Cele Borrero DO Primary Care Provider [phone]- [phone] Encounter Details Date Type Department Care Team (Latest Contact Info) Description 09/03/2005 Outpatient Historical [facility] Medicine- [place] [address] [place] [address] Donald Hurtado, CARGO OPERATIONS AGENT [address] [place] [address] Sprain Thoracic Region (Primary Dx); Sprain of Neck Social History Tobacco Use Types Packs/Day Years Used Date Smoking Tobacco: Never Assessed Comments Unknown Sex and Gender Information Value Date Recorded Sex Assigned at Not on file Legal Sex Female 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
--- OUTSIDE RECORDS SUMMARY | 2025-04-13 09:11 | XMS_ITS | Encounter Summary ---
Author Organization [facility] Address [address] [place] [address] Care Team Providers Care Check Processing Clerk Name Role Phone Cele Borrero DO Primary Care Provider [phone]- [phone] Encounter Details Date Type Department Care Team (Latest Contact Info) Description 04/30/2005 Outpatient Historical [facility] Medicine- [place] [address] [place] [address] Jaiden Torres MD [address] [place] [phone] ALLERGIC RHINITIS NOS (Primary Dx) Social History Tobacco Use Types Packs/Day Years Used Date Smoking Tobacco: Never Assessed Comments Unknown Sex and Gender Information Value Date Recorded Sex Assigned at Not on file Legal Sex Female 2:57 AM DATABASE MANAGEMENT SPECIALIST Gender Identity Not on file Sexual Orientation Not on file documented as of this encounter Plan of Treatment Not on file documented as of this encounter Visit Diagnoses Diagnosis Allergic rhinitis, cause unspecified- Primary documented in this encounter Care Teams Check Processing Clerk Relationship Specialty Start Date End Date Cele Borrero DO [address] [place] [address] PCP - General Family Practice 04/07/16 documented as of this encounter
--- OUTSIDE RECORDS SUMMARY | 2025-04-13 09:11 | XMS_ITS | Encounter Summary ---
Author Organization [facility] Address [address] [place] [address] Care Team Providers Care Sweat Band Sewer Name Role Phone Cele Borrero DO Primary Care Provider [phone]- [phone] Encounter Details Date Type Department Care Team (Latest Contact Info) Description 08/28/2005 Outpatient Historical [facility] Orthopedics- 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
--- OUTSIDE RECORDS SUMMARY | 2025-04-13 09:11 | XMS_ITS | Encounter Summary ---
Author Organization [facility] Address [address] [place] [address] Care Team Providers Care Tipple Supervisor Name Role Phone Cele Borrero Primary Care Provider [phone]- [phone] Encounter Details Date Type Department Care Team (Late st Contact Info) Description 09/22/2005 Outpatient Historical [facility] Luis F Roca MD [address] [place] [id number] Social History Tobacco Use Types Packs/Day Years Used Date Smoking Tobacco: Never Assessed Comments Unknown Sex and Gender Information Value Date Recorded Sex Assigned at Not on file Legal Sex Female 2:57 AM PERCHER Gender Identity Not on file Sexual Orientation [...] on filedocumented in this encounter Care Teams Tipple Supervisor Relationship Specialty Start Date End Date Cele Borrero DO [address] [place] [address] PCP - General Family Practice 04/07/16 documented as of this encounter
--- OUTSIDE RECORDS SUMMARY | 2025-04-13 09:11 | XMS_ITS | Encounter Summary ---
Author Organization [facility] Address [address] [place] [address] Care Team Providers Care Ammunition Storekeeper Name Role Phone Cele Borrero DO Primary Care Provider +1- [phone] Encounter Details Date Type Department Care Team (Latest Contact Info) Description 06/27/2005 Outpatient Historical [facility] Medicine [address] [phone] Donald Hurtado, REHEATER HELPER [address] [place] [address] Pure hypercholesterolem (Primary Dx); Dietary surveil/group home counselor Social History Tobacco Use Types Packs/Day Years Used Date Smoking Tobacco: Never Assessed Comments Unknown Sex and Gender Information Value Date Recorded Sex Assigned at Not on file Legal Sex Female 2:57 AM WEB PORTAL DEVELOPER Gender Identity Not on file Sexual Orientation Not on file documented as of this encounter Plan of Treatment Not on file documented as of this encounter Visit Diagnoses Diagnosis Pure hypercholesterolem- Primary Pure hypercholesterolemia Dietary surveil/group home counselor Dietary surveillance and counseling documented in this encounter Care Teams Ammunition Storekeeper Relationship Specialty Start Date End Date Cele Borrero DO [address] [place] [address] PCP - General Family Practice 04/07/16 documented as of this encounter
--- OUTSIDE RECORDS SUMMARY | 2025-04-13 09:11 | XMS_ITS | Encounter Summary ---
Author Organization [facility] Address [address] [place] [address] Care Team Providers Care Catalyst Concentration Operator Name Role Phone Cele Borrero DO Primary Care Provider +1- [phone] Encounter Details Date Type Department Care Team (Latest Contact Info) Description 12/01/2005 Outpatient Historical [facility] Orthopedics- [address] [place] [address] Mike Pena MD [address] [place] [phone] Radial Styloid Tenosynovitis (Primary Dx) Social History Tobacco Use Types Packs/Day Years Used Date Smoking Tobacco: Never Assessed Comments Unknown Sex and Gender Information Value Date Recorded Sex Assigned at Not on file Legal Sex Female 2:57 AM BEATER BOSS Gender Identity Not on file Sexual Orientation Not on file documented as of this encounter Plan of Treatment Not on file documented as of this encounter Visit Diagnoses Diagnosis Radial styloid tenosynovitis- Primary documented in this encounter Care Teams Catalyst Concentration Operator Relationship Specialty Start Date End Date Cele Borrero DO [address] [place] [address] PCP - General Family Practice 04/07/16 documented as of this encounter
--- OUTSIDE RECORDS SUMMARY | 2025-04-13 09:11 | XMS_ITS | Encounter Summary ---
Author Organization [facility] Address [address] [place] [address] Care Team Providers Care Screener Perfumer Name Role Phone Cele Borrero DO Primary Care Provider +1- [phone] Encounter Details Date Type Department Care Team (Latest Contact Info) Description 06/25/2005 Outpatient Historical [facility] Medicine- [place] [address] [place] [address] Donald Hurtado, WILDLIFE OFFICER [address] [place] [address] OTITIS MEDIA NOS (Primary Dx); ACUTE URI NOS Social History Tobacco Use Types Packs/Day Years Used Date Smoking Tobacco: Never Assessed Comments Unknown Sex and Gender Information Value Date Recorded Sex Assigned at Not on file Legal Sex Female 2:57 AM DIE MECHANIC Gender Identity Not on file Sexual Orientation Not on file documented as of this encounter Plan of Treatment Not on file documented as of this encounter Visit Diagnoses Diagnosis Unspecified otitis media- Primary Acute upper respiratory infections of unspecified site documented in this encounter Care Teams Screener Perfumer Relationship Specialty Start Date End Date Cele Borrero DO [address] [place] [address] PCP - General Family Practice 04/07/16 documented as of this encounter
--- OUTSIDE RECORDS SUMMARY | 2025-04-13 09:11 | XMS_ITS | Encounter Summary ---
Author Organization [facility] Address [address] [place] [address] Care Team Providers Care Global Marketing Coordinator Name Role Phone Cele Borrero DO Primary Care Provider +1- [phone] Encounter Details Date Type Department Care Team (Latest Contact Info) Description 06/11/2005 Outpatient Historical [facility] Medicine- [place] [address] [place] [address] Donald Hurtado, PIER MASTER [address] [place] [address] HYPERLIPIDEMIA NEC/NOS (Primary Dx); HYPOTHYROIDISM NOS; HYPERTENSION NOS; Pain in limb Social History Tobacco Use Types Packs/Day Years Used Date Smoking Tobacco: Never Assessed Comments Unknown Sex and Gender Information Value Date Recorded Sex Assigned at Not on file Legal Sex Female 2:57 AM ASSOCIATE DEAN OF STUDENTS Gender Identity Not on file Sexual Orientation Not on file documented as of this encounter Plan of Treatment Not on file documented as of this encounter Visit Diagnoses Diagnosis Other and unspecified hyperlipidemia- Primary Unspecified hypothyroidism Unspecified essential hypertension Pain in limb Pain in soft tissues of limb documented in this encounter Care Teams Global Marketing Coordinator Relationship Specialty Start Date End Date Cele Borrero DO [address] [place] [phone] PCP - General Family Practice 04/07/16 documented as of this encounter
--- OUTSIDE RECORDS SUMMARY | 2025-04-13 09:11 | XMS_ITS | Encounter Summary ---
Author Organization [facility] Address [address] [place] [address] Care Team Providers Care Community Support Worker Name Role Phone Cele Borrero DO Primary Care Provider +1- [phone] Encounter Details Date Type Department Care Team (Latest Contact Info) Description 10/22/2005 Outpatient Historical [facility] Medicine- [place] [address] [place] [address] Donald Hurtado, THORACIC MEDICINE SPECIALIST [address] [place] [address] Allergic Rhinitis, Cause Unspecified (Primary Dx) Social History Tobacco Use Types Packs/Day Years Used Date Smoking Tobacco: Never Assessed Comments Unknown Sex and Gender Information Value Date Recorded Sex Assigned at Not on file Legal Sex Female 2:57 AM STONE CARRIAGE OPERATOR Gender Identity Not on file Sexual Orientation Not on file documented as of this encounter Plan of Treatment Not on file documented as of this encounter Visit Diagnoses Diagnosis Allergic rhinitis, cause unspecified- Primary documented in this encounter Care Teams Community Support Worker Relationship Specialty Start Date End Date Cele Borrero DO [address] [place] [address] PCP - General Family Practice 04/07/16 documented as of this encounter
--- OUTSIDE RECORDS SUMMARY | 2025-04-13 09:11 | XMS_ITS | Encounter Summary ---
Author Organization [facility] Address [address] [place] [address] Care Team Providers Care Peanut Butter Maker Name Role Phone Cele Borrero DO Primary Care Provider +1- [phone] Encounter Details Date Type Department Care Team (Latest Contact Info) Description 07/03/2005 Outpatient Historical [facility] Medicine- [place] [address] [place] [address] Donald Hurtado, CLEANING CUSTODIAN [address] [place] [address] HYPERLIPIDEMIA NEC/NOS (Primary Dx); ACUTE URI NOS Social History Tobacco Use Types Packs/Day Years Used Date Smoking Tobacco: Never Assessed Comments Unknown Sex and Gender Information Value Date Recorded Sex Assigned at Not on file Legal Sex Female 2: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
--- OUTSIDE RECORDS SUMMARY | 2025-04-13 09:11 | XMS_ITS | Encounter Summary ---
Author Organization [facility] Address [address] [place] [address] Care Team Providers Care Imaging Aide Name Role Phone Cele Borrero Primary Care Provider +1- [phone] Encounter Details Date Type Department Care Team (Latest Contact Info) Description 06/11/2005 Outpatient Historical [address] [phone] Donald Hurtado, ELECTRIC METER INSTALLER [address] [place] [address] MALAISE AND FATIGUE NEC (Primary Dx) Social History Tobacco Use Types Packs/Day Years Used Date Smoking Tobacco: Never Assessed Comments Unknown Sex and Gender Information Value Date Recorded Sex Assigned at Not on file Legal Sex Female 2:57 AM ELECTRIC MILKERS INSTALLER Gender Identity Not on file Sexual Orientation Not on file documented as of this encounter Plan of Treatment Not on file documented as of this encounter Procedures Procedure Name Priority Date/Time Associated Diagnosis Comments ACUTE HEPATITIS PANEL Routine 06/11/2005 11:42 AM ELECTRIC MILKERS INSTALLER documented in this encounter Results * ACUTE HEPATITIS PANEL (06/11/2005 11:42 AM ELECTRIC MILKERS INSTALLER) HEPATITIS B SURFACE AG Negative Negative INTERFACE [...] RIBA is desired. 06/11/2005 11:4 2 AM ELECTRIC MILKERS INSTALLER us Historical Provider CHEMISTRY ORDERABLES Final R esult INTERFACE SYSTEM Refer to clinic/hospital department documented in this encounter Visit Diagnoses Diagnosis Other malaise and fatigue- Primary documented in this encounter Care Teams Imaging Aide Relationship Specialty Start Date End Date Cele Borrero DO [address] [place] [address] PCP - General Family Practice 04/07/16 documented as of this encounter
--- OUTSIDE RECORDS SUMMARY | 2025-04-13 09:11 | XMS_ITS | Encounter Summary ---
Author Organization [facility] Address [address] [place] [address] Care Team Providers Care Mid Level Clinician Name Role Phone Cele Borrero DO Primary Care Provider +1- [phone] Encounter Details Date Type Department Care Team (Latest Contact Info) Description 04/21/2005 Outpatient Historical [facility] Medicine- [place] [address] [place] [address] Jaiden Torres MD [address] [place] [phone] ALLERGIC RHINITIS NOS (Primary Dx) Social History Tobacco Use Types Packs/Day Years Used Date Smoking Tobacco: Never Assessed Comments Unknown Sex and Gender Information Value Date Recorded Sex Assigned at Not on file Legal Sex Female 2:57 AM SLAT BASKET MAKER HELPER Gender Identity Not on file Sexual Orientation Not on file documented as of this encounter Plan of Treatment Not on file documented as of this encounter Visit Diagnoses Diagnosis Allergic rhinitis, cause unspecified- Primary documented in this encounter Care Teams Mid Level Clinician Relationship Specialty Start Date End Date Cele Borrero DO [address] [place] [address] PCP - General Family Practice 04/07/16 documented as of this encounter
--- OUTSIDE RECORDS SUMMARY | 2025-04-13 09:11 | XMS_ITS | Encounter Summary ---
Author Organization [facility] Address [address] [place] [address] Care Team Providers Care Personal Shopper Name Role Phone Cele Borrero DO Primary Care Provider +1- [phone] Encounter Details Date Type Department Care Team (Late st Contact Info) Description 12/01/2005 Outpatient Historical [facility] Hand Therapy [address] [place] [address] Mike Pena MD [address] [place] [phone] Social History Tobacco Use Types Packs/Day Years Used Date Smoking Tobacco: Never Assessed Comments Unknown Sex and Gender Information Value Date Recorded Sex Assigned at Not on file Legal Sex Female 2:57 AM DOG TRAINER Gender Identity Not on file Sexual Orientation Not on file documented as of this encounter Plan of Treatment Not on file documented as of this encounter Visit Diagnoses Not on filedocumented in this encounter Care Teams Personal Shopper Relationship Specialty Start Date End Date Cele Borrero DO [address] [place] [address] PCP - General Family Practice 04/07/16 documented as of this encounter
--- OUTSIDE RECORDS SUMMARY | 2025-04-13 09:11 | XMS_ITS | Encounter Summary ---
Author Organization [facility] Address [address] [place] [address] Care Team Providers Care Science Consultant Name Role Phone Cele Borrero DO Primary Care Provider +1- [phone] Encounter Details Date Type Department Care Team (Latest Contact Info) Description 09/18/2005 Outpatient Historical [facility] Medicine- [place] [address] [place] [address] Donald Hurtado, DISTRICT MEDICAL EXAMINER [address] [place] [address] Contact Dermatitis and Other Eczema, due to Unspecified Cause (Primary Dx); Head Injury, Unspecified Social History Tobacco Use Types Packs/Day Years Used Date Smoking Tobacco: Never Assessed Comments Unknown Sex and Gender Information Value Date Recorded Sex Assigned at Not on file Legal Sex Female 2:57 AM INSURANCE JOB TITLES Gender Identity Not on file Sexual Orientation Not on file documented as of this encounter Plan of Treatment Not on file documented as of this encounter Visit Diagnoses Diagnosis Contact dermatitis and other eczema, due to unspecified cause- Primary Head injury, unspecified documented in this encounter Care Teams Science Consultant Relationship Specialty Start Date End Date Cele Borrero DO [address] [place] [address] PCP - General Family Practice 04/07/16 documented as of this encounter
--- NOTE | 2025-04-13 09:12 | CT_ITS ---
WS: [id number] CT ABDOMEN AND PELVIS WITH CONTRAST HISTORY: abd pain TECHNIQUE: Imaging performed of the abdomen and pelvis with IV contrast. Single phase imaging of the abdomen. Coronal and sagittal reformats are submitted. All CT scans at [facility] use at least one of these dose optimization techniques: automated exposure control; mA and/or kV adjustment per patient size (includes targeted exams where dose is matched to clinical indication); or iterative reconstruction. IV CONTRAST: Omnipaque 350; 100 mL IV. Oral contrast: No DLP: 1333.13 mGy.cm COMPARISON: 08/22/2022 Lower thorax: Lung bases are clear. Heart is normal size. No hiatal hernia. Liver/biliary system: Normal size with no intrahepatic dilatation. Gallbladder: Status post cholecystectomy. Pancreas: Normal size pancreas and pancreatic duct. No adjacent inflammation. Spleen: Normal size spleen. No mass or infarct. Adrenal glands: Normal. Right kidney: No hydronephrosis or perinephric stranding. Small caliber RIGHT ureter. There are a few calcifications within the pelvis which are closely associated with the ureter but I believe are external to the ureter. Left kidney: Normal size kidney. Mid LEFT renal cyst at 1.5 cm. Normal size ureter. Aorta: Normal. Lymphadenopathy: None. Free fluid: None. GI tract: No obstruction. No colitis. Normal appendix. Abdominal wall: Fat containing umbilical hernia. Pelvis: No free fluid or adenopathy within the pelvis. Normal size anteverted uterus. No pelvic mass. Bones: Unremarkable. Dorsal column stimulator noted in the mid thoracic region. CT/CT abdomen pelvis w con* [id number] IMPRESSION: 1. No GI tract obstruction or colitis. 2. No appendicitis. 3. No renal obstruction. 4. Stable LEFT renal cyst. 5. Prior cholecystectomy.
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
--- OUTSIDE RECORDS SUMMARY | 2025-04-13 09:12 | XMS_ITS | Encounter Summary ---
Author Organization [facility] Address [address] [place] [address] Care Team Providers Care Slack Line Yarder Name Role Phone Cele Borrero DO Primary Care Provider +1- [phone] Encounter Details Date Type Department Care Team (Late st Contact Info) Description 01/01/2006 Outpatient Historical [facility] Hand Therapy [address] [place] [address] [place] [address] Mike Pena MD [address] [place] [address] Social History Tobacco Use Types Packs/Day Years Used Date Smoking Tobacco: Never Assessed Comments Unknown Sex and Gender Information Value Date Recorded Sex Assigned at Not on file Legal Sex Female 2:57 AM VEST FINISHER Gender Identity Not on file Sexual Orientation Not on file documented as of this encounter Plan of Treatment Not on file documented as of this encounter Visit Diagnoses Not on filedocumented in this encounter Care Teams Slack Line Yarder Relationship Specialty Start Date End Date Cele Borrero DO [address] [place] [address] PCP - General Family Practice 04/07/16 documented as of this encounter
--- OUTSIDE RECORDS SUMMARY | 2025-04-13 09:12 | XMS_ITS | Encounter Summary ---
Author Organization [facility] Address [address] [place] [address] Care Team Providers Care Brancher Name Role Phone Cele Borrero Primary Care Provider +1- [phone] Encounter Details Date Type Department Care Team (Latest Contact Info) Description 08/21/2004 Outpatient Historical [facility] [address] [place] [address] Jaiden Torres MD [address] [place] [phone] DIARRHEA NOS (Primary Dx) Social History Tobacco Use Types Packs/Day Years Used Date Smoking Tobacco: Never Assessed Comments Unknown Sex and Gender Information Value Date Recorded Sex Assigned at Not on file Legal Sex Female 2:57 AM HELICOPTER CREW CHIEF Gender Identity Not on file Sexual Orientation Not on file documented as of this encounter Plan of Treatment Not on file documented as of this encounter Procedures Procedure Name Priority Date/Time Associated Diagnosis Comments TSH Routine 08/21/2004 1:30 PM HELICOPTER CREW CHIEF T4 FREE Routine 08/21/2004 1:30 PM HELICOPTER CREW CHIEF COMPREHENSIVE METABOLIC PANEL Routine 08/21/2004 1:30 PM HELICOPTER CREW CHIEF documented in this encounter Results * (ABNORMAL) T4 FREE (08/21/2004 1:30 PM HELICOPTER CREW CHIEF) T4 FREE 0.67(L) 0.71 - 1.85 ng/dL INTERFACE SYSTEM 08/21/2004 1:30 PM HELICOPTER CREW CHIEF us Jaiden Torres MD CHEMISTRY ORDERABLES Final Res ult Performing Organization Address City/[facility] Co de Phone Number INTERFACE SYSTEM Refer to clinic/hospital department * TSH (08/21/2004 1:30 PM HELICOPTER CREW CHIEF) TSH 1.12 0.49 - 4.67 uIU/ml INTERFACE SYSTEM 08/21/2004 1:30 PM HELICOPTER CREW CHIEF us Jaiden Torres MD CHEMISTRY ORDERABLES Final Res ult Performing Organization Address City/[facility] de Phone Number INTERFACE SYSTEM Refer to clinic/hospital department * (ABNORMAL) COMPREHENSIVE METABOLIC PANEL (08/21/2004 1:30 PM HELICOPTER CREW CHIEF) GLUCOSE 88 70 - 110 mg/dL INTERFACE [...] 295 mOsm/Kg INTERFACE SYSTEM 08/21/2004 1:30 PM HELICOPTER CREW CHIEF Result Raj Torres MD CHEMISTRY ORDERABLES Final Res ult INTERFACE SYSTEM Refer to clinic/hospital department documented in this encounter Visit Diagnoses Diagnosis Diarrhea- Primary documented in this encounter Care Teams Brancher Relationship Specialty Start Date End Date Cele Borrero DO [address] [place] [address] PCP - General Family Practice 04/07/16 documented as of this encounter
--- OUTSIDE RECORDS SUMMARY | 2025-04-13 09:12 | XMS_ITS | Encounter Summary ---
Author Organization [facility] Address [address] [place] [address] Care Team Providers Care Dining Host Name Role Phone Cele Borrero DO Primary Care Provider +1- [phone] Encounter Details Date Type Department Care Team (Latest Contact Info) Description 09/25/2004 Outpatient Historical [facility] [address] [place] [address] Jaiden Torres MD [address] [place] [phone] HYPOTHYROIDISM NOS (Primary Dx) Social History Tobacco Use Types Packs/Day Years Used Date Smoking Tobacco: Never Assessed Comments Unknown Sex and Gender Information Value Date Recorded Sex Assigned at Not on file Legal Sex Female 2:57 AM DIRECTOR OF ENTERTAINMENT Gender Identity Not on file Sexual Orientation [...] Primary documented in this encounter Care Teams Dining Host Relationship Specialty Start Date End Date Cele Borrero DO [address] [place] [address] PCP - General Family Practice 04/07/16 documented as of this encounter
--- OUTSIDE RECORDS SUMMARY | 2025-04-13 09:12 | XMS_ITS | Encounter Summary ---
Author Organization [facility] Address [address] [place] [address] Care Team Providers Care Oral Surgery Physician Name Role Phone Cele Borrero DO Primary Care Provider +1- [phone] Encounter Details Date Type Department Care Team (Latest Contact Info) Description 10/29/2004 Outpatient Historical [facility] Medicine- [place] [address] [place] [address] Jaiden Torres MD [address] [place] [phone] Pain in limb (Primary Dx); ALLERGIC RHINITIS NOS Social History Tobacco Use Types Packs/Day Years Used Date Smoking Tobacco: Never Assessed Comments Unknown Sex and Gender Information Value Date Recorded Sex Assigned at Not on file Legal Sex Female 2:57 AM OIL DISTRIBUTOR Gender Identity Not on file Sexual Orientation Not on file documented as of this encounter Plan of Treatment Not on file documented as of this encounter Visit Diagnoses Diagnosis Pain in limb- Primary Pain in soft tissues of limb Allergic rhinitis, cause unspecified documented in this encounter Care Teams Oral Surgery Physician Relationship Specialty Start Date End Date Cele Borrero DO [address] [place] [address] PCP - General Family Practice 04/07/16 documented as of this encounter
--- OUTSIDE RECORDS SUMMARY | 2025-04-13 09:12 | XMS_ITS | Encounter Summary ---
Author Organization [facility] Address [address] [place] [address] Care Team Providers Care Design Drafter Chief Name Role Phone Cele Borrero Primary Care Provider +1- [phone] Encounter Details Date Type Department Care Team (Latest Contact Info) Description 03/01/2018 Ancillary Orders [facility] Imaging Services [address] [place] [address] Giuliana Smith, ADRIANA NO ADDRESS [...] on file Legal Sex Female 2:57 AM GAG WRITER Gender Identity Not on file Sexual Orientation [...] the left sacroiliac joint is also noted. [id number] Narrative Procedure Note Daniella Colón MD - [...] the left sacroiliac joint is also noted. [id number] Giuliana Smith SHOP HELPER DIAGNOSTIC IMAGING ORDERABLES Final Result documented in this encounter Visit Diagnoses Diagnosis Arthritis of left hip Arthritis of left hip documented in this encounter Care Teams Design Drafter Chief Relationship Specialty Start Date End Date Cele Borrero DO [address] [place] [address] PCP - General Family Practice 04/07/16 documented as of this encounter
--- OUTSIDE RECORDS SUMMARY | 2025-04-13 09:12 | XMS_ITS | Encounter Summary ---
Author Organization [facility] Address [address] [place] [address] Care Team Providers Care Logistical Engineer Name Role Phone Cele Borrero DO Primary Care Provider +1- [phone] Encounter Details Date Type Department Care Team (Latest Contact Info) Description 09/16/2004 Outpatient Historical [facility] Medicine- [place] [address] [place] [address] Jaiden Torres MD [address] [place] [phone] DERMATITIS NOS (Primary Dx); ALLERGIC RHINITIS NOS Social History Tobacco Use Types Packs/Day Years Used Date Smoking Tobacco: Never Assessed Comments Unknown Sex and Gender Information Value Date Recorded Sex Assigned at Not on file Legal Sex Female 2:57 AM FINANCIAL REPORTING CONSULTANT Gender Identity Not on file Sexual Orientation Not on file documented as of this encounter Plan of Treatment Not on file documented as of this encounter Visit Diagnoses Diagnosis Contact dermatitis and other eczema, due to unspecified cause- Primary Allergic rhinitis, cause unspecified documented in this encounter Care Teams Logistical Engineer Relationship Specialty Start Date End Date Cele Borrero DO [address] [place] [address] PCP - General Family Practice 04/07/16 documented as of this encounter
--- OUTSIDE RECORDS SUMMARY | 2025-04-13 09:12 | XMS_ITS | Encounter Summary ---
Author Organization [facility] Address [address] [place] [address] Care Team Providers Care Tobacco Baler Name Role Phone Cele Borrero Primary Care Provider +1- [phone] Encounter Details Date Type Department Care Team (Latest Contact Info) Description 11/19/2004 Outpatient Historical [facility] [address] [place] [address] Jaiden Torres MD [address] [place] [address] ACQUIRED HYPOTHYROID NEC (Primary Dx) Social History Tobacco Use Types Packs/Day Years Used Date Smoking Tobacco: Never Assessed Comments Unknown Sex and Gender Information Value Date Recorded Sex Assigned at Not on file Legal Sex Female 2:57 AM INFORMATICS PHYSICIAN LIAISON Gender Identity Not on file Sexual Orientation [...] Comment: As of 04 at 3:00 p.m. [facility] has changed the methodology for Free T4, and with this change the reference range has changed from 0.71-1.85 to 0.89-1.76 ng/dl. 11/19/2004 8:50 AM CDT us Jaiden Torres MD CHEMISTRY ORDERABLES Final Res ult Performing Organization Address City/[facility] de Phone Number INTERFACE SYSTEM Refer to clinic/hospital department * TSH (11/19/2004 8:50 AM CDT) TSH 0.942 0.350 - 5.500 uIU/ml INTERFACE SYSTEM Comment: [facility]SH, and with this change the reference range has changed from 0.49-4.67 to 0.35-5.5 uIU/ml. 11/19/2004 8:50 AM CDT us Jaiden Torres MD CHEMISTRY ORDERABLES Final Res ult Performing Organization Address [facility] de Phone Number INTERFACE SYSTEM Refer to clinic/hospital department documented in this encounter Visit Diagnoses Diagnosis Other specified acquired hypothyroidism- Primary documented in this encounter Care Teams Tobacco Baler Relationship Specialty Start Date End Date Cele Borrero DO [address] [place] [address] PCP - General Family Practice 04/07/16 documented as of this encounter
--- OUTSIDE RECORDS SUMMARY | 2025-04-13 09:12 | XMS_ITS | Encounter Summary ---
Author Organization [facility] Address [address] [place] [address] Care Team Providers Care Inner Diameter Grinder Tool Name Role Phone Cele Borrero DO Primary Care Provider +1- [phone] Encounter Details Date Type Department Care Team (Latest Contact Info) Description 01/24/2004 Outpatient [facility] [address] [place] [address] [phone] Mike Bragg, PhD NO ADDRESS ON FILE TOOTH ERUPTION DISTURB (Primary Dx) Social History Tobacco Use Types Packs/Day Years Used Date Smoking Tobacco: Never Assessed Comments Unknown Sex and Gender Information Value Date Recorded Sex Assigned at Not on file Legal Sex Female 2:57 AM CEO AND PRESIDENT Gender Identity Not on file Sexual Orientation Not on file documented as of this encounter Plan of Treatment Not on file documented as of this encounter Visit Diagnoses Diagnosis Disturbances in tooth eruption- Primary documented in this encounter Care Teams Inner Diameter Grinder Tool Relationship Specialty Start Date End Date Cele Borrero DO [address] [place] [address] PCP - General Family Practice 04/07/16 documented as of this encounter
--- OUTSIDE RECORDS SUMMARY | 2025-04-13 09:12 | XMS_ITS | Encounter Summary ---
Author Organization [facility] Address [address] [place] [address] Care Team Providers Care Superintendent Geophysical Laboratory Name Role Phone Cele Borrero DO Primary Care Provider +1- [phone] Encounter Details Date Type Department Care Team (Latest Contact Info) Description 09/25/2004 Outpatient Historical [facility] Medicine- [place] [address] [place] [address] Jaiden Torres MD [address] [place] [phone] HYPOTHYROIDISM NOS (Primary Dx) Social History Tobacco Use Types Packs/Day Years Used Date Smoking Tobacco: Never Assessed Comments Unknown Sex and Gender Information Value Date Recorded Sex Assigned at Not on file Legal Sex Female 2:57 AM MECHANIC INSULATOR Gender Identity Not on file Sexual Orientation Not on file documented as of this encounter Plan of Treatment Not on file documented as of this encounter Visit Diagnoses Diagnosis Unspecified hypothyroidism- Primary documented in this encounter Care Teams Superintendent Geophysical Laboratory Relationship Specialty Start Date End Date Cele Borrero DO [address] [place] [address] PCP - General Family Practice 04/07/16 documented as of this encounter
--- OUTSIDE RECORDS SUMMARY | 2025-04-13 09:12 | XMS_ITS | Encounter Summary ---
Author Organization [facility] Address [address] [place] [address] Care Team Providers Care Residential Living Assistant Name Role Phone Cele Borrero DO Primary Care Provider +1- [phone] Encounter Details Date Type Department Care Team (Latest Contact Info) Description 12/24/[address] [facility] Medicine- [place] [address] [place] [address] Jaiden Torres MD [address] [phone] DERMATITIS NOS (Primary Dx); ALLERGIC RHINITIS NOS Social History Tobacco Use Types Packs/Day Years Used Date Smoking Tobacco: Never Assessed Comments Unknown Sex and Gender Information Value Date Recorded Sex Assigned at Not on file Legal Sex Female 2:57 AM CONSTRUCTION PROJECT ENGINEER Gender Identity Not on file Sexual Orientation Not on file documented as of this encounter Plan of Treatment Not on file documented as of this encounter Visit Diagnoses Diagnosis Contact dermatitis and other eczema, due to unspecified cause- Primary Allergic rhinitis, cause unspecified documented in this encounter Care Teams Residential Living Assistant Relationship Specialty Start Date End Date Cele Borrero DO [address] [place] [address] PCP - General Family Practice 04/07/16 documented as of this encounter
--- OUTSIDE RECORDS SUMMARY | 2025-04-13 09:12 | XMS_ITS | Encounter Summary ---
Author Organization [facility] Address [address] [place] [address] Care Team Providers Care Supervisor Accounting Clerks Name Role Phone Cele Borrero DO Primary Care Provider +1- [phone] Encounter Details Date Type Department Care Team (Latest Contact Info) Description 10/16/2004 Outpatient Historical [facility] Medicine- [place] [address] [place] [address] Jaiden Torres MD [address] [place] [phone] ALLERGIC RHINITIS NOS (Primary Dx) Social History Tobacco Use Types Packs/Day Years Used Date Smoking Tobacco: Never Assessed Comments Unknown Sex and Gender Information Value Date Recorded Sex Assigned at Not on file Legal Sex Female 2:57 AM CHEMICAL OPERATIONS AND TRAINING Gender Identity Not on file Sexual Orientation Not on file documented as of this encounter Plan of Treatment Not on file documented as of this encounter Visit Diagnoses Diagnosis Allergic rhinitis, cause unspecified- Primary documented in this encounter Care Teams Supervisor Accounting Clerks Relationship Specialty Start Date End Date Cele Borrero DO [address] [place] [address] PCP - General Family Practice 04/07/16 documented as of this encounter
--- OUTSIDE RECORDS SUMMARY | 2025-04-13 09:12 | XMS_ITS | Encounter Summary ---
Author Organization [facility] Address [address] [place] [address] Care Team Providers Care Employee Relations Consultant Name Role Phone Cele Borrero DO Primary Care Provider [phone]- [phone] Encounter Details Date Type Department Care Team (Latest Contact Info) Description 12/10/2004 Outpatient Historical [facility] Medicine- [place] [address] [place] [address] Jaiden Torres MD [address] [place] [id number] ALLERGIC RHINITIS NOS (Primary Dx) Social History Tobacco Use Types Packs/Day Years Used Date Smoking Tobacco: Never Assessed Comments Unknown Sex and Gender Information Value Date Recorded Sex Assigned at Not on file Legal Sex Female 2:57 AM TAX COLLECTION COORDINATOR Gender Identity Not on file Sexual Orientation Not on file documented as of this encounter Plan of Treatment Not on file documented as of this encounter Visit Diagnoses Diagnosis Allergic rhinitis, cause unspecified- Primary documented in this encounter Care Teams Employee Relations Consultant Relationship Specialty Start Date End Date Cele Borrero DO [address] [place] [address] PCP - General Family Practice 04/07/16 documented as of this encounter
--- OUTSIDE RECORDS SUMMARY | 2025-04-13 09:12 | XMS_ITS | Encounter Summary ---
Author Organization [facility] Address [address] [place] [address] Care Team Providers Care Watershed Manager Name Role Phone Cele Borrero DO Primary Care Provider [phone]- [phone] Encounter Details Date Type Department Care Team (Latest Contact Info) Description 01/24/2004 Outpatient Historical [facility] Oral and [place] Surgery[address] [place] [address] Mike Bragg, PhD NO ADDRESS ON FILE TOOTH POSITION ANOMALY (Primary Dx) Social History Tobacco Use Types Packs/Day Years Used Date Smoking Tobacco: Never Assessed Comments Unknown Sex and Gender Information Value Date Recorded Sex Assigned at Not on file Legal Sex Female 2:57 AM INTERNATIONAL EXCHANGE COORDINATOR Gender Identity Not on file Sexual Orientation Not on file documented as of this encounter Plan of Treatment Not on file documented as of this encounter Visit Diagnoses Diagnosis 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
--- OUTSIDE RECORDS SUMMARY | 2025-04-13 09:12 | XMS_ITS | Encounter Summary ---
Author Organization [facility] Address [address] [place] [address] Care Team Providers Care Dope Heater Name Role Phone Cele Borrero Brandie ANTONY Primary Care Provider [phone]- [phone] Reason for Referral * Outpatient Services (Routine) [...] FLOW Raj Pardo MD Phone: tel: fax: [facility] [place] [address] [place] [address] Phone: tel: fax: Referral ID Status Reason Start Date Expiration Date V isits Requested Visits Authorized [id number] Closed [facility] TO SCHEDULE ([facility]) 02/03/2017 03/06/2018 1 1 Encounter Details Date Type Department Care Team (Latest Contact Info) Description 02/17/2017 Ancillary Orders [facility] Cardiology- [place] [address] [place] [address] Raj Pardo MD [address] [place] [address] Chest pain, unspecified; SOB (shortness [...] on file 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 Gender Identity Not on file Sexual Orientation Not on file documented as of this encounter Plan of Treatment Not on file documented as of this encounter Results * ECHO STRESS W CONTRAST PHARM W DOPP AND COLOR FL (02/17/2017 8:33 AM CDT) EJECTION FRACTION 53 INTERFACE SYSTEM 02/17/2017 7:49 AM CDT Narrative INTERFACE SYSTEM - 02/17/2017 9:16 AM CDT [facility] Echocardiography-[place] [address] [place] [address] Stress Echocardiography Dobutamine Patient: Arlyn Study ECHO STRESS Lanie Blum ID: TEST Gender: Elvis : 1970 Age: 47 Room: Study 02/17/2017 Pt Outpatient Date: Status: Study 07:49 AM CSN #: [id number] Time: Ordering:Raj Pardo MD Interpreting:Hal Portillo MD Fabric Awning Repairer: Adin Roper [facility] Indications and History: Chest pain, unspecified [R07.9 [...] peak heart rate and blood pressure was 96019lp Hg/min. The patient experienced no chest pain [...] peak heart rate and blood pressure was 24569ur Hg/min. The patient experienced no chest pain [...] cm/s Peak 5 mm Hg gradient, S [facility] are accredited with the [facility] Acc[facility] - Echocardiography. Prepared and Electronically Authenticated Hal Portillo MD Confirmed 02/17/2017 09:16 Procedure Note Hal Portillo MD - 02/17/2017 [facility] Echocardiography-[place] [address] [place] [address] Stress Echocardiography Dobutamine Patient: Arlyn Study ECHO STRESS Lanie Blum ID: TEST Gender: Elvis : 1970 Age: 47 Room: Study 02/17/2017 Pt Outpatient Date: Status: Study 07:49 AM CSN #: [id number] Time: Ordering:Raj Pardo MD Interpreting:Hal Portillo MD Fabric Awning Repairer: Adin Roper [facility] Indications and History: Chest pain, unspecified [R07.9 [...] peak heart rate and blood pressure was 68857fv Hg/min. The patient experienced no chest pain [...] peak heart rate and blood pressure was 06266rw Hg/min. The patient experienced no chest pain [...] cm/s Peak 5 mm Hg gradient, S [facility] are accredited with the [...] examination documented in this encounter Care Teams Dope Heater Relationship Specialty Start Date End Date Cele Borrero DO [address] [place] [address] PCP - General Family Practice 04/07/16 documented as of this encounter
--- OUTSIDE RECORDS SUMMARY | 2025-04-13 09:12 | XMS_ITS | Encounter Summary ---
Author Organization [facility] Address [address] [place] [address] Care Team Providers Care Parts Counterman Name Role Phone Cele Borrero DO Primary Care Provider [phone]- [phone] Encounter Details Date Type Department Care Team (Latest Contact Info) Description 10/22/2004 Outpatient Historical [facility] Medicine- [place] [address] [place] [address] Jaiden Torres MD [address] [place] [phone] Plantar fibromatosis (Primary Dx); HYPOTHYROIDISM NOS Social History Tobacco Use Types Packs/Day Years Used Date Smoking Tobacco: Never Assessed Comments Unknown Sex and Gender Information Value Date Recorded Sex Assigned at Not on file 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
--- OUTSIDE RECORDS SUMMARY | 2025-04-13 09:12 | XMS_ITS | Clinical Summary ---
Author Organization [facility] Address [address] [place] [address] Care Team Providers [employer] Project Manager Name Role Phone Cele Borrero Primary Care Provider Allergies Active Allergy Reactions [...] High 03/04/2022 Tramadol Anxiety Low 09/20/2015 Medications isosorbide mononitrate (IMDUR) 30 mg Extended Release 24 hour tablet Take 30 mg by mouth daily. 023 Active levocetirizine (XYZAL) 5 mg tablet Take 5 mg by mouth late in the day. Active Miscellaneous Medical Supply One roller walker 1 Each 024 Active azelastine (ASTELIN) 137 mcg/actuation nasal spray [...] mouth daily. 90 Tablet 3 025 Active ondansetron (ZOFRAN ODT) 4 mg Tablet, Rapid Dissolve Take 1 Tablet (4 mg) by mouth every 8 hours as needed for Nausea/Emesis. Dissolve tablet on top of tongue, then swallow with saliva. 20 Tablet 025 Active Narcan 4 mg/actuation [place], Non-Aerosol Administer 1 [place] (4 mg) in one nostril (alternate nostril with each dose) one time as needed for Respiration. Push plunger to administer. Call 911. May repeat dose, every 2-3 minutes, if the person does not wake up or breathing is not improved. 2 Each 6 025 Active resmetirom (Rezdiffra) 100 mg TabletIndication s:Metabolic dysfunction-asso ciated steatotic liver disease (MASLD) Take 100 mg by mouth daily. 30 Tablet 5 025 Active alcohol Pads, MedicatedIndicat ions:Type 2 diabetes mellitus with hyperglycemia, without long-term current use of insulin ([facility]) Use daily to monitor blood sugar level. 100 Each 3 025 Active blood sugar diagnostic StripIndications :Type 2 diabetes mellitus with hyperglycemia, without long-term current use of insulin ([facility]) Use to check blood sugar daily as needed 100 Each 025 Active Blood-Glucose MeterIndications :Type 2 diabetes mellitus with hyperglycemia, without long-term current use of insulin ([facility]) Use to check blood sugar daily as needed 1 Each 025 Active lancetsIndicatio ns:Type 2 diabetes mellitus with hyperglycemia, without long-term current use of insulin ([facility]) Use to check blood sugar daily as needed 100 Each 3 025 Active tirzepatide, weight loss, (Zepbound) 7.5 mg/0.5 mL Pen Injector Inject 0.5 mL (7.5 mg) by subcutaneous injection every 7 days. 3 mL 025 Active capsaicin (ZOSTRIX) 0.025 % CreamIndications :Postherpetic neuralgia Apply to affected area 3 times daily. 60 Gram 1 025 Active potassium CHLORIDE (K-TAB) 20 mEq Extended Release tabletIndication s:Leg swelling Take 1 Tablet (20 mEq) by mouth 2 times daily as needed for Other (See Comment). 60 Tablet 3 025 Active bumetanide (BUMEX) 1 mg tabletIndication s:Leg swelling Take 1 Tablet (1 mg) by mouth 2 times daily as needed for Other (See Comment). 60 Tablet 3 025 Active nitroglycerin (NITROSTAT) 0.4 mg Tablet, SublingualIndica tions:Chronic ischemic heart disease Place 1 Tablet (0.4 mg) under tongue every 5 minutes as needed for Chest Pain. Do not exceed 3 tablets per episode Given by Dr Cooley 30 Tablet 3 025 Active baclofen (LIORESAL) 10 mg tabletIndication s:Chronic bilateral low back pain without sciatica TAKE 1 TABLET BY MOUTH THREE TIMES DAILY as needed for pain 90 Tablet 3 025 Active amitriptyline (ELAVIL) 50 mg tablet Take 1 Tablet (50 mg) by mouth daily at bedtime. 30 Tablet 2 025 Active HYDROcodone-acet aminophen (NORCO) 7.5-325 mg TabletIndication s:Chronic 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 Take 1 Tablet by mouth 2 times daily as needed for Pain, Moderate. Do not fill until 03/20/2025 Max Daily Amount: 2 Tablets 60 Tablet 025 Active HYDROcodone-acet aminophen (NORCO) 7.5-325 mg TabletIndication s:Chronic 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 Take 1 Tablet by mouth 2 times daily as needed for Pain, Moderate. Do not fill until 04/20/2025 Max Daily Amount: 2 Tablets 60 Tablet 025 Active HYDROcodone-acet aminophen (NORCO) 7.5-325 mg TabletIndication s:Chronic 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 Take 1 Tablet by mouth 2 times daily as needed for Pain, Moderate. Do not fill until 05/20/2025 Max Daily Amount: 2 Tablets 60 Tablet 025 Active pantoprazole (PROTONIX) 40 mg Tablet, Delayed Release (E.C.)Indication s:Elevated alkaline phosphatase level,RUQ pain,Gastroesoph ageal reflux disease, unspecified whether esophagitis present,Metaboli c dysfunction-asso ciated steatotic liver disease (MASLD) TAKE ONE TABLET BY MOUTH TWICE DAILY BEFORE meals. 60 Tablet 5 Active hydrOXYzine HCL (ATARAX) 25 mg tablet TAKE ONE TABLET BY MOUTH THREE TIMES DAILY NEEDED FOR ITCHING. 90 Tablet 025 Active pantoprazole (PROTONIX) 40 mg Tablet, Delayed Release (E.C.)Indication s:Elevated alkaline phosphatase level,RUQ pain,Gastroesoph ageal reflux disease, unspecified whether esophagitis present,Metaboli c dysfunction-asso ciated steatotic liver disease (MASLD) TAKE ONE TABLET BY MOUTH TWICE DAILY BEFORE meals. 60 Tablet 5 025 2024 Discontinued hydrOXYzine HCL (ATARAX) 25 mg tablet TAKE ONE TABLET BY MOUTH THREE TIMES DAILY NEEDED FOR ITCHING. 90 Tablet 025 2024 Discontinued Active Problems Problem Noted Date Diagnosed Date [...] Encounters Date Type Department Care Team Description 04/05/2025 [facility] Family Medicine [place] [address] [place] [phone] Flanneryaugust, MANAGER SPA 04/05/2025 [facility] Gastroenterology- [place] [address] [facility] [address] [place] [address] Armida Roldan PA-C Elevated alkaline phosphatase level; RUQ pain; Gastroesophageal reflux disease, unspecified whether esophagitis present; Metabolic dysfunction-associated steatotic liver disease (MASLD) 04/04/2025 External Device Data [facility] [place]STRACTION Provider, Abstract 03/30/2025 10:00 AM CDT Office Visit [facility] [address] [place] [phone] Prince Barriga PA Primary osteoarthritis of right knee (Primary Dx) 03/28/2025 External Device Data [place] ABSTRACTION Provider, Abstract 03/20/2025 Telephone [facility] [address] [place] [address] Cele Borrero DO letter; Patient Communication 03/13/2025 12:30 PM CDT Office Visit [facility] Gastroenterology- [address] [place] [phone] Armida Roldan PA-C Metabolic dysfunction-associated steatohepatitis (MASH) (Primary Dx); Gastroesophageal reflux disease, unspecified whether esophagitis present 03/10/2025 Refill [facility] [address] [place] [address] FlanneryAugust, MANAGER SPA 03/02/2025 3:40 PM CDT Office Visit [facility] [address] [place] [phone] Cele Borrero DO Type 2 diabetes mellitus with hyperglycemia, without long-term current use of insulin (CMS/HCC) (Primary Dx); Chronic 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; Morbid obesity with body mass index of 40.0-49.9 (CMS/HCC); Essential hypertension; Migraine with aura and without status migrainosus, not intractable; Mixed hyperlipidemia; Metabolic dysfunction-associated steatotic liver disease (MASLD) 02/15/2025 Refill [facility] [address] [place] [phone] Cele Borrero DO Chronic 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 02/08/2025 Refill [facility] [address] [place] [address] Cele Borrero DO Chronic bilateral low back pain without sciatica 02/08/2025 Refill [facility] [address] [place] [address] August,01/31/2025 External Device Data [place]STRACTION Provider, Abstract 01/24/2025 10:20 AM CDT Office Visit [facility] - [facility] [address] [place] [address] Prince Barriga PA Primary osteoarthritis of right knee (Primary Dx) 01/23/2025 Telephone [facility] [address] [place] [address] Cele Borrero DO Medication Review 01/19/2025 Results Follow-Up [facility] [address] [place] [address] Cele Borrero DO TSH 01/18/2025 11:20 AM CDT Office Visit [facility] [address] [place] [address] Cele Borrero DO Type 2 diabetes mellitus with hyperglycemia, without long-term current use of insulin ([facility]) (Primary Dx); Essential hypertension; Chronic anemia; Mixed hyperlipidemia; Encounter for monitoring of patient compliance in drug treatment program; Migraine with aura and without status migrainosus, not intractable; Metabolic dysfunction-associated steatotic liver disease (MASLD); Prediabetes; Chronic 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; Excessive daytime sleepiness 01/16/2025 Telephone [facility] [address] [place] [address] Cele Borrero DO Provider Call; Patient Communication 01/16/2025 Refill [facility] [address] [place] [address] August,01/11/2025 Refill [facility] [address] [place] [address] Cele Borrero DO Chronic ischemic heart disease (Primary Dx); Leg swelling from Last 3 Months Family History Medical History Relation Name Comments Heart Disease Maternal Aunt 1 [place] Breast Cancer Maternal Aunt 2 Nat Heart Disease Maternal Aunt 2 Nat Breast Cancer Maternal Cousin Hypertension Maternal Grandfather Jolene [place] Diabetes Maternal Grandmother Harp Heart Disease Maternal Uncle Michael Arthritis-osteo Mother Aria abbott Diabetes Mother Aria abbott Hypertension Mother Aria abbott Colon Cancer Neg Hx Relation Name Status Comments Maternal Aunt 1 [place] Maternal Aunt 2 Nat Maternal Cousin Alive Maternal Grandfather Jolene hood Maternal Grandmother Loyd Maternal Uncle Michael Mother Aria abbott Social History Tobacco Use Types Packs/Day Years Used Date Smoking Tobacco: Former Cigarettes 0 0 02/28/2012 - 02/28/2012 Passive Smoke Exposure: Past Smokeless Tobacco: Never Tobacco Cessation:Counseling Given: No Alcohol Use Standard Drinks/Week Comments No 0 (1 standard drink = 0.6 oz pur e alcohol) Feeling Safe Answer Date Recorded Are you in a relationship wi th someone who hurts you emotionally and/or physically? 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 Gender Identity Female 02/05/2024 4:00 PM CDT Sexual Orientation Not on file Last Filed Vital Signs Vital Sign Reading Time Taken Comments Blood Pressure 132/80 03/30/2025 10:22 AM CDT Pulse 98 03/13/2025 12:21 PM CDT Temperature 36.9 C (98.5 F) 03/02/2025 3:32 PM CDT Respiratory Rate 18 01/18/2025 10:47 AM CDT Oxygen Saturation 98% 03/02/2025 3:32 PM CDT Inhaled Oxygen Concentration - - Weight 138.3 kg (305 lb) 03/30/2025 10:22 AM CDT Height 168.9 cm (5' 6.5 ) 03/30/2025 10:22 AM CD T Body Mass Index 48.49 03/30/2025 10:22 AM CDT Plan of Treatment Upcoming Encounters Date Type Department Care Team (Late st Contact Info) Description 04/25/2025 11:20 AM BICYCLE REPAIRMAN Office Visit [facility] [address] [place] [phone] Cele Borrero, DO [address] [place] [phone] 07/27/2025 11:00 AM BICYCLE REPAIRMAN Office Visit [facility] [address] [place] [phone] Cele Borrero, DO [address] [place] [phone] 03/13/2026 11:00 AM CDT Office Visit [facility] Gastroenterology- [place] [address] [place] [address] Armida Roldan PA-C [address] [place] [address] Health Maintenance Due Date Last Done Comments [...] SCREEN 12/01/2024 12/02/2023 INFLUENZA VACCINE (#1) 2024 BREAST CANCER SCREENING 06/14/2025 06/14/19, 03/18/2023, 01/18/2021, Additional history exists DIABETES HBA1C Q 6 MONTHS 07/21/20252024, 08/10/2024, 01/12/2024, Additional history exists DIABETES: A1C (Auto Order) 01/18/202601/18, 08/10/2024, 01/12/2024, Additional history exists LDL CHOLESTEROL ANNUAL 01/18/2026 , 10/26/2024, 08/10/2024, Additional history exists COLORECTAL SCREENING 09/09/2027 09/08/2017 Colorectal Cancer Screening 09/09/2027 Medical Devices Implanted Type Area Furnace Installer Device Identifier Shelf Expiration Date Model / Serial / Lot Clip Crtg Med/Lrg 1112 - [id number] Implanted:Qty: 1 on 07/18/2024 by Darrin Solano MD at [facility] Clip N/A: Abdomen [employer] [id number] 02/26/20292 / / [id number] Hemostatic Surgifoam 1gm 1977 - [id number] Implanted:Qty: 1 on 12/11/2021 by Kei Lake MD at [facility] Hemostatic N/A: Back [employer] [id number] 03/14/20231977 / / [id number] Hemostatic Surgifoam 1gm 1977 - [id number] Implanted:Qty: 1 on 12/11/2021 by Kei Lake MD at [facility] Hemostatic N/A: Back [employer] [id number] 03/14/20231977 [id number] Hemostatic Surgifoam 1gm 1977 - [id number] Implanted:Qty: 1 on 12/11/2021 by Kei Lake MD at [facility] Hemostatic N/A: Back [employer] [id number] 03/14/20231977 [id number] Business Risk Analyst Patient Intellis 88747 - [id number] Implanted:Qty: 1 on 12/11/2021 by Kei Lake MD at [facility] [place] Integral N/A: Back [employer]- NEUROLOGIC TECH 67915 / / Lead Specify Surescan Mri 2x8in [id number] - [id number] Implanted:Qty: 1 on 12/11/2021 by Kei Lake MD at [facility] Lead N/A: Back [employer]- NEUROLOGIC TECH 02/28/2025 [id number] / / [id number] Neurostimulator Intellis Adapterivestim Mri 18388 - [id number] Implanted:Qty: 1 on 12/11/2021 by Kei Lake MD at [facility] Neuro Stimulator N/A: Back [employer]- NEUROLOGIC TECH 10/12/2022 [id number] / / [id number] Procedures Procedure Name Priority Date/Time Associated Diagnosis Comments MEDICATION COMPLIANCE DRUG SCREEN Routine 01/18/2025 3:52 PM CDT Encounter for monitoring of patient compliance in drug treatment program IRON, TIBC, AND PERCENT SATURATION Routine 01/18/2025 11:35 AM CDT Type 2 diabetes mellitus with hyperglycemia, without long-term current use of insulin ([facility]) Essential hypertension Chronic anemia Mixed hyperlipidemia HEMOGLOBIN A1C Routine 01/18/2025 11:35 AM CDT Type 2 diabetes mellitus with hyperglycemia, without long-term current use of insulin ([facility]) Essential hypertension Chronic anemia Mixed hyperlipidemia LIPID PANEL Routine 01/18/2025 11:35 AM CDT Type 2 diabetes mellitus with hyperglycemia, without long-term current use of insulin (CMS/HCC) Essential hypertension Chronic anemia Mixed hyperlipidemia TSH Routine 01/18/2025 11:35 AM CDT Type 2 diabetes mellitus with hyperglycemia, without long-term current use of insulin (CMS/HCC) Essential hypertension Chronic anemia Mixed hyperlipidemia COMPREHENSIVE METABOLIC PANEL Routine 01/18/2025 11:35 AM CDT Type 2 diabetes mellitus with hyperglycemia, without long-term current use of insulin (CMS/HCC) Essential hypertension Chronic anemia Mixed hyperlipidemia CBC WITH DIFFERENTIAL Routine 01/18/2025 11:35 AM CDT Type 2 diabetes mellitus with hyperglycemia, without long-term current use of insulin (CMS/HCC) Essential hypertension Chronic anemia Mixed hyperlipidemia MAMMO 3D JAME SCREEN BILAT W OR WO CAD Routine 06/14/2024 7:47 AM BICYCLE REPAIRMAN Screening mammogram, encounter for MICROALBUMIN/CREATINI NE RATIO, RANDOM UR Routine 12/02/2023 10:50 AM CDT Type 2 diabetes mellitus with stage 3a chronic kidney disease, without long-term current use of insulin (CMS/HCC) CERV/VAG CYTO AGE BASED SCREEN PAP Routine 11/08/2019 12:36 PM CDT POC OCCULT BLOOD UP TO 3 CARDS Routine 09/01/2017 5:15 PM CDT from Last 3 Months or Most Recently Relevant to Health Maintenance Results * (ABNORMAL) MEDICATION COMPLIANCE DRUG SCREEN (01/18/2025 3:52 PM CDT) Summary Rosa Whyte Comment: Prescribed Prescribed Not Prescribed Consistent Inconsistent Inconsistent [place] Hydrocodone Hydromorphone Norhydrocodone BUPRENORPHINE (URINE) NEGATIVE <5 ng/mL Rosa Whyte Fentanyl NEGATIVE <0.5 ng/mL [facility] [employer] Propoxyphene, Urine NEGATIVE <300 ng/mL [facility] MDA (Ecstasy Mtb), Urine NEGATIVE <200 ng/mL [facility] MDMA (Ecstasy), Urine NEGATIVE <200 ng/mL [facility] MDMA Comments [facility] Comment:See LDT Notes Meprobamate, Urine NEGATIVE <1000 ng/mL [facility] Carisoprodol Comments [facility] Comment:See LDT Notes Tapentadol, Urine NEGATIVE <50 ng/mL [facility] Nortapentadol, Urine NEGATIVE <50 ng/mL [facility] Tapentadol Comments [facility] Comment:See LDT Notes O-Desmethyltramadol , Urine NEGATIVE <100 ng/mL [facility] Tramadol, Urine NEGATIVE <100 ng/mL [facility] Tramadol Comments [facility] Comment:See LDT Notes Gabapentin, Urine 258073(H) <1000 ng/mL [facility] medMATCH Gabapentin, Urine INCONSISTENT (A) [facility] Gabapentin Comments [facility] Comment:See Gabapentin Notes , LDT Notes Meperidine, Urine NEGATIVE <100 ng/mL [facility] Normeperidine, Urine NEGATIVE <100 ng/mL [facility] Meperidine Comments [facility] Comment:See LDT Notes PREGABALIN, QUANT URINE NEGATIVE <1000 ng/mL [facility] Pregabalin Comments [facility] Comment:See LDT Notes Alcohol Metabolites, Urine NEGATIVE <500 ng/mL [facility] AMPHETAMINES (URINE) NEGATIVE <500 ng/mL [facility] BARBITURATES (URINE) NEGATIVE <300 ng/mL [facility] BENZODIAZEPINES (URINE) NEGATIVE <100 ng/mL [facility] COCAINE & METABOLITE (URINE) NEGATIVE <150 ng/mL [facility] 6 ACETYLMORPHINE, URINE NEGATIVE <10 ng/mL [facility] CANNABINOIDS QUAL, URINE NEGATIVE <20 ng/mL [facility] Methadone Metabolite, Urine NEGATIVE <100 ng/mL [facility] OPIATE CLASS (URINE) POSITIVE(A) <100 ng/mL [facility] Codeine, Urine NEGATIVE <50 ng/mL [facility] Hydrocodone, Urine 873(H) <50 ng/mL [facility] medMATCH Hydrocodone, Urine INCONSISTENT (A) [facility] Hydromorphone, Urine 287(H) <50 ng/mL [facility] medMATCH Hydromorphone, Urine INCONSISTENT (A) [facility] Morphine, Urine NEGATIVE <50 ng/mL [facility] Norhydrocodone, Urine 412(H) <50 ng/mL [facility] medMATCH Norhydrocodone, Urine INCONSISTENT (A) [facility] OPIATES, COMMENT [facility] Comment:See Opiates Notes, L DT Notes OXYCODONE CLASS (URINE) NEGATIVE <100 ng/mL [facility] PHENCYCLIDINE, URINE NEGATIVE <25 ng/mL [facility] Creatinine, Urine 49.2 > or = 20.0 mg/dL [facility] PH 5.4 4.5 - 9.0 [facility] OXIDANT, URINE NEGATIVE <200 mcg/mL [facility] ZOLPIDEM, URINE NEGATIVE <5 ng/mL [facility] Zolipidem Metabolite, Urine NEGATIVE <5 ng/mL [facility] Zolpidem Comments [facility] Comment:See LDT Notes COMMENT TOXICOLOGY Q uest [facility] Comment: This drug testing is for medical treatment only. Analysis was performed as non-forensic testing and these results should be used only by healthcare providers to render diagnosis or treatment, or to monitor progress of medical conditions. Gabapentin Notes: Gabapentin detected is consistent with the use of the drug Gabapentin. Opiates Notes: Hydrocodone, Norhydrocodone, Hydromorphone detected is consistent with the use of the drug Hydrocodone. Hydromorphone detected is consistent with the use of the drug Hydromorphone. Hydromorphone can be a prescribed drug and is also a metabolite of Hydrocodone. LDT Notes: Confirmation tests were developed and their analytical performance characteristics have been determined by [employer]. It has not been cleared or approved by the FDA. This assay has been validated pursuant to the CLIA regulations and is used for clinical purposes. medMATCH(R) enables providers to identify if drug use is consistent or inconsistent with a corresponding prescribed medication(s) list. Healthcare Providers needing Interpretation assistance, please contact us at [phone] ( ) M-F, 8am to 10pm EST Test Performed at: [address] [address] Rell POON Urine URINE SPECIMEN OBTAINED BY CLEAN CATCH PROCEDURE / Unknown 01/18/2025 3:52 PM CDT 01/19/2025 3:59 AM CDT us Cele Borrero DO URINE ORDERABLES Final Resu lt Performing Organization Address City/[facility]/ZIP Co de Phone Number [facility] [phone] [address] [place] [address] * IRON, TIBC, AND PERCENT SATURATION (01/18/2025 11:35 AM CDT) IRON 56 45 - 160 mcg/dL [facility] TIBC 308 250 - 450 mcg/dL (calc) [facility] IRON % SATURATION 18 16 - 45 % (calc) [facility] Comment: Test Performed at: [address] [address] [place] [address] Anish Goldberg MD Blood 01/18/2025 11:3 5 AM CDT 01/18/2025 11:36 AM CDT us Cele Borrero DO CHEMISTRY ORDERABLES Final Result Performing Organization Address City/[facility]/ZIP Co de Phone Number [facility] [phone] [facility] [address] [place] [address] * (ABNORMAL) CBC WITH DIFFERENTIAL (01/18/2025 11:35 AM CDT) WBC 6.6 3.8 - 10.8 Thousand/u L [facility] RBC 4.89 3.80 - 5.10 Million/uL [facility] HEMOGLOBIN 13.6 11.7 - 15.5 g/dL [facility] HEMATOCRIT 42.6 35.0 - 45.0 % [facility] MCV 87.1 80.0 - 100.0 fL [facility] MCH 27.8 27.0 - 33.0 pg [facility] MCHC 31.9(L) 32.0 - 36.0 g/dL [facility] Comment: For adults, a slight decrease in the calculated MCHC value (in the range of 30 to 32 g/dL) is most likely not clinically significant; however, it should be interpreted with caution in correlation with other red cell parameters and the patient's clinical condition. RDW 14.8 11.0 - 15.0 % [facility] PLATELETS 344 140 - 400 Thousand/u L [facility] MPV 10.5 7.5 - 12.5 fL [facility] NEUTROPHIL ABSOLUTE 4,198 1,500 - 7,800 cells/uL [facility] LYMPHOCYTE ABSOLUTE 1,670 850 - 3,900 cells/uL [facility] MONOCYTE ABSOLUTE 587 200 - 950 cells/uL [facility] EOSINOPHIL ABSOLUTE 92 15 - 500 cells/uL [facility] BASOPHILS ABSOLUTE 53 0 - 200 cells/uL [facility] NEUTROPHIL 63.6 % [facility] LYMPHOCYTES 25.3 % [facility] MONOCYTE 8.9 % [facility] EOSINOPHILS 1.4 % [facility] BASOPHILS 0.8 % [facility] Comment: Test Performed at: [facility] [address] [address] Anish Goldberg MD Blood 01/18/2025 11:3 5 AM CDT 01/18/2025 11:36 AM CDT Cele Borrero DO HEMATOLOGY ORDERABLES Final Result Performing Organization Address [facility] de Phone Number [facility] [phone] [facility] [address] [place] [phone] * TSH (01/18/2025 11:35 AM CDT) Pathologist [facility] TSH 1.68 mIU/L [facility] Comment: Reference Range > or = 20 Years 0.40-4.50 Ranges First trimester 0.26-2.66 Second trimester 0.55-2.73 Third trimester 0.43-2.91 Test Performed at: [facility] [address] [place] [address] Anish Goldberg MD Blood 01/18/2025 11:3 5 AM CDT 01/18/2025 11:36 AM CDT Cele [employer] CHEMISTRY ORDERABLES Final Result Performing Organization Address [facility] de Phone Number [facility] [phone] [facility] [address] * (ABNORMAL) HEMOGLOBIN A1C (01/18/2025 11:35 AM CDT) [facility] HEMOGLOBIN A1C 6.1(H) <5.7 % [facility] Comment: For someone without known diabetes, a hemoglobin A1c value between 5.7% and 6.4% is consistent with prediabetes and should be confirmed with a follow-up test. For someone with known diabetes, a value <7% indicates that their diabetes is well controlled. A1c targets should be individualized based on duration of diabetes, age, comorbid conditions, and other considerations. This assay result is consistent with an increased risk of diabetes. Currently, no consensus exists regarding use of hemoglobin A1c for diagnosis of diabetes for children. ESTIMATED AVERAGE GLUCOSE (MG/DL) 128 mg/dL [facility] ESTIMATED AVERAGE GLUCOSE (MMOL/L) 7.1 mmol/L [facility] Comment: FASTING:UNKNOWN FASTING: UNKNOWN Test Performed at: [facility] [address] [facility] [place] [address] Anish Goldberg MD Blood 01/18/2025 11:3 5 AM CDT 01/18/2025 11:36 AM CDT Cele Borrero DO CHEMISTRY ORDERABLES Final Result [facility] [phone] [facility] [address] * (ABNORMAL) LIPID PANEL (01/18/2025 11:35 AM CDT) CHOLESTEROL 195 <200 mg/dL [facility] HDL 55 > OR = 50 mg/dL [facility] TRIGLYCERIDE 166(H) <150 mg/dL [facility] LDL CALCULATED 112(H) mg/dL (calc) [facility] Comment: Reference range: <100 Desirable range <100 mg/dL for primary prevention; <70 mg/dL for patients with CHD or diabetic patients with > or = 2 CHD risk factors. LDL-C is now calculated using the Logan-Elly calculation, which is a validated novel method providing better accuracy than the Friedewald equation in the estimation of LDL-C. Logan CASE et al. RAMYA. 2013;310(19): 7963-1145 (http://education.GreenWizard.Coty/faq/AWG309) CHOL/HDL RATIO 3.5 <5.0 (calc) [facility] NON-HDL CHOLESTEROL 140(H) <130 mg/dL (calc) [facility] Comment: For patients with diabetes plus 1 major ASCVD risk factor, treating to a non-HDL-C goal of <100 mg/dL (LDL-C of <70 mg/dL) is considered a therapeutic option. Test Performed at: [facility] [address] [facility] [place] [address] Anish Goldberg MD Blood 01/18/2025 11:3 5 AM CDT 01/18/2025 11:36 AM CDT us Cele Borrero DO CHEMISTRY ORDERABLES Final Result [facility] [phone] [facility] [address] [facility] [place] [address] * COMPREHENSIVE METABOLIC PANEL (01/18/2025 11:35 AM CDT) GLUCOSE 98 65 - 99 mg/dL [facility] Comment: Fasting reference interval BUN 14 7 - 25 mg/dL [facility] CREATININE 0.89 0.50 - 1.03 mg/dL [facility] GFR 77 > OR = 60 mL/min/1. 73m2 [facility] BUN/CREAT RATIO SEE NOTE: 6 - 22 (calc) [facility] Comment: Not Reported: BUN and Creatinine are within reference range. SODIUM 142 135 - 146 mmol/L [facility] POTASSIUM 4.4 3.5 - 5.3 mmol/L [facility] CHLORIDE 103 98 - 110 mmol/L [facility] CO2 30 20 - 32 mmol/L [facility] CALCIUM 9.2 8.6 - 10.4 mg/dL [facility] TOTAL PROTEIN 6.7 6.1 - 8.1 g/dL [facility] ALBUMIN 3.6 3.6 - 5.1 g/dL [facility] GLOBULIN 3.1 1.9 - 3.7 g/dL (calc) [facility] ALBUMIN/GLOBULIN RATIO 1.2 1.0 - 2.5 (calc) [facility] BILIRUBIN TOTAL 0.3 0.2 - 1.2 mg/dL [facility] ALKALINE PHOSPHATASE 101 37 - 153 U/L [facility] AST 35 10 - 35 U/L [facility] ALT 23 6 - 29 U/L [facility] Comment: FASTING:UNKNOWN FASTING: UNKNOWN Test Performed at: [facility] [address] [place] [address] Anish Goldberg MD Blood 01/18/2025 11:3 5 AM CDT 01/18/2025 11:36 AM CDT Cele Brandie Gissell DO CHEMISTRY ORDERABLES Final Result [facility] [phone] [facility] [address] [address] [address] * MAMMO 3D JAME SCREEN BILAT W OR WO CAD (06/14/2024 7:47 AM BICYCLE REPAIRMAN) Anatomical Region Laterality Modality Breast Bilateral Mammography, Dig ital Radiography Impressions 06/22/2024 12:52 PM BICYCLE REPAIRMAN : No mammographic evidence of malignancy. BI-RADS ASSESSMENT: 1 - Negative RECOMMENDATION: Routine annual screening mammography. Narrative 06/22/2024 12:52 PM BICYCLE REPAIRMAN EXAM: MAMMO SCRN BILAT 3D JAME W [...] masses, calcifications, or areas of architectural distortion. Cele Brandie Winan DO MAMMO ORDERABLES Final Resu lt * [...] within a diagnostic category. Test Performed at: [facility] [address] [place] [address] Anish Goldberg MD Urine URINE SPECIMEN OBTAINED BY CLEAN CATCH PROCEDURE / Unknown 12/02/2023 10:50 AM CDT 12/03/2023 9:17 AM CDT us Cele Borrero DO URINE ORDERABLES Final Resu lt [facility] [phone] [facility] [id number] [place] [address] * CERV/VAG CYTO AGE BASED SCREEN PAP (11/08/2019 12:36 PM CDT) COMMENT (PAP): SEE COMMENT 0 9:25 AM CDT [facility] Comment: This order for age-based cervical cancer and STI screening follows ACOG guidelines(PB 168, 140, MYI202). See individual assays for performing site location. CLINICAL INFORMATION Information not provided 11/15/2019 9:25 AM CDT [facility] LAST MENSTRUAL PERIOD INFORMATION NOT PROVIDED 11/15/2019 9:25 AM CDT [facility] PREV PAP: INFORMATION NOT PROVIDED 11/15/2019 9:25 AM CDT [facility] PREV BX: INFORMATION NOT PROVIDED 11/15/2019 9:25 AM CDT [facility] SOURCE Endocervix 11/15/2019 9:25 AM CDT [facility] ADEQUACY: SEE COMMENT 11/15/2019 9:25 AM CDT [facility] Comment: Satisfactory for evaluation. Endocervical/transformation zone component present. Age and/or menstrual status not provided PAP INTERP Negative for intraepithelial lesion or malignancy. 11/15/2019 9:25 AM CDT [facility] COMMENT This Pap test has been evaluated with computer assisted technology. 11/15/2019 9:25 AM CDT [facility] RE DYE HAND: SEE COMMENT 2019 9:25 AM CDT [facility] Comment: AMW, CT(ASCP) CT screening location: [place] [address] [address] [address] EXPLANATORY NOTE SEE COMMENT 020 9:25 AM CDT [facility] Comment: EXPLANATORY NOTE: The Pap [...] Detected Not Detected 11/15/2019 9:25 AM CDT [facility] Comment: This test was performed using the APTIMA HPV Assay ([employer] This assay detects E6/E7 viral messenger RNA (mRNA) from 14 high-risk HPV types (16,18,31,33,35,39,45,51,52,56,58,59,66,68). The analytical performance characteristics of this assay have been determined by [facility]. The modifications have not been cleared or approved by the FDA. This assay has been validated pursuant to the CLIA regulations and is used for clinical purposes. Genital SWAB OF ENDOCERVIX / Unknown Collection / Unknown 11/08/2019 12:36 PM CDT 11/10/2019 9:57 AM CDT Narrative [facility] - 11/15/2019 9:25 AM CDT Performing Organization Information: Site ID: [id number] Name: [facility] Address: [address] [place] [address] Director: Israel Reyes D.O., MPH Site ID: [id number] Name: [facility] Address: [address] [address] [address] Director: Anish Goldberg Rachele Davis MANAGER SPA PATHOLOGY/CYTOLOGY ORDER ANASTASIA Final Result [facility] [phone] [facility] * (ABNORMAL) POC OCCULT BLOOD UP TO 3 CARDS (09/01/2017 5:15 PM CDT) OCCULT BLOOD 1 CARD POC Positive(A) Negative [facility] OCCULT BLOOD 2 CARD POC Negative Negative [facility] OCCULT BLOOD 3 CARD POC Negative Negative [facility] INTERNAL KIT QC Pass Pass [facility] CARD LOT NUMBER POC [id number] [facility] CARD EXPIRATION DATE POC 02/28/2019 [facility] DEVELOPER LOT NUMBER POC [id number] [facility] DEVELOPER EXPIRATION DATE POC 10/30/2019 [facility] Stool STOOL SPECIMEN / Unknown 09/01/2017 5:15 PM CDT us Blossom Sung MANAGER SPA POINT OF CARE TESTING Final R esult Performing Organization Address City/State/[facility] Co de Phone Number [facility] CLIA# [id number] [address] [place] [address] from Last 3 Months or Most Recently Relevant to Health Maintenance Insurance MEDICAID [place] Advance Directives For more information, please contact: [phone] * Full Code (Latest Code Status on File) Date Activated Date Inactivated Comments 07/18/2024 6:59 AM 07/18/2024 11:50 AM * Full Code Date Activated Date Inactivated Comments 07/18/2024 5:08 AM 07/18/2024 6:59 AM * Full Code Date Activated Date Inactivated Comments 12/11/2021 11:08 AM 12/12/2021 1:07 PM Care Teams Data Center Project Manager Relationship Specialty Start Date End Date Cele Borrero DO [address] [place] [address] PCP - General Family Practice 04/07/16
--- OUTSIDE RECORDS SUMMARY | 2025-04-13 09:12 | XMS_ITS | Encounter Summary ---
Author Organization [facility] Address [address] [place] [address] Care Team Providers Care Weaver Apprentice Name Role Phone Cele Borrero DO Primary Care Provider +1- [phone] Encounter Details Date Type Department Care Team (Latest Contact Info) Description 10/11/[address] [facility] Medicine- [place] [address] [place] [address] Jaiden Torres MD [address] [place] [phone] SPASM OF MUSCLE (Primary Dx) Social History Tobacco Use Types Packs/Day Years Used Date Smoking Tobacco: Never Assessed Comments Unknown Sex and Gender Information Value Date Recorded Sex Assigned at Not on file Legal Sex Female 2:57 AM GIFT OFFICER Gender Identity Not on file Sexual Orientation Not on file documented as of this encounter Plan of Treatment Not on file documented as of this encounter Visit Diagnoses Diagnosis Spasm of muscle- Primary documented in this encounter Care Teams Weaver Apprentice Relationship Specialty Start Date End Date Cele Borrero DO [address] [place] [address] PCP - General Family Practice 04/07/16 documented as of this encounter
--- OUTSIDE RECORDS SUMMARY | 2025-04-13 09:12 | XMS_ITS | Encounter Summary ---
Author Organization [facility] Address [address] [place] [address] Care Team Providers Care Slip Injector And Applicator Name Role Phone Cele Borrero DO Primary Care Provider +1- [phone] Encounter Details Date Type Department Care Team (Latest Contact Info) Description 12/19/2003 Outpatient Historical [facility] Oral and Maxillo Surgery[address] [place] [address] Mike Bragg, PhD NO ADDRESS ON FILE TOOTH POSITION ANOMALY (Primary Dx); UNSPEC DENTAL CARIES Social History Tobacco Use Types Packs/Day Years Used Date Smoking Tobacco: Never Assessed Comments Unknown Sex and Gender Information Value Date Recorded Sex Assigned at Not on file Legal Sex Female 2:57 AM SKI MOLDER Gender Identity Not on file Sexual Orientation Not on file documented as of this encounter Plan of Treatment Not on file documented as of this encounter Visit Diagnoses Diagnosis 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
--- OUTSIDE RECORDS SUMMARY | 2025-04-13 09:12 | XMS_ITS | Encounter Summary ---
Author Organization [facility] Address [address] [place] [address] Care Team Providers Care Qc Scientist Name Role Phone Cele Borrero DO Primary Care Provider +1- [phone] Encounter Details Date Type Department Care Team (Latest Contact Info) Description 07/26/2004 Outpatient Historical [facility] Medicine- [place] [address] [place] [address] Jaiden Torres MD [address] [place] [phone] HYPERTENSION NOS (Primary Dx) Social History Tobacco Use Types Packs/Day Years Used Date Smoking Tobacco: Never Assessed Comments Unknown Sex and Gender Information Value Date Recorded Sex Assigned at Not on file Legal Sex Female 2:57 AM SALES ENABLEMENT SPECIALIST Gender Identity Not on file Sexual Orientation Not on file documented as of this encounter Plan of Treatment Not on file documented as of this encounter Visit Diagnoses Diagnosis Unspecified essential hypertension- Primary documented in this encounter Care Teams Qc Scientist Relationship Specialty Start Date End Date Cele Borrero DO [address] [place] [address] PCP - General Family Practice 04/07/16 documented as of this encounter
--- OUTSIDE RECORDS SUMMARY | 2025-04-13 09:12 | XMS_ITS | Encounter Summary ---
Author Organization [facility] Address [address] [place] [address] Care Team Providers Care Business Account Specialist Name Role Phone Cele Borrero Primary Care Provider Encounter Details Date Type Department Care Team (Late st Contact Info) Description 06/15/2024 Results Follow-Up [facility] Gastroenterology- [place] [address] [place] [address] Armida Roldan PA-C [address] [place] [address] HEPATIC FUNCTION PANEL, US LIVER Social History Tobacco Use Types Packs/Day [...] PM CDT Legal Sex Female 2:12 PM FINGERPRINT TECHNICIAN Gender Identity Female 02/05/2024 4:00 PM CDT Sexual Orientation Not on file documented as of this encounter Plan of Treatment Upcoming Encounters Date Type Department Care Team (Late st Contact Info) Description 04/25/2025 11:20 AM FINGERPRINT TECHNICIAN Office Visit [facility] [address] [place] [phone] Cele Borrero, DO [address] [place] [address] 07/27/2025 11:00 AM FINGERPRINT TECHNICIAN Office Visit [facility] [address] [place] [address] Cele Borrero, DO [address] [place] [address] 03/13/2026 11:00 AM CDT Office Visit [facility] Gastroenterology- [place] [address] [place] [address] Armida Roldan PAErica [address] [place] [address] documented as of this encounter Visit Diagnoses Not on filedocumented in this encounter Additional Health Concerns Assessment Noted Time PHQ-9 Depression Total Score: 1 06/10/19 25 7:50 AM FINGERPRINT TECHNICIAN documented as of this encounter Care Teams Business Account Specialist Relationship Specialty Start Date End Date Cele Borrero DO [address] [place] [phone] PCP - General Family Practice 04/07/16 documented as of this encounter
--- OUTSIDE RECORDS SUMMARY | 2025-04-13 09:12 | XMS_ITS | Encounter Summary ---
Author Organization [facility] Address [address] [place] [address] Care Team Providers Care Gas Line Installer Name Role Phone Cele Borrero DO Primary Care Provider +1- [phone] Encounter Details Date Type Department Care Team (Latest Contact Info) Description 02/07/2004 Outpatient [facility] Oral and Maxillo Surgery[address] [place] [address] Mike Bragg, PhD NO ADDRESS ON FILE SURGERY FOLLOWUP, UNSPEC (Primary Dx) Social History Tobacco Use Types Packs/Day Years Used Date Smoking Tobacco: Never Assessed Comments Unknown Sex and Gender Information Value Date Recorded Sex Assigned at Not on file Legal Sex Female 2:57 AM WAGON DRILL OPERATOR Gender Identity Not on file Sexual Orientation Not on file documented as of this encounter Plan of Treatment Not on file documented as of this encounter Visit Diagnoses Diagnosis Follow-up examination, following unspecified surgery- Primary documented in this encounter Care Teams Gas Line Installer Relationship Specialty Start Date End Date Cele Borrero DO [address] [place] [address] PCP - General Family Practice 04/07/16 documented as of this encounter
--- OUTSIDE RECORDS SUMMARY | 2025-04-13 09:12 | XMS_ITS | Encounter Summary ---
Author Organization [facility] Address [address] [place] [address] Care Team Providers Care Custom Car Builder Name Role Phone Cele Borrero DO Primary Care Provider +1- [phone] Encounter Details Date Type Department Care Team (Latest Contact Info) Description 10/01/2004 Outpatient Historical [facility] Medicine- [place] [address] [place] [address] Jaiden Torres MD [address] [place] [address] ALLERGIC RHINITIS NOS (Primary Dx) Social History Tobacco Use Types Packs/Day Years Used Date Smoking Tobacco: Never Assessed Comments Unknown Sex and Gender Information Value Date Recorded Sex Assigned at Not on file Legal Sex Female 2:57 AM PROM BURN OFF OPERATOR Gender Identity Not on file Sexual Orientation Not on file documented as of this encounter Plan of Treatment Not on file documented as of this encounter Visit Diagnoses Diagnosis Allergic rhinitis, cause unspecified- Primary documented in this encounter Care Teams Custom Car Builder Relationship Specialty Start Date End Date Cele Borrero DO [address] [place] [address] PCP - General Family Practice 04/07/16 documented as of this encounter
--- OUTSIDE RECORDS SUMMARY | 2025-04-13 09:12 | XMS_ITS | Encounter Summary ---
Author Organization [facility] Address [address] [place] [address] Care Team Providers Care Billet Sawyer Name Role Phone Cele Borrero Primary Care Provider +1- [phone] Encounter Details Date Type Department Care Team [...] on file Legal Sex Female 2:57 AM CAR RECORD CLERK Gender Identity Not on file Sexual [...] [facility]ix <<<<<<<< TRIAGE NOTE >>>>>>>> Triage Note: Final Finisher Forging Dies Azra Crump added this note on Sep 20 2015 7:05PM: Will be driven to [facility] [place] [facility] ER <<<<<<<< TRIAGE/OUTCOME >>>>>>>> Guideline Title: Back [...] on filedocumented in this encounter Care Teams Billet Sawyer Relationship Specialty Start Date End Date Cele Borrero DO [address] [place] [address] PCP - General Family Practice 04/07/16 documented as of this encounter
--- OUTSIDE RECORDS SUMMARY | 2025-04-13 09:12 | XMS_ITS | Encounter Summary ---
Author Organization [facility] Address [address] [place] [address] Care Team Providers Care Jumpbasting Machine Operator Name Role Phone Cele Borrero DO Primary Care Provider +1- [phone] Encounter Details Date Type Department Care Team (Late st Contact Info) Description 02/01/2006 Outpatient Historical [facility] Hand Therapy [address] [place] [address] Mike Pena MD [address] [place] [address] Social History Tobacco Use Types Packs/Day Years Used Date Smoking Tobacco: Never Assessed Comments Unknown Sex and Gender Information Value Date Recorded Sex Assigned at Not on file Legal Sex Female 2:57 AM JEWELER APPRENTICE Gender Identity Not on file Sexual Orientation Not on file documented as of this encounter Plan of Treatment Not on file documented as of this encounter Visit Diagnoses Not on filedocumented in this encounter Care Teams Jumpbasting Machine Operator Relationship Specialty Start Date End Date Cele Borrero DO [address] [place] [address] PCP - General Family Practice 04/07/16 documented as of this encounter
--- OUTSIDE RECORDS SUMMARY | 2025-04-13 09:12 | XMS_ITS | Encounter Summary ---
Author Organization [facility] Address [address] [place] [address] Care Team Providers Care Manager Of Care Name Role Phone Cele Borrero DO Primary Care Provider +1- [phone] Encounter Details Date Type Department Care Team (Latest Contact Info) Description 12/17/2004 Outpatient Historical [facility] Medicine- [place] [address] [place] [address] Jaiden Torres MD [address] [place] [phone] ALLERGIC RHINITIS NOS (Primary Dx) Social History Tobacco Use Types Packs/Day Years Used Date Smoking Tobacco: Never Assessed Comments Unknown Sex and Gender Information Value Date Recorded Sex Assigned at Not on file Legal Sex Female 2:57 AM REFINERY OPERATOR CRUDE UNIT Gender Identity Not on file Sexual Orientation Not on file documented as of this encounter Plan of Treatment Not on file documented as of this encounter Visit Diagnoses Diagnosis Allergic rhinitis, cause unspecified- Primary documented in this encounter Care Teams Manager Of Care Relationship Specialty Start Date End Date Cele Borrero DO [address] [place] [address] PCP - General Family Practice 04/07/16 documented as of this encounter
--- OUTSIDE RECORDS SUMMARY | 2025-04-13 09:12 | XMS_ITS | Encounter Summary ---
Author Organization [facility] Address [address] [place] [address] Care Team Providers Care Engineer Technician Name Role Phone Cele Borrero DO Primary Care Provider +1- [phone] Encounter Details Date Type Department Care Team (Latest Contact Info) Description 10/07/2004 Outpatient Historical [facility] Medicine- [place] [address] [place] [address] Jaiden Torres MD [address] [place] [address] ALLERGIC RHINITIS NOS (Primary Dx) Social History Tobacco Use Types Packs/Day Years Used Date Smoking Tobacco: Never Assessed Comments Unknown Sex and Gender Information Value Date Recorded Sex Assigned at Not on file Legal Sex Female 2:57 AM WAITER/WAITRESS COUNTER Gender Identity Not on file Sexual Orientation Not on file documented as of this encounter Plan of Treatment Not on file documented as of this encounter Visit Diagnoses Diagnosis Allergic rhinitis, cause unspecified- Primary documented in this encounter Care Teams Engineer Technician Relationship Specialty Start Date End Date Cele Borrero DO [address] [place] [address] PCP - General Family Practice 04/07/16 documented as of this encounter
--- OUTSIDE RECORDS SUMMARY | 2025-04-13 09:12 | XMS_ITS | Encounter Summary ---
Author Organization [facility] Address [address] [place] [address] Care Team Providers Care Automotive Tire Testing Supervisor Name Role Phone Cele Borrero DO Primary Care Provider +1- [phone] Encounter Details Date Type Department Care Team (Latest Contact Info) Description 11/26/2004 Outpatient Historical [facility]- [place] [address] [place] [address] Jaiden Torres MD [address] [place] [phone] ALLERGIC RHINITIS NOS (Primary Dx) Social History Tobacco Use Types Packs/Day Years Used Date Smoking Tobacco: Never Assessed Comments Unknown Sex and Gender Information Value Date Recorded Sex Assigned at Not on file Legal Sex Female 2:57 AM EXPORT SPECIALIST Gender Identity Not on file Sexual Orientation Not on file documented as of this encounter Plan of Treatment Not on file documented as of this encounter Visit Diagnoses Diagnosis Allergic rhinitis, cause unspecified- Primary documented in this encounter Care Teams Automotive Tire Testing Supervisor Relationship Specialty Start Date End Date Cele Borrero DO [address] [place] [address] PCP - General Family Practice 04/07/16 documented as of this encounter
--- OUTSIDE RECORDS SUMMARY | 2025-04-13 09:12 | XMS_ITS | Encounter Summary ---
Author Organization [facility] Address [address] [place] [address] Care Team Providers Care Observer Gravity Prospecting Name Role Phone Cele Borrero DO Primary Care Provider +1- [phone] Encounter Details Date Type Department Care Team (Latest Contact Info) Description 09/10/2004 Outpatient Historical [facility] Medicine- [place] [address] [place] [address] Jaiden Torres MD [address] [place] [phone] ALLERGIC RHINITIS NOS (Primary Dx) Social History Tobacco Use Types Packs/Day Years Used Date Smoking Tobacco: Never Assessed Comments Unknown Sex and Gender Information Value Date Recorded Sex Assigned at Not on file Legal Sex Female 2:57 AM DIRECTOR MANUFACTURING ENGINEERING Gender Identity Not on file Sexual Orientation Not on file documented as of this encounter Plan of Treatment Not on file documented as of this encounter Visit Diagnoses Diagnosis Allergic rhinitis, cause unspecified- Primary documented in this encounter Care Teams Observer Gravity Prospecting Relationship Specialty Start Date End Date Cele Borrero DO [address] [place] [address] PCP - General Family Practice 04/07/16 documented as of this encounter
--- OUTSIDE RECORDS SUMMARY | 2025-04-13 09:12 | XMS_ITS | Encounter Summary ---
Author Organization [facility] Address [address] [place] [address] Care Team Providers Care Interior Design Principal Name Role Phone Cele Borrero DO Primary Care Provider +1- [phone] Encounter Details Date Type Department Care Team (Latest Contact Info) Description 08/05/2004 Outpatient Historical [facility] Family Medicine- [place] [address] [place] [address] Jaiden Torres MD [address] [place] [phone] NAUSEA ALONE (Primary Dx) Social History Tobacco Use Types Packs/Day Years Used Date Smoking Tobacco: Never Assessed Comments Unknown Sex and Gender Information Value Date Recorded Sex Assigned at Not on file Legal Sex Female 2:57 AM SWAHILI TEACHER Gender Identity Not on file Sexual Orientation Not on file documented as of this encounter Plan of Treatment Not on file documented as of this encounter Visit Diagnoses Diagnosis Nausea alone- Primary documented in this encounter Care Teams Interior Design Principal Relationship Specialty Start Date End Date Cele Borrero DO [address] [place] [address] PCP - General Family Practice 04/07/16 documented as of this encounter
--- OUTSIDE RECORDS SUMMARY | 2025-04-13 09:12 | XMS_ITS | Encounter Summary ---
Author Organization [facility] Address [address] [place] [address] Care Team Providers Care Plumber'S Assistant Name Role Phone Cele Borrero DO Primary Care Provider +1- [phone] Encounter Details Date Type Department Care Team (Latest Contact Info) Description 10/22/2004 Outpatient Historical [facility] [address] [place] [address] Jaiden Torres MD [address] [place] [phone] HYPOTHYROIDISM NOS (Primary Dx) Social History Tobacco Use Types Packs/Day Years Used Date Smoking Tobacco: Never Assessed Comments Unknown Sex and Gender Information Value Date Recorded Sex Assigned at Not on file Legal Sex Female 2:57 AM PRODUCT SUPPORT SPECIALIST Gender Identity Not on file Sexual [...] Primary documented in this encounter Care Teams Plumber'S Assistant Relationship Specialty Start Date End Date Cele Borrero DO [address] [place] [address] PCP - General Family Practice 04/07/16 documented as of this encounter
--- OUTSIDE RECORDS SUMMARY | 2025-04-13 09:12 | XMS_ITS | Encounter Summary ---
Author Organization [facility] Address [address] [place] [address] Care Team Providers Care Java Tech Lead Name Role Phone Cele Borrero DO Primary Care Provider +1- [phone] Encounter Details Date Type Department Care Team (Latest Contact Info) Description 09/20/2004 Outpatient Historical [facility] Medicine- [place] [address] [place] [address] Jaiden Torres MD [address] [place] [phone] DERMATITIS NOS (Primary Dx) Social History Tobacco Use Types Packs/Day Years Used Date Smoking Tobacco: Never Assessed Comments Unknown Sex and Gender Information Value Date Recorded Sex Assigned at Not on file Legal Sex Female 2:57 AM AUTOMOTIVE UPHOLSTERER Gender Identity Not on file Sexual Orientation Not on file documented as of this encounter Plan of Treatment Not on file documented as of this encounter Visit Diagnoses Diagnosis Contact dermatitis and other eczema, due to unspecified cause- Primary documented in this encounter Care Teams Java Tech Lead Relationship Specialty Start Date End Date Cele Borrero DO [address] [place] [address] PCP - General Family Practice 04/07/16 documented as of this encounter
--- OUTSIDE RECORDS SUMMARY | 2025-04-13 09:12 | XMS_ITS | Encounter Summary ---
Author Organization [facility] Address [address] [place] [address] Care Team Providers Care Bowstring Maker Name Role Phone Cele Borrero DO Primary Care Provider +1- [phone] Encounter Details Date Type Department Care Team (Latest Contact Info) Description 08/22/2005 Outpatient Historical [facility] Medicine- [place] [address] [place] [address] Donald Hurtado, CHIPPER [address] [place] [address] Allergic Rhinitis, Cause Unspecified (Primary Dx) Social History Tobacco Use Types Packs/Day Years Used Date Smoking Tobacco: Never Assessed Comments Unknown Sex and Gender Information Value Date Recorded Sex Assigned at Not on file Legal Sex Female 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
--- OUTSIDE RECORDS SUMMARY | 2025-04-13 09:12 | XMS_ITS | Encounter Summary ---
Author Organization [facility] Address [address] [place] [address] Care Team Providers Care Fruit Trimmer Name Role Phone Cele Borrero DO Primary Care Provider +1- [phone] Encounter Details Date Type Department Care Team (Latest Contact Info) Description 08/28/2004 Outpatient Historical 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
--- OUTSIDE RECORDS SUMMARY | 2025-04-13 09:12 | XMS_ITS | Encounter Summary ---
Author Organization [facility] Address [address] [place] [address] Care Team Providers Care Manager Summer Name Role Phone Cele Borrero DO Primary Care Provider +1- [phone] Encounter Details Date Type Department Care Team (Latest Contact Info) Description 11/19/2004 Outpatient Historical [facility] Medicine- [place] [address] [place] [address] Jaiden Torres MD [address] [place] [phone] HYPOTHYROIDISM NOS (Primary Dx); UNSPECIFIED VIRAL INFECTION; SCREENING-PULMONARY TB; ALLERGIC RHINITIS NOS Social History Tobacco Use Types Packs/Day Years Used Date Smoking Tobacco: Never Assessed Comments Unknown Sex and Gender Information Value Date Recorded Sex Assigned at Not on file Legal Sex Female 2:57 AM RN FLOAT Gender Identity Not on file Sexual Orientation Not on file documented as of this encounter Plan of Treatment Not on file documented as of this encounter Visit Diagnoses Diagnosis Unspecified hypothyroidism- Primary Unspecified viral infection, in conditions classified elsewhere and of unspecified site Screening examination for pulmonary tuberculosis Allergic rhinitis, cause unspecified documented in this encounter Care Teams Manager Summer Relationship Specialty Start Date End Date Cele Borrero DO [address] [place] [address] PCP - General Family Practice 04/07/16 documented as of this encounter
--- OUTSIDE RECORDS SUMMARY | 2025-04-13 09:12 | XMS_ITS | Encounter Summary ---
Author Organization [facility] Address [address] [place] [address] Care Team Providers Care Colleter Name Role Phone Cele Borrero DO Primary Care Provider +1- [phone] Encounter Details Date Type Department Care Team (Latest Contact Info) Description 11/12/2004 Outpatient Historical [facility] Medicine- [place] [address] [place] [address] Jaiden Torres MD [address] [place] [phone] ALLERGIC RHINITIS NOS (Primary Dx) Social History Tobacco Use Types Packs/Day Years Used Date Smoking Tobacco: Never Assessed Comments Unknown Sex and Gender Information Value Date Recorded Sex Assigned at Not on file Legal Sex Female 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
--- OUTSIDE RECORDS SUMMARY | 2025-04-13 09:12 | XMS_ITS | Encounter Summary ---
Author Organization [facility] Address [address] [place] [address] Care Team Providers Care Continuous Yarn Dyeing Machine Operator Name Role Phone Cele Borrero DO Primary Care Provider +1- [phone] Encounter Details Date Type Department Care Team (Latest Contact Info) Description 12/03/2004 Outpatient Historical [facility] Medicine- [place] [address] [place] [address] Jaiden Torres MD [address] [place] [phone] ALLERGIC RHINITIS NOS (Primary Dx) Social History Tobacco Use Types Packs/Day Years Used Date Smoking Tobacco: Never Assessed Comments Unknown Sex and Gender Information Value Date Recorded Sex Assigned at Not on file Legal Sex Female 2:57 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
--- OUTSIDE RECORDS SUMMARY | 2025-04-13 09:12 | XMS_ITS | Encounter Summary ---
Author Organization [facility] Address [address] [place] [address] Care Team Providers Care Tire Mounter Name Role Phone Cele Borrero DO Primary Care Provider +1- [phone] Encounter Details Date Type Department Care Team (Late st Contact Info) Description 01/02/2020 Ancillary Orders [facility] Imaging Services [address] [place] [address] Neftaly Dill, 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
--- OUTSIDE RECORDS SUMMARY | 2025-04-13 09:12 | XMS_ITS | Encounter Summary ---
Author Organization [facility] Address [address] [place] [address] Care Team Providers Care Statue Carver Name Role Phone Cele Borrero DO Primary Care Provider +1- [phone] Encounter Details Date Type Department Care Team (Latest Contact Info) Description 08/21/2004 Outpatient Historical [facility] Medicine- [place] [address] [place] [address] Jaiden Torres MD [address] [place] [phone] DIARRHEA NOS (Primary Dx) Social History Tobacco Use Types Packs/Day Years Used Date Smoking Tobacco: Never Assessed Comments Unknown Sex and Gender Information Value Date Recorded Sex Assigned at Not on file Legal Sex Female 2:57 AM CHART WRITER Gender Identity Not on file Sexual Orientation Not on file documented as of this encounter Plan of Treatment Not on file documented as of this encounter Visit Diagnoses Diagnosis Diarrhea- Primary documented in this encounter Care Teams Statue Carver Relationship Specialty Start Date End Date Cele Borrero DO [address] [place] [address] PCP - General Family Practice 04/07/16 documented as of this encounter
--- OUTSIDE RECORDS SUMMARY | 2025-04-13 09:12 | XMS_ITS | Encounter Summary ---
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
--- OUTSIDE RECORDS SUMMARY | 2025-04-13 09:12 | XMS_ITS | Encounter Summary ---
Author Organization [facility] Address [address] [place] [address] Care Team Providers Care Grinding Room Supervisor Name Role Phone Cele Borrero DO Primary Care Provider +1- [phone] Encounter Details Date Type Department Care Team (Latest Contact Info) Description 11/05/2004 Outpatient Historical [facility] Medicine- [place] [address] [place] [address] Jaiden Torres MD [address] [place] [phone] HYPOTHYROIDISM NOS (Primary Dx); OBESITY NOS; ALLERGIC RHINITIS NOS Social History Tobacco Use Types Packs/Day Years Used Date Smoking Tobacco: Never Assessed Comments Unknown Sex and Gender Information Value Date Recorded Sex Assigned at Not on file Legal Sex Female 2:57 AM INFORMATION SYSTEMS DIRECTOR Gender Identity Not on file Sexual Orientation Not on file documented as of this encounter Plan of Treatment Not on file documented as of this encounter Visit Diagnoses Diagnosis Unspecified hypothyroidism- Primary Obesity, unspecified Allergic rhinitis, cause unspecified documented in this encounter Care Teams Grinding Room Supervisor Relationship Specialty Start Date End Date Cele Borrero DO [address] [place] [address] PCP - General Family Practice 04/07/16 documented as of this encounter
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
--- OUTSIDE RECORDS SUMMARY | 2025-04-13 09:13 | XMS_ITS | Encounter Summary ---
Author Organization [facility] Address [address] [place] [address] Care Team Providers Care Coal Washer Name Role Phone Cele Borrero DO Primary Care Provider +1- [phone] Encounter Details Date Type Department Care Team (Latest Contact Info) Description 03/11/2005 Outpatient Historical [facility] Medicine- [place] [address] [place] [address] Jaiden Torres MD [address] [place] [phone] ALLERGIC RHINITIS NOS (Primary Dx) Social History Tobacco Use Types Packs/Day Years Used Date Smoking Tobacco: Never Assessed Comments Unknown Sex and Gender Information Value Date Recorded Sex Assigned at Not on file Legal 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
--- OUTSIDE RECORDS SUMMARY | 2025-04-13 09:13 | XMS_ITS | Encounter Summary ---
Author Organization [facility] Address [address] [place] [address] Care Team Providers Care Physicist Solid State Name Role Phone Cele Borrero DO Primary Care Provider +1- [phone] Encounter Details Date Type Department Care Team (Latest Contact Info) Description 02/11/2005 Outpatient Historical [facility] Medicine- [place] [address] [place] [address] Jaiden Torres MD [address] [place] [phone] ALLERGIC RHINITIS NOS (Primary Dx) Social History Tobacco Use Types Packs/Day Years Used Date Smoking Tobacco: Never Assessed Comments Unknown Sex and Gender Information Value Date Recorded Sex Assigned at Not on file Legal Sex Female 2:57 AM BATTERY SERVICE 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
--- OUTSIDE RECORDS SUMMARY | 2025-04-13 09:13 | XMS_ITS | Encounter Summary ---
Author Organization [facility] Address [address] [facility] Attn: Epic Prelude ADT CARLY HENNESSY [address] Care Team Providers Care Road Production General Manager Name Role Phone Cele Borrero DO Primary Care Provider [phone] Encounter Details Date Type Department Care Team (Late st Contact Info) Description 02/04/2005 Outpatient Historical Yeni Layne MD [address] [place], [place] [address] ALLERGIC RHINITIS NOS (Primary Dx) Social History Tobacco Use Types Packs/Day Years Used Date Smoking Tobacco: Never Assessed Comments Unknown Sex and Gender Information Value Date Recorded Sex Assigned at Not on file Legal Sex Female 2:57 AM RECREATIONAL THERAPY AIDE Gender Identity Not on file Sexual Orientation Not on file documented as of this encounter Plan of Treatment Not on file documented as of this encounter Visit Diagnoses Diagnosis Allergic rhinitis, cause unspecified- Primary documented in this encounter Care Teams Road Production General Manager Relationship Specialty Start Date End Date Cele Borrero DO [address] [place] [address] PCP - General Family Practice 04/07/16 documented as of this encounter
--- OUTSIDE RECORDS SUMMARY | 2025-04-13 09:13 | XMS_ITS | Encounter Summary ---
Author Organization [facility] Address [address] [place] [address] Care Team Providers Care Education Administrative Assistant Name Role Phone Cele Borrero DO Primary Care Provider +1- [phone] Encounter Details Date Type Department Care Team (Latest Contact Info) Description 03/19/2005 Outpatient Historical [facility] Medicine- [place] [address] [place] [address] Jaiden Torres MD [address] [place] [phone] HYPERTENSION NOS (Primary Dx); SPRAIN OF HAND NOS Social History Tobacco Use Types Packs/Day Years Used Date Smoking Tobacco: Never Assessed Comments Unknown Sex and Gender Information Value Date Recorded Sex Assigned at Not on file Legal Sex Female 2:57 AM 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 ENGINEER Gender Identity Not on file Sexual Orientation Not on file documented as of this encounter Plan of Treatment Not on file documented as of this encounter Visit Diagnoses Diagnosis Unspecified essential hypertension- Primary Sprain of hand, unspecified site documented in this encounter Care Teams Education Administrative Assistant Relationship Specialty Start Date End Date Cele Borrero DO [address] [place] [address] PCP - General Family Practice 04/07/16 documented as of this encounter
--- OUTSIDE RECORDS SUMMARY | 2025-04-13 09:13 | XMS_ITS | Encounter Summary ---
Author Organization [facility] Address [address] [place] [address] Care Team Providers Care Accounts Payable Manager Name Role Phone Cele Borrero DO Primary Care Provider +1- [phone] Encounter Details Date Type Department Care Team (Latest Contact Info) Description 01/10/2005 Outpatient Historical [facility] Medicine- [place] [address] [place] [address] Jaiden Torres MD [address] [place] [phone] Lumbosacral spondylosis (Primary Dx) Social History Tobacco Use Types Packs/Day Years Used Date Smoking Tobacco: Never Assessed Comments Unknown Sex and Gender Information Value Date Recorded Sex Assigned at Not on file Legal Sex Female 2:57 AM ASSOCIATE PROFESSOR OF THEATRE Gender Identity Not on file Sexual Orientation Not on file documented as of this encounter Plan of Treatment Not on file documented as of this encounter Visit Diagnoses Diagnosis Lumbosacral spondylosis- Primary Lumbosacral spondylosis without myelopathy documented in this encounter Care Teams Accounts Payable Manager Relationship Specialty Start Date End Date Cele Borrero DO [address] [place] [address] PCP - General Family Practice 04/07/16 documented as of this encounter
--- OUTSIDE RECORDS SUMMARY | 2025-04-13 09:13 | XMS_ITS | Encounter Summary ---
Author Organization [facility] Address [address] [place] [address] Care Team Providers Care Creative Services Producer Name Role Phone Cele Borrero DO Primary Care Provider +1- [phone] Encounter Details Date Type Department Care Team (Latest Contact Info) Description 03/04/2005 Outpatient Historical [facility] Medicine- [place] [address] [place] [address] Jaiden Torres MD [address] [place] [phone] ALLERGIC RHINITIS NOS (Primary Dx) Social History Tobacco Use Types Packs/Day Years Used Date Smoking Tobacco: Never Assessed Comments Unknown Sex and Gender Information Value Date Recorded Sex Assigned at Not on file Legal Sex Female 2:57 AM PARENT PARTNER Gender Identity Not on file Sexual Orientation Not on file documented as of this encounter Plan of Treatment Not on file documented as of this encounter Visit Diagnoses Diagnosis Allergic rhinitis, cause unspecified- Primary documented in this encounter Care Teams Creative Services Producer Relationship Specialty Start Date End Date Cele Borrero DO [address] [place] [address] PCP - General Family Practice 04/07/16 documented as of this encounter
--- OUTSIDE RECORDS SUMMARY | 2025-04-13 09:13 | XMS_ITS | Encounter Summary ---
Author Organization [facility] Address [address] [place] [address] Care Team Providers Care Life Support Technician Name Role Phone Cele Borrero DO Primary Care Provider +1- [phone] Encounter Details Date Type Department Care Team (Latest Contact Info) Description 04/08/2005 Outpatient Historical [facility] Medicine- [place] [address] [place] [address] Jaiden Torres MD [address] [place] [phone] ALLERGIC RHINITIS NOS (Primary Dx) Social History Tobacco Use Types Packs/Day Years Used Date Smoking Tobacco: Never Assessed Comments Unknown Sex and Gender Information Value Date Recorded Sex Assigned at Not on file Legal Sex Female 2:57 AM WOOD POLISHER Gender Identity Not on file Sexual Orientation Not on file documented as of this encounter Plan of Treatment Not on file documented as of this encounter Visit Diagnoses Diagnosis Allergic rhinitis, cause unspecified- Primary documented in this encounter Care Teams Life Support Technician Relationship Specialty Start Date End Date Cele Borrero DO [address] [place] [address] PCP - General Family Practice 04/07/16 documented as of this encounter
--- OUTSIDE RECORDS SUMMARY | 2025-04-13 09:13 | XMS_ITS | Encounter Summary ---
Author Organization [facility] Address [address] [place] [address] Care Team Providers Care Homicide Detective Name Role Phone Cele Borrero DO Primary Care Provider +1- [phone] Encounter Details Date Type Department Care Team (Latest Contact Info) Description 02/18/2005 Outpatient Historical [facility] Medicine- [place] [address] [place] [address] Jaiden Torres MD [address] [place] [phone] ALLERGIC RHINITIS NOS (Primary Dx) Social History Tobacco Use Types Packs/Day Years Used Date Smoking Tobacco: Never Assessed Comments Unknown Sex and Gender Information Value Date Recorded Sex Assigned at Not on file Legal Sex Female 2:57 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
--- OUTSIDE RECORDS SUMMARY | 2025-04-13 09:13 | XMS_ITS | Encounter Summary ---
Author Organization [facility] Address [address] [place] [address] Care Team Providers Care Restaurant Culinary Manager Name Role Phone Cele Borrero Primary Care Provider +1- [phone] Encounter Details Date Type Department Care Team (Latest Contact Info) Description 10/29/2004 Outpatient Historical [facility] [address] [place] [address] Jaiden Torres MD [address] [place] [address] CHEST PAIN NOS (Primary Dx) Social History Tobacco Use Types Packs/Day Years Used Date Smoking Tobacco: Never Assessed Comments Unknown Sex and Gender Information Value Date Recorded Sex Assigned at Not on file Legal Sex Female 2:57 AM AUTOMOTIVE DRIVABILITY TECHNICIAN Gender Identity Not on file Sexual [...] Primary documented in this encounter Care Teams Restaurant Culinary Manager Relationship Specialty Start Date End Date Cele Borrero DO [address] [place] [address] PCP - General Family Practice 04/07/16 documented as of this encounter
--- OUTSIDE RECORDS SUMMARY | 2025-04-13 09:13 | XMS_ITS | Encounter Summary ---
Author Organization [facility] Address [address] [place] [address] Care Team Providers Care Head Of Merchandise Buying Name Role Phone Cele Borrero Primary Care Provider +1- [phone] Encounter Details Date Type Department Care Team (Latest Contact Info) Description 11/06/2004 Outpatient Historical [facility] Medicine- [place] [address] [place] [address] Jaiden Torres MD [address] [place] [address] OBESITY NOS (Primary Dx) Social History Tobacco Use Types Packs/Day Years Used Date Smoking Tobacco: Never Assessed Comments Unknown Sex and Gender Information Value Date Recorded Sex Assigned at Not on file Legal Sex Female 2:57 AM VERTICA ARCHITECT Gender Identity Not on file Sexual [...] documented in this encounter Care Teams Head Of Merchandise Buying Relationship Specialty Start Date End Date Cele Borrero DO [address] [place] [address] PCP - General Family Practice 04/07/16 documented as of this encounter
--- OUTSIDE RECORDS SUMMARY | 2025-04-13 09:13 | XMS_ITS | Encounter Summary ---
Author Organization [facility] Address [address] [place] [address] Care Team Providers Care Binder Coverstitch Name Role Phone Cele Borrero DO Primary Care Provider +1- [phone] Encounter Details Date Type Department Care Team (Latest Contact Info) Description 01/13/2005 Outpatient Historical [facility] Medicine- [place] [address] [place] [address] Jaiden Torres MD [address] [place] [phone] ALLERGIC RHINITIS NOS (Primary Dx); ACUTE BRONCHITIS Social History Tobacco Use Types Packs/Day Years Used Date Smoking Tobacco: Never Assessed Comments Unknown Sex and Gender Information Value Date Recorded Sex Assigned at Not on file Legal Sex Female 2:57 AM SENIOR INSPECTOR Gender Identity Not on file Sexual Orientation Not on file documented as of this encounter Plan of Treatment Not on file documented as of this encounter Visit Diagnoses Diagnosis Allergic rhinitis, cause unspecified- Primary Acute bronchitis documented in this encounter Care Teams Binder Coverstitch Relationship Specialty Start Date End Date Cele Borrero DO [address] [place] [address] PCP - General Family Practice 04/07/16 documented as of this encounter
--- OUTSIDE RECORDS SUMMARY | 2025-04-13 09:13 | XMS_ITS | Encounter Summary ---
Author Organization [facility] Address [address] [place] [address] Care Team Providers Care Margin Clerk Name Role Phone Cele Borrero DO Primary Care Provider +1- [phone] Encounter Details Date Type Department Care Team (Latest Contact Info) Description 02/25/2005 Outpatient [facility] Medicine- [place] [address] [place] [address] Jaiden Torres MD [address] [place] [phone] DERMATITIS NOS (Primary Dx); ALLERGY, UNSPECIFIED Social History Tobacco Use Types Packs/Day Years Used Date Smoking Tobacco: Never Assessed Comments Unknown Sex and Gender Information Value Date Recorded Sex Assigned at Not on file Legal Sex Female 2:57 AM ATTENDANCE OFFICER Gender Identity Not on file Sexual Orientation Not on file documented as of this encounter Plan of Treatment Not on file documented as of this encounter Visit Diagnoses Diagnosis Contact dermatitis and other eczema, due to unspecified cause- Primary Allergy, unspecified not elsewhere classified documented in this encounter Care Teams Margin Clerk Relationship Specialty Start Date End Date Cele Borrero DO [address] [place] [address] PCP - General Family Practice 04/07/16 documented as of this encounter
--- OUTSIDE RECORDS SUMMARY | 2025-04-13 09:13 | XMS_ITS | Encounter Summary ---
Author Organization [facility] Address [address] [place] [address] Care Team Providers Care Swaging Machine Adjuster Name Role Phone Cele Borrero DO Primary Care Provider +1- [phone] Encounter Details Date Type Department Care Team (Latest Contact Info) Description 01/28/[address] [facility] Medicine- [place] [address] [place] [address] Jaiden Torres MD [address] [place] [phone] Sprain lumbosacral (Primary Dx); ALLERGIC RHINITIS NOS Social History Tobacco Use Types Packs/Day Years Used Date Smoking Tobacco: Never Assessed Comments Unknown Sex and Gender Information Value Date Recorded Sex Assigned at Not on file Legal Sex Female 2:57 AM JOINERY FACTORY WORKER Gender Identity Not on file Sexual Orientation Not on file documented as of this encounter Plan of Treatment Not on file documented as of this encounter Visit Diagnoses Diagnosis Sprain lumbosacral- Primary Sprain of lumbosacral (joint) (ligament) Allergic rhinitis, cause unspecified documented in this encounter Care Teams Swaging Machine Adjuster Relationship Specialty Start Date End Date Cele Borrero DO [address] [place] [address] PCP - General Family Practice 04/07/16 documented as of this encounter
--- OUTSIDE RECORDS SUMMARY | 2025-04-13 09:13 | XMS_ITS | Encounter Summary ---
Author Organization [facility] Address [address] [place] [address] Care Team Providers Care Insurance Premium Auditor Name Role Phone Cele Borrero DO Primary Care Provider +1- [phone] Encounter Details Date Type Department Care Team (Latest Contact Info) Description 10/25/2004 Outpatient Historical [facility] Medicine- [place] [address] [place] [address] Jaiden Torres MD [address] [place] [phone] HYPOTHYROIDISM NOS (Primary Dx) Social History Tobacco Use Types Packs/Day Years Used Date Smoking Tobacco: Never Assessed Comments Unknown Sex and Gender Information Value Date Recorded Sex Assigned at Not on file Legal Sex Female 2:57 AM MANAGER OF NETWORK Gender Identity Not on file Sexual Orientation Not on file documented as of this encounter Plan of Treatment Not on file documented as of this encounter Visit Diagnoses Diagnosis Unspecified hypothyroidism- Primary documented in this encounter Care Teams Insurance Premium Auditor Relationship Specialty Start Date End Date Cele Borrero DO [address] [place] [address] PCP - General Family Practice 04/07/16 documented as of this encounter
--- OUTSIDE RECORDS SUMMARY | 2025-04-13 09:13 | XMS_ITS | Encounter Summary ---
Author Organization [facility] Address [address] [place] [address] Care Team Providers Care Systems Integration Manager Name Role Phone Cele Borrero DO Primary Care Provider +1- [phone] Encounter Details Date Type Department Care Team (Latest Contact Info) Description 02/10/2005 Outpatient Historical [facility] Medicine- [place] [address] [place] [address] Jaiden Torres MD [address] [place] [address] CHRONIC SINUSITIS NOS (Primary Dx) Social History Tobacco Use Types Packs/Day Years Used Date Smoking Tobacco: Never Assessed Comments Unknown Sex and Gender Information Value Date Recorded Sex Assigned at Not on file Legal Sex Female 2:57 AM BOAT JOINER HELPER Gender Identity Not on file Sexual Orientation Not on file documented as of this encounter Plan of Treatment Not on file documented as of this encounter Visit Diagnoses Diagnosis Unspecified sinusitis (chronic)- Primary documented in this encounter Care Teams Systems Integration Manager Relationship Specialty Start Date End Date Cele Borrero DO [address] [place] [address] PCP - General Family Practice 04/07/16 documented as of this encounter
--- OUTSIDE RECORDS SUMMARY | 2025-04-13 09:13 | XMS_ITS | Encounter Summary ---
Author Organization [facility] Address [address] [place] [address] Care Team Providers Care Metal Punch Press Operator Name Role Phone Cele Borrero DO Primary Care Provider +1- [phone] Encounter Details Date Type Department Care Team (Latest Contact Info) Description 03/18/2005 Outpatient Historical [facility] Medicine- [place] [address] [place] [address] Jaiden Torres MD [address] [place] [phone] ALLERGIC RHINITIS NOS (Primary Dx) Social History Tobacco Use Types Packs/Day Years Used Date Smoking Tobacco: Never Assessed Comments Unknown Sex and Gender Information Value Date Recorded Sex Assigned at Not on file Legal Sex Female 2:57 AM STEWARD/STEWARDESS BATH Gender Identity Not on file Sexual Orientation Not on file documented as of this encounter Plan of Treatment Not on file documented as of this encounter Visit Diagnoses Diagnosis Allergic rhinitis, cause unspecified- Primary documented in this encounter Care Teams Metal Punch Press Operator Relationship Specialty Start Date End Date Cele Borrero DO [address] [place] [address] PCP - General Family Practice 04/07/16 documented as of this encounter
--- OUTSIDE RECORDS SUMMARY | 2025-04-13 09:13 | XMS_ITS | Encounter Summary ---
Author Organization [facility] Address [address] [place] [address] Care Team Providers Care Custodial Manager Name Role Phone Cele Borrero DO Primary Care Provider +1- [phone] Encounter Details Date Type Department Care Team (Latest Contact Info) Description 01/07/[address] [facility] Medicine- [place] [address] [place] [address] Jaiden Torres MD [address] [place] [phone] ALLERGIC RHINITIS NOS (Primary Dx) Social History Tobacco Use Types Packs/Day Years Used Date Smoking Tobacco: Never Assessed Comments Unknown Sex and Gender Information Value Date Recorded Sex Assigned at Not on file Legal Sex Female 2:57 AM MASON HELPER Gender Identity Not on file Sexual Orientation Not on file documented as of this encounter Plan of Treatment Not on file documented as of this encounter Visit Diagnoses Diagnosis Allergic rhinitis, cause unspecified- Primary documented in this encounter Care Teams Custodial Manager Relationship Specialty Start Date End Date Cele Borrero DO [address] [place] [address] PCP - General Family Practice 04/07/16 documented as of this encounter
--- OUTSIDE RECORDS SUMMARY | 2025-04-13 09:13 | XMS_ITS | Encounter Summary ---
Author Organization [facility] Address [address] [place] [address] Care Team Providers Care Radiation Engineer Name Role Phone Cele Borrero DO Primary Care Provider +1- [phone] Encounter Details Date Type Department Care Team (Latest Contact Info) Description 04/15/2005 Outpatient Historical [facility] Medicine- [place] [address] [place] [address] Jaiden Torres MD [address] [place] [phone] ALLERGIC RHINITIS NOS (Primary Dx) Social History Tobacco Use Types Packs/Day Years Used Date Smoking Tobacco: Never Assessed Comments Unknown Sex and Gender Information Value Date Recorded Sex Assigned at Not on file Legal Sex Female 2:57 AM PUPIL PERSONNEL SERVICES DIRECTOR Gender Identity Not on file Sexual Orientation Not on file documented as of this encounter Plan of Treatment Not on file documented as of this encounter Visit Diagnoses Diagnosis Allergic rhinitis, cause unspecified- Primary documented in this encounter Care Teams Radiation Engineer Relationship Specialty Start Date End Date Cele Borrero DO [address] [place] [address] PCP - General Family Practice 04/07/16 documented as of this encounter
--- OUTSIDE RECORDS SUMMARY | 2025-04-13 09:13 | XMS_ITS | Encounter Summary ---
Author Organization [facility] Address [address] [place] [address] Care Team Providers Care Easement Worker Name Role Phone Cele Borrero DO Primary Care Provider +1- [phone] Encounter Details Date Type Department Care Team (Latest Contact Info) Description 04/01/2005 Outpatient Historical [facility] Medicine- [place] [address] [place] [address] Jaiden Torres MD [address] [place] [phone] ALLERGIC RHINITIS NOS (Primary Dx) Social History Tobacco Use Types Packs/Day Years Used Date Smoking Tobacco: Never Assessed Comments Unknown Sex and Gender Information Value Date Recorded Sex Assigned at Not on file Legal Sex Female 2:57 AM BUREAU CHIEF Gender Identity Not on file Sexual Orientation Not on file documented as of this encounter Plan of Treatment Not on file documented as of this encounter Visit Diagnoses Diagnosis Allergic rhinitis, cause unspecified- Primary documented in this encounter Care Teams Easement Worker Relationship Specialty Start Date End Date Cele Borrero DO [address] [place] [address] PCP - General Family Practice 04/07/16 documented as of this encounter
--- OUTSIDE RECORDS SUMMARY | 2025-04-13 09:13 | XMS_ITS | Encounter Summary ---
Author Organization [facility] Address [address] [place] [address] Care Team Providers Care Light Coil Winder Name Role Phone Cele Borrero DO Primary Care Provider +1- [phone] Encounter Details Date Type Department Care Team (Latest Contact Info) Description 01/21/2005 Outpatient Historical [facility] Medicine- [place] [address] [place] [address] Jaiden Torres MD [address] [place] [phone] ALLERGIC RHINITIS NOS (Primary Dx) Social History Tobacco Use Types Packs/Day Years Used Date Smoking Tobacco: Never Assessed Comments Unknown Sex and Gender Information Value Date Recorded Sex Assigned at Not on file Legal Sex Female 2:57 AM HEALTH AND SAFETY SPECIALIST Gender Identity Not on file Sexual Orientation Not on file documented as of this encounter Plan of Treatment Not on file documented as of this encounter Visit Diagnoses Diagnosis Allergic rhinitis, cause unspecified- Primary documented in this encounter Care Teams Light Coil Winder Relationship Specialty Start Date End Date Cele Borrero DO [address] [place] [address] PCP - General Family Practice 04/07/16 documented as of this encounter
--- OUTSIDE RECORDS SUMMARY | 2025-04-13 09:13 | XMS_ITS | Encounter Summary ---
Author Organization [facility] Address [address] [place] [address] Care Team Providers Care Sales Coach Name Role Phone Cele Borrero DO Primary Care Provider +1- [phone] Encounter Details Date Type Department Care Team (Latest Contact Info) Description 03/25/2005 Outpatient Historical [facility] Medicine- [place] [address] [place] [address] Jaiden Torres MD [address] [place] [address] ALLERGIC RHINITIS NOS (Primary Dx) Social History Tobacco Use Types Packs/Day Years Used Date Smoking Tobacco: Never Assessed Comments Unknown Sex and Gender Information Value Date Recorded Sex Assigned at Not on file Legal Sex Female 2:57 AM REACTOR FUELING SUPERVISOR Gender Identity Not on file Sexual Orientation Not on file documented as of this encounter Plan of Treatment Not on file documented as of this encounter Visit Diagnoses Diagnosis Allergic rhinitis, cause unspecified- Primary documented in this encounter Care Teams Sales Coach Relationship Specialty Start Date End Date Cele Borrero DO [address] [place] [address] PCP - General Family Practice 04/07/16 documented as of this encounter
--- OUTSIDE RECORDS SUMMARY | 2025-04-13 09:13 | XMS_ITS | Encounter Summary ---
Author Organization [facility] Address [address] [place] [address] Care Team Providers Care Space Control Supervisor Name Role Phone Cele Borrero DO Primary Care Provider +1- [phone] Encounter Details Date Type Department Care Team (Latest Contact Info) Description 04/09/2005 Outpatient Historical [facility] Medicine- [place] [address] [place] [address] Jaiden Torrse MD [address] [place] [phone] MALAISE AND FATIGUE NEC (Primary Dx) Social History Tobacco Use Types Packs/Day Years Used Date Smoking Tobacco: Never Assessed Comments Unknown Sex and Gender Information Value Date Recorded Sex Assigned at Not on file Legal Sex Female 2:57 AM DURAL MECHANIC Gender Identity Not on file Sexual Orientation Not on file documented as of this encounter Plan of Treatment Not on file documented as of this encounter Visit Diagnoses Diagnosis Other malaise and fatigue- Primary documented in this encounter Care Teams Space Control Supervisor Relationship Specialty Start Date End Date Cele Borrero DO [address] [place] [address] PCP - General Family Practice 04/07/16 documented as of this encounter
--- OUTSIDE RECORDS SUMMARY | 2025-04-13 09:13 | XMS_ITS | Clinical Summary ---
Author Organization [facility] Address [address] [place] [address] Care Team Providers Care Director Of Corporate Sales Name Role Phone GissellCele velazquez Brandie ANTONY Primary Care Provider [phone]- [phone] Allergies Active Allergy Reactions Criticality Noted Date [...] 1 Active fluticasone propionate (FLONASE) 50 mcg/spray [place], Suspension nasal inhalerIndications :Middle ear effusion, right [...] on file Legal Sex Female 2:57 AM MALT HOUSE OPERATOR Gender Identity Not on file Sexual [...] exam HEMOGLOBIN A1C Routine 05/28/2018 10:40 AM MALT HOUSE OPERATOR Elevated glucose POC OCCULT BLOOD UP TO 3 CARDS Routine 09/01/2017 5:15 PM CDT Blood in stool from Last 3 Months or Most Recently Relevant to Health Maintenance Results * (ABNORMAL) LIPID PANEL (11/19/2020 8:57 AM CDT) CHOLESTEROL 147 <200 mg/dL [facility] [place] HDL 45(L) > OR = 50 mg/dL [facility] [place] TRIGLYCERIDE 222(H) <150 mg/dL [facility] [place] Comment: If a non-fasting specimen was collected, consider repeat triglyceride testing on a fasting specimen if clinically indicated. Serene et al. J. of Clin. Lipidol. 2015;9:129-169. LDL CALCULATED 71 mg/dL (calc) [facility] [place] Comment: Reference range: <100 Desirable range <100 mg/dL for primary prevention; <70 mg/dL for patients with CHD or diabetic patients with > or = 2 CHD risk factors. LDL-C is now calculated using the Logan-Elly calculation, which is a validated novel method providing better accuracy than the Friedewald equation in the estimation of LDL-C. Logan CASE et al. RAMYA. 2013;310(19): 3152-2722 (http://education.TriVascular/faq/OQQ387) CHOL/HDL RATIO 3.3 <5.0 (calc) [facility] [place] TOTAL NON-HDL CHOL(LDL+VLDL) 102 <130 mg/dL (calc) [facility] [place] Comment: For patients with diabetes plus 1 major ASCVD risk factor, treating to a non-HDL-C goal of <100 mg/dL (LDL-C of <70 mg/dL) is considered a therapeutic option. Test Performed at: [facility] [address] [place] [address] Israel Reyes D.O., MPH Blood 11/19/2020 8:57 AM CDT 11/20/2020 1:23 AM CDT Rachele Davis [facility] ORDERABLES Fin al Result [facility] [place] [address] [place] [address] * CERV/VAG CYTO AGE BASED SCREEN PAP (11/08/2019 12:36 PM CDT) COMMENT (PAP): SEE COMMENT 0 9:25 AM CDT [facility] Comment: This order for age-based cervical cancer and STI screening follows ACOG guidelines(PB 168, 140, KMV843). See individual assays for performing site location. [...] 11/15/2019 9:25 AM CDT [facility] PRESS TENDER INCENDIARY GRENADE: SEE COMMENT 2019 9:25 AM CDT [facility] Comment: AMW, CT(ASCP) CT screening location: [place] [address] [place] [address] EXPLANATORY NOTE SEE COMMENT 020 9:25 AM [...] was performed using the APTIMA HPV Assay ([employer] This assay detects E6/E7 viral messenger RNA (mRNA) from 14 high-risk HPV types (16,18,31,33,35,39,45,51,52,56,58,59,66,68). The analytical performance characteristics of this assay have been determined by [facility]. The modifications have not been cleared or approved by the FDA. This assay has been validated pursuant to the CLIA regulations and is used for clinical purposes. Genital SWAB OF ENDOCERVIX / Unknown Collection / Unknown 11/08/2019 12:36 PM CDT 11/09/2019 11:06 AM CDT Narrative [facility] - 11/15/2019 9:25 AM CDT Performing Organization Information: Site ID: [id number] Name: [facility] Address: [address] [address] Director: Israel Reyes D.O., MPH Site ID: [id number] [facility] Address: [address] [place] [address] Director: Anish Goldberg Rachele Davis LEATHER SOFTENER PATHOLOGY/CYTOLOGY ORDER ANASTASIA Final Result [facility] [phone] * HEMOGLOBIN A1C (05/28/2018 10:40 AM MALT HOUSE OPERATOR) [facility] HEMOGLOBIN A1C 5.1 4.0 - 6.0 % 05/28/2018 8:11 [address] [facility] EST. AVG GLUCOSE, A1C 100 mg/dL 05/28/2018 8:11 PM [facility] Blood Venipuncture / Unknown 05/28/2018 10:40 AM MALT HOUSE OPERATOR 05/28/2018 7:44 PM MALT HOUSE OPERATOR [facility] - 05/28/2018 8:11 PM MALT HOUSE OPERATOR HGB A1C INTERPRETATION NORMAL: <5.7% PRE-DIABETES: 5.7 - 6.4% DIABETES: 6.5% OR GREATER Falsely low A1C measurements can occur when: 1. Anemia and/or hemolytic anemia is present. 2. Hemoglobin variants present. 3. Renal failure. 4. Transfusion of blood product in the last 120 days. We recommend ordering a fructosamine test([id number]) to more accurately assess glycemic status if any of the above conditions are present. Blossom Sung LEATHER SOFTENER CHEMISTRY ORDERABLES Final Re sult [facility] CLIA# [id number] [facility] [place] [address] * (ABNORMAL) POC OCCULT BLOOD UP TO 3 CARDS (09/01/2017 5:15 PM CDT) [facility] OCCULT BLOOD 1 CARD POC Positive(A) Negative [facility] OCCULT BLOOD 2 CARD POC Negative Negative [facility] OCCULT BLOOD 3 CARD POC Negative Negative [facility] INTERNAL KIT QC Pass Pass [facility] CARD LOT NUMBER POC [id number] [facility] CARD EXPIRATION DATE POC 02/28/2019 [facility] DEVELOPER LOT NUMBER POC [id number] [facility] DEVELOPER EXPIRATION DATE POC 10/30/2019 [facility] Stool STOOL SPECIMEN / Unknown 09/01/2017 5:15 PM CDT us Blossom Sung LEATHER SOFTENER POINT OF CARE TESTING Final R esult [facility] CLIA# [id number] [address] [place] [id number] from Last 3 Months or Most Recently Relevant to Health Maintenance Insurance MEDICAID [place] Advance Directives For more information, please contact: [phone] * Full Code (Latest Code Status on File) Date Activated Date Inactivated Comments 09/08/2017 1:41 PM 09/08/2017 5:20 PM Care Teams Director Of Corporate Sales Relationship Specialty Start Date End Date Cele Borrero DO [address] [place] [id number] PCP - General Family Practice 04/07/16
--- OUTSIDE RECORDS SUMMARY | 2025-04-13 09:13 | XMS_ITS | Encounter Summary ---
Author Organization [facility] Address [address] [place] [address] Care Team Providers Care Silver Lap Machine Tender Name Role Phone Cele Borrero DO Primary Care Provider [phone]- [phone] Encounter Details Date Type Department Care Team (Latest Contact Info) Description 12/31/[address] [facility] [place] [facility] [address] [place] [address] Jaiden Torres MD [address] [place] [phone] ALLERGIC RHINITIS NOS (Primary Dx) Social History Tobacco Use Types Packs/Day Years Used Date Smoking Tobacco: Never Assessed Comments Unknown Sex and Gender Information Value Date Recorded Sex Assigned at Not on file Legal Sex Female 2:57 AM APPLICATION SPEC Gender Identity Not on file Sexual Orientation Not on file documented as of this encounter Plan of Treatment Not on file documented as of this encounter Visit Diagnoses Diagnosis Allergic rhinitis, cause unspecified- Primary documented in this encounter Care Teams Silver Lap Machine Tender Relationship Specialty Start Date End Date Cele Borrero DO [address] [place] [address] PCP - General Family Practice 04/07/16 documented as of this encounter
--- OUTSIDE RECORDS SUMMARY | 2025-04-13 09:13 | XMS_ITS | Encounter Summary ---
Author Organization [facility] Address [address] [place] [address] Care Team Providers Care Garment Folder Name Role Phone Cele Borrero DO Primary Care Provider [phone]- [phone] Encounter Details Date Type Department Care Team (Latest Contact Info) Description 11/06/2004 [facility] [place] [address] [place] [address] Jaiden Torres MD [address] [phone] OBESITY NOS (Primary Dx); HYPERTENSION NOS Social History Tobacco Use Types Packs/Day Years Used Date Smoking Tobacco: Never Assessed Comments Unknown Sex and Gender Information Value Date Recorded Sex Assigned at Not on file Legal Sex Female 2:57 AM NURSERY RN Gender Identity Not on file Sexual Orientation Not on file documented as of this encounter Plan of Treatment Not on file documented as of this encounter Visit Diagnoses Diagnosis Obesity, unspecified- Primary Unspecified essential hypertension documented in this encounter Care Teams Garment Folder Relationship Specialty Start Date End Date Cele Borrero DO [address] [place] [address] PCP - General Family Practice 04/07/16 documented as of this encounter
[2025-04-13 09:38] VITALS: BP 110/67; PULSE 86; RESP 16; O2SAT 98
--- NOTE | 2025-04-13 09:38 | W.ED.ABDPA2 ---
HPI - Abdominal Pain General: Chief Complaint: Abdominal Pain Stated Complaint: abdominal pain Time Seen by Provider: 04/13/25 09:03 Source: patient Mode of arrival: ambulatory Limitations: no limitations History of Present Illness: 55-year-old female states been having left lower abdominal pain along with pain and left flank area. States the pain has been sharp in nature denies any fevers. Patient states that she has had some worsening pain with palpation and with deep breathing. She denies any chest pain or shortness of breath denies any dysuria denies any vomiting or diarrhea Related Data Home Medications ?Medication ?Instructions ?Recorded ?Confirmed bumetanide 0.5 mg tablet 0.5 mg PO QAM 06/03/22 04/08/24 montelukast 10 mg tablet 10 mg PO BEDTIME 06/03/22 04/08/24 albuterol sulfate 90 mcg/actuation 2 puff inhalation Q6H PRN 08/22/22 04/08/24 aerosol inhaler (Ventolin HFA) Shortness Of Breath atorvastatin 40 mg tablet 40 mg PO BEDTIME 08/22/22 04/08/24 Held on 03/03/24. Instructions: Adverse Reaction pantoprazole 40 mg tablet,delayed 40 mg PO QAM 08/22/22 04/08/24 release (Protonix) baclofen 10 mg tablet 20 mg PO BEDTIME 12/09/22 04/08/24 hydrocodone 7.5 mg-acetaminophen 1 tab PO BID Pain 01/15/23 04/08/24 325 mg tablet potassium chloride 10 mEq 10 meq PO EVERY OTHER DAY PRN Edema 01/15/23 04/08/24 tablet,extended release spironolactone 25 mg tablet 50 mg PO QAM 01/15/23 04/08/24 Held on 03/03/24. Instructions: Doctor's Order levocetirizine 5 mg tablet 5 mg PO DAILY 03/18/23 04/08/24 naloxone 4 mg/actuation nasal 4 mg intranasal Q2M PRN OVERDOSE 03/18/23 04/08/24 spray (Narcan) azelastine 137 mcg (0.1 %) nasal 1 - 2 spray intranasal BID 09/15/23 04/08/24 spray ergocalciferol (vitamin D2) 1,250 1,250 mcg PO Q7D 04/16/24 11/08/24 mcg (50,000 unit) capsule hydroxyzine HCl 25 mg tablet 25 mg PO BID PRN 07/12/24 resmetirom 100 mg tablet 100 mg PO DAILY 07/12/24 (Rezdiffra) tirzepatide (weight loss) 2.5 mg SUBCUT 07/12/24 mg/0.5 mL subcutaneous pen injector (Zepbound) Previous Rx's ?Medication ?Instructions ?Recorded epinephrine 0.3 mg/0.3 mL 0.3 mg (0.3 mL) IM Q10M PRN 01/22/22 injection, auto-injector anaphylaxis #2 ea nitroglycerin 0.4 mg sublingual 0.4 mg sublingual Q5M PRN chest 09/16/24 tablet pain #30 tabs ciprofloxacin HCl 500 mg tablet 500 mg PO BID #14 tabs 11/07/24 isosorbide mononitrate 30 mg 30 mg PO DAILY #90 tabs 11/14/24 tablet,extended release 24 hr metoprolol tartrate 25 mg tablet 12.5 mg (1/2 x 25 mg) PO BID #45 04/05/25 tabs naproxen 500 mg tablet (Naprosyn) 500 mg PO BID PRN pain #20 tabs 04/13/25 Allergies Allergy/AdvReac Type Severity Reaction Status Date / Time amoxicillin Allergy rash Verified 12/27/24 09:33 celecoxib (From Celebrex) Allergy ALGY-Hives Verified 12/27/24 09:33 cyclobenzaprine (From Allergy rash Verified 12/27/24 09:33 Flexeril) egg Allergy Unknown Verified 12/27/24 09:33 furosemide (From Lasix) Allergy rash Verified 12/27/24 09:33 hydromorphone (From Dilaudid) Allergy rash Verified 12/27/24 09:33 lidocaine Allergy Unknown Verified 12/27/24 09:33 meperidine (From Demerol) Allergy Unknown Verified 12/27/24 09:33 metformin Allergy Unknown Verified 12/27/24 09:33 milk Allergy ADR-Vomitin Verified 12/27/24 09:33 g nitrofurantoin (From Allergy ALGY-Rash Verified 12/27/24 09:33 Macrobid) prednisone Allergy Unknown Verified 12/27/24 09:33 pregabalin (From Lyrica) Allergy unknown Verified 12/27/24 09:33 tramadol Allergy rash Verified 12/27/24 09:33 lisinopril AdvReac hypotension Verified 12/27/24 09:33 Review of Systems GI: Reports: abdominal pain PFSH ED PFSH: Medical History CHF (congestive heart failure) Chronic fatigue Right upper quadrant abdominal pain Gastritis Gastric bezoar Cervical osteoarthritis Cervical disc disorder with myelopathy of mid-cervical region Acquired lymphedema of lower extremity Surgical History S/P placement of nerve stimulator Hx of neck surgery History of lumbar surgery 2015 Dr. Molina Tolentino Neurosurgeon [facility] L2-L3 decompression History of knee surgery History of tubal ligation History of lymph node biopsy History of elbow surgery 2017 Dr. Srinivasan Pena [facility] Orthopedic Surgery Left ulnar nerve transposition. Right ulnar nerve transposition History of oral surgery Family History Mother Diabetes Father Lung disease Grandmother Congestive heart failure (CHF) CAD (coronary artery disease) Chronic kidney disease (CKD) Stroke Family/Other CAD (coronary artery disease) Cancer Lung disease Social History Smoking and tobacco/nicotine status: never used tobacco/nicotine Alcohol intake: former Substance/Drug Use: former Household members: spouse Marital status: Current occupational status: unemployed Physical Exam Const: COMMON NORMALS: no acute distress, patient oriented x3 and healthy appearing HENMT: COMMON NORMALS: normocephalic and atraumatic HEAD & SCALP: normocephalic and atraumatic Eye: COMMON NORMALS: conjunctivae normal CONJUNCTIVA: Yes conjunctivae normal Neck/C-Spine: COMMON NORMALS: full ROM and supple Chest: COMMONS NORMALS: normal inspection of the chest Resp: COMMON NORMALS: normal respiratory effort Cardio: COMMON NORMALS: regular rate, regular rhythm and No murmurs present (Cardio) RATE: regular rate RHYTHM: regular rhythm GI: COMMON NORMALS: Normal to inspection, nondistended, normoactive bowel sounds present, Soft to palpation and no masses PALPATION: Yes Soft to palpation OTHER: Tenderness left lower quadrant Back/Pelvis: OTHER: Tenderness to left lower back Extremity: COMMON NORMALS: normal to inspection and full ROM Neuro: COMMON NORMALS: patient oriented x3, moves all extremities and no focal motor deficits Psych: COMMON NORMALS: mental status grossly normal, Normal thought process present and cooperative THOUGHT PROCESS: Normal thought process present Skin: COMMON NORMALS: no rashes or lesions noted and no wounds GENERAL SKIN EXAM: no rashes or lesions noted Course Vital Signs: Vital signs: Vital Signs Temperature 97.9 F 04/13/25 08:57 Pulse Rate 86 04/13/25 09:38 Respiratory Rate 16 04/13/25 09:38 Blood Pressure 110/67 04/13/25 09:38 Pulse Oximetry 98 04/13/25 09:38 Oxygen Delivery Me thod Room Air 04/13/25 09:38 MDM - Abdominal Pain Medical Decision Making Patient presents here with abdominal pain been going on for 2 days with some pain in her lower back as well. Differential includes appendicitis, bowel obstruction, diverticulitis, pyelonephritis. These were ruled out here. Her blood work showed no significant abnormalities and normal white count urinalysis showed no signs of UTI. CT here showed no acute abnormalities and was reviewed by me as well. Pain is likely muscular in nature she does feel improved here after pain meds will prescribe her Naprosyn for home I did go over all these findings with her she is to follow-up with her PCP in 2 to 4 days and return if worsening. Medical Records I reviewed the patient's medical records. Lab Data I reviewed the patient's lab results. 04/13/25 09:32 04/13/25 09:32 Labs/Radiology: Radiology Impressions Abdomen/Pelvis CT 04/13/25 09:12 IMPRESSION: 1. No GI tract obstruction or colitis. 2. No appendicitis. 3. No renal obstruction. 4. Stable LEFT renal cyst. 5. Prior cholecystectomy. Laboratory Results WBC 6.09 10^3/uL (3.29-11.43) 04/13/25 09:32 RBC 4.65 10^6/uL (3.85-5.65) 04/13/25 09:32 Hgb 12.40 g/dL (11.27-16.99) 04/13/25 09:32 Hct 37.7 % (36-47) 04/13/25 09:32 MCV 81.1 fl (85-98) L 04/13/25 09:32 MCH 26.7 pg (27-33) L 04/13/25 09:32 MCHC 32.9 g/dL (30-55) 04/13/25 09:32 RDW 13.8 % (12.1-15.1) 04/13/25 09:32 Plt Count 290 10^3/cmm (157-399) 04/13/25 09:32 MPV 10.1 fL (7.4-10.4) 04/13/25 09:32 Neut % (Auto) 53.0 % 04/13/25 09:32 Lymph % (Auto) 29.2 % 04/13/25 09:32 [place] % (Auto) 14.0 % 04/13/25 09:32 Eos % (Auto) 2.5 % 04/13/25 09:32 Baso % (Auto) 1.0 % 04/13/25 09:32 Neut # (Auto) 3.23 10^3/uL (1.8-7.7) 04/13/25 09:32 Lymph # (Auto) 1.8 10^3/uL (0.8-4.8) 04/13/25 09:32 [place] # (Auto) 0.9 10^3/uL (0.2-0.9) 04/13/25 09:32 Eos # (Auto) 0.2 10^3/uL (0.0-0.8) 04/13/25 09:32 Baso # (Auto) 0.1 10^3/uL (0.0-0.1) 04/13/25 09:32 Nucleated RBC % (auto) 0 % 04/13/25 09:32 Nucleated RBCs # 0.0 /100WBC 04/13/25 09:32 Sodium 142 mmol/L (136-145) 04/13/25 09:32 Potassium 4.0 mmol/L (3.5-5.1) 04/13/25 09:32 Chloride 103 mmol/L (98-107) 04/13/25 09:32 Carbon Dioxide 26 mmol/L (22-29) 04/13/25 09:32 Anion Gap 17.0 (5-19) 04/13/25 09:32 BUN 9 mg/dL (6-20) 04/13/25 09:32 Creatinine 0.7 mg/dL (0.5-0.9) 04/13/25 09:32 GFR Calculation 87.5 mL/min (90-130) L 04/13/25 09:32 Glucose 103 mg/dL (65-115) 04/13/25 09:32 Calculated Osmolality 293 mOsm/kg (285-295) 04/13/25 09:32 Calcium 9.0 mg/dL (8.5-10.5) 04/13/25 09:32 Total Bilirubin 0.3 mg/dL (0.15-1.2) 04/13/25 09:32 AST 22 U/L (0-32) 04/13/25 09:32 ALT 19 U/L (0-33) 04/13/25 09:32 Alkaline Phosphatase 135 U/L (35-105) H 04/13/25 09:32 Total Protein 7.0 g/dL (6.6-8.7) 04/13/25 09:32 Albumin 3.5 g/dL (3.5-5.2) 04/13/25 09:32 Globulin 3.5 g/dL (1.3-4.6) 04/13/25 09:32 Lipase 23 U/L (13-60) 04/13/25 09:32 Urine Color Yellow (Yellow) 04/13/25 09:32 Urine Appearance Clear (CLEAR) 04/13/25 09:32 Urine pH 7.0 (5-7) 04/13/25 09:32 Ur Specific [place] 1.010 (1.005-1.030) 04/13/25 09:32 Urine Protein Negative (Negative) 04/13/25 09:32 Urine Glucose (UA) Negative (Normal) 04/13/25 09:32 Urine Ketones Negative (Negative) 04/13/25 09:32 Urine Blood Negative (Negative) 04/13/25 09:32 Urine Nitrate Negative (Negative) 04/13/25 09:32 Urine Bilirubin Negative (Negative) 04/13/25 09:32 Urine Urobilinogen 0.2 mg/dL (Negative) 04/13/25 09:32 Ur Leukocyte Esterase Negative (Negative) 04/13/25 09:32 Urine RBC 0-2 /hpf (0-2) 04/13/25 09:32 Urine WBC 0-5 /hpf (0-5) 11/13/25 09:32 Ur Squamous Epith Cells 0-5 /hpf (0-5) 04/13/25 09:32 Amorphous Sediment Not Reportable 04/13/25 09:32 Urine Bacteria None seen /hpf (NONE) 04/13/25 09:32 Hyaline Casts 0.40 /lpf 04/13/25 09:32 All radiology interpretation(s) finalized by discharge Discharge Plan Discharge Patient Disposition: Home Clinical Impression: Abdominal pain Condition: Stable Prescriptions: New naproxen [Naprosyn] 500 mg tablet 500 mg PO BID PRN (Reason: pain) Qty: 20 0RF No Action baclofen 10 mg tablet 20 mg PO BEDTIME spironolactone 25 mg tablet 50 mg PO QAM hydroxyzine HCl 25 mg tablet 25 mg PO BID PRN Zepbound 2.5 mg/0.5 mL pen injector SUBCUT Rezdiffra 100 mg tablet 100 mg PO DAILY bumetanide 0.5 mg tablet 0.5 mg PO QAM montelukast 10 mg tablet 10 mg PO BEDTIME hydrocodone-acetaminophen 7.5-325 mg tablet 1 tab PO BID potassium chloride 10 mEq tablet extended release 10 meq PO EVERY OTHER DAY PRN (Reason: Edema) levocetirizine 5 mg tablet 5 mg PO DAILY naloxone [Narcan] 4 mg/actuation spray,non-aerosol 4 mg intranasal Q2M PRN (Reason: OVERDOSE) Rx Instructions: spray 1 dose into ONE nostril; alternate nostrils w each dose until help arrives nitroglycerin 0.4 mg tablet, sublingual 0.4 mg sublingual Q5M PRN (Reason: chest pain) Qty: 30 3RF Rx Instructions: until response; do not exceed 3 doses per episode isosorbide mononitrate 30 mg tablet extended release 24 hr 30 mg PO DAILY Qty: 90 3RF metoprolol tartrate 25 mg tablet 12.5 mg PO BID Qty: 45 3RF epinephrine 0.3 mg/0.3 mL auto-injector 0.3 mg IM Q10M PRN (Reason: anaphylaxis) Qty: 2 0RF Rx Instructions: for 2 doses atorvastatin 40 mg tablet 40 mg PO BEDTIME albuterol sulfate [Ventolin HFA] 90 mcg/actuation HFA aerosol inhaler 2 puff INHALATION Q6H PRN (Reason: Shortness Of Breath) pantoprazole [Protonix] 40 mg tablet,delayed release (DR/EC) 40 mg PO QAM ergocalciferol (vitamin D2) 1,250 mcg (50,000 unit) capsule 1,250 mcg PO Q7D azelastine 137 mcg (0.1 %) aerosol,spray 1 - 2 spray INTRANASAL BID ciprofloxacin HCl 500 mg tablet 500 mg PO BID Qty: 14 0RF Discharge Orders: Discharge ED (Routine); Ordered 04/13/25 Ordered By: Mikayla Herr Referrals: Cele Borrero DO [Primary Care Provider, Family Practice] - 4-7 days Discharge Diet: Advance as tolerated Discharge Activity: Resume usual activity Patient Instructions: Abdominal Pain (ED) Print Language: Nigerien Coding Level of Care Code ED Attending Radiologist for Ezequiel Randhawa
[2025-04-13 09:46] LABS: Hematocrit 37.7 % (36-47); Hemoglobin 12.40 g/dL (11.27-16.99); Mean Corpuscular HGB Conc 32.9 g/dL (30-55); Mean Corpuscular Hemoglobin 26.7 pg (27-33); Mean Corpuscular Volume 81.1 fl (85-98); Nucleated Red Blood Cells % 0 %; Platelet Count 290 10^3/cmm (157-399); Red Blood Count 4.65 10^6/uL (3.85-5.65); White Blood Count 6.09 10^3/uL (3.29-11.43)
[2025-04-13 09:57] LABS: Alanine Aminotransferase 19 U/L (0-33); Albumin Level 3.5 g/dL (3.5-5.2); Alkaline Phosphatase 135 U/L (35-105); Anion Gap 17.0 (5-19); Aspartate Amino Transferase 22 U/L (0-32); Blood Urea Nitrogen 9 mg/dL (6-20); Calcium 9.0 mg/dL (8.5-10.5); Carbon Dioxide 26 mmol/L (22-29); Chloride 103 mmol/L (98-107); Globulin 3.5 g/dL (1.3-4.6); Glucose 103 mg/dL (65-115); Lipase 23 U/L (13-60); Osmolality Calculated 293 mOsm/kg (285-295); Potassium 4.0 mmol/L (3.5-5.1); Sodium 142 mmol/L (136-145); Total Protein 7.0 g/dL (6.6-8.7)
[2025-04-13 09:59] LABS: Glucose Urine UA Negative (Normal); Nitrate Urine Negative (Negative); Specific Gravity, Urine 1.010 (1.005-1.030)
[2025-04-13] MEDS: iohexol 350 mg/mL 500 mL Btl (per mL) IV (10:02)
[2025-04-13 10:04] LABS: Add Urine Microscopic? YES
[2025-04-13 11:45] VITALS: BP 110/71; PULSE 82; RESP 18; TEMP 36.4; O2SAT 99
== END 2025-04-13 11:46 | disposition home or self-care (01) ==
PROVIDERS: Emergency Provider Emergency Medicine; PCP Family Medicine
DX: R10.32 Left lower quadrant pain (principal); R10.A2 Flank pain, left side; I50.9 Heart failure, unspecified
CPT/HCPCS: 74177; 80053; 81001; 83690; 85025; 99285